=== PATIENT | male | born 1960 | race Caucasian/White ===

== ENCOUNTER 2018-01-08 10:34 | Outpatient (CLI) | payer BC | END 2018-01-08 10:35 | disposition home or self-care (01) | LOC: BICMRI 10:34 | PROVIDERS: ATTEND Neurological Surgery | DX: M54.12 Radiculopathy, cervical region (principal); M48.02 Spinal stenosis, cervical region; M48.03 Spinal stenosis, cervicothoracic region; M99.81 Other biomechanical lesions of cervical region; Z98.1 Arthrodesis status | CPT/HCPCS: 72141 ==

== ENCOUNTER 2018-02-16 05:42 | Day surgery (SDC) | payer BC ==
--- NOTE | 2018-02-16 00:07 | HP ---
HISTORY OF PRESENT ILLNESS: Mr. Sneed is a very pleasant 57-year-old man presenting for evaluation of a single episode roughly 3 weeks ago, but he describes complete right arm paralysis to return in t he next hour to normal state of function. He also describes to me what sounds like Nicolas's pheno cesar, where he gets difficult to describe sensation in the posterior neck that radiates anteriorly i nto the shoulder blades and chest and he has to support 5-10 minutes and then he feels again th ey have returned to normal. He also reports that he has been dropping items. He has a new MRI from [facility] that reveals severe central canal stenosis at C5 to C7 with the prior construct at C3-C4. He bolivar s not treated this in any significant way, though his MRI would preclude in my opinion any conservati ve management between now in surgery. On examination, he has a normal gait and has normal bilateral upper extremity range of motion and strength. His cervical range of motion is somewhat limited but i s nontender to the cervical spine. PAST MEDICAL HISTORY: Significant for arthritis, seasonal allergies, depression. PAST SURGICAL HISTORY: Cervical spinal fusion C3-C4. CURRENT MEDICATIONS: Meloxicam. ALLERGIES: No known drug allergies. PHYSICAL EXAMINATION: As previously stated. ASSESSMENT: Cervical myelopathy. PLAN: Dr. Grider met with the patient, reviewed imaging ultimately advocated for C5 through C7 ACDF. He explained to the patient the risks, benefits, and alternatives of the procedure. The patient exp ressed understanding and would like to move forward with surgery as discussed. I do believe the kayli ent is mentally competent and capable of making medical decisions for himself. We will move forward with surgery as planned. Humble uDran PA-C dictating for Dr. Grider.
[2018-02-16] MEDS ORDERED: CEFAZOLIN/Water 2 GM/20 ML SYRINGE ONE ×2 (06:20→11:18)
[2018-02-16] MEDS ORDERED: Thrombin 5000 UNITS/5 ML VIAL ONE (06:25)
[2018-02-16] MEDS ORDERED: Fentanyl 100 MCG/2 ML VIAL ONE ×3 (07:04→09:03)
[2018-02-16] MEDS ORDERED: Midazolam HCl 2 mg/2 ml Vial ONE (07:04)
[2018-02-16] MEDS ORDERED: Tamsulosin HCl 0.4 MG CAP ONE (09:04)
[2018-02-16] MEDS ORDERED: Ketorolac Tromethamine 30 MG/ML VIAL ONE (09:06)
--- NOTE | 2018-02-16 09:22 | OP ---
DATE OF PROCEDURE: 02/16/2018 SURGEON: Dimitris Grider M.D. HAND POTTER: Humble Duran PA-C. INDICATION: Pain. 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 ANESTHESIA: General. PROCEDURE: Anterior cervical discectomy and fusion C5-C7. TECHNIQUE: The patient was brought to the operating room and placed under general anesthesia. He wa s placed on the table in supine position. A transverse incision was planned over the lateral aspect of the neck on the right. After prepping and draping and after an appropriate operative pause, the i ncision was created. Soft tissues were swept away from midline. A self-retaining retractor was plac ed in the wound for optimal exposure. After confirming the appropriate level with C-arm fluoroscopy, an annulotomy was performed in the C6-7 disk space. All disk material as well as anterior and poste rior osteophytes were removed. After complete decompression, a 7 mm lordotic PEEK cage packed with a llograft and autograft material was placed within the interbody space. We redirected our attention t o the level above at C5-6 where again an annulotomy was performed. All disk material as well as ante rior and posterior osteophytes were removed. After complete decompression, a 6 mm lordotic PEEK cage packed with allograft and autograft material was placed within the interbody space. An anterior cer vical plate was then fashioned to the front of the spine and secured with a total of 6 screws. Midli ne and lateral structures were inspected and found to be free from significant trauma. The wound was irrigated. Hemostasis was maintained throughout. The wound was then closed in anatomic layers and a pressure dressing was applied. There were no known procedural complications.
[2018-02-16] MEDS ORDERED: HYDROcodone/Acetaminophen 5/325 mg Tablet ONE (11:18)
[2018-02-16] MEDS ORDERED: Dexamethasone 20 MG/5 ML VIAL ONE (16:24)
[2018-02-16] MEDS ORDERED: PROPOFOL 200 MG/20 ML VIAL ONE (16:24)
[2018-02-16] MEDS ORDERED: Ondansetron HCl/PF 4 MG/2 ML Vial ONE (16:24)
[2018-02-16] MEDS ORDERED: Glycopyrrolate 0.2 MG/ML 5 ML SYRINGE ONE (16:24)
[2018-02-16] MEDS ORDERED: PHENYLEPHRINE-NS 100 MCG/ML 10 ML SYRINGE ONE (16:24)
== END 2018-02-16 12:18 | disposition home or self-care (01) ==
LOC: SDC 05:42
PROVIDERS: ATTEND Neurological Surgery
PROC: 0RG10A0 Fusion of Cervical Vertebral Joint with Interbody Fusion Device, Anterior Approach, Anterior Column, Open Approach (ICD-10-PCS; principal; 2018-02-16)
PROC: 0RT30ZZ Resection of Cervical Vertebral Disc, Open Approach (ICD-10-PCS; principal; 2018-02-16)
DX: M47.22 Other spondylosis with radiculopathy, cervical region (principal); M47.12 Other spondylosis with myelopathy, cervical region; M48.02 Spinal stenosis, cervical region; M19.90 Unspecified osteoarthritis, unspecified site; F32.9 Major depressive disorder, single episode, unspecified; J30.89 Other allergic rhinitis; Z98.1 Arthrodesis status
CPT/HCPCS: 76001; 96374; 96375; 96376; C1713; C1776; J1100; J1885; J2250; J2405; J2704; J3010

== ENCOUNTER 2018-04-07 09:05 | Outpatient (CLI) | payer BC ==
--- NOTE | 2018-04-07 11:02 | RAD ---
FOUR VIEWS CERVICAL SPINE: HISTORY: Cervical radiculopathy. COMPARISON: None. FINDINGS: In the AP projection, there is a posterior element wire projecting over the C3 and C4 levels. There is an anterior fusion plate with transvertebral body screw at C5, C6, and C7. There is no perihardwa re lucency. There is fusion of the C3-C4 disk space. There is moderate degenerative change at C4-C5, C5-C6. Dis k prosthesis at C5-C6 and C6-C7. No prevertebral soft tissue swelling. Predental space is normal. Lateral masses of C1 and C2 articulate appropriately. Limited evaluation of the odontoid process. IMPRESSION: Cervical fusion changes as above. POS: [facility]
== END 2018-04-07 09:06 | disposition home or self-care (01) ==
LOC: TBSIIMAG 09:05
PROVIDERS: ATTEND Neurological Surgery
DX: M54.12 Radiculopathy, cervical region (principal); Z98.1 Arthrodesis status
CPT/HCPCS: 72040

== ENCOUNTER 2018-04-17 10:03 | Outpatient (CLI) | payer BC ==
--- NOTE | 2018-04-17 13:59 | MRI ---
MRI LUMBAR SPINE WITHOUT CONTRAST: Date: 04/17/18 HISTORY: Lumbar radiculopathy. Chronic low back pain, worsening on right side. COMPARISON: None. TECHNIQUE: MRI lumbar spine is performed without intravenous Gadolinium administration. Multisequential, multipl ankur imaging is performed. FINDINGS: Appropriate T1 marrow signal intensity of the lumbar vertebra. Lumbar spine vertebral body height is maintained. There is no fracture. No significant STIR hyperintensity to suggest vertebral body edema or ligamentous injury. Symmetric signal intensity of the psoas muscles. Appropriate signal intensity of the visualized solid organs. Conus medullaris terminates at the upper aspect of L1. T12-L1: Adequate disc hydration. No significant central canal stenosis. Foramina are patent. L1-L2: Adequate disc hydration. No significant central canal stenosis. Neural foramina are patent. L2-L3: Desiccation with mild loss of disc space height. Generalized disc bulge, ligamentum flavum th ickening, and facet hypertrophy result in mild central canal stenosis. Mild right foraminal narrowing . Left neural foramen is patent. L3-L4: Moderate loss of disc space height. There is a broad based disc bulge, ligamentum flavum thic kening, and facet hypertrophy with severe central canal stenosis. Moderate right and mild left neural foraminal narrowing. L4-L5: Desiccation with mild loss of disc space height. Broad based disc bulge, ligamentum flavum th ickening, and facet hypertrophy with moderate to severe central canal stenosis. Questionable small an nular fissure involving the posterior midline margin of the disc. Moderate to severe right and left n eural foraminal narrowing. L5-S1: Desiccation with mild loss of disc space height. There is a broad based disc bulge with a sma ll left subarticular extrusion. There is no significant stenosis of the thecal sac. Disc material abu ts and partially obscures the traversing left S1 nerve root. There is moderate bilateral neural ismael inal narrowing. IMPRESSION: 1. Degenerative changes of the lumbar spine as above. There is moderate to severe central canal sten osis at L4-L5. Severe central canal stenosis at L3-L4. 2. Mass effect with partial obscuration of traversing left S1 nerve root due to disc material in the left subarticular zone. POS: [facility]
== END 2018-04-17 10:04 | disposition home or self-care (01) ==
LOC: BICMRI 10:03
PROVIDERS: ATTEND Neurological Surgery
DX: M47.26 Other spondylosis with radiculopathy, lumbar region (principal); M48.061 Spinal stenosis, lumbar region without neurogenic claudication
CPT/HCPCS: 72148

== ENCOUNTER 2018-05-20 08:36 | Day surgery (SDC) | payer BC ==
[2018-05-13 09:35] VITALS: BMI 34.3
--- NOTE | 2018-05-19 13:21 | HP ---
HISTORY OF PRESENT ILLNESS: Mr. Laurent is a 57-year-old man, who is known to us for recent ACDF that is recovered sufficiently well enough to pursue treatment of his lower back, which is specific for history of severe lower back pain with neurogenic claudication. He also had some minor L4 radicular pains that alternates between the left and right lower extremity. His new MRI from [place] that reveals critical stenosis at L3-4 via disk herniation centrally. He hopes to move forward with surgery to treat this. PAST MEDICAL HISTORY: Arthritis, seasonal allergies, depression. PAST SURGICAL HISTORY: Cervical ACDF C3-4 and C5-C7. CURRENT MEDICATIONS: Meloxicam. ALLERGIES: NO KNOWN DRUG ALLERGIES. PHYSICAL EXAMINATION: GENERAL: The patient is alert and oriented x3. MUSCULOSKELETAL: Gait is mildly antalgic. Lower extremity motor exam is normal. ASSESSMENT: Lumbar stenosis with claudication. PLAN: Dr. Grider met with the patient, reviewed imaging, and advocated for an L3-4 decompression with possible diskectomy. He explained to the patient about the risks, benefits, and alternatives of the procedure. The patient expressed understanding and elected to move forward with surgery as discussed. I do believe the patient is mentally competent and capable of making medical decisions for himself. We will move forward with surgery as planned. Job ID: [id number]
[2018-05-20] MEDS ORDERED: CEFAZOLIN 2 GM/50 ML BAG ONE ×2 (10:06→15:27)
[2018-05-20] MEDS ORDERED: Bupivacaine HCl 0.5%/Epinephrine 1:200,000/PF 30 ml Vial ONE (10:42)
[2018-05-20] MEDS ORDERED: Fentanyl 100 MCG/2 ML VIAL ONE (11:03)
[2018-05-20] MEDS ORDERED: Tamsulosin HCl 0.4 MG CAP ONE (12:43)
[2018-05-20] MEDS ORDERED: Rocuronium Bromide 10 MG/ML (10ML VIAL) ONE (15:13)
[2018-05-20] MEDS ORDERED: Glycopyrrolate 0.2 MG/ML 5 ML SYRINGE ONE (15:13)
[2018-05-20] MEDS ORDERED: Dexamethasone 20 MG/5 ML VIAL ONE (15:13)
[2018-05-20] MEDS ORDERED: PROPOFOL 200 MG/20 ML VIAL ONE (15:13)
[2018-05-20] MEDS ORDERED: Lidocaine 1% PF 5 ML VIAL ONE (15:13)
[2018-05-20] MEDS ORDERED: PHENYLEPHRINE-NS 100 MCG/ML 10 ML SYRINGE ONE (15:13)
[2018-05-20] MEDS ORDERED: Ketorolac Tromethamine 30 MG/ML VIAL ONE (15:13)
[2018-05-20] MEDS ORDERED: Ondansetron PF 4 MG/2 ML Vial ONE (15:13)
--- NOTE | 2018-05-20 18:13 | OP ---
DATE OF PROCEDURE: 05/20/2018 MED CARE MANAGER: Humble Duran PA-C INDICATION: Pain. DIAGNOSES: Lumbar stenosis and neurogenic claudication. PROCEDURE PERFORMED: L3-L4 lumbar decompression. ANESTHESIA: General. DESCRIPTION OF PROCEDURE: The patient was brought into the operating room and placed under general anesthesia. He was flipped from the supine to prone position on the operating room table. A linear incision was planned over the L3-L4 segment. After prepping and draping and after a preoperative pause, the incision was created. The soft tissues were swept away from midline. A self-retaining retractor was placed in the wound for optimal exposure. After confirming the appropriate level with C-arm fluoroscopy, an Adson rongeur as well as a high-speed cutting drill bit as well as 2, 3, and 4 mm Kerrison's were used to perform a laminectomy at the L3-L4 interspace. After decompressing the central canal and lateral recesses, the wound was irrigated. Hemostasis was maintained throughout. The wound was then closed in anatomic layers and a pressure dressing was applied. There were no known procedural complications. Job ID: [id number]
== END 2018-05-20 17:00 | disposition home or self-care (01) ==
LOC: SDC 08:36
PROVIDERS: ATTEND Neurological Surgery
PROC: 01NB0ZZ Release Lumbar Nerve, Open Approach (ICD-10-PCS; principal; 2018-05-20)
DX: M48.062 Spinal stenosis, lumbar region with neurogenic claudication (principal); M51.16 Intervertebral disc disorders with radiculopathy, lumbar region; M19.90 Unspecified osteoarthritis, unspecified site; F32.9 Major depressive disorder, single episode, unspecified; J30.2 Other seasonal allergic rhinitis; Z79.1 Long term (current) use of non-steroidal anti-inflammatories (NSAID); Z98.1 Arthrodesis status
CPT/HCPCS: 76000; J0670; J1100; J1885; J2001; J2405; J2704; J3010

== ENCOUNTER 2020-04-09 19:07 | Inpatient (IN) | payer BC ==
[2020-04-09 19:36] LABS: Actual Bicarbonate (HCO3a) 21.1 mEq/L (22-28); Analyzer IN Cardio ER; Base Excess (BEa) -2.1 mEq/L (-2.0 to +3.0); Calcium, Ionized (arterial) 1.14 mmol/L (1.12-1.30); Carboxyhemoglobin (COHb) 0.7 gm% (0.0-3.0); Hemoglobin (Hb) 15.5 g/dL (14.0-18.0); pH, Arterial 7.44 (7.35-7.45)
[2020-04-09 19:52] LABS: #Lymphocytes 0.5 thou/uL (1.20-3.40); #Monocytes 0.2 thou/uL (0.11-0.59); #Neutrophils 4.3 thou/uL (1.40-6.50); %Eosinophils 0.1 % (0.0-10.0); %Lymphocytes 10.2 % (21.0-51.0); %Monocytes 3.1 % (0.0-10.0); %Neutrophils 86.6 % (42.0-75.0); Hemoglobin 14.9 g/dL (14.0-18.0); Mean Corpuscular HGB CONC 34.8 g/dL (32.0-36.0); Mean Corpuscular Hemoglobin 31.9 pg (27.0-31.0); Mean Corpuscular Volume 91.7 fL (78.0-98.0); Mean Platelet Volume 6.6 fL (7.4-10.4); Platelet Count 161 thou/uL (130-400); RBC Distribution Width 11.9 % (11.5-14.5); Red Blood Cell (RBC) Count 4.65 mill/uL (4.70-6.10)
--- NOTE | 2020-04-09 20:02 | RAD ---
Exam: Chest one view HISTORY:Dyspnea. History 70 saturation. Comparison: 06/06/2006 FINDINGS: Cardiac silhouette: Normal Aorta: Unremarkable Pulmonary vessels: Normal Costophrenic angles: Clear LUNGS: Multi lobar alveolar opacification with air bronchograms. Pneumothorax: None Osseous abnormalities: Interval evaluated cervical fusion hardware. IMPRESSION: Multi lobar alveolar opacification with air bronchograms. Correlate for multi lobar pneum onia versus pulmonary edema
[2020-04-09 20:14] LABS: O2 Tension (PaO2), arterial 47.9 mmHg (80.0-100.0)
[2020-04-09 20:15] LABS: Puncture Site RRA
[2020-04-09 20:16] LABS: ALT (SGPT) 27 U/L (8-55); AST (SGOT) 33 U/L (5-34); Albumin 3.7 g/dL (3.5-5.0); Alkaline Phosphatase 59 U/L (40-110); Anion Gap 17 mmol/L (10-20); BUN (Urea Nitrogen) 13 mg/dL (8.4-25.7); Bilirubin, Total 0.8 mg/dL (0.2-1.2); CK (CPK) 712 U/L (30-200); Calc. Creatinine Clearance 0 mL/min (70-130); Calcium 8.2 mg/dL (7.8-10.44); Carbon Dioxide 24 mmol/L (22-29); Chloride 96 mmol/L (98-107); Globulin 2.7 g/dL (2.4-3.5); Glucose 187 mg/dL (70-105); Potassium 3.6 mmol/L (3.5-5.1); Protein, Total 6.4 g/dL (6.0-8.3); Sodium 133 mmol/L (136-145)
[2020-04-09] MEDS ORDERED: cefTRIAXone\\ROCEPHIN 2 GM VIAL ONE (20:53)
[2020-04-09] MEDS ORDERED: Acetaminophen 500 MG TAB ONE (20:53)
[2020-04-09 21:34] LABS: Lactic Acid 2.4 mmol/L (0.5-2.2)
[2020-04-09] MEDS ORDERED: Electrolyte Replacement Protocol 1 EACH FS PRN (23:45)
[2020-04-09] MEDS ORDERED: Ondansetron PF 4 MG/2 ML Vial IVP PRN (23:48)
[2020-04-09] MEDS ORDERED: cloNIDine 0.1 MG TAB PO PRN (23:48)
[2020-04-09] MEDS ORDERED: hydrALAZINE 20 MG/ML VIAL SLOW IVP PRN (23:48)
[2020-04-09] MEDS ORDERED: Labetalol HCl 100 MG/20 ML VIAL SLOW IVP PRN (23:48)
[2020-04-09] MEDS ORDERED: Promethazine HCl 12.5 MG in Sodium Chloride 0.9% 50 ML IVPB PRN (23:48)
[2020-04-09] MEDS ORDERED: HYDROcodone/Acetaminophen 5/325 mg Tablet PO PRN (23:48)
[2020-04-09] MEDS ORDERED: Morphine 2 MG/ML VIAL SLOW IVP PRN (23:48)
--- NOTE | 2020-04-09 23:50 | PDOC.HHP ---
Hospitalist HPI - History of Present Illness Shortness of breath History of Present Illness: Patient is a 59 year old male with no significant PMH who presents as transfer from [facility] for shortness of breath and hypoxia. Patient was diagnosed with COVID 19 on 04/05/2020, he has completed a course of azithromycin/Z-pack and prednisone as outpatient, however he persisted short of breath at home, checked pulse oximeter and was satting in 60s, went to [facility] and they reported similar saturation, he improved to high 80s on NRB and was eventually placed on HFNC and is sating in mid 90s now. He was given IV decadron there and transferred. Ferritin 612, CK 712, glucose 187, abg w/ ph 7.44, pco2 32, po2 47. CXR report shows multilobar pneumonia w/ air bronchograms. Hospitalist ROS - Review of Systems Constitutional: reports: weakness, malaise. denies: fever, chills, sweats, other Eyes: denies: pain, vision change, conjunctivae inflammation, eyelid inflammation, redness, other ENT: denies: ear pain, ear discharge, nose pain, nose discharge, nose congestion, mouth pain, mouth swelling, throat pain, throat swelling, other Respiratory: reports: cough, shortness of breath, pleuritic pain. denies: dry, hemoptysis, SOB with excertion, sputum, wheezing, other Cardiovascular: denies: chest pain, palpitations, orthopnea, paroxysmal noc. dyspnea, edema, light headedness, other Gastrointestinal: denies: nausea, vomiting, abdominal pain, diarrhea, constipation, melena, hematochezia, other Genitourinary: denies: dysuria, frequency, incontinence, hematuria, retention, other Musculoskeletal: denies: neck pain, shoulder pain, arm pain, back pain, hand pain, leg pain, foot pain, other Skin: denies: rash, lesions, arabella, bruising, other Neurological: denies: weakness, numbness, incoordination, change in speech, confusion, seizures, other All other systems reviewed; all pertinent +/- noted in HPI/Subj - Medication Medications: none - Exam General Appearance: NAD, awake alert Eye: PERRL, anicteric sclera ENT: normocephalic atraumatic, no oropharyngeal lesions, moist mucosa Neck: supple, symmetric, no JVD, no thyromegaly, no lymphadenopathy, no carotid bruit Heart: RRR, no murmur, no gallops, no rubs, normal peripheral pulses Respiratory - other findings: coarse, decreased breath sounds Gastrointestinal: soft, non-tender, non-distended, normal bowel sounds, no palpable masses, no hepatomegaly, no splenomegaly, no bruit Extremities: no cyanosis, no clubbing, no edema Skin: normal turgor, no lesions, no rashes Neurological: cranial nerve grossly intact, normal sensation to touch, no weakness, no focal deficits, no new deficit Musculoskeletal: normal tone, normal strength, no muscle wasting Psychiatric: normal affect, normal behavior, A&O x 3 Hospitalist Results - Labs Result Diagrams: 04/09/20 19:35 04/09/20 19:35 Lab results: WBC 5.0 thou/uL (4.8-10.8) 04/09/20 19:35 Hgb 14.9 g/dL (14.0-18.0) 04/09/20 19:35 Hct 42.7 % (42.0-52.0) 04/09/20 19:35 MCV 91.7 fL (78.0-98.0) 04/09/20 19:35 Plt Count 161 thou/uL (130-400) 04/09/20 19:35 Neutrophils % 86.6 % (42.0-75.0) H 04/09/20 19:35 ABG pH 7.44 (7.35-7.45) 04/09/20 19:32 ABG pCO2 32.0 mmHg (35.0-45.0) L 04/09/20 19:32 ABG pO2 47.9 mmHg (80.0-100.0) L* 04/09/20 19:32 Sodium 133 mmol/L (136-145) L 04/09/20 19:35 Potassium 3.6 mmol/L (3.5-5.1) 04/09/20 19:35 Chloride 96 mmol/L (98-107) L 04/09/20 19:35 Carbon Dioxide 24 mmol/L (22-29) 04/09/20 19:35 BUN 13 mg/dL (8.4-25.7) 04/09/20 19:35 Creatinine 0.86 mg/dL (0.7-1.3) 04/09/20 19:35 Glucose 187 mg/dL (70-105) H 04/09/20 19:35 Lactic Acid 2.4 mmol/L (0.5-2.2) H 04/09/20 21:09 Calcium 8.2 mg/dL (7.8-10.44) 04/09/20 19:35 Total Bilirubin 0.8 mg/dL (0.2-1.2) 04/09/20 19:35 AST 33 U/L (5-34) 04/09/20 19:35 ALT 27 U/L (8-55) 04/09/20 19:35 Alkaline Phosphatase 59 U/L (40-110) 04/09/20 19:35 Creatine Kinase 712 U/L (30-200) H 04/09/20 19:35 Troponin I 0.012 ng/mL (< 0.028) 04/09/20 19:35 B-Natriuretic Peptide Less than 10.0 pg/mL (0-100) 04/09/20 19:35 Serum Total Protein 6.4 g/dL (6.0-8.3) 04/09/20 19:35 Albumin 3.7 g/dL (3.5-5.0) 04/09/20 19:35 Additional comment: VITAL SIGNS Sun Apr 09, 2020 21:58 STEPHANY Díaz, Wendi BP: 119/71 Pulse: 82 Resp: 24 Temp: 98.2 (Axillary) O2 sat: 92 on (High Flow O2) Time: 04/09/2020 21:58. records reviewed, imaging reports reviewed, labs reviewed Hospitalist H&P A/P - Plan Plan: Patient is a 59 year old male with no significant PMH who presents as transfer from [facility] for shortness of breath and hypoxia. # COVID 19 infection # hypoxemia # multifocal pneumonia Patient was diagnosed with COVID 19 on 04/05/2020, completed outpatient course of azithromycin and prednisone, pulse oximeter at home showed saturation in 60s, now improved on HFNC and is sating in mid 90s now. CXR report shows multilobar pneumonia w/ air bronchograms. - admit to med/surg flood - continue HFNC - IV decadron and levaquin ordered - ID consult to have patient considered advanced therapies # hyperglycemia - will order a1c and SSI to rule out DM, he did get steroids recently so this may be temporary side effect and not true DM DVT/GI ppx full code
[2020-04-10] MEDS: Guaifenesin DM 100-10/5 ML UDCUP PO PRN (01:23)
[2020-04-10] MEDS ORDERED: Dextrose 50% Abboject 50 ML SYRINGE SLOW IVP PRN (01:51)
[2020-04-10] MEDS ORDERED: Dextrose 5% in Water 1,000 ML IV PRN (01:51)
[2020-04-10 06:11] LABS: #Lymphocytes 0.5 thou/uL (1.20-3.40); #Monocytes 0.2 thou/uL (0.11-0.59); #Neutrophils 3.2 thou/uL (1.40-6.50); %Eosinophils 0.3 % (0.0-10.0); %Lymphocytes 11.8 % (21.0-51.0); %Monocytes 6.2 % (0.0-10.0); %Neutrophils 81.7 % (42.0-75.0); Hemoglobin 14.3 g/dL (14.0-18.0); Mean Corpuscular HGB CONC 34.9 g/dL (32.0-36.0); Mean Corpuscular Hemoglobin 32.2 pg (27.0-31.0); Mean Corpuscular Volume 92.2 fL (78.0-98.0); Mean Platelet Volume 6.6 fL (7.4-10.4); Platelet Count 166 thou/uL (130-400); RBC Distribution Width 11.8 % (11.5-14.5); Red Blood Cell (RBC) Count 4.45 mill/uL (4.70-6.10); White Blood Cell (WBC) Count 3.9 thou/uL (4.8-10.8)
[2020-04-10 06:15] LABS: Hemoglobin A1c 5.3 % (4.0-6.0)
[2020-04-10 06:31] LABS: Anion Gap 14 mmol/L (10-20); BUN (Urea Nitrogen) 12 mg/dL (8.4-25.7); Calc. Creatinine Clearance 177 mL/min (70-130); Calcium 8.4 mg/dL (7.8-10.44); Carbon Dioxide 26 mmol/L (22-29); Chloride 100 mmol/L (98-107); Glucose 147 mg/dL (70-105); Magnesium 2.4 mg/dL (1.6-2.6); Potassium 3.8 mmol/L (3.5-5.1); Sodium 136 mmol/L (136-145)
[2020-04-10] MEDS: Famotidine 20 MG TAB PO SCH ×2 (08:45→19:37)
[2020-04-10] MEDS ORDERED: Albuterol 200 PUFF (6.7GM INHALER) INH PRN (08:56)
[2020-04-10] MEDS: Zinc Sulfate 220 MG CAP PO SCH (08:59)
[2020-04-10] MEDS: guaiFENesin ER 600 MG TAB PO SCH ×2 (08:59→19:38)
[2020-04-10] MEDS: Ascorbic Acid 500 mg Chewable Tablet PO SCH (08:59)
[2020-04-10] MEDS: Enoxaparin Sodium 40 MG/0.4 ML SYRINGE SC SCH ×2 (08:59→19:37)
[2020-04-10] MEDS ORDERED: Heparin 5,000 UNITS/ML VIAL SC SCH (09:00)
[2020-04-10] MEDS ORDERED: FLU VACC QS2020-21(6MOS UP)/PF 60 MCG/0.5 ML SYRINGE IM ONE (09:00)
--- NOTE | 2020-04-10 11:27 | PDOC.HOSPP ---
- Subjective Encounter Date: 04/10/20 Encounter Time: 10:00 Subjective: Patient seen and examined bedside today, patient is on high flow oxygen, patient does not have any fever, he feels shortness of breath with exertion, denies any wheezing, he does not have any significant cough, - Objective Vital Signs & Weight: Vital Signs (12 hours) Temp Pulse Resp BP Pulse Ox 04/10/20 09:06 98.6 F 81 20 105/66 89 L 04/10/20 08:59 90 L 04/10/20 04:30 98.3 F 83 20 104/64 93 L 04/10/20 02:15 90 L 04/10/20 00:49 91 L 04/10/20 00:05 98.9 F 84 22 H 115/66 91 L Weight Weight 247 lb Result Diagrams: 04/10/20 05:31 04/10/20 05:31 Additional Labs: Accuchecks 04/10/20 04:02 POC Glucose 163 H Radiology Reviewed by me: Yes EKG Reviewed by me: Yes Hospitalist ROS - Review of Systems Constitutional: reports: weakness. denies: fever, chills, sweats, malaise, other ENT: denies: ear pain, ear discharge, nose pain, nose discharge, nose trinidad estion, mouth pain, mouth swelling, throat pain, throat swelling, other Respiratory: reports: cough, shortness of breath, SOB with excertion. denies: dry, hemoptysis, pleuritic pain, sputum, wheezing, other Cardiovascular: denies: chest pain, palpitations, orthopnea, paroxysmal noc. dyspnea, edema, light headedness, other Gastrointestinal: denies: nausea, vomiting, abdominal pain, diarrhea, constipation, melena, hematochezia, other Genitourinary: denies: dysuria, frequency, incontinence, hematuria, retention, other Musculoskeletal: denies: neck pain, shoulder pain, arm pain, back pain, hand pain, leg pain, foot pain, other Skin: denies: rash, lesions, arabella, bruising, other - Medication Medications: Active Medications Generic Name Dose Route Start Last Admin Trade Name Freq PRN Reason Stop Dose Admin Ascorbic Acid 1,000 mg 04/10/20 09:00 04/10/20 08:59 Ascorbic Acid 500 Mg Chewable Tablet PO 1,000 mg DAILY JASON Administration Enoxaparin Sodium 40 mg 04/10/20 09:00 04/10/20 08:59 Enoxaparin Sodium 40 Mg/0.4 Ml Syringe SC 40 mg 09,2100 JASON Administration Famotidine 20 mg 04/10/20 09:00 04/10/20 08:45 Famotidine 20 Mg Tab PO 20 mg BID JASON Administration Guaifenesin 600 mg 04/10/20 09:00 04/10/20 08:59 Guaifenesin Er 600 Mg Tab PO 600 mg Q12HR JASON Administration Guaifenesin/Dextromethorphan 15 ml 04/09/20 23:48 04/10/20 01:23 Guaifenesin Dm 100-10/5 Ml Udcup PO 15 ml Q4H PRN Administration Cough Levofloxacin 750 mg/ Device 150 mls @ 100 mls/hr 04/10/20 02:00 04/10/20 02:17 IVPB 04/14/20 03:29 150 mls Q24HR JASON Administration Zinc Sulfate 220 mg 04/10/20 09:00 04/10/20 08:59 Zinc Sulfate 220 Mg Cap PO 220 mg DAILY JASON Administration - Exam General Appearance: NAD, awake alert Eye: PERRL, anicteric sclera ENT: normocephalic atraumatic, no oropharyngeal lesions Neck: supple, symmetric, no JVD, no thyromegaly Heart: RRR, no murmur, no gallops, no rubs Respiratory: no wheezes, no ronchi Respiratory - other findings: Air entry reduced at base, Gastrointestinal: soft, non-tender, non-distended, normal bowel sounds Gastrointestinal - other findings: Obesity noted Extremities: no clubbing, no edema Skin: normal turgor, no lesions Neurological: no focal deficits Musculoskeletal: normal tone, normal strength Psychiatric: normal affect, normal behavior, A&O x 3 Hosp A/P (1) Acute and chronic respiratory failure with hypoxia Code(s): J96.21 - ACUTE AND CHRONIC RESPIRATORY FAILURE WITH HYPOXIA Status: Acute (2) Pneumonia due to COVID-19 virus Code(s): U07.1 - COVID-19; J12.89 - OTHER VIRAL PNEUMONIA Status: Acute (3) Hyperglycemia Code(s): R73.9 - HYPERGLYCEMIA, UNSPECIFIED Status: Acute Plan: Due to steroid, hemoglobin A1c within normal limit, (4) Lactic acidosis Code(s): E87.2 - ACIDOSIS Status: Acute Plan: Resolved (5) Obesity (BMI 30.0-34.9) Code(s): E66.9 - OBESITY, UNSPECIFIED Status: Chronic - Plan old records reviewed/req, respiratory therapy, DVT proph w/lovenox Infectious disease consulted, Continue Proventil HFA, Mucinex, vitamin C, zinc sulfate, Continue dexamethasone Continue Lovenox for DVT prophylaxis Remdesivir evaluation Medication reviewed and continue provide symptomatic and supportive care We will monitor labs Continue high flow oxygen and wean off as tolerated
[2020-04-10] MEDS: Albuterol 200 PUFF (6.7GM INHALER) INH SCH ×4 (12:12→22:08)
[2020-04-10] MEDS ORDERED: REMDESIVIR (EUA) 200 MG in Sodium Chloride 0.9% 250 ML 210 ML IV SCH (15:00)
[2020-04-10] MEDS ORDERED: Dexamethasone 4 mg/ml Vial SLOW IVP SCH (17:00)
[2020-04-10] MEDS: Mometasone 200 MCG/Formoterol 5 MCG 120 PUFF INHALER INH SCH (17:57)
[2020-04-10] MEDS: Dexamethasone 4 mg/ml Vial SLOW IVP SCH (19:37)
[2020-04-10 20:37] LABS: Actual Bicarbonate (HCO3a) 24.6 mEq/L (22-28); Base Excess (BEa) 0.7 mEq/L (-2.0 to +3.0); CO2 Tension 37.4 mmHg (35.0-45.0); Calcium, Ionized (arterial) 1.14 mmol/L (1.12-1.30); Carboxyhemoglobin (COHb) 1.2 gm% (0.0-3.0); Hemoglobin (Hb) 15.6 g/dL (14.0-18.0); Potassium - ABG Lab 3.52 mmol/L (3.70-5.30); pH, Arterial 7.44 (7.35-7.45)
--- NOTE | 2020-04-10 20:38 | CON ---
DATE OF CONSULTATION: 04/10/2020 REASON FOR CONSULTATION: COVID pneumonia. HISTORY OF PRESENT ILLNESS: A 59-year-old patient who has a history of C-spine issues with prior fusion and a right hip replacement who developed symptoms about 7 days before admission, was then seen at [facility] and given azithromycin and prednisone. His oximetry deteriorated and it measured at 60% on room air, 90% on non-rebreathing in emergency room after arriving again for re-evaluation. He was transferred to [place] and admitted in the 4th floor, sitting in bed. O2 saturations are at 89%-90% with a high-flow nasal cannula at 50 L. He from time to time will cough, he is coughing intensely as matter of fact. When doing coughing spells, his O2 sats dropped and then when he stops coughing, they go up to 91 and he starts hyperventilating, then it goes up to 94%-95%, but then when he goes back to normal ventilation, the O2 saturations return to 91 or 89. Denies any headaches. No nausea or vomiting. No bleeding. No chest pain, abdominal pain, or diarrhea. No genitourinary symptoms. No joint symptoms. No neurological symptoms. MEDICAL HISTORY: C-spine issues and right hip replacement. No other medical problems reported. SOCIAL HISTORY: He is employed, , drinks weekly, never smoker. ALLERGIES: NONE. CURRENT MEDS: 1. Vitamin C. 2. Decadron. 3. Glucagon. 4. Remdesivir. FAMILY HISTORY: Noncontributory. PHYSICAL EXAMINATION: VITAL SIGNS: Afebrile. T-max 98.6. On high-flow nasal cannula at 40 L 94%. When I saw him, he was 50 L saturating in the 89-90. He was able to bring the O2 sats higher only if he is hyperventilated. BP 105/66. GENERAL: He did not appear in particular distress except when he coughed. I tried to make him lay down to see if he could tolerate prone position, but he could not. His O2 sats dropped even further into the low 80s when he did that. HEENT: His ocular movements are conjugate. Oral cavity normal. NECK: Supple. LUNGS: Symmetric air entry with scattered inspiratory crackles. No wheezing. CARDIOVASCULAR: S1, S2. Regular rate. No S3, S4. ABDOMEN: Soft, not distended or tender. No bladder distention or joint inflammatory activity. NEURO EXAMINATION: Nonfocal. No edema. LABORATORY DATA: White cell count 3.9, hemoglobin 14, platelets 166, 81% neutrophils, and creatinine 0.73. Liver profile normal. CK 712. Albumin 3.7. Troponin 0.012. BNP less than 10. Blood gas yesterday with PO2 47, pCO2 32. Chest x-ray, diffuse bilateral infiltrates. ASSESSMENT: No major medical problems in the past, now with severe coronavirus disease 2019 pneumonia. The patient may have deteriorated due to the early introduction of corticosteroids in his regimen within the first week, which will suppress an interferon response and innate immune response, presumably may lead to higher levels of viral replication. This is verified in the results of the [place] trial with Decadron that showed that early-stage patients do not benefit from introduction of corticosteroids. Nonetheless, we will start him on Remdesivir and continue Decadron. I believe Pulmonary Medicine should be consulted because he is right at the margin where he might require a higher level of intervention such as BiPAP or even intubation with mechanical ventilation. May consider also transfer to [facility], monitor markers, and daily labs including BMP and liver function. Job ID: [id number] [facility] CENTERKeena
[2020-04-10 20:39] LABS: O2 Tension (PaO2), arterial 32.5 mmHg (80.0-100.0); Puncture Site RRA
--- NOTE | 2020-04-10 20:57 | PDOC.EVN ---
Event Note - Event Note Event Note: Nursing called, patient tachypneic and tachycardic and hypoxic after ambulation. Reported sp02 drops 70s with any movement. HR regular in low 110s. RR 25-30. Will get stat ABG and stat EKG, likely transfer to [facility].
--- NOTE | 2020-04-10 21:39 | CON ---
DATE OF CONSULTATION: HISTORY OF PRESENT ILLNESS: This is a 59-year-old obese a gentleman, 112 kg, who came to the hospital on 04/09/2020 after having progressive respiratory failure, shortness of breath secondary to ortega positive pneumonia. He took a course of Zithromax and prednisone. Sats were in the 60s on room air. He is now on a high-flow. He is started on remdesivir. He has been started on convalescent plasma, high-dose steroids. There are cough and shortness of breath. No fever. No chills. PAST MEDICAL HISTORY: Arthritis. HOME MEDICINES: Apparently none. He was in the hospital about a year ago with arthritis, cervical disk disease. He underwent surgical intervention. L3-L4 lumbar decompression surgery. PHYSICAL EXAMINATION: VITAL SIGNS: His sats on 40%, rate of 40, 94; respiratory rate 18; temperature 98; blood pressure 119/77. CHEST: No wheezing. No crackles. CARDIAC: Normal S1, S2. No gallops. ABDOMEN: No masses. LABORATORY DATA: Platelet count is normal. White count is 3000. Lytes are normal. X-ray shows bilateral infiltrates. ASSESSMENT: Ortega positive pneumonia, respiratory failure. PLAN: Agree with remdesivir, plasma, high-dose steroids. Supportive care. We will follow. Consultation note, 70 minutes, 50% direct patient care. Job ID: [id number]
[2020-04-11] MEDS: Albuterol 200 PUFF (6.7GM INHALER) INH SCH ×6 (02:30→23:10)
[2020-04-11 04:20] LABS: #Lymphocytes 0.5 thou/uL (1.20-3.40); #Monocytes 0.3 thou/uL (0.11-0.59); #Neutrophils 6.1 thou/uL (1.40-6.50); %Basophils 0.1 % (0.0-1.0); %Eosinophils 0.2 % (0.0-10.0); %Lymphocytes 7.9 % (21.0-51.0); %Monocytes 3.8 % (0.0-10.0); %Neutrophils 88.1 % (42.0-75.0); Hemoglobin 14.6 g/dL (14.0-18.0); Mean Corpuscular HGB CONC 34.9 g/dL (32.0-36.0); Mean Corpuscular Hemoglobin 31.6 pg (27.0-31.0); Mean Corpuscular Volume 90.5 fL (78.0-98.0); Mean Platelet Volume 6.6 fL (7.4-10.4); Platelet Count 213 thou/uL (130-400); RBC Distribution Width 11.9 % (11.5-14.5); Red Blood Cell (RBC) Count 4.63 mill/uL (4.70-6.10); White Blood Cell (WBC) Count 6.9 thou/uL (4.8-10.8)
[2020-04-11 04:38] LABS: Lactic Acid 2.4 mmol/L (0.5-2.2)
[2020-04-11 04:45] LABS: ALT (SGPT) 37 U/L (8-55); AST (SGOT) 48 U/L (5-34); Albumin 3.6 g/dL (3.5-5.0); Alkaline Phosphatase 67 U/L (40-110); Anion Gap 15 mmol/L (10-20); BUN (Urea Nitrogen) 14 mg/dL (8.4-25.7); Bilirubin, Total 0.7 mg/dL (0.2-1.2); CK (CPK) 857 U/L (30-200); CRP (Inflammatory) 1.76 mg/dL (= or < 0.5); Calc. Creatinine Clearance 163 mL/min (70-130); Calcium 8.5 mg/dL (7.8-10.44); Carbon Dioxide 26 mmol/L (22-29); Chloride 100 mmol/L (98-107); Globulin 2.7 g/dL (2.4-3.5); Glucose 135 mg/dL (70-105); Magnesium 2.4 mg/dL (1.6-2.6); Potassium 4.1 mmol/L (3.5-5.1); Protein, Total 6.3 g/dL (6.0-8.3); Sodium 137 mmol/L (136-145)
[2020-04-11] MEDS: Mometasone 200 MCG/Formoterol 5 MCG 120 PUFF INHALER INH SCH ×2 (07:00→18:57)
[2020-04-11 07:04] LABS: Actual Bicarbonate (HCO3a) 25.2 mEq/L (22-28); Base Excess (BEa) 1.6 mEq/L (-2.0 to +3.0); CO2 Tension 36.6 mmHg (35.0-45.0); Calcium, Ionized (arterial) 1.14 mmol/L (1.12-1.30); Carboxyhemoglobin (COHb) 0.9 gm% (0.0-3.0); Hemoglobin (Hb) 14.8 g/dL (14.0-18.0); Potassium - ABG Lab 4.03 mmol/L (3.70-5.30); pH, Arterial 7.46 (7.35-7.45)
--- NOTE | 2020-04-11 07:50 | RAD ---
Portable frontal chest radiograph: 04/10/2020 COMPARISON: 04/09/2020 HISTORY: Respiratory distress, Covid pneumonia FINDINGS: There is diffuse perihilar and bibasilar airspace disease/groundglass opacity, most promine nt in the lung bases, left greater than right, slightly worsened when compared to the 04/09/2020 exam. No pneumothorax or large volume pleural effusion. IMPRESSION: Worsening pulmonary parenchymal opacities consistent with the provided history of Covid p neumonia.
[2020-04-11 08:39] LABS: O2 Tension (PaO2), arterial 51.6 mmHg (80.0-100.0); Puncture Site LRA
--- NOTE | 2020-04-11 09:17 | PRG ---
DATE OF SERVICE: 04/11/2020 SUBJECTIVE: Esteban Laurent was transferred last night to the ICU because of respiratory distress. I was told his saturations were low. His blood gas shows severe hypoxemia. He is placed on BiPAP. Apparently, he was awake, alert, responsive. OBJECTIVE: VITAL SIGNS: Temperature is 98, blood pressure 114/69, sats are 92% to 94% on BiPAP, respiratory rate 18. CHEST: No wheezing. No crackles. CARDIAC: Normal S1, S2. ABDOMEN: No masses. LABORATORY DATA: White count 6.5, H and H 14 and 41, platelet count 213. PO2 was 51, pCO2 was this morning on BiPAP 100% at 14/7. Lytes are normal. His AST is 48. His CK is 857. C-reactive protein 1.76. Chest x-ray shows bilateral pulmonary infiltrates. IMPRESSION: Coronavirus positive pneumonia, respiratory failure, morbid obesity. PLAN: At this stage, high-flow. Continue nocturnal BiPAP as tolerated. Avoid intubation. Continue high-dose steroids, remdesivir, convalescent plasma, empiric antibiotics. One-half hour of critical care time. Job ID: [id number]
[2020-04-11] MEDS: guaiFENesin ER 600 MG TAB PO SCH ×2 (09:38→20:24)
[2020-04-11] MEDS: Enoxaparin Sodium 40 MG/0.4 ML SYRINGE SC SCH ×2 (09:38→20:24)
[2020-04-11] MEDS: Famotidine 20 MG TAB PO SCH ×2 (09:38→20:25)
[2020-04-11] MEDS: Ascorbic Acid 500 mg Chewable Tablet PO SCH (09:38)
[2020-04-11] MEDS: Zinc Sulfate 220 MG CAP PO SCH (09:38)
[2020-04-11] MEDS: Dexamethasone 4 mg/ml Vial SLOW IVP SCH ×2 (09:39→20:24)
--- NOTE | 2020-04-11 10:21 | PDOC.HOSPP ---
- Subjective Encounter Date: 04/11/20 Encounter Time: 08:15 Subjective: Last night patient was tachypneic and his oxygen saturation significantly dropped so he required ICU transfer, patient was kept on BiPAP overnight, this morning patient is doing much better, - Objective Vital Signs & Weight: Vital Signs (12 hours) Temp Pulse Resp Pulse Ox 04/11/20 08:00 91 L 04/11/20 07:00 98.1 F 90 37 H 90 L 04/11/20 03:00 99.1 F 04/11/20 02:28 32 H 04/11/20 00:37 90 L 04/11/20 00:18 30 H 04/10/20 23:00 99.3 F Weight Weight 247 lb Most Recent Monitor Data Heart Rate from ECG 81 NIBP 111/78 NIBP BP-Mean 89 Respiration from ECG 21 SpO2 92 I&O: 04/10/20 04/11/20 04/12/20 06:59 06:59 06:59 Intake Total 1800 631.5 Output Total 2000 600 Balance -200 31.5 Result Diagrams: 04/11/20 03:40 04/11/20 03:40 Additional Labs: Accuchecks 04/10/20 04/10/20 04/10/20 19:45 16:53 11:43 POC Glucose 144 H 138 H 146 H Radiology Reviewed by me: Yes (Chest x-ray showing worsening of opacity) EKG Reviewed by me: Yes (Normal sinus rhythm) Hospitalist ROS - Review of Systems Constitutional: reports: weakness. denies: fever, chills, sweats, malaise, other Respiratory: reports: cough, shortness of breath, SOB with excertion. denies: dry, hemoptysis, pleuritic pain, sputum, wheezing, other Cardiovascular: denies: chest pain, palpitations, orthopnea, paroxysmal noc. dyspnea, edema, light headedness, other Gastrointestinal: denies: nausea, vomiting, abdominal pain, diarrhea, constipation, melena, hematochezia, other Genitourinary: denies: dysuria, frequency, incontinence, hematuria, retention, other Musculoskeletal: denies: neck pain, shoulder pain, arm pain, back pain, hand pain, leg pain, foot pain, other Skin: denies: rash, lesions, arabella, bruising, other - Medication Medications: Active Medications Generic Name Dose Route Start Last Admin Trade Name Freq PRN Reason Stop Dose Admin Albuterol Sulfate 2 puff 04/10/20 10:30 04/11/20 07:00 Albuterol 200 Puff (6.7gm Inhaler) INH 2 puff [id number] JASON Administration Ascorbic Acid 1,000 mg 04/10/20 09:00 04/11/20 09:38 Ascorbic Acid 500 Mg Chewable Tablet PO 1,000 mg DAILY JASON Administration Dexamethasone 6 mg 04/10/20 21:00 04/11/20 09:39 Dexamethasone 4 Mg/Ml Vial SLOW IVP 6 mg BID JASON Administration Enoxaparin Sodium 40 mg 04/10/20 09:00 04/11/20 09:38 Enoxaparin Sodium 40 Mg/0.4 Ml Syringe SC 40 mg 09,2099 JASON Administration Famotidine 20 mg 04/10/20 09:00 04/11/20 09:38 Famotidine 20 Mg Tab PO 20 mg BID JASON Administration Guaifenesin 600 mg 04/10/20 09:00 04/11/20 09:38 Guaifenesin Er 600 Mg Tab PO 600 mg Q12HR JASON Administration Guaifenesin/Dextromethorphan 15 ml 04/09/20 23:48 04/10/20 01:23 Guaifenesin Dm 100-10/5 Ml Udcup PO 15 ml Q4H PRN Administration Cough Mometasone Furoate/Formoterol Fumar 2 puff 04/10/20 18:30 04/11/20 07:00 Mometasone 200 Mcg/Formoterol 5 Mcg 120 Puff Inhaler INH 2 puff BID-RT JASON Administration Zinc Sulfate 220 mg 04/10/20 09:00 04/11/20 09:38 Zinc Sulfate 220 Mg Cap PO 220 mg DAILY JASON Administration - Exam General Appearance: NAD, awake alert Eye: PERRL, anicteric sclera ENT: normocephalic atraumatic, no oropharyngeal lesions Neck: supple, symmetric, no JVD, no thyromegaly Heart: RRR, no murmur, no gallops, no rubs Respiratory: no wheezes, no tachypnea, wheezes Respiratory - other findings: Bilateral lower lobe rales noted, coarse breath sound Gastrointestinal: soft, non-tender, non-distended, normal bowel sounds, no palpable masses Gastrointestinal - other findings: Obesity noted Extremities: no clubbing, no edema Skin: normal turgor, no lesions Neurological: no focal deficits Musculoskeletal: normal tone, normal strength Psychiatric: normal affect, normal behavior Hosp A/P (1) Acute and chronic respiratory failure with hypoxia Code(s): J96.21 - ACUTE AND CHRONIC RESPIRATORY FAILURE WITH HYPOXIA Status: Acute (2) Pneumonia due to COVID-19 virus Code(s): U07.1 - COVID-19; J12.89 - OTHER VIRAL PNEUMONIA Status: Acute (3) Hyperglycemia Code(s): R73.9 - HYPERGLYCEMIA, UNSPECIFIED Status: Acute (4) Lactic acidosis Code(s): E87.2 - ACIDOSIS Status: Acute (5) Obesity (BMI 30.0-34.9) Code(s): E66.9 - OBESITY, UNSPECIFIED Status: Chronic - Plan old records reviewed/req, respiratory therapy, DVT proph w/lovenox Will closely monitor in ICU, Continue BiPAP as needed, We will try to change to high flow oxygen if possible, Infectious disease and pulmonary recommendation appreciated Continue remdesivir Continue dexamethasone Medication reviewed and continue for symptomatic and supportive care
[2020-04-11] MEDS: REMDESIVIR (EUA) 100 MG in Sodium Chloride 0.9% 250 ML 230 ML IV SCH (15:28)
[2020-04-11] MEDS: HumaLOG 300 UNITS/3 ML VIAL SC PRN (17:00)
[2020-04-12] MEDS: Albuterol 200 PUFF (6.7GM INHALER) INH SCH ×6 (02:28→22:23)
[2020-04-12 04:09] LABS: #Lymphocytes 0.6 thou/uL (1.20-3.40); #Monocytes 0.3 thou/uL (0.11-0.59); #Neutrophils 4.6 thou/uL (1.40-6.50); %Basophils 0.3 % (0.0-1.0); %Eosinophils 0.1 % (0.0-10.0); %Lymphocytes 11.2 % (21.0-51.0); %Monocytes 5.4 % (0.0-10.0); Hemoglobin 13.8 g/dL (14.0-18.0); Mean Corpuscular Hemoglobin 31.1 pg (27.0-31.0); Mean Corpuscular Volume 91.4 fL (78.0-98.0); Mean Platelet Volume 6.6 fL (7.4-10.4); Platelet Count 213 thou/uL (130-400); RBC Distribution Width 11.9 % (11.5-14.5); Red Blood Cell (RBC) Count 4.44 mill/uL (4.70-6.10); White Blood Cell (WBC) Count 5.6 thou/uL (4.8-10.8)
[2020-04-12 04:29] LABS: ALT (SGPT) 36 U/L (8-55); AST (SGOT) 30 U/L (5-34); Albumin 3.4 g/dL (3.5-5.0); Alkaline Phosphatase 72 U/L (40-110); Anion Gap 16 mmol/L (10-20); BUN (Urea Nitrogen) 17 mg/dL (8.4-25.7); Bilirubin, Total 0.8 mg/dL (0.2-1.2); Calc. Creatinine Clearance 179 mL/min (70-130); Calcium 8.3 mg/dL (7.8-10.44); Carbon Dioxide 25 mmol/L (22-29); Chloride 100 mmol/L (98-107); Globulin 2.6 g/dL (2.4-3.5); Glucose 148 mg/dL (70-105); Potassium 3.8 mmol/L (3.5-5.1); Sodium 137 mmol/L (136-145)
[2020-04-12] MEDS: Mometasone 200 MCG/Formoterol 5 MCG 120 PUFF INHALER INH SCH ×2 (08:07→18:49)
--- NOTE | 2020-04-12 08:59 | PRG ---
DATE OF SERVICE: 04/12/2020 SUBJECTIVE: Mehran remains in the ICU on high-flow. Labs unremarkable. OBJECTIVE: VITAL SIGNS: Stable with a temperature 98, saturation 96%, FiO2 95%, 60 flow rate, pulse 81, blood pressure 130/72. CHEST: No wheezing. No crackles. CARDIAC: Normal S1, S2. No gallops. LABORATORY DATA: Unremarkable. White count is 5000. ASSESSMENT: Respiratory failure, ortega positive pneumonia, still requiring high FiO2. PLAN: Empiric antibiotics initiated. He has had plasma. He is on remdesivir. High-dose steroids. Continue observation in the ICU for another 24 hours. Follow up chest x-ray in the morning. Job ID: [id number]
[2020-04-12] MEDS: Ascorbic Acid 500 mg Chewable Tablet PO SCH (09:31)
[2020-04-12] MEDS: Enoxaparin Sodium 40 MG/0.4 ML SYRINGE SC SCH ×2 (09:31→20:17)
[2020-04-12] MEDS: Famotidine 20 MG TAB PO SCH ×2 (09:31→20:17)
[2020-04-12] MEDS: Dexamethasone 4 mg/ml Vial SLOW IVP SCH (09:31)
[2020-04-12] MEDS: Zinc Sulfate 220 MG CAP PO SCH (09:32)
[2020-04-12] MEDS: guaiFENesin ER 600 MG TAB PO SCH ×2 (09:32→20:17)
[2020-04-12] MEDS: Cefepime 1 GM in Sodium Chloride 0.9% 100 ML IVPB SCH ×2 (09:40→20:17)
[2020-04-12] MEDS: methylPREDNISolone Sod Succ 40 MG VIAL IVP SCH ×3 (12:48→23:21)
[2020-04-12] MEDS: REMDESIVIR (EUA) 100 MG in Sodium Chloride 0.9% 250 ML 230 ML IV SCH (15:59)
[2020-04-13] MEDS: Albuterol 200 PUFF (6.7GM INHALER) INH SCH ×5 (02:30→23:30)
[2020-04-13 04:09] LABS: #Lymphocytes 0.5 thou/uL (1.20-3.40); #Monocytes 0.3 thou/uL (0.11-0.59); %Basophils 0.1 % (0.0-1.0); %Eosinophils 0.2 % (0.0-10.0); %Monocytes 2.6 % (0.0-10.0); %Neutrophils 93.2 % (42.0-75.0); Hemoglobin 14.6 g/dL (14.0-18.0); Mean Corpuscular HGB CONC 35.6 g/dL (32.0-36.0); Mean Corpuscular Hemoglobin 32.5 pg (27.0-31.0); Mean Corpuscular Volume 91.3 fL (78.0-98.0); Mean Platelet Volume 6.3 fL (7.4-10.4); Platelet Count 196 thou/uL (130-400); RBC Distribution Width 11.8 % (11.5-14.5); White Blood Cell (WBC) Count 11.8 thou/uL (4.8-10.8)
[2020-04-13 04:43] LABS: ALT (SGPT) 43 U/L (8-55); AST (SGOT) 31 U/L (5-34); Albumin 3.5 g/dL (3.5-5.0); Alkaline Phosphatase 101 U/L (40-110); Anion Gap 15 mmol/L (10-20); BUN (Urea Nitrogen) 19 mg/dL (8.4-25.7); CRP (Inflammatory) 0.66 mg/dL (= or < 0.5); Calc. Creatinine Clearance 187 mL/min (70-130); Calcium 8.4 mg/dL (7.8-10.44); Carbon Dioxide 26 mmol/L (22-29); Chloride 101 mmol/L (98-107); Globulin 2.6 g/dL (2.4-3.5); Glucose 129 mg/dL (70-105); Potassium 4.4 mmol/L (3.5-5.1); Protein, Total 6.1 g/dL (6.0-8.3); Sodium 138 mmol/L (136-145)
[2020-04-13] MEDS: Mometasone 200 MCG/Formoterol 5 MCG 120 PUFF INHALER INH SCH ×2 (06:22→17:28)
[2020-04-13] MEDS: methylPREDNISolone Sod Succ 40 MG VIAL IVP SCH ×4 (06:22→23:30)
--- NOTE | 2020-04-13 07:50 | RAD ---
Chest AP view INDICATION: Intubation COMPARISON: Prior exam dated April 10, 2020 FINDINGS: Lungs: Bilateral airspace disease persists Cardiac silhouette: Mild cardiomegaly is stable Pulmonary vasculature: Mild pulmonary vascular congestion persists Pleural spaces: Tiny bilateral pleural effusions persist Upper abdomen: No abnormality seen. Osseous structures: No acute osseous abnormality. Additional findings: ACDF plate is unchanged. Elevation right hemidiaphragm is stable. IMPRESSION: Stable examination of the chest
--- NOTE | 2020-04-13 09:05 | PRG ---
DATE OF SERVICE: 04/13/2020 SUBJECTIVE: This is a 59-year-old gentleman, remains on BiPAP and high-flow. OBJECTIVE: VITAL SIGNS: This morning, O2 sats 100%, blood pressure 131/66, . GENERAL: He is awake, responsive. CHEST: No wheezing. No crackles. CARDIAC: Normal S1 and S2. No gallops. ABDOMEN: No masses. LABORATORY DATA: White count 11,000, Hemoglobin and hematocrit 14 and 41, and platelet count is normal. Lytes are normal. His C-reactive protein 0.6. X-ray still shows bilateral infiltrates. ASSESSMENT: 1. Respiratory failure. 2. Brown positive pneumonia. PLAN: Continue high-dose steroids and remdesivir and add plasma. Please note, I spoke to his at length this morning at [phone]. She was updated regarding his overall care, stating that he still remains to be in the ICU and he is going to be here for several more days until he is off his BiPAP and high-flow. TIME SPENT: One-half hour of critical time. Job ID: [id number]
--- NOTE | 2020-04-13 09:13 | PDOC.HOSPP ---
- Subjective Encounter Date: 04/12/20 Encounter Time: 11:15 Subjective: Patient currently on BiPAP. - Objective Vital Signs & Weight: Vital Signs (12 hours) Temp 04/13/20 04:00 97.2 F L 04/13/20 00:00 97.0 F L Weight Weight 247 lb Most Recent Monitor Data Heart Rate from ECG 69 NIBP 131/66 NIBP BP-Mean 87 Respiration from ECG 30 SpO2 98 I&O: 04/12/20 04/13/20 04/14/20 06:59 06:59 06:59 Intake Total 1771.5 1780 Output Total 2400 2720 Balance -628.5 -940 Result Diagrams: 04/13/20 03:47 04/13/20 03:47 Additional Labs: Accuchecks 04/12/20 04/12/20 04/12/20 20:52 16:46 10:59 POC Glucose 137 H 150 H 130 H 04/11/20 16:52 POC Glucose 173 H Hospitalist ROS - Review of Systems Respiratory: reports: shortness of breath Cardiovascular: denies: chest pain, palpitations, orthopnea, paroxysmal noc. dyspnea, edema, light headedness, other Gastrointestinal: denies: nausea, vomiting, abdominal pain, diarrhea, constipation, melena, hematochezia, other - Medication Medications: Active Medications Generic Name Dose Route Start Last Admin Trade Name Freq PRN Reason Stop Dose Admin Albuterol Sulfate 2 puff 04/10/20 10:30 04/13/20 06:22 Albuterol 200 Puff (6.7gm Inhaler) INH 2 puff [id number] JASON Administration Ascorbic Acid 1,000 mg 04/10/20 09:00 04/12/20 09:31 Ascorbic Acid 500 Mg Chewable Tablet PO 1,000 mg DAILY JASON Administration Enoxaparin Sodium 40 mg 04/10/20 09:00 04/12/20 20:17 Enoxaparin Sodium 40 Mg/0.4 Ml Syringe SC 40 mg 09,2100 JASON Administration Famotidine 20 mg 04/10/20 09:00 04/12/20 20:17 Famotidine 20 Mg Tab PO 20 mg BID JASON Administration Guaifenesin 600 mg 04/10/20 09:00 04/12/20 20:17 Guaifenesin Er 600 Mg Tab PO 600 mg Q12HR JASON Administration Guaifenesin/Dextromethorphan 15 ml 04/09/20 23:48 04/10/20 01:23 Guaifenesin Dm 100-10/5 Ml Udcup PO 15 ml Q4H PRN Administration Cough Remdesivir 100 mg/ Sodium 250 mls @ 250 mls/hr 04/11/20 15:00 04/12/20 15:59 Chloride IV 04/14/20 15:59 250 mls Q24H JASON Administration Cefepime HCl 1 gm/ Sodium 100 mls @ 200 mls/hr 04/12/20 09:00 04/12/20 20:17 Chloride IVPB 100 mls Q12HR JASON Administration Insulin Human Lispro 0 units 04/10/20 01:51 04/11/20 17:00 Humalog 300 Units/3 Ml Vial SC 2 unit .MILD SLIDING SCALE PRN Administration Mild Correctional Scale Methylprednisolone Sodium Succinate 40 mg 04/12/20 12:00 04/13/20 06:22 Methylprednisolone Sod Succ 40 Mg Vial IVP 40 mg Q6HR JASON Administration Mometasone Furoate/Formoterol Fumar 2 puff 04/10/20 18:30 04/13/20 06:22 Mometasone 200 Mcg/Formoterol 5 Mcg 120 Puff Inhaler INH 2 puff BID-RT JASON Administration Zinc Sulfate 220 mg 04/10/20 09:00 04/12/20 09:32 Zinc Sulfate 220 Mg Cap PO 220 mg DAILY JASON Administration - Exam Neck: negative: supple, symmetric, no JVD, no thyromegaly, no lymphadenopathy, no carotid bruit, JVD Heart: negative: RRR, no murmur, no gallops, no rubs, normal peripheral pulses, irregular, diminshed peripheral pulses, murmur present, II/IV, III/IV Respiratory: rales Gastrointestinal: negative: soft, non-tender, non-distended, normal bowel sounds, no palpable masses, no hepatomegaly, no splenomegaly, no bruit, no guarding, no rigidity, tender to palpation, distended, diminished bowl sounds, voluntary guarding Hosp A/P (1) COVID-19 Code(s): U07.1 - COVID-19 Status: Acute (2) Acute and chronic respiratory failure with hypoxia Code(s): J96.21 - ACUTE AND CHRONIC RESPIRATORY FAILURE WITH HYPOXIA Status: Acute (3) Hyperglycemia Code(s): R73.9 - HYPERGLYCEMIA, UNSPECIFIED Status: Acute (4) Obesity (BMI 30.0-34.9) Code(s): E66.9 - OBESITY, UNSPECIFIED Status: Chronic - Plan Per nursing staff patient was on high flow after eating breakfast got really short of breath this was put on BiPAP. We will continue to monitor we will continue to trend inflammatory markers. Patient will be done with his remdes priyanka on 04/14.
[2020-04-13] MEDS: Cefepime 1 GM in Sodium Chloride 0.9% 100 ML IVPB SCH ×2 (09:55→20:58)
[2020-04-13] MEDS: Enoxaparin Sodium 40 MG/0.4 ML SYRINGE SC SCH ×2 (09:56→20:59)
[2020-04-13] MEDS: Ascorbic Acid 500 mg Chewable Tablet PO SCH (09:56)
[2020-04-13] MEDS: Famotidine 20 MG TAB PO SCH ×2 (09:56→20:59)
[2020-04-13] MEDS: guaiFENesin ER 600 MG TAB PO SCH ×2 (09:56→20:59)
[2020-04-13] MEDS: Zinc Sulfate 220 MG CAP PO SCH (09:56)
[2020-04-13] MEDS ORDERED: Cholecalciferol 1,000 UNITS (25 MCG) TAB PO SCH (13:30)
[2020-04-13] MEDS: REMDESIVIR (EUA) 100 MG in Sodium Chloride 0.9% 250 ML 230 ML IV SCH (15:41)
--- NOTE | 2020-04-13 19:23 | PDOC.HOSPP ---
- Subjective Encounter Date: 04/13/20 Encounter Time: 13:30 Subjective: Patient seen for follow-up regarding acute hypoxic respiratory failure. He is currently on BiPAP. - Objective Vital Signs & Weight: Vital Signs (12 hours) Pulse Resp Pulse Ox 04/13/20 18:34 71 38 H 91 L 04/13/20 15:51 77 36 H 92 L 04/13/20 09:45 88 L Weight Weight 247 lb Most Recent Monitor Data Heart Rate from ECG 75 NIBP 136/79 NIBP BP-Mean 98 Respiration from ECG 38 SpO2 90 I&O: 04/12/20 04/13/20 04/14/20 06:59 06:59 06:59 Intake Total 1771.5 1780 Output Total 2400 2720 Balance -628.5 -940 Result Diagrams: 04/13/20 03:47 04/13/20 03:47 Additional Labs: Accuchecks 04/13/20 04/13/20 04/12/20 15:57 11:47 20:52 POC Glucose 141 H 180 H 137 H I reviewed patient's labs and MAR EKG Reviewed by me: Yes (Normal sinus rhythm on telemetry) Hospitalist ROS - Review of Systems Respiratory: reports: cough, dry, SOB with excertion. denies: shortness of breath, hemoptysis, pleuritic pain, sputum, wheezing Cardiovascular: denies: chest pain, palpitations, orthopnea, paroxysmal noc. dyspnea, edema, light headedness - Medication Medications: Active Medications Generic Name Dose Route Start Last Admin Trade Name Freq PRN Reason Stop Dose Admin Albuterol Sulfate 2 puff 04/10/20 10:30 04/13/20 17:28 Albuterol 200 Puff (6.7gm Inhaler) INH 2 puff [id number] JASON Administration Ascorbic Acid 1,000 mg 04/10/20 09:00 04/13/20 09:56 Ascorbic Acid 500 Mg Chewable Tablet PO 1,000 mg DAILY JASON Administration Enoxaparin Sodium 40 mg 04/10/20 09:00 04/13/20 09:56 Enoxaparin Sodium 40 Mg/0.4 Ml Syringe SC 40 mg 0900,2100 JASON Administration Famotidine 20 mg 04/10/20 09:00 04/13/20 09:56 Famotidine 20 Mg Tab PO 20 mg BID JASON Administration Guaifenesin 600 mg 04/10/20 09:00 04/13/20 09:56 Guaifenesin Er 600 Mg Tab PO 600 mg Q12HR JASON Administration Guaifenesin/Dextromethorphan 15 ml 04/09/20 23:48 04/10/20 01:23 Guaifenesin Dm 100-10/5 Ml Udcup PO 15 ml Q4H PRN Administration Cough Remdesivir 100 mg/ Sodium 250 mls @ 250 mls/hr 04/11/20 15:00 04/13/20 15:41 Chloride IV 04/14/20 15:59 250 mls Q24H JASON Administration Cefepime HCl 1 gm/ Sodium 100 mls @ 200 mls/hr 04/12/20 09:00 04/13/20 09:55 Chloride IVPB 100 mls Q12HR JASON Administration Insulin Human Lispro 0 units 04/10/20 01:51 04/11/20 17:00 Humalog 300 Units/3 Ml Vial SC 2 unit .MILD SLIDING SCALE PRN Administration Mild Correctional Scale Methylprednisolone Sodium Succinate 40 mg 04/12/20 12:00 04/13/20 17:58 Methylprednisolone Sod Succ 40 Mg Vial IVP 40 mg Q6HR JASON Administration Mometasone Furoate/Formoterol Fumar 2 puff 04/10/20 18:30 04/13/20 17:28 Mometasone 200 Mcg/Formoterol 5 Mcg 120 Puff Inhaler INH 2 puff BID-RT JASON Administration Zinc Sulfate 220 mg 04/10/20 09:00 04/13/20 09:56 Zinc Sulfate 220 Mg Cap PO 220 mg DAILY JASON Administration - Exam General Appearance: awake alert Eye: anicteric sclera ENT: moist mucosa Neck: supple Heart: RRR Respiratory: rales, rhonchi Gastrointestinal: soft, non-tender Skin: no rashes Psychiatric: normal affect, normal behavior Hosp A/P - Plan - Assessment (1) Acute respiratory failure with hypoxia Status: Acute (2) COVID-19 pneumonia Status: Acute (3) Hyperglycemia Code(s): R73.9 - HYPERGLYCEMIA, UNSPECIFIED Status: Acute (4) Obesity (BMI 30.0-34.9) Code(s): E66.9 - OBESITY, UNSPECIFIED Status: Chronic - Plan Continue Solu-Medrol. Patient to receive convalescent plasma. Continue remdesivir. Continue Accu-Cheks and insulin sliding scale. Patient's daughter updated over the telephone.
[2020-04-14] MEDS: Albuterol 200 PUFF (6.7GM INHALER) INH SCH ×6 (02:51→23:17)
[2020-04-14 04:32] LABS: ALT (SGPT) 43 U/L (8-55); AST (SGOT) 27 U/L (5-34); Albumin 3.4 g/dL (3.5-5.0); Alkaline Phosphatase 111 U/L (40-110); Anion Gap 16 mmol/L (10-20); BUN (Urea Nitrogen) 21 mg/dL (8.4-25.7); Calc. Creatinine Clearance 175 mL/min (70-130); Calcium 8.2 mg/dL (7.8-10.44); Carbon Dioxide 24 mmol/L (22-29); Chloride 102 mmol/L (98-107); Globulin 2.5 g/dL (2.4-3.5); Glucose 157 mg/dL (70-105); Potassium 4.9 mmol/L (3.5-5.1); Protein, Total 5.9 g/dL (6.0-8.3); Sodium 137 mmol/L (136-145)
[2020-04-14 04:58] LABS: Hemoglobin 14.7 g/dL (14.0-18.0); Lymphocytes 8 % (21-51); MDiff Complete? YES; Mean Corpuscular HGB CONC 34.6 g/dL (32.0-36.0); Mean Corpuscular Hemoglobin 31.9 pg (27.0-31.0); Mean Corpuscular Volume 92.3 fL (78.0-98.0); Mean Platelet Volume 6.7 fL (7.4-10.4); Monocytes 1 % (0-10); Neutrophil 91 % (42-75); Platelet Count 176 thou/uL (130-400); Platelet Morphology Comment Appears Adequate; RBC Distribution Width 11.9 % (11.5-14.5); Red Blood Cell (RBC) Count 4.62 mill/uL (4.70-6.10); White Blood Cell (WBC) Count 13.6 thou/uL (4.8-10.8)
[2020-04-14] MEDS: methylPREDNISolone Sod Succ 40 MG VIAL IVP SCH ×4 (05:23→23:18)
[2020-04-14] MEDS: Mometasone 200 MCG/Formoterol 5 MCG 120 PUFF INHALER INH SCH ×2 (05:23→18:53)
[2020-04-14] MEDS: HumaLOG 300 UNITS/3 ML VIAL SC PRN (06:11)
--- NOTE | 2020-04-14 08:27 | RAD ---
CHEST 1 VIEW PORTABLE: Date: 04/14/2020 HISTORY: Respiratory insufficiency. COMPARISON: 04/13/2020. FINDINGS/IMPRESSION: Poor inspiration with bilateral interstitial, alveolar, and ground-glass opacity changes, evidence fo r bilateral COVID pneumonia, with little change from prior exam. Continue short-term follow-up. POS: RRE
--- NOTE | 2020-04-14 09:21 | PRG ---
DATE OF SERVICE: 04/14/2020 SUBJECTIVE: Esteban Laurent remained in the ICU on BiPAP. OBJECTIVE: VITAL SIGNS: His sat is on 100%, FiO2 88 to 89, blood pressure 126/74, 18, temperature is 98.6. CHEST: No wheezing. No crackles. CARDIAC: Normal S1, S2. No gallops. ABDOMEN: No masses. LABORATORY DATA: White count 3000. X-ray still shows bilateral infiltrates. ASSESSMENT: Respiratory failure secondary to coronavirus positive pneumonia. PLAN: He is on remdesivir. He apparently had convalescent plasma already. He is on high dose steroids, empiric antibiotics. Discussed with his yesterday. maximum supportive care. Obviously, if his condition gets worse, he may require intubation. Job ID: [id number]
[2020-04-14] MEDS: Enoxaparin Sodium 40 MG/0.4 ML SYRINGE SC SCH ×2 (09:51→20:56)
[2020-04-14] MEDS: Cefepime 1 GM in Sodium Chloride 0.9% 100 ML IVPB SCH ×2 (09:52→20:56)
[2020-04-14] MEDS: Zinc Sulfate 220 MG CAP PO SCH (09:52)
[2020-04-14] MEDS: guaiFENesin ER 600 MG TAB PO SCH ×2 (09:52→20:56)
[2020-04-14] MEDS: Famotidine 20 MG TAB PO SCH ×2 (09:52→20:56)
[2020-04-14] MEDS: Ascorbic Acid 500 mg Chewable Tablet PO SCH (09:56)
[2020-04-14] MEDS: Cholecalciferol 1,000 UNITS (25 MCG) TAB PO SCH (09:57)
[2020-04-14] MEDS: REMDESIVIR (EUA) 100 MG in Sodium Chloride 0.9% 250 ML 230 ML IV SCH (14:58)
--- NOTE | 2020-04-14 15:57 | PRG ---
DATE OF SERVICE: 04/14/2020 SUBJECTIVE: The patient is still struggling on BiPAP. He has declined intubation, but is really very tachypneic at 40 respirations per minute, and is getting tired. No chest pain or abdominal pain. OBJECTIVE: VITAL SIGNS: His temperature is normal, and FiO2 of 100 with BiPAP and O2 saturations were borderline at 88 to 91. LUNGS: Diffuse bilateral inspiratory crackles. HEART: S1 and S2. Regular rate. ABDOMEN: Soft, not distended. EXTREMITIES: Moves all extremities equally. LABORATORY DATA: White cell count 13.6, hemoglobin 14, and platelets 176 with 91% neutrophils. Creatinine 0.74. Liver profile normal; alkaline phosphatase 111, albumin 3.4. Chest x-ray with diffuse bilateral infiltrates. ASSESSMENT: Severe COVID pneumonia with requirement for noninvasive ventilation, but obviously the patient needs to be intubated and mechanically ventilated, tracheostomy and gastrostomy tube placed. We will see if we can add baricitinib to his regimen. He seems to be a prime candidate for it. Job ID: [id number]
--- NOTE | 2020-04-14 18:01 | PDOC.HOSPP ---
- Subjective Encounter Date: 04/14/20 Encounter Time: 13:00 Subjective: Seen for follow-up for COVID-19 pneumonia. Currently on BiPAP. - Objective Vital Signs & Weight: Vital Signs (12 hours) Temp Pulse Resp Pulse Ox 04/14/20 14:16 77 36 H 91 L 04/14/20 12:00 97.3 F L 04/14/20 07:39 72 36 H 88 L 04/14/20 07:00 96.8 F L Weight Weight 247 lb Most Recent Monitor Data Heart Rate from ECG 74 NIBP 153/82 NIBP BP-Mean 105 Respiration from ECG 33 SpO2 88 I&O: 04/13/20 04/14/20 04/15/20 06:59 06:59 06:59 Intake Total 1780 3005 720 Output Total 2720 2475 500 Balance -940 530 220 Result Diagrams: 04/14/20 03:52 04/14/20 03:52 Additional Labs: Accuchecks 04/14/20 04/14/20 04/13/20 15:42 11:08 19:36 POC Glucose 129 H 140 H 151 H Labs and MAR reviewed by me EKG Reviewed by me: Yes (Telemetry shows normal sinus rhythm) Hospitalist ROS - Review of Systems Respiratory: reports: cough, SOB with excertion Cardiovascular: denies: chest pain, palpitations, orthopnea, paroxysmal noc. dyspnea, edema, light headedness - Medication Medications: Active Medications Generic Name Dose Route Start Last Admin Trade Name Freq PRN Reason Stop Dose Admin Albuterol Sulfate 2 puff 04/10/20 10:30 04/14/20 15:55 Albuterol 200 Puff (6.7gm Inhaler) INH Not Given [id number] JASON Ascorbic Acid 1,000 mg 04/10/20 09:00 04/14/20 09:56 Ascorbic Acid 500 Mg Chewable Tablet PO 1,000 mg DAILY JASON Administration Cholecalciferol 1,000 units 04/14/20 09:00 04/14/20 09:57 Cholecalciferol 1,000 Units (25 Mcg) Tab PO 1,000 units DAILY JASON Administration Enoxaparin Sodium 40 mg 04/10/20 09:00 04/14/20 09:51 Enoxaparin Sodium 40 Mg/0.4 Ml Syringe SC 40 mg 09,2099 JASON Administration Famotidine 20 mg 04/10/20 09:00 04/14/20 09:52 Famotidine 20 Mg Tab PO 20 mg BID JASON Administration Guaifenesin 600 mg 04/10/20 09:00 04/14/20 09:52 Guaifenesin Er 600 Mg Tab PO 600 mg Q12HR JASON Administration Guaifenesin/Dextromethorphan 15 ml 04/09/20 23:48 04/10/20 01:23 Guaifenesin Dm 100-10/5 Ml Udcup PO 15 ml Q4H PRN Administration Cough Cefepime HCl 1 gm/ Sodium 100 mls @ 200 mls/hr 04/12/20 09:00 04/14/20 09:52 Chloride IVPB 100 mls Q12HR JASON Administration Insulin Human Lispro 0 units 04/10/20 01:51 04/14/20 06:11 Humalog 300 Units/3 Ml Vial SC 2 unit .MILD SLIDING SCALE PRN Administration Mild Correctional Scale Methylprednisolone Sodium Succinate 40 mg 04/12/20 12:00 04/14/20 17:33 Methylprednisolone Sod Succ 40 Mg Vial IVP 40 mg Q6HR JASON Administration Mometasone Furoate/Formoterol Fumar 2 puff 04/10/20 18:30 04/14/20 05:23 Mometasone 200 Mcg/Formoterol 5 Mcg 120 Puff Inhaler INH 2 puff BID-RT JASON Administration Zinc Sulfate 220 mg 04/10/20 09:00 04/14/20 09:52 Zinc Sulfate 220 Mg Cap PO 220 mg DAILY JASON Administration - Exam General Appearance: awake alert ENT: moist mucosa Heart: RRR Respiratory: rhonchi Gastrointestinal: soft Skin: no lesions, no rashes Psychiatric: normal affect Hosp A/P - Plan - Assessment (1) Acute respiratory failure with hypoxia Status: Acute (2) COVID-19 pneumonia Status: Acute (3) Hyperglycemia Code(s): R73.9 - HYPERGLYCEMIA, UNSPECIFIED Status: Acute (4) Obesity (BMI 30.0-34.9) Code(s): E66.9 - OBESITY, UNSPECIFIED Status: Chronic - Plan Continue Solu-Medrol. Patient completed course of remdesivir. Plan to start baricitinib. Continue Accu-Cheks and insulin sliding scale. Reasonable control of blood sugars.
[2020-04-15] MEDS: Albuterol 200 PUFF (6.7GM INHALER) INH SCH ×6 (02:40→22:00)
[2020-04-15] MEDS: methylPREDNISolone Sod Succ 40 MG VIAL IVP SCH ×3 (05:25→17:33)
[2020-04-15] MEDS: Mometasone 200 MCG/Formoterol 5 MCG 120 PUFF INHALER INH SCH ×2 (05:26→19:39)
[2020-04-15] MEDS: HumaLOG 300 UNITS/3 ML VIAL SC PRN ×2 (05:47→17:58)
[2020-04-15 06:49] LABS: #Lymphocytes 0.5 thou/uL (1.20-3.40); #Monocytes 0.4 thou/uL (0.11-0.59); #Neutrophils 15.5 thou/uL (1.40-6.50); %Eosinophils 0.1 % (0.0-10.0); %Lymphocytes 2.8 % (21.0-51.0); %Monocytes 2.5 % (0.0-10.0); %Neutrophils 94.7 % (42.0-75.0); Hemoglobin 15.3 g/dL (14.0-18.0); Mean Corpuscular HGB CONC 34.3 g/dL (32.0-36.0); Mean Corpuscular Hemoglobin 31.2 pg (27.0-31.0); Mean Corpuscular Volume 90.8 fL (78.0-98.0); Mean Platelet Volume 6.6 fL (7.4-10.4); Platelet Count 153 thou/uL (130-400); RBC Distribution Width 11.8 % (11.5-14.5); Red Blood Cell (RBC) Count 4.92 mill/uL (4.70-6.10); White Blood Cell (WBC) Count 16.3 thou/uL (4.8-10.8)
[2020-04-15 07:14] LABS: ALT (SGPT) 43 U/L (8-55); AST (SGOT) 29 U/L (5-34); Albumin 3.6 g/dL (3.5-5.0); Alkaline Phosphatase 122 U/L (40-110); Anion Gap 15 mmol/L (10-20); BUN (Urea Nitrogen) 21 mg/dL (8.4-25.7); Bilirubin, Total 1.3 mg/dL (0.2-1.2); CRP (Inflammatory) 1.23 mg/dL (= or < 0.5); Calc. Creatinine Clearance 177 mL/min (70-130); Calcium 8.3 mg/dL (7.8-10.44); Carbon Dioxide 25 mmol/L (22-29); Chloride 101 mmol/L (98-107); Globulin 2.7 g/dL (2.4-3.5); Glucose 179 mg/dL (70-105); Potassium 4.7 mmol/L (3.5-5.1); Protein, Total 6.3 g/dL (6.0-8.3); Sodium 136 mmol/L (136-145)
[2020-04-15] MEDS: Cholecalciferol 1,000 UNITS (25 MCG) TAB PO SCH (08:31)
[2020-04-15] MEDS: Cefepime 1 GM in Sodium Chloride 0.9% 100 ML IVPB SCH ×2 (08:32→21:09)
[2020-04-15] MEDS: guaiFENesin ER 600 MG TAB PO SCH ×2 (08:32→21:10)
[2020-04-15] MEDS: Enoxaparin Sodium 40 MG/0.4 ML SYRINGE SC SCH ×2 (08:32→21:09)
[2020-04-15] MEDS: Zinc Sulfate 220 MG CAP PO SCH (08:32)
[2020-04-15] MEDS: Famotidine 20 MG TAB PO SCH ×2 (08:32→21:10)
[2020-04-15] MEDS: Ascorbic Acid 500 mg Chewable Tablet PO SCH (08:32)
--- NOTE | 2020-04-15 08:46 | RAD ---
PORTABLE CHEST 1 VIEW: Date: 04/15/2020 Time: 0529 hours HISTORY: Respiratory distress. COVID pneumonia. COMPARISON: Previous day. FINDINGS/IMPRESSION: The heart size is normal. Patchy opacities in the lung street bilaterally are again seen, consistent with COVID-19 pneumonia. No pneumothoraces or large effusions are identified. POS: OFF
--- NOTE | 2020-04-15 11:52 | PRG ---
DATE OF SERVICE: 04/15/2020 SUBJECTIVE: Mr. Laurent continues on BiPAP with FiO2 of 100%. He is briefly able to come off BiPAP for pills and small amounts of nutrition, at which point he has desaturations despite high-flow cannula. He continues to decline intubation unless absolutely critical. PHYSICAL EXAMINATION: VITAL SIGNS: Blood pressure 135/84, heart rate is 85, respiratory rate is 42, saturation 95. LUNGS: Coarse rhonchi without wheezes. He has moderate increased work of breathing. HEART: Regular rate and rhythm. ABDOMEN: Soft. EXTREMITIES: He has 1+ edema. NEUROLOGIC: He is awake and answers questions appropriately. LABORATORY DATA: Today includes white count 16,300, hemoglobin 15.3 with platelet count of 153,000. Chemistries include sodium 136, potassium 4.7, chloride 101, CO2 is 25, BUN 21, creatinine 0.7. CRP is only 1.2. Chest x-ray today, which is interpreted by me, did show predominance of bibasilar consolidative findings. There is no effusion or pneumothorax. IMPRESSION: COVID pneumonia with borderline hypoxic respiratory failure. At this time, the patient is on BiPAP or high-flow nasal cannula on a continuous basis and is declining intubation unless absolutely necessary. We will continue current therapies. PLAN: We will continue BiPAP and high-flow nasal cannula as tolerated with expectation to proceed with intubation and ventilatory support only in the event of absolute respiratory failure. Prognosis remains guarded and condition is tenuous. Job ID: [id number]
--- NOTE | 2020-04-15 18:35 | PDOC.HOSPP ---
- Subjective Encounter Date: 04/15/20 Encounter Time: 14:00 Subjective: Patient seen for follow-up for respiratory failure. Continues to be on BiPAP. - Objective Vital Signs & Weight: Vital Signs (12 hours) Temp Pulse Resp Pulse Ox 04/15/20 16:00 97.6 F 04/15/20 15:38 80 36 H 90 L 04/15/20 12:00 97.4 F L 04/15/20 10:23 79 42 H 99 04/15/20 08:10 79 31 H 95 04/15/20 08:00 97.3 F L 95 Weight Weight 247 lb Most Recent Monitor Data Heart Rate from ECG 77 NIBP 132/86 NIBP BP-Mean 101 Respiration from ECG 37 SpO2 93 I&O: 04/14/20 04/15/20 04/16/20 06:59 06:59 06:59 Intake Total 3005 2340 1253 Output Total 2475 2000 700 Balance 530 340 553 Result Diagrams: 04/15/20 06:34 04/15/20 06:34 Additional Labs: Accuchecks 04/15/20 04/15/20 04/15/20 17:46 12:47 05:31 POC Glucose 152 H 134 H 163 H 04/14/20 21:08 POC Glucose 153 H I reviewed patient's labs and MAR EKG Reviewed by me: Yes (Normal sinus rhythm on telemetry) Hospitalist ROS - Review of Systems Constitutional: reports: weakness Respiratory: reports: cough, dry, SOB with excertion Gastrointestinal: denies: nausea, vomiting, abdominal pain, diarrhea, constipation, melena, hematochezia - Medication Medications: Active Medications Generic Name Dose Route Start Last Admin Trade Name Freq PRN Reason Stop Dose Admin Albuterol Sulfate 2 puff 04/10/20 10:30 04/15/20 14:30 Albuterol 200 Puff (6.7gm Inhaler) INH 2 puff [id number] JASON Administration Ascorbic Acid 1,000 mg 04/10/20 09:00 04/15/20 08:32 Ascorbic Acid 500 Mg Chewable Tablet PO 1,000 mg DAILY JASON Administration Cholecalciferol 1,000 units 04/14/20 09:00 04/15/20 08:31 Cholecalciferol 1,000 Units (25 Mcg) Tab PO 1,000 units DAILY JASON Administration Enoxaparin Sodium 40 mg 04/10/20 09:00 04/15/20 08:32 Enoxaparin Sodium 40 Mg/0.4 Ml Syringe SC 40 mg 09,2100 JASON Administration Famotidine 20 mg 04/10/20 09:00 04/15/20 08:32 Famotidine 20 Mg Tab PO 20 mg BID JASON Administration Guaifenesin 600 mg 04/10/20 09:00 04/15/20 08:32 Guaifenesin Er 600 Mg Tab PO 600 mg Q12HR JASON Administration Guaifenesin/Dextromethorphan 15 ml 04/09/20 23:48 04/10/20 01:23 Guaifenesin Dm 100-10/5 Ml Udcup PO 15 ml Q4H PRN Administration Cough Cefepime HCl 1 gm/ Sodium 100 mls @ 200 mls/hr 04/12/20 09:00 04/15/20 08:32 Chloride IVPB 100 mls Q12HR JASON Administration Insulin Human Lispro 0 units 04/10/20 01:51 04/15/20 17:58 Humalog 300 Units/3 Ml Vial SC 2 unit .MILD SLIDING SCALE PRN Administration Mild Correctional Scale Methylprednisolone Sodium Succinate 40 mg 04/12/20 12:00 04/15/20 17:33 Methylprednisolone Sod Succ 40 Mg Vial IVP 40 mg Q6HR JASON Administration Mometasone Furoate/Formoterol Fumar 2 puff 04/10/20 18:30 04/15/20 05:26 Mometasone 200 Mcg/Formoterol 5 Mcg 120 Puff Inhaler INH 2 puff BID-RT JASON Administration Zinc Sulfate 220 mg 04/10/20 09:00 04/15/20 08:32 Zinc Sulfate 220 Mg Cap PO 220 mg DAILY JASON Administration - Exam General - other findings: Obese ENT: normocephalic atraumatic Neck: no thyromegaly Heart: RRR Respiratory: rhonchi Gastrointestinal: soft, non-tender Skin: no rashes Psychiatric: normal affect Hosp A/P - Plan - Assessment (1) Acute respiratory failure with hypoxia Status: Acute (2) COVID-19 pneumonia Status: Acute (3) Hyperglycemia Code(s): R73.9 - HYPERGLYCEMIA, UNSPECIFIED Status: Acute (4) Obesity (BMI 30.0-34.9) Code(s): E66.9 - OBESITY, UNSPECIFIED Status: Chronic - Plan Continue BiPAP therapy. Patient is on Solu-Medrol. Patient completed course of remdesivir. ID and pulmonary service is following. Continue Accu-Cheks and insulin sliding scale. Reasonable control of blood sugars.
[2020-04-16] MEDS: methylPREDNISolone Sod Succ 40 MG VIAL IVP SCH ×5 (00:09→23:17)
[2020-04-16] MEDS: Albuterol 200 PUFF (6.7GM INHALER) INH SCH ×6 (02:13→22:42)
[2020-04-16] MEDS: Enoxaparin Sodium 40 MG/0.4 ML SYRINGE SC SCH ×2 (08:13→20:50)
[2020-04-16] MEDS: Cefepime 1 GM in Sodium Chloride 0.9% 100 ML IVPB SCH ×2 (08:13→20:49)
[2020-04-16] MEDS: Ascorbic Acid 500 mg Chewable Tablet PO SCH (08:14)
[2020-04-16] MEDS: Zinc Sulfate 220 MG CAP PO SCH (08:14)
[2020-04-16] MEDS: guaiFENesin ER 600 MG TAB PO SCH ×2 (08:14→20:50)
[2020-04-16] MEDS: Famotidine 20 MG TAB PO SCH ×2 (08:14→20:50)
[2020-04-16] MEDS: Cholecalciferol 1,000 UNITS (25 MCG) TAB PO SCH (08:15)
--- NOTE | 2020-04-16 12:09 | PRG ---
DATE OF SERVICE: 04/16/2020 SUBJECTIVE: He continues to be on BiPAP the majority of the time with pressures of 14/9 and FiO2 of 100%. OBJECTIVE: VITAL SIGNS: Blood pressure 132/86, heart rate is 81, respiratory rate 32, saturation 92% on FiO2 100%. Efforts are slightly shallow, but unlabored. LUNGS: Show coarse rhonchi without wheezing. HEART: Regular rate and rhythm. ABDOMEN: Obese. There is no organomegaly. EXTREMITIES: He has trace to 1+ edema. There is no cords or tenderness. LABORATORY DATA: White count 08249, hemoglobin is 15.3 with hematocrit of 44.7, and platelet count of 153,000. There is no x-ray or blood gas today. IMPRESSION: COVID pneumonia with hypoxia and borderline need for intubation. He remains on BiPAP 100% alternating at times with high-flow nasal cannula. The patient declines intubation unless absolutely critical. PLAN: We will continue BiPAP and supportive therapies. We have no room to maneuver should there be any clinical deterioration. Job ID: [id number]
[2020-04-16] MEDS: Mometasone 200 MCG/Formoterol 5 MCG 120 PUFF INHALER INH SCH ×2 (14:37→18:44)
--- NOTE | 2020-04-16 18:21 | PDOC.HOSPP ---
- Subjective Encounter Date: 04/16/20 Encounter Time: 12:30 Subjective: Patient seen for follow-up for hypoxic respiratory failure, secondary to COVID- 19 infection. Denies any new complaints. - Objective Vital Signs & Weight: Vital Signs (12 hours) Temp Pulse Resp Pulse Ox 04/16/20 16:00 98.4 F 04/16/20 15:31 78 34 H 93 L 04/16/20 12:00 98.5 F 04/16/20 11:51 79 39 H 89 L 04/16/20 08:38 81 41 H 90 L 04/16/20 08:00 98.7 F 92 L Weight Weight 247 lb Most Recent Monitor Data Heart Rate from ECG 80 NIBP 136/89 NIBP BP-Mean 104 Respiration from ECG 35 SpO2 93 I&O: 04/15/20 04/16/20 04/17/20 06:59 06:59 06:59 Intake Total 2340 2313 580 Output Total 1999 1325 560 Balance 340 988 20 Result Diagrams: 04/15/20 06:34 04/15/20 06:34 Additional Labs: Accuchecks 04/16/20 04/15/20 05:54 21:17 POC Glucose 135 H 130 H Labs and MAR reviewed by me EKG Reviewed by me: Yes (Telemetry shows normal sinus rhythm) Hospitalist ROS - Review of Systems Respiratory: reports: cough, dry. denies: shortness of breath, hemoptysis, SOB with excertion, pleuritic pain, sputum, wheezing Cardiovascular: denies: chest pain, palpitations, orthopnea, paroxysmal noc. dyspnea, edema, light headedness Skin: denies: rash, lesions, arabella, bruising - Medication Medications: Active Medications Generic Name Dose Route Start Last Admin Trade Name Freq PRN Reason Stop Dose Admin Albuterol Sulfate 2 puff 04/10/20 10:30 04/16/20 15:50 Albuterol 200 Puff (6.7gm Inhaler) INH 2 puff [id number] JASON Administration Ascorbic Acid 1,000 mg 04/10/20 09:00 04/16/20 08:14 Ascorbic Acid 500 Mg Chewable Tablet PO 1,000 mg DAILY JASON Administration Cholecalciferol 1,000 units 04/14/20 09:00 04/16/20 08:15 Cholecalciferol 1,000 Units (25 Mcg) Tab PO 1,000 units DAILY JASON Administration Enoxaparin Sodium 40 mg 04/10/20 09:00 04/16/20 08:13 Enoxaparin Sodium 40 Mg/0.4 Ml Syringe SC 40 mg 0900,2100 JASON Administration Famotidine 20 mg 04/10/20 09:00 04/16/20 08:14 Famotidine 20 Mg Tab PO 20 mg BID JASON Administration Guaifenesin 600 mg 04/10/20 09:00 04/16/20 08:14 Guaifenesin Er 600 Mg Tab PO 600 mg Q12HR JASON Administration Guaifenesin/Dextromethorphan 15 ml 04/09/20 23:48 04/10/20 01:23 Guaifenesin Dm 100-10/5 Ml Udcup PO 15 ml Q4H PRN Administration Cough Cefepime HCl 1 gm/ Sodium 100 mls @ 200 mls/hr 04/12/20 09:00 04/16/20 08:13 Chloride IVPB 100 mls Q12HR JASON Administration Insulin Human Lispro 0 units 04/10/20 01:51 04/15/20 17:58 Humalog 300 Units/3 Ml Vial SC 2 unit .MILD SLIDING SCALE PRN Administration Mild Correctional Scale Methylprednisolone Sodium Succinate 40 mg 04/12/20 12:00 04/16/20 17:46 Methylprednisolone Sod Succ 40 Mg Vial IVP 40 mg Q6HR JASON Administration Mometasone Furoate/Formoterol Fumar 2 puff 04/10/20 18:30 04/16/20 14:37 Mometasone 200 Mcg/Formoterol 5 Mcg 120 Puff Inhaler INH Not Given BID-RT JASON Zinc Sulfate 220 mg 04/10/20 09:00 04/16/20 08:14 Zinc Sulfate 220 Mg Cap PO 220 mg DAILY JASON Administration - Exam General - other findings: Obesity Neck: supple, no thyromegaly Heart: RRR Respiratory: rhonchi Gastrointestinal: soft, non-tender Psychiatric: normal affect, normal behavior Hosp A/P - Plan - Assessment (1) Acute respiratory failure with hypoxia Status: Acute (2) COVID-19 pneumonia Status: Acute (3) Hyperglycemia Code(s): R73.9 - HYPERGLYCEMIA, UNSPECIFIED Status: Acute (4) Obesity (BMI 30.0-34.9) Code(s): E66.9 - OBESITY, UNSPECIFIED Status: Chronic - Plan Patient continues to need BiPAP therapy. Continue Solu-Medrol. Patient completed course of remdesivir. ID and pulmonary service is following. Reasonable control of blood sugars.
[2020-04-17] MEDS: Albuterol 200 PUFF (6.7GM INHALER) INH SCH ×6 (02:28→22:08)
[2020-04-17 03:47] LABS: #Lymphocytes 0.3 thou/uL (1.20-3.40); #Monocytes 0.3 thou/uL (0.11-0.59); #Neutrophils 15.3 thou/uL (1.40-6.50); %Basophils 0.1 % (0.0-1.0); %Eosinophils 0.1 % (0.0-10.0); %Lymphocytes 1.7 % (21.0-51.0); %Monocytes 2.1 % (0.0-10.0); %Neutrophils 95.9 % (42.0-75.0); Hemoglobin 14.5 g/dL (14.0-18.0); Mean Corpuscular HGB CONC 34.8 g/dL (32.0-36.0); Mean Corpuscular Hemoglobin 31.7 pg (27.0-31.0); Mean Corpuscular Volume 91.1 fL (78.0-98.0); Platelet Count 133 thou/uL (130-400); RBC Distribution Width 11.9 % (11.5-14.5); Red Blood Cell (RBC) Count 4.57 mill/uL (4.70-6.10); White Blood Cell (WBC) Count 15.9 thou/uL (4.8-10.8)
[2020-04-17 04:09] LABS: Anion Gap 14 mmol/L (10-20); BUN (Urea Nitrogen) 22 mg/dL (8.4-25.7); CRP (Inflammatory) 2.02 mg/dL (= or < 0.5); Calc. Creatinine Clearance 208 mL/min (70-130); Carbon Dioxide 24 mmol/L (22-29); Chloride 101 mmol/L (98-107); Glucose 147 mg/dL (70-105); Potassium 4.9 mmol/L (3.5-5.1); Sodium 134 mmol/L (136-145)
[2020-04-17] MEDS: methylPREDNISolone Sod Succ 40 MG VIAL IVP SCH ×3 (05:06→18:32)
[2020-04-17] MEDS: Famotidine 20 MG TAB PO SCH ×2 (08:42→20:03)
[2020-04-17] MEDS: Enoxaparin Sodium 40 MG/0.4 ML SYRINGE SC SCH (08:42)
[2020-04-17] MEDS: Ascorbic Acid 500 mg Chewable Tablet PO SCH (08:43)
[2020-04-17] MEDS: Cholecalciferol 1,000 UNITS (25 MCG) TAB PO SCH (08:43)
[2020-04-17] MEDS: guaiFENesin ER 600 MG TAB PO SCH ×2 (08:43→20:03)
[2020-04-17] MEDS: Zinc Sulfate 220 MG CAP PO SCH (08:43)
[2020-04-17] MEDS: Cefepime 1 GM in Sodium Chloride 0.9% 100 ML IVPB SCH ×2 (08:44→20:03)
[2020-04-17] MEDS: Mometasone 200 MCG/Formoterol 5 MCG 120 PUFF INHALER INH SCH ×2 (08:57→18:40)
--- NOTE | 2020-04-17 09:59 | PRG ---
DATE OF SERVICE: 04/17/2020 SUBJECTIVE: This morning, he remains in the ICU on BiPAP. OBJECTIVE: VITAL SIGNS: Temperature is 98, pulse 88, respiratory rate 33, sats are 94% on 100% FiO2, and blood pressure 137/81. CHEST: Rhonchi and crackles. CARDIAC: Normal S1 and S2. ABDOMEN: No masses. LABORATORY DATA: His C-reactive protein is down to 2. White count 15,000. [employer]: 1. Unfortunately still requiring a large amount of FiO2. 2. Respiratory failure. 3. Brown positive pneumonia. PLAN: X-ray is being ordered. Continue high-dose steroids, supportive care. We will try high-flow. Continue observation in the ICU. TIME SPENT: One-half hour of critical time. Job ID: [id number]
--- NOTE | 2020-04-17 16:46 | PRG ---
DATE OF SERVICE: 04/17/2020 SUBJECTIVE: Still on BiPAP, but less intensity and is not struggling as much to keep his O2 saturations at a higher level. He sometimes goes up to 97 on the same of flow. He is now at FiO2 of 95%. OBJECTIVE: GENERAL: He is oriented, alert, follows commands. CHEST: With a few crackles scattered, but S1 and S2 regular rate. ABDOMEN: Soft. Not distended. EXTREMITIES: Moves all extremities. LABORATORY DATA: White cell count is at 15.9, hemoglobin of 14.5, platelets 133. He has not had a blood gas today. Creatinine 0.62. Ferritin 779, which is a little bit higher than recently. CRP is also little bit higher at 2.02. He is on methylprednisolone 40 q.6 and cefepime. His last chest x-ray is from April 15 and patchy opacities bilaterally, mostly in lower lung street. ASSESSMENT AND DISCUSSION: Severe COVID pneumonia with persistent requirement for BiPAP. The patient has refused intubation, but it looks like he is having the strength to pull through this thus for. Still it is going to be an uphill [place]worth to avoid intubation, but thus far things are working out for him. Job ID: [id number]
--- NOTE | 2020-04-17 19:18 | PDOC.HOSPP ---
- Subjective Encounter Date: 04/17/20 Encounter Time: 12:30 Subjective: Patient seen for follow-up regarding hypoxic respiratory failure. He denies any new complaints today. - Objective Vital Signs & Weight: Vital Signs (12 hours) Temp Pulse Resp Pulse Ox 04/17/20 18:39 73 32 H 95 04/17/20 16:00 98.8 F 04/17/20 14:37 83 32 H 93 L 04/17/20 12:00 98.6 F 04/17/20 11:31 93 32 H 93 L 04/17/20 08:58 88 33 H 89 L 04/17/20 08:00 98.7 F 04/17/20 07:38 92 L Weight Weight 247 lb Most Recent Monitor Data Heart Rate from ECG 70 NIBP 126/86 NIBP BP-Mean 99 Respiration from ECG 27 SpO2 93 I&O: 04/16/20 04/17/20 04/18/20 06:59 06:59 06:59 Intake Total 2313 820 820 Output Total 1325 1480 1050 Balance 988 -660 -230 Result Diagrams: 04/17/20 03:17 04/17/20 03:17 Additional Labs: Accuchecks 04/17/20 04/17/20 04/16/20 17:20 09:04 21:10 POC Glucose 121 H 130 H 153 H I reviewed patient's labs and MAR EKG Reviewed by me: Yes (Normal sinus rhythm on telemetry) Hospitalist ROS - Review of Systems Constitutional: denies: fever, chills, sweats, weakness, malaise Respiratory: reports: SOB with excertion. denies: cough, dry, shortness of breath, hemoptysis, pleuritic pain, sputum, wheezing Skin: denies: rash, lesions, arabella, bruising - Medication Medications: Active Medications Generic Name Dose Route Start Last Admin Trade Name Freq PRN Reason Stop Dose Admin Albuterol Sulfate 2 puff 04/10/20 10:30 04/17/20 18:40 Albuterol 200 Puff (6.7gm Inhaler) INH 2 puff [id number] JASON Administration Ascorbic Acid 1,000 mg 04/10/20 09:00 04/17/20 08:43 Ascorbic Acid 500 Mg Chewable Tablet PO 1,000 mg DAILY JASON Administration Cholecalciferol 1,000 units 04/14/20 09:00 04/17/20 08:43 Cholecalciferol 1,000 Units (25 Mcg) Tab PO 1,000 units DAILY JASON Administration Famotidine 20 mg 04/10/20 09:00 04/17/20 08:42 Famotidine 20 Mg Tab PO 20 mg BID JASON Administration Guaifenesin 600 mg 04/10/20 09:00 04/17/20 08:43 Guaifenesin Er 600 Mg Tab PO 600 mg Q12HR JASON Administration Guaifenesin/Dextromethorphan 15 ml 04/09/20 23:48 04/10/20 01:23 Guaifenesin Dm 100-10/5 Ml Udcup PO 15 ml Q4H PRN Administration Cough Cefepime HCl 1 gm/ Sodium 100 mls @ 200 mls/hr 04/12/20 09:00 04/17/20 08:44 Chloride IVPB 100 mls Q12HR JASON Administration Insulin Human Lispro 0 units 04/10/20 01:51 04/15/20 17:58 Humalog 300 Units/3 Ml Vial SC 2 unit .MILD SLIDING SCALE PRN Administration Mild Correctional Scale Methylprednisolone Sodium Succinate 40 mg 04/12/20 12:00 04/17/20 18:32 Methylprednisolone Sod Succ 40 Mg Vial IVP 40 mg Q6HR JASON Administration Mometasone Furoate/Formoterol Fumar 2 puff 04/10/20 18:30 04/17/20 18:40 Mometasone 200 Mcg/Formoterol 5 Mcg 120 Puff Inhaler INH 2 puff BID-RT JASON Administration Zinc Sulfate 220 mg 04/10/20 09:00 04/17/20 08:43 Zinc Sulfate 220 Mg Cap PO 220 mg DAILY JASON Administration - Exam General - other findings: Obese Neck: supple, no lymphadenopathy Heart: RRR Respiratory: normal chest expansion, rales, rhonchi Gastrointestinal: soft, non-tender Skin: no rashes Psychiatric: normal affect Hosp A/P - Plan - Assessment (1) Acute respiratory failure with hypoxia Status: Acute (2) COVID-19 pneumonia Status: Acute (3) Hyperglycemia Code(s): R73.9 - HYPERGLYCEMIA, UNSPECIFIED Status: Acute (4) Obesity (BMI 30.0-34.9) Code(s): E66.9 - OBESITY, UNSPECIFIED Status: Chronic - Plan Patient continues to be on BiPAP therapy. Does not wish intubation at this time. Patient is on Solu-Medrol. Patient completed course of remdesivir. Reasonable control of blood sugars. Continue insulin sliding scale.
[2020-04-17] MEDS: Enoxaparin Sodium 60 MG/0.6 ML SYRINGE SC SCH (20:04)
[2020-04-18] MEDS: methylPREDNISolone Sod Succ 40 MG VIAL IVP SCH ×4 (00:02→17:36)
[2020-04-18] MEDS: Albuterol 200 PUFF (6.7GM INHALER) INH SCH ×6 (02:39→23:07)
[2020-04-18] MEDS: Mometasone 200 MCG/Formoterol 5 MCG 120 PUFF INHALER INH SCH ×2 (06:45→18:38)
[2020-04-18 07:10] LABS: #Lymphocytes 0.2 thou/uL (1.20-3.40); #Monocytes 0.3 thou/uL (0.11-0.59); #Neutrophils 11.8 thou/uL (1.40-6.50); %Eosinophils 0.2 % (0.0-10.0); %Lymphocytes 1.7 % (21.0-51.0); %Neutrophils 96.1 % (42.0-75.0); Hemoglobin 14.8 g/dL (14.0-18.0); Mean Corpuscular Hemoglobin 32.6 pg (27.0-31.0); Platelet Count 137 thou/uL (130-400); RBC Distribution Width 11.9 % (11.5-14.5); Red Blood Cell (RBC) Count 4.55 mill/uL (4.70-6.10); White Blood Cell (WBC) Count 12.3 thou/uL (4.8-10.8)
[2020-04-18 07:26] LABS: Anion Gap 16 mmol/L (10-20); BUN (Urea Nitrogen) 24 mg/dL (8.4-25.7); Calc. Creatinine Clearance 202 mL/min (70-130); Calcium 8.1 mg/dL (7.8-10.44); Carbon Dioxide 23 mmol/L (22-29); Chloride 102 mmol/L (98-107); Glucose 128 mg/dL (70-105); Potassium 4.8 mmol/L (3.5-5.1); Sodium 136 mmol/L (136-145)
[2020-04-18] MEDS: Enoxaparin Sodium 60 MG/0.6 ML SYRINGE SC SCH ×2 (08:14→21:42)
[2020-04-18] MEDS: Cefepime 1 GM in Sodium Chloride 0.9% 100 ML IVPB SCH ×2 (08:14→21:43)
[2020-04-18] MEDS: Ascorbic Acid 500 mg Chewable Tablet PO SCH (08:14)
[2020-04-18] MEDS: Famotidine 20 MG TAB PO SCH (08:14)
[2020-04-18] MEDS: guaiFENesin ER 600 MG TAB PO SCH ×2 (08:14→21:42)
[2020-04-18] MEDS: Cholecalciferol 1,000 UNITS (25 MCG) TAB PO SCH (08:15)
[2020-04-18] MEDS: Zinc Sulfate 220 MG CAP PO SCH (08:15)
--- NOTE | 2020-04-18 08:41 | RAD ---
PORTABLE CHEST: Date: 04/18/2020 HISTORY: CCU and ventilator follow-up. COMPARISON: 04/15/2020. FINDINGS/IMPRESSION: Hazy infiltrates throughout both lung street again noted without significant change from 04/15/2020. POS: AGW
--- NOTE | 2020-04-18 09:26 | PRG ---
DATE OF SERVICE: 04/18/2020 SUBJECTIVE: Esteban Laurent remains in the ICU, on BiPAP, still requiring large amount of FiO2. OBJECTIVE: VITAL SIGNS: Temperature 97, blood pressure 122/70. CHEST: Rhonchi and crackles. CARDIAC: Normal S1 and S2. No gallops. ABDOMEN: No masses. LABORATORY DATA: Unremarkable. ASSESSMENT AND PLAN: Brown positive pneumonia, respiratory failure, x-ray looks somewhat better, but still requiring a lot of support. I increased his Lovenox to 60 twice a day yesterday. Continue steroids. Continue antibiotics, supportive care. Prognosis guarded. Job ID: [id number]
--- NOTE | 2020-04-18 19:51 | PDOC.HOSPP ---
- Subjective Encounter Date: 04/18/20 Encounter Time: 19:30 Subjective: Patient seen for follow-up regarding respiratory failure from COVID-19 infection. He reports feeling better. - Objective Vital Signs & Weight: Vital Signs (12 hours) Temp Pulse Resp Pulse Ox 04/18/20 18:39 79 37 H 98 04/18/20 16:00 97.5 F L 04/18/20 14:30 73 32 H 98 04/18/20 12:00 98 F 04/18/20 10:44 74 33 H 93 L 04/18/20 08:00 94 L Weight Weight 247 lb Most Recent Monitor Data Heart Rate from ECG 87 NIBP 139/72 NIBP BP-Mean 94 Respiration from ECG 30 SpO2 93 I&O: 04/17/20 04/18/20 04/19/20 06:59 06:59 06:59 Intake Total 820 1520 1470 Output Total 1480 1600 400 Balance -660 -80 1070 Result Diagrams: 04/18/20 06:58 04/18/20 06:58 Additional Labs: Accuchecks 04/18/20 04/17/20 12:20 23:54 POC Glucose 125 H 139 H Labs and MAR reviewed by me EKG Reviewed by me: Yes (Telemetry shows normal sinus rhythm) Hospitalist ROS - Review of Systems Cardiovascular: denies: chest pain, palpitations, orthopnea, paroxysmal noc. dyspnea, edema, light headedness Gastrointestinal: denies: nausea, vomiting, abdominal pain, diarrhea, constipation, melena, hematochezia - Medication Medications: Active Medications Generic Name Dose Route Start Last Admin Trade Name Freq PRN Reason Stop Dose Admin Albuterol Sulfate 2 puff 04/10/20 10:30 04/18/20 18:38 Albuterol 200 Puff (6.7gm Inhaler) INH 2 puff [id number] JASON Administration Ascorbic Acid 1,000 mg 04/10/20 09:00 04/18/20 08:14 Ascorbic Acid 500 Mg Chewable Tablet PO 1,000 mg DAILY JASON Administration Cholecalciferol 1,000 units 04/14/20 09:00 04/18/20 08:15 Cholecalciferol 1,000 Units (25 Mcg) Tab PO 1,000 units DAILY JASON Administration Enoxaparin Sodium 60 mg 04/17/20 21:00 04/18/20 08:14 Enoxaparin Sodium 60 Mg/0.6 Ml Syringe SC 60 mg 0900,2100 JASON Administration Famotidine 20 mg 04/10/20 09:00 04/18/20 08:14 Famotidine 20 Mg Tab PO 20 mg BID JASON Administration Guaifenesin 600 mg 04/10/20 09:00 04/18/20 08:14 Guaifenesin Er 600 Mg Tab PO 600 mg Q12HR JASON Administration Guaifenesin/Dextromethorphan 15 ml 04/09/20 23:48 04/10/20 01:23 Guaifenesin Dm 100-10/5 Ml Udcup PO 15 ml Q4H PRN Administration Cough Cefepime HCl 1 gm/ Sodium 100 mls @ 200 mls/hr 04/12/20 09:00 04/18/20 08:14 Chloride IVPB 100 mls Q12HR JASON Administration Insulin Human Lispro 0 units 04/10/20 01:51 04/15/20 17:58 Humalog 300 Units/3 Ml Vial SC 2 unit .MILD SLIDING SCALE PRN Administration Mild Correctional Scale Methylprednisolone Sodium Succinate 40 mg 04/12/20 12:00 04/18/20 17:36 Methylprednisolone Sod Succ 40 Mg Vial IVP 40 mg Q6HR JASON Administration Mometasone Furoate/Formoterol Fumar 2 puff 04/10/20 18:30 04/18/20 18:38 Mometasone 200 Mcg/Formoterol 5 Mcg 120 Puff Inhaler INH 2 puff BID-RT JASON Administration Sodium Chloride 10 ml 04/18/20 09:00 04/18/20 08:15 Flush - Normal Saline 10 Ml Syringe IVF 10 ml Q12HR JASON Administration Zinc Sulfate 220 mg 04/10/20 09:00 04/18/20 08:15 Zinc Sulfate 220 Mg Cap PO 220 mg DAILY JASON Administration - Exam General - other findings: Obese ENT: moist mucosa Neck: supple Heart: RRR Respiratory: rhonchi Gastrointestinal: soft, non-tender Skin: no rashes Psychiatric: normal affect, normal behavior Hosp A/P - Plan - Assessment (1) Acute respiratory failure with hypoxia Status: Acute (2) COVID-19 pneumonia Status: Acute (3) Hyperglycemia Code(s): R73.9 - HYPERGLYCEMIA, UNSPECIFIED Status: Acute (4) Obesity (BMI 30.0-34.9) Code(s): E66.9 - OBESITY, UNSPECIFIED Status: Chronic - Plan Continue BiPAP. Continue Solu-Medrol. Patient completed course of remdesivir. Continue Accu-Cheks and insulin sliding scale.
[2020-04-19] MEDS: methylPREDNISolone Sod Succ 40 MG VIAL IVP SCH ×4 (00:06→17:27)
[2020-04-19] MEDS: Albuterol 200 PUFF (6.7GM INHALER) INH SCH ×6 (01:38→23:13)
[2020-04-19 03:57] LABS: #Lymphocytes 0.2 thou/uL (1.20-3.40); #Monocytes 0.2 thou/uL (0.11-0.59); #Neutrophils 10.4 thou/uL (1.40-6.50); %Eosinophils 0.2 % (0.0-10.0); %Monocytes 2.2 % (0.0-10.0); %Neutrophils 95.6 % (42.0-75.0); Hemoglobin 14.8 g/dL (14.0-18.0); Mean Corpuscular HGB CONC 34.6 g/dL (32.0-36.0); Mean Corpuscular Hemoglobin 31.8 pg (27.0-31.0); Mean Corpuscular Volume 91.9 fL (78.0-98.0); Mean Platelet Volume 7.2 fL (7.4-10.4); Platelet Count 144 thou/uL (130-400); RBC Distribution Width 11.9 % (11.5-14.5); Red Blood Cell (RBC) Count 4.65 mill/uL (4.70-6.10); White Blood Cell (WBC) Count 10.9 thou/uL (4.8-10.8)
[2020-04-19 04:21] LABS: Anion Gap 14 mmol/L (10-20); BUN (Urea Nitrogen) 24 mg/dL (8.4-25.7); Calc. Creatinine Clearance 196 mL/min (70-130); Carbon Dioxide 25 mmol/L (22-29); Chloride 101 mmol/L (98-107); Glucose 184 mg/dL (70-105); Potassium 4.6 mmol/L (3.5-5.1); Sodium 135 mmol/L (136-145)
[2020-04-19] MEDS: Mometasone 200 MCG/Formoterol 5 MCG 120 PUFF INHALER INH SCH ×2 (08:28→18:56)
[2020-04-19] MEDS: Cholecalciferol 1,000 UNITS (25 MCG) TAB PO SCH (08:29)
[2020-04-19] MEDS: Zinc Sulfate 220 MG CAP PO SCH (08:29)
[2020-04-19] MEDS: Famotidine 20 MG TAB PO SCH ×3 (08:29→21:30)
[2020-04-19] MEDS: Enoxaparin Sodium 60 MG/0.6 ML SYRINGE SC SCH ×2 (08:29→22:23)
[2020-04-19] MEDS: Ascorbic Acid 500 mg Chewable Tablet PO SCH (08:30)
[2020-04-19] MEDS: guaiFENesin ER 600 MG TAB PO SCH ×2 (08:30→22:23)
[2020-04-19] MEDS: Cefepime 1 GM in Sodium Chloride 0.9% 100 ML IVPB SCH ×2 (08:43→22:57)
--- NOTE | 2020-04-19 08:59 | RAD ---
PORTABLE CHEST: HISTORY: Pneumonia. CCU followup. COMPARISON: 04/18/2020. FINDINGS: Hazy infiltrates in both mid and lower lungs again noted. Elevated right hemidiaphragm is stable. P robable small effusions. IMPRESSION: No acute interval change. POS: AGW
[2020-04-19] MEDS: ALPRAZolam 0.25 MG TAB PO PRN ×2 (09:12→16:13)
--- NOTE | 2020-04-19 10:04 | PRG ---
DATE OF SERVICE: 04/19/2020 SUBJECTIVE: Esteban Laurent, day #10 in the hospital. Brown positive pneumonia. He has received all of his medications, remains in the ICU between high-flow and BiPAP. FiO2 is still very high at 90% sats are 98% while he is eating. OBJECTIVE: VITAL SIGNS: Pulse rate 90, blood pressure 120/80. CHEST: No wheezing. No crackles. CARDIAC: Normal S1 and S2. ABDOMEN: No masses. LABORATORY DATA: White count 10,000, H and H are normal. Lytes are normal. X-ray, diffuse infiltrates. ASSESSMENT AND PLAN: Brown positive pneumonia, respiratory failure, ARDS. Continue high-dose steroids. I have started doxycycline, supportive care, PT. He still needs to remain in the ICU. One-half hour of critical time. Job ID: [id number]
[2020-04-19] MEDS: Doxycycline 100 MG CAP PO SCH ×2 (10:18→22:57)
--- NOTE | 2020-04-19 19:30 | PDOC.HOSPP ---
- Subjective Encounter Date: 04/19/20 Encounter Time: 12:00 Subjective: Patient seen for follow-up for respiratory failure from COVID-19. He reports feeling better today. - Objective Vital Signs & Weight: Vital Signs (12 hours) Temp Pulse Resp Pulse Ox 04/19/20 18:56 80 L 04/19/20 16:00 96.9 F L 04/19/20 14:04 60 27 H 96 04/19/20 12:00 97.1 F L 04/19/20 10:52 83 35 H 99 04/19/20 08:47 85 L 04/19/20 08:00 90 L Weight Weight 247 lb Most Recent Monitor Data Heart Rate from ECG 108 NIBP 126/76 NIBP BP-Mean 92 Respiration from ECG 29 SpO2 85 I&O: 04/18/20 04/19/20 04/20/20 06:59 06:59 06:59 Intake Total 1520 2350 965 Output Total 1600 1700 850 Balance -80 650 115 Result Diagrams: 04/19/20 03:07 04/19/20 03:07 Additional Labs: Accuchecks 04/19/20 16:18 POC Glucose 119 H I reviewed patient's labs and MAR EKG Reviewed by me: Yes (Normal sinus rhythm on telemetry) Hospitalist ROS - Review of Systems Constitutional: denies: fever, chills, sweats, weakness, malaise Respiratory: reports: cough, dry, SOB with excertion Skin: denies: rash, lesions, arabella, bruising - Medication Medications: Active Medications Generic Name Dose Route Start Last Admin Trade Name Freq PRN Reason Stop Dose Admin Albuterol Sulfate 2 puff 04/10/20 10:30 04/19/20 18:57 Albuterol 200 Puff (6.7gm Inhaler) INH 2 puff [id number] JASON Administration Alprazolam 0.25 mg 04/19/20 08:53 04/19/20 16:13 Alprazolam 0.25 Mg Tab PO 0.25 mg QIDPRN PRN Administration Agitation Ascorbic Acid 1,000 mg 04/10/20 09:00 04/19/20 08:30 Ascorbic Acid 500 Mg Chewable Tablet PO 1,000 mg DAILY JASON Administration Cholecalciferol 1,000 units 04/14/20 09:00 04/19/20 08:29 Cholecalciferol 1,000 Units (25 Mcg) Tab PO 1,000 units DAILY JASON Administration Doxycycline Hyclate 100 mg 04/19/20 09:00 04/19/20 10:18 Doxycycline 100 Mg Cap PO 100 mg BID JASON Administration Enoxaparin Sodium 60 mg 04/17/20 21:00 04/19/20 08:29 Enoxaparin Sodium 60 Mg/0.6 Ml Syringe SC 60 mg 0900,2100 JASON Administration Famotidine 20 mg 04/10/20 09:00 04/19/20 08:30 Famotidine 20 Mg Tab PO Not Given BID JASON Guaifenesin 600 mg 04/10/20 09:00 04/19/20 08:30 Guaifenesin Er 600 Mg Tab PO 600 mg Q12HR JASON Administration Guaifenesin/Dextromethorphan 15 ml 04/09/20 23:48 04/10/20 01:23 Guaifenesin Dm 100-10/5 Ml Udcup PO 15 ml Q4H PRN Administration Cough Cefepime HCl 1 gm/ Sodium 100 mls @ 200 mls/hr 04/12/20 09:00 04/19/20 08:43 Chloride IVPB 100 mls Q12HR JASON Administration Insulin Human Lispro 0 units 04/10/20 01:51 04/15/20 17:58 Humalog 300 Units/3 Ml Vial SC 2 unit .MILD SLIDING SCALE PRN Administration Mild Correctional Scale Methylprednisolone Sodium Succinate 40 mg 04/12/20 12:00 04/19/20 17:27 Methylprednisolone Sod Succ 40 Mg Vial IVP 40 mg Q6HR JASON Administration Mometasone Furoate/Formoterol Fumar 2 puff 04/10/20 18:30 04/19/20 18:56 Mometasone 200 Mcg/Formoterol 5 Mcg 120 Puff Inhaler INH 2 puff BID-RT JASON Administration Sodium Chloride 10 ml 04/18/20 09:00 04/19/20 08:30 Flush - Normal Saline 10 Ml Syringe IVF 10 ml Q12HR JASON Administration Zinc Sulfate 220 mg 04/10/20 09:00 04/19/20 08:29 Zinc Sulfate 220 Mg Cap PO 220 mg DAILY JASON Administration - Exam General - other findings: Obese ENT: moist mucosa Neck: supple, no thyromegaly Heart: RRR Respiratory: normal chest expansion, rhonchi Gastrointestinal: soft, non-tender Skin: no rashes Psychiatric: normal affect, normal behavior Hosp A/P - Plan - Assessment (1) Acute respiratory failure with hypoxia Status: Acute (2) COVID-19 pneumonia Status: Acute (3) Hyperglycemia Code(s): R73.9 - HYPERGLYCEMIA, UNSPECIFIED Status: Acute (4) Obesity (BMI 30.0-34.9) Code(s): E66.9 - OBESITY, UNSPECIFIED Status: Chronic - Plan Patient continues to be on BiPAP therapy, oxygen requirement has improved today. Patient is on Solu-Medrol. Patient completed course of remdesivir. Continue Accu-Cheks and insulin sliding scale.
[2020-04-20] MEDS: methylPREDNISolone Sod Succ 40 MG VIAL IVP SCH ×4 (00:34→17:14)
[2020-04-20] MEDS: Albuterol 200 PUFF (6.7GM INHALER) INH SCH ×6 (04:07→22:44)
[2020-04-20 04:30] LABS: #Lymphocytes 0.6 thou/uL (1.20-3.40); #Monocytes 0.6 thou/uL (0.11-0.59); #Neutrophils 15.6 thou/uL (1.40-6.50); %Eosinophils 0.2 % (0.0-10.0); %Lymphocytes 3.3 % (21.0-51.0); %Monocytes 3.4 % (0.0-10.0); Hemoglobin 14.9 g/dL (14.0-18.0); Mean Corpuscular HGB CONC 34.5 g/dL (32.0-36.0); Mean Corpuscular Hemoglobin 31.5 pg (27.0-31.0); Mean Corpuscular Volume 91.4 fL (78.0-98.0); Mean Platelet Volume 7.3 fL (7.4-10.4); Platelet Count 171 thou/uL (130-400); RBC Distribution Width 11.9 % (11.5-14.5); Red Blood Cell (RBC) Count 4.72 mill/uL (4.70-6.10); White Blood Cell (WBC) Count 16.8 thou/uL (4.8-10.8)
[2020-04-20 04:52] LABS: Anion Gap 12 mmol/L (10-20); BUN (Urea Nitrogen) 19 mg/dL (8.4-25.7); Calc. Creatinine Clearance 227 mL/min (70-130); Calcium 8.1 mg/dL (7.8-10.44); Carbon Dioxide 28 mmol/L (22-29); Chloride 100 mmol/L (98-107); Glucose 97 mg/dL (70-105); Potassium 4.3 mmol/L (3.5-5.1); Sodium 136 mmol/L (136-145)
[2020-04-20] MEDS: Mometasone 200 MCG/Formoterol 5 MCG 120 PUFF INHALER INH SCH ×2 (07:40→19:40)
[2020-04-20] MEDS: Ascorbic Acid 500 mg Chewable Tablet PO SCH (08:15)
[2020-04-20] MEDS: Cholecalciferol 1,000 UNITS (25 MCG) TAB PO SCH (08:16)
[2020-04-20] MEDS: Doxycycline 100 MG CAP PO SCH ×2 (08:16→20:40)
[2020-04-20] MEDS: Famotidine 20 MG TAB PO SCH ×2 (08:16→20:40)
[2020-04-20] MEDS: Enoxaparin Sodium 60 MG/0.6 ML SYRINGE SC SCH ×2 (08:17→20:38)
[2020-04-20] MEDS: guaiFENesin ER 600 MG TAB PO SCH ×2 (08:17→20:38)
[2020-04-20] MEDS: Zinc Sulfate 220 MG CAP PO SCH (08:17)
[2020-04-20] MEDS: Cefepime 1 GM in Sodium Chloride 0.9% 100 ML IVPB SCH ×2 (08:17→20:39)
--- NOTE | 2020-04-20 08:35 | RAD ---
AP CHEST: HISTORY: CCU followup. COMPARISON: 04/19/2020. FINDINGS: Hazy infiltrates seen in both mid and lower lungs. IMPRESSION: No significant interval change. POS: AGW
--- NOTE | 2020-04-20 09:04 | PRG ---
DATE OF SERVICE: 04/20/2020 SUBJECTIVE: Esteban Laurent remains in the ICU, between high-flow and BiPAP, eating breakfast this morning. OBJECTIVE: VITAL SIGNS: On high-flow, his O2 sats are 80s, temperature 97, blood pressure . GENERAL: Awake, responsive. I's and O's have been good. CHEST: Bilateral crackles. CARDIAC: Normal S1, S2. No gallops. LABORATORY DATA: Unremarkable. White count 16,000. Chest x-ray still shows bilateral infiltrates. ASSESSMENT AND PLAN: Brown positive pneumonia, respiratory failure, slowly improving. Continue high-dose steroids, empiric antibiotics. He has finished a course of remdesivir. If remains stable, we may consider transferring him out of the ICU to MICU in the next 24 to 48 hours. One-half hour of critical time. Job ID: [id number]
--- NOTE | 2020-04-20 18:39 | PDOC.HOSPP ---
- Subjective Encounter Date: 04/20/20 Encounter Time: 09:00 Subjective: Patient seen for follow-up for acute respiratory failure with hypoxia. Reports feeling better today. Denies chest pain. Reports shortness of breath with exertion. - Objective Vital Signs & Weight: Vital Signs (12 hours) Temp Pulse Resp Pulse Ox 04/20/20 15:00 97.8 F 04/20/20 14:51 100 20 93 L 04/20/20 12:00 97.9 F 04/20/20 11:28 71 35 H 98 04/20/20 07:22 89 L 04/20/20 07:00 97.1 F L Weight Admit Weight 247 lb Weight 247 lb Most Recent Monitor Data Heart Rate from ECG 91 NIBP 138/79 NIBP BP-Mean 98 Respiration from ECG 18 SpO2 88 I&O: 04/19/20 04/20/20 04/21/20 06:59 06:59 06:59 Intake Total 2350 1935 780 Output Total 1700 2150 1200 Balance 413 -053 -700 Result Diagrams: 04/20/20 03:24 04/20/20 03:24 Additional Labs: Labs and MAR reviewed by me EKG Reviewed by me: Yes (I reviewed patient's labs and MAR) Hospitalist ROS - Review of Systems Constitutional: denies: fever, chills, sweats, weakness, malaise Respiratory: reports: cough, dry, SOB with excertion Cardiovascular: denies: chest pain, palpitations, orthopnea, paroxysmal noc. dyspnea, edema, light headedness - Medication Medications: Active Medications Generic Name Dose Route Start Last Admin Trade Name Freq PRN Reason Stop Dose Admin Albuterol Sulfate 2 puff 04/10/20 10:30 04/20/20 14:50 Albuterol 200 Puff (6.7gm Inhaler) INH 2 puff [id number] JASON Administration Alprazolam 0.25 mg 04/19/20 08:53 04/19/20 16:13 Alprazolam 0.25 Mg Tab PO 0.25 mg QIDPRN PRN Administration Agitation Ascorbic Acid 1,000 mg 04/10/20 09:00 04/20/20 08:15 Ascorbic Acid 500 Mg Chewable Tablet PO 1,000 mg DAILY JASON Administration Cholecalciferol 1,000 units 04/14/20 09:00 04/20/20 08:16 Cholecalciferol 1,000 Units (25 Mcg) Tab PO 1,000 units DAILY JASON Administration Doxycycline Hyclate 100 mg 04/19/20 09:00 04/20/20 08:16 Doxycycline 100 Mg Cap PO 100 mg BID JASON Administration Enoxaparin Sodium 60 mg 04/17/20 21:00 04/20/20 08:17 Enoxaparin Sodium 60 Mg/0.6 Ml Syringe SC 60 mg 0900,2100 JASON Administration Famotidine 20 mg 04/10/20 09:00 04/20/20 08:16 Famotidine 20 Mg Tab PO 20 mg BID JASON Administration Guaifenesin 600 mg 04/10/20 09:00 04/20/20 08:17 Guaifenesin Er 600 Mg Tab PO 600 mg Q12HR JASON Administration Guaifenesin/Dextromethorphan 15 ml 04/09/20 23:48 04/10/20 01:23 Guaifenesin Dm 100-10/5 Ml Udcup PO 15 ml Q4H PRN Administration Cough Cefepime HCl 1 gm/ Sodium 100 mls @ 200 mls/hr 04/12/20 09:00 04/20/20 08:17 Chloride IVPB 04/21/20 21:29 100 mls Q12HR JASON Administration Insulin Human Lispro 0 units 04/10/20 01:51 04/15/20 17:58 Humalog 300 Units/3 Ml Vial SC 2 unit .MILD SLIDING SCALE PRN Administration Mild Correctional Scale Methylprednisolone Sodium Succinate 40 mg 04/12/20 12:00 04/20/20 17:14 Methylprednisolone Sod Succ 40 Mg Vial IVP 40 mg Q6HR JASON Administration Mometasone Furoate/Formoterol Fumar 2 puff 04/10/20 18:30 04/20/20 07:40 Mometasone 200 Mcg/Formoterol 5 Mcg 120 Puff Inhaler INH 2 puff BID-RT JASON Administration Sodium Chloride 10 ml 04/18/20 09:00 04/20/20 08:18 Flush - Normal Saline 10 Ml Syringe IVF 10 ml Q12HR JASON Administration Zinc Sulfate 220 mg 04/10/20 09:00 04/20/20 08:17 Zinc Sulfate 220 Mg Cap PO 220 mg DAILY JASON Administration - Exam General Appearance: awake alert Eye: PERRL Neck: no thyromegaly, no lymphadenopathy Heart: RRR Respiratory: rales, rhonchi Gastrointestinal: soft, non-tender Skin: no rashes Psychiatric: normal affect, normal behavior Hosp A/P - Plan - Assessment (1) Acute respiratory failure with hypoxia Status: Acute (2) COVID-19 pneumonia Status: Acute (3) Hyperglycemia Code(s): R73.9 - HYPERGLYCEMIA, UNSPECIFIED Status: Acute (4) Obesity (BMI 30.0-34.9) Code(s): E66.9 - OBESITY, UNSPECIFIED Status: Chronic - Plan Today patient is on BiPAP therapy to be switched from high flow oxygen. Continue Solu-Medrol. Patient completed course of remdesivir. Continue Accu-Cheks and insulin sliding scale. Gradually improving.
[2020-04-20] MEDS: ALPRAZolam 0.25 MG TAB PO PRN (20:40)
[2020-04-21] MEDS: methylPREDNISolone Sod Succ 40 MG VIAL IVP SCH ×4 (00:14→20:32)
[2020-04-21] MEDS: Albuterol 200 PUFF (6.7GM INHALER) INH SCH ×5 (02:23→18:38)
[2020-04-21 04:09] LABS: #Lymphocytes 0.3 thou/uL (1.20-3.40); #Monocytes 0.4 thou/uL (0.11-0.59); #Neutrophils 12.2 thou/uL (1.40-6.50); %Basophils 0.1 % (0.0-1.0); %Eosinophils 0.2 % (0.0-10.0); %Lymphocytes 2.4 % (21.0-51.0); %Monocytes 2.9 % (0.0-10.0); %Neutrophils 94.5 % (42.0-75.0); Hemoglobin 14.2 g/dL (14.0-18.0); Mean Corpuscular Hemoglobin 31.9 pg (27.0-31.0); Mean Corpuscular Volume 91.2 fL (78.0-98.0); Mean Platelet Volume 7.6 fL (7.4-10.4); Platelet Count 131 thou/uL (130-400); RBC Distribution Width 11.7 % (11.5-14.5); Red Blood Cell (RBC) Count 4.45 mill/uL (4.70-6.10); White Blood Cell (WBC) Count 12.9 thou/uL (4.8-10.8)
[2020-04-21 04:19] LABS: Anion Gap 13 mmol/L (10-20); BUN (Urea Nitrogen) 20 mg/dL (8.4-25.7); Calc. Creatinine Clearance 223 mL/min (70-130); Calcium 7.8 mg/dL (7.8-10.44); Carbon Dioxide 29 mmol/L (22-29); Chloride 99 mmol/L (98-107); Glucose 104 mg/dL (70-105); Potassium 4.5 mmol/L (3.5-5.1); Sodium 136 mmol/L (136-145)
[2020-04-21] MEDS: Mometasone 200 MCG/Formoterol 5 MCG 120 PUFF INHALER INH SCH ×2 (07:50→18:38)
[2020-04-21] MEDS: Enoxaparin Sodium 60 MG/0.6 ML SYRINGE SC SCH ×2 (09:03→20:32)
[2020-04-21] MEDS: Zinc Sulfate 220 MG CAP PO SCH (09:04)
[2020-04-21] MEDS: guaiFENesin ER 600 MG TAB PO SCH ×2 (09:04→20:32)
[2020-04-21] MEDS: Cholecalciferol 1,000 UNITS (25 MCG) TAB PO SCH (09:04)
[2020-04-21] MEDS: Doxycycline 100 MG CAP PO SCH ×2 (09:04→20:34)
[2020-04-21] MEDS: Famotidine 20 MG TAB PO SCH ×2 (09:04→20:32)
[2020-04-21] MEDS: Ascorbic Acid 500 mg Chewable Tablet PO SCH (09:04)
[2020-04-21] MEDS: Cefepime 1 GM in Sodium Chloride 0.9% 100 ML IVPB SCH ×2 (09:05→20:31)
--- NOTE | 2020-04-21 09:05 | PRG ---
DATE OF SERVICE: 04/21/2020 SUBJECTIVE: Esteban Laurent is a 59-year-old gentleman with ortega positive pneumonia, respiratory failure. He is slowly improving. OBJECTIVE: VITAL SIGNS: His temperature is 97. Sats are 92% on high-flow. Pulse 67. Blood pressure 130/80. CHEST: No crackles. CARDIAC: Normal S1, S2. No gallops. LABORATORY DATA: Unremarkable. X-ray still shows bilateral infiltrates. ASSESSMENT: Ortega positive pneumonia, status post convalescent plasma, remdesivir treatment. High-dose steroids, empiric antibiotics. PLAN: He is on doxy, Solu-Medrol, supportive care. Once we are able to get him down to high-flow without BiPAP, he can be transferred out of the ICU to a monitored bed. One-half hour of critical time. Job ID: [id number]
[2020-04-21] MEDS: Benzonatate 100 MG CAP PO PRN (16:10)
--- NOTE | 2020-04-21 18:10 | PDOC.HOSPP ---
- Subjective Encounter Date: 04/21/20 Encounter Time: 08:30 Subjective: Patient seen for follow-up regarding respiratory failure. Reports feeling better. - Objective Vital Signs & Weight: Vital Signs (12 hours) Pulse Resp Pulse Ox 04/21/20 11:16 92 34 H 04/21/20 07:50 92 L Weight Admit Weight 247 lb Weight 247 lb Most Recent Monitor Data Heart Rate from ECG 86 NIBP 129/76 NIBP BP-Mean 93 Respiration from ECG 16 SpO2 97 I&O: 04/20/20 04/21/20 04/22/20 06:59 06:59 06:59 Intake Total 1935 1360 Output Total 2150 2711 500 Balance -773 -370 -500 Result Diagrams: 04/21/20 03:19 04/21/20 03:19 Additional Labs: I reviewed patient's labs and MAR EKG Reviewed by me: Yes (Normal sinus rhythm on telemetry) Hospitalist ROS - Review of Systems Respiratory: denies: cough, dry, shortness of breath, hemoptysis, SOB with excertion, pleuritic pain, sputum, wheezing Gastrointestinal: denies: nausea, vomiting, diarrhea, constipation, melena, hematochezia - Medication Medications: Active Medications Generic Name Dose Route Start Last Admin Trade Name Freq PRN Reason Stop Dose Admin Albuterol Sulfate 2 puff 04/10/20 10:30 04/21/20 15:30 Albuterol 200 Puff (6.7gm Inhaler) INH 2 puff [id number] JASON Administration Alprazolam 0.25 mg 04/19/20 08:53 04/20/20 20:40 Alprazolam 0.25 Mg Tab PO 0.25 mg QIDPRN PRN Administration Agitation Ascorbic Acid 1,000 mg 04/10/20 09:00 04/21/20 09:04 Ascorbic Acid 500 Mg Chewable Tablet PO 1,000 mg DAILY JASON Administration Benzonatate 100 mg 04/21/20 08:39 04/21/20 16:10 Benzonatate 100 Mg Cap PO 100 mg Q4H PRN Administration Cough Cholecalciferol 1,000 units 04/14/20 09:00 04/21/20 09:04 Cholecalciferol 1,000 Units (25 Mcg) Tab PO 1,000 units DAILY JASON Administration Doxycycline Hyclate 100 mg 04/19/20 09:00 04/21/20 09:04 Doxycycline 100 Mg Cap PO 100 mg BID JASON Administration Enoxaparin Sodium 60 mg 04/17/20 21:00 04/21/20 09:03 Enoxaparin Sodium 60 Mg/0.6 Ml Syringe SC 60 mg 0900,2100 JASON Administration Famotidine 20 mg 04/10/20 09:00 04/21/20 09:04 Famotidine 20 Mg Tab PO 20 mg BID JASON Administration Guaifenesin 600 mg 04/10/20 09:00 04/21/20 09:04 Guaifenesin Er 600 Mg Tab PO 600 mg Q12HR JASON Administration Guaifenesin/Dextromethorphan 15 ml 04/09/20 23:48 04/10/20 01:23 Guaifenesin Dm 100-10/5 Ml Udcup PO 15 ml Q4H PRN Administration Cough Cefepime HCl 1 gm/ Sodium 100 mls @ 200 mls/hr 04/12/20 09:00 04/21/20 09:05 Chloride IVPB 04/21/20 21:29 100 mls Q12HR JASON Administration Insulin Human Lispro 0 units 04/10/20 01:51 04/15/20 17:58 Humalog 300 Units/3 Ml Vial SC 2 unit .MILD SLIDING SCALE PRN Administration Mild Correctional Scale Methylprednisolone Sodium Succinate 40 mg 04/21/20 09:00 04/21/20 09:18 Methylprednisolone Sod Succ 40 Mg Vial IVP 40 mg BID JASON Administration Mometasone Furoate/Formoterol Fumar 2 puff 04/10/20 18:30 04/21/20 07:50 Mometasone 200 Mcg/Formoterol 5 Mcg 120 Puff Inhaler INH 2 puff BID-RT JASON Administration Sodium Chloride 10 ml 04/18/20 09:00 04/21/20 09:05 Flush - Normal Saline 10 Ml Syringe IVF 10 ml Q12HR JASON Administration Zinc Sulfate 220 mg 04/10/20 09:00 04/21/20 09:04 Zinc Sulfate 220 Mg Cap PO 220 mg DAILY JASON Administration - Exam General Appearance: awake alert Eye: anicteric sclera Neck: supple Heart: RRR Respiratory: rhonchi Gastrointestinal: normal bowel sounds Psychiatric: normal affect, normal behavior Hosp A/P - Plan - Assessment (1) Acute respiratory failure with hypoxia Status: Acute (2) COVID-19 pneumonia Status: Acute (3) Hyperglycemia Code(s): R73.9 - HYPERGLYCEMIA, UNSPECIFIED Status: Acute (4) Obesity (BMI 30.0-34.9) Code(s): E66.9 - OBESITY, UNSPECIFIED Status: Chronic - Plan Continue BiPAP therapy. Continue Solu-Medrol. Patient completed course of remdesivir. Continue Accu-Cheks and insulin sliding scale. Blood sugars controlled. Gradually improving.
[2020-04-21] MEDS: ALPRAZolam 0.25 MG TAB PO PRN (20:32)
[2020-04-22] MEDS: Albuterol 200 PUFF (6.7GM INHALER) INH SCH ×7 (00:04→23:25)
[2020-04-22] MEDS: Mometasone 200 MCG/Formoterol 5 MCG 120 PUFF INHALER INH SCH ×2 (08:01→18:25)
--- NOTE | 2020-04-22 08:10 | RAD ---
XR Chest 1 View Portable History: Ventilated patient Comparison: Radiograph April 20, 2020 Findings: Worsening lower lobe airspace opacities. Lungs are hypoinflated. No pneumothorax. Cardiac s ilhouette is similar. No acute osseous abnormality. Impression: Worsening lung aeration.
--- NOTE | 2020-04-22 08:54 | PRG ---
DATE OF SERVICE: 04/22/2020 SUBJECTIVE: This patient remains stable on BiPAP. He did gentle high-flow this morning and ate breakfast without much difficulty. OBJECTIVE: VITAL SIGNS: Temperature 97.6, pulse 90, O2 saturation generally in the upper 80s to low 90s, blood pressure 130/81. HEENT: Unremarkable except for a small ulcer over the bridge of his nose from the BiPAP mask. NECK: No adenopathy or JVD. LUNGS: Crackles anteriorly bilaterally. CARDIAC: S1, S2 regular. ABDOMEN: Soft. EXTREMITIES: No edema. IMAGING DATA: His chest x-ray shows bilateral infiltrates, unchanged. I do not see any lab results for this gentleman today. ASSESSMENT: 1. Coronavirus disease-2019 pneumonia. 2. Acute hypoxic respiratory failure. PLAN: The patient is continuing antibiotics, anticoagulation, steroids, vitamin C, and vitamin D. He will remain in the ICU until his oxygen requirements decrease. Job ID: [id number]
[2020-04-22] MEDS: Enoxaparin Sodium 60 MG/0.6 ML SYRINGE SC SCH ×2 (09:50→19:35)
[2020-04-22] MEDS: Cholecalciferol 1,000 UNITS (25 MCG) TAB PO SCH (09:51)
[2020-04-22] MEDS: Famotidine 20 MG TAB PO SCH ×2 (09:51→19:35)
[2020-04-22] MEDS: methylPREDNISolone Sod Succ 40 MG VIAL IVP SCH ×2 (09:51→19:36)
[2020-04-22] MEDS: guaiFENesin ER 600 MG TAB PO SCH ×2 (09:51→19:35)
[2020-04-22] MEDS: Zinc Sulfate 220 MG CAP PO SCH (09:51)
[2020-04-22] MEDS: Doxycycline 100 MG CAP PO SCH ×2 (09:51→19:35)
[2020-04-22] MEDS: Ascorbic Acid 500 mg Chewable Tablet PO SCH (09:51)
[2020-04-22] MEDS: Benzonatate 100 MG CAP PO PRN (15:30)
--- NOTE | 2020-04-22 16:04 | EKG ---
Test Reason : Blood Pressure : / mmHG Vent. Rate : 084 BPM Atrial Rate : 084 BPM P-R Int : 154 ms QRS Dur : 086 ms QT Int : 340 ms P-R-T Axes : 034 035 012 degrees QTc Int : 401 ms Normal sinus rhythm Normal ECG Confirmed by KATY VANEGAS DO ([id number]), tape editor EKATERINA DE LA GARZA ([id number]) on 04/22/2020 4:03:37 PM Referred By: Confirmed By:KATY VANEGAS DO
--- NOTE | 2020-04-22 16:28 | PDOC.HOSPP ---
- Subjective Encounter Date: 04/22/20 Encounter Time: 16:27 Subjective: This patient was seen and evaluated. Mr. Laurent is a 59-year-old who was diagnosed with Covid pneumonia earlier this month. He is seen and evaluated while in the ICU today. He is on high flow nasal cannula and seems to be doing relatively okay. I will continue this and wean as tolerated. He has completed remdesivir and convalescent plasma. - Objective Vital Signs & Weight: Vital Signs (12 hours) Temp Pulse Ox 04/22/20 12:00 97.4 F L 04/22/20 08:00 98 04/22/20 07:00 96.9 F L Weight Admit Weight 247 lb Weight 247 lb Most Recent Monitor Data Heart Rate from ECG 67 NIBP 108/72 NIBP BP-Mean 84 Respiration from ECG 27 SpO2 88 I&O: 04/21/20 04/22/20 04/23/20 06:59 06:59 06:59 Intake Total 1360 1267 300 Output Total 2100 2900 220 Balance -740 -1633 80 Result Diagrams: 04/21/20 03:19 04/21/20 03:19 Radiology Reviewed by me: Yes EKG Reviewed by me: Yes Hospitalist ROS - Review of Systems Constitutional: reports: weakness, malaise Respiratory: reports: shortness of breath, SOB with excertion Cardiovascular: reports: palpitations Neurological: reports: weakness - Medication Medications: Active Medications Generic Name Dose Route Start Last Admin Trade Name Freq PRN Reason Stop Dose Admin Albuterol Sulfate 2 puff 04/10/20 10:30 04/22/20 15:13 Albuterol 200 Puff (6.7gm Inhaler) INH 2 puff [id number] JASON Administration Alprazolam 0.25 mg 04/19/20 08:53 04/21/20 20:32 Alprazolam 0.25 Mg Tab PO 0.25 mg QIDPRN PRN Administration Agitation Ascorbic Acid 1,000 mg 04/10/20 09:00 04/22/20 09:51 Ascorbic Acid 500 Mg Chewable Tablet PO 1,000 mg DAILY JASON Administration Benzonatate 100 mg 04/21/20 08:39 04/21/20 16:10 Benzonatate 100 Mg Cap PO 100 mg Q4H PRN Administration Cough Cholecalciferol 1,000 units 04/14/20 09:00 04/22/20 09:51 Cholecalciferol 1,000 Units (25 Mcg) Tab PO 1,000 units DAILY JASON Administration Doxycycline Hyclate 100 mg 04/19/20 09:00 04/22/20 09:51 Doxycycline 100 Mg Cap PO 100 mg BID JASON Administration Enoxaparin Sodium 60 mg 04/17/20 21:00 04/22/20 09:50 Enoxaparin Sodium 60 Mg/0.6 Ml Syringe SC 60 mg 09,2099 JASON Administration Famotidine 20 mg 04/10/20 09:00 04/22/20 09:51 Famotidine 20 Mg Tab PO 20 mg BID JASON Administration Guaifenesin 600 mg 04/10/20 09:00 04/22/20 09:51 Guaifenesin Er 600 Mg Tab PO 600 mg Q12HR JASON Administration Guaifenesin/Dextromethorphan 15 ml 04/09/20 23:48 04/10/20 01:23 Guaifenesin Dm 100-10/5 Ml Udcup PO 15 ml Q4H PRN Administration Cough Insulin Human Lispro 0 units 04/10/20 01:51 04/15/20 17:58 Humalog 300 Units/3 Ml Vial SC 2 unit .MILD SLIDING SCALE PRN Administration Mild Correctional Scale Methylprednisolone Sodium Succinate 40 mg 04/21/20 09:00 04/22/20 09:51 Methylprednisolone Sod Succ 40 Mg Vial IVP 40 mg BID JASON Administration Mometasone Furoate/Formoterol Fumar 2 puff 04/10/20 18:30 04/22/20 08:01 Mometasone 200 Mcg/Formoterol 5 Mcg 120 Puff Inhaler INH 2 puff BID-RT JASON Administration Sodium Chloride 10 ml 04/18/20 09:00 04/22/20 09:51 Flush - Normal Saline 10 Ml Syringe IVF 10 ml Q12HR JASON Administration Zinc Sulfate 220 mg 04/10/20 09:00 04/22/20 09:51 Zinc Sulfate 220 Mg Cap PO 220 mg DAILY JASON Administration - Exam General Appearance: awake alert, ill appearing Eye: PERRL, anicteric sclera ENT: normocephalic atraumatic, no oropharyngeal lesions, moist mucosa Neck: supple, symmetric, no JVD, no thyromegaly, no lymphadenopathy Heart: RRR, no murmur, no gallops, no rubs, normal peripheral pulses Respiratory: tachypneic, wheezes Neurological: cranial nerve grossly intact, normal sensation to touch Musculoskeletal: normal tone, normal strength, no muscle wasting Psychiatric: normal affect, normal behavior, A&O x 3 Hosp A/P (1) Acute and chronic respiratory failure with hypoxia Code(s): J96.21 - ACUTE AND CHRONIC RESPIRATORY FAILURE WITH HYPOXIA Status: Acute Plan: Continue high flow nasal cannula and wean off as tolerated. (2) Pneumonia due to COVID-19 virus Code(s): U07.1 - COVID-19; J12.89 - OTHER VIRAL PNEUMONIA Status: Acute Plan: He has completed remdesivir and convalescent plasma. - Plan continue antibiotics, PT/OT, speech therapy, respiratory therapy
[2020-04-23] MEDS: Albuterol 200 PUFF (6.7GM INHALER) INH SCH ×5 (03:39→18:30)
[2020-04-23 04:15] LABS: #Lymphocytes 0.6 thou/uL (1.20-3.40); #Monocytes 0.2 thou/uL (0.11-0.59); #Neutrophils 12.1 thou/uL (1.40-6.50); %Basophils 0.1 % (0.0-1.0); %Eosinophils 0.4 % (0.0-10.0); %Lymphocytes 4.5 % (21.0-51.0); %Monocytes 1.5 % (0.0-10.0); %Neutrophils 93.6 % (42.0-75.0); Hemoglobin 14.1 g/dL (14.0-18.0); Mean Corpuscular HGB CONC 34.8 g/dL (32.0-36.0); Mean Corpuscular Hemoglobin 32.2 pg (27.0-31.0); Mean Corpuscular Volume 92.4 fL (78.0-98.0); Mean Platelet Volume 7.4 fL (7.4-10.4); Platelet Count 150 thou/uL (130-400); RBC Distribution Width 12.1 % (11.5-14.5); Red Blood Cell (RBC) Count 4.39 mill/uL (4.70-6.10)
[2020-04-23 04:38] LABS: Anion Gap 11 mmol/L (10-20); BUN (Urea Nitrogen) 17 mg/dL (8.4-25.7); CRP (Inflammatory) 0.84 mg/dL (= or < 0.5); Calc. Creatinine Clearance 202 mL/min (70-130); Carbon Dioxide 30 mmol/L (22-29); Chloride 100 mmol/L (98-107); Glucose 125 mg/dL (70-105); Potassium 4.4 mmol/L (3.5-5.1); Sodium 137 mmol/L (136-145)
[2020-04-23] MEDS: Mometasone 200 MCG/Formoterol 5 MCG 120 PUFF INHALER INH SCH ×2 (08:12→18:30)
--- NOTE | 2020-04-23 08:20 | RAD ---
CHEST 1 VIEW: HISTORY: Respiratory distress. COVID pneumonia COMPARISON: The prior day's exam. FINDINGS: Heart size is within normal limits. Bilateral lung infiltrates are stable. No new process. IMPRESSION: Stable exam. POS: SEAN
[2020-04-23] MEDS: Famotidine 20 MG TAB PO SCH ×2 (08:28→20:21)
[2020-04-23] MEDS: Ascorbic Acid 500 mg Chewable Tablet PO SCH (08:28)
[2020-04-23] MEDS: Enoxaparin Sodium 60 MG/0.6 ML SYRINGE SC SCH ×2 (08:28→20:21)
[2020-04-23] MEDS: guaiFENesin ER 600 MG TAB PO SCH ×2 (08:28→20:21)
[2020-04-23] MEDS: methylPREDNISolone Sod Succ 40 MG VIAL IVP SCH ×2 (08:28→20:22)
[2020-04-23] MEDS: Zinc Sulfate 220 MG CAP PO SCH (08:28)
[2020-04-23] MEDS: Doxycycline 100 MG CAP PO SCH ×2 (08:30→20:22)
[2020-04-23] MEDS: Cholecalciferol 1,000 UNITS (25 MCG) TAB PO SCH (08:31)
--- NOTE | 2020-04-23 10:07 | PRG ---
DATE OF SERVICE: 04/23/2020 SUBJECTIVE: The patient is doing relatively well. He is using BiPAP 90% of the time high-flow when he is eating. OBJECTIVE: VITAL SIGNS: Temperature 97.4, pulse 78, blood pressure 117/70, O2 saturation in the mid to high 90s on 70% FiO2. HEENT: Unremarkable. NECK: No JVD. LUNGS: Inspiratory crackles. CARDIAC: S1, S2. Regular. ABDOMEN: Soft. EXTREMITIES: No edema. LABORATORY DATA: Sodium 137, potassium 4.4, chloride 100, CO2 of 30, BUN 17, creatinine 0.6, glucose 125. White blood cell count 13, hematocrit 40, platelet count 150. His x-ray continues to show bilateral infiltrates. ASSESSMENT: 1. COVID-19 pneumonia. 2. Acute hypoxic respiratory failure requiring mechanical ventilation. PLAN: Continue antibiotics, anticoagulation, steroids, vitamin C and vitamin D. We will alternate BiPAP with high-flow oxygen. He will need to remain in the ICU. Job ID: [id number]
--- NOTE | 2020-04-23 14:25 | PDOC.HOSPP ---
- Subjective Encounter Date: 04/23/20 Encounter Time: 14:50 Subjective: I saw and evaluated Mr. Laurent earlier today. He is alternating between high flow nasal cannula and BiPAP. He is on doxycycline and steroids. We will continue BiPAP alternating with high flow. - Objective Vital Signs & Weight: Vital Signs (12 hours) Temp Pulse Resp Pulse Ox 04/23/20 12:00 96.5 F L 04/23/20 08:13 58 L 23 H 97 04/23/20 08:00 96.9 F L 93 L 04/23/20 04:00 97.4 F L Weight Admit Weight 247 lb Weight 247 lb Most Recent Monitor Data Heart Rate from ECG 69 NIBP 118/73 NIBP BP-Mean 88 Respiration from ECG 28 SpO2 97 I&O: 04/22/20 04/23/20 04/24/20 06:59 06:59 06:59 Intake Total 1267 1210 552 Output Total 2900 2445 420 Balance -1633 -1235 132 Result Diagrams: 04/23/20 04:04 04/23/20 04:04 Radiology Reviewed by me: Yes EKG Reviewed by me: Yes Hospitalist ROS - Review of Systems Constitutional: reports: weakness, malaise Respiratory: reports: shortness of breath, SOB with excertion Neurological: reports: weakness - Medication Medications: Active Medications Generic Name Dose Route Start Last Admin Trade Name Freq PRN Reason Stop Dose Admin Albuterol Sulfate 2 puff 04/10/20 10:30 04/23/20 11:05 Albuterol 200 Puff (6.7gm Inhaler) INH 2 puff [id number] JASON Administration Alprazolam 0.25 mg 04/19/20 08:53 04/21/20 20:32 Alprazolam 0.25 Mg Tab PO 0.25 mg QIDPRN PRN Administration Agitation Ascorbic Acid 1,000 mg 04/10/20 09:00 04/23/20 08:28 Ascorbic Acid 500 Mg Chewable Tablet PO 1,000 mg DAILY JASON Administration Benzonatate 100 mg 04/21/20 08:39 04/22/20 15:30 Benzonatate 100 Mg Cap PO 100 mg Q4H PRN Administration Cough Cholecalciferol 1,000 units 04/14/20 09:00 04/23/20 08:31 Cholecalciferol 1,000 Units (25 Mcg) Tab PO 1,000 units DAILY JASON Administration Doxycycline Hyclate 100 mg 04/19/20 09:00 04/23/20 08:30 Doxycycline 100 Mg Cap PO 100 mg BID JASON Administration Enoxaparin Sodium 60 mg 04/17/20 21:00 04/23/20 08:28 Enoxaparin Sodium 60 Mg/0.6 Ml Syringe SC 60 mg 0900,2100 JASON Administration Famotidine 20 mg 04/10/20 09:00 04/23/20 08:28 Famotidine 20 Mg Tab PO 20 mg BID JASON Administration Guaifenesin 600 mg 04/10/20 09:00 04/23/20 08:28 Guaifenesin Er 600 Mg Tab PO 600 mg Q12HR JASON Administration Guaifenesin/Dextromethorphan 15 ml 04/09/20 23:48 04/10/20 01:23 Guaifenesin Dm 100-10/5 Ml Udcup PO 15 ml Q4H PRN Administration Cough Insulin Human Lispro 0 units 04/10/20 01:51 04/15/20 17:58 Humalog 300 Units/3 Ml Vial SC 2 unit .MILD SLIDING SCALE PRN Administration Mild Correctional Scale Methylprednisolone Sodium Succinate 40 mg 04/21/20 09:00 04/23/20 08:28 Methylprednisolone Sod Succ 40 Mg Vial IVP 40 mg BID JASON Administration Mometasone Furoate/Formoterol Fumar 2 puff 04/10/20 18:30 04/23/20 08:12 Mometasone 200 Mcg/Formoterol 5 Mcg 120 Puff Inhaler INH 2 puff BID-RT JASON Administration Sodium Chloride 10 ml 04/18/20 09:00 04/23/20 08:29 Flush - Normal Saline 10 Ml Syringe IVF 10 ml Q12HR JASON Administration Zinc Sulfate 220 mg 04/10/20 09:00 04/23/20 08:28 Zinc Sulfate 220 Mg Cap PO 220 mg DAILY JASON Administration - Exam General Appearance: awake alert, ill appearing Eye: PERRL, anicteric sclera ENT: normocephalic atraumatic, no oropharyngeal lesions, moist mucosa Neck: supple, symmetric, no JVD, no thyromegaly Heart: RRR, no murmur, no gallops, no rubs, normal peripheral pulses Respiratory: CTAB, no wheezes Gastrointestinal: soft, non-tender Neurological: cranial nerve grossly intact Musculoskeletal: normal tone, normal strength Psychiatric: normal affect, normal behavior, A&O x 3 Hosp A/P (1) Acute and chronic respiratory failure with hypoxia Code(s): J96.21 - ACUTE AND CHRONIC RESPIRATORY FAILURE WITH HYPOXIA Status: Acute Plan: He remains on high flow nasal cannula alternating with BiPAP. This will be continued. (2) Pneumonia due to COVID-19 virus Code(s): U07.1 - COVID-19; J12.89 - OTHER VIRAL PNEUMONIA Status: Acute Plan: Continue doxycycline, steroids. - Plan continue antibiotics, PT/OT, respiratory therapy, incentive spirometry, DVT proph w/lovenox
[2020-04-23] MEDS: HYDROcodone/Chlorphen Polis 5 ML UDCUP PO PRN (15:30)
[2020-04-23] MEDS: ALPRAZolam 0.25 MG TAB PO PRN (22:37)
[2020-04-24] MEDS: HYDROcodone/Chlorphen Polis 5 ML UDCUP PO PRN ×2 (03:56→15:19)
[2020-04-24 04:01] LABS: #Basophils 0.1 thou/uL (0.0-0.2); #Eosinphils 0.1 thou/uL (0.0-0.7); #Lymphocytes 0.5 thou/uL (1.20-3.40); #Monocytes 0.3 thou/uL (0.11-0.59); %Basophils 0.5 % (0.0-1.0); %Eosinophils 0.3 % (0.0-10.0); %Lymphocytes 3.1 % (21.0-51.0); %Monocytes 1.7 % (0.0-10.0); %Neutrophils 94.4 % (42.0-75.0); Hemoglobin 14.2 g/dL (14.0-18.0); Mean Corpuscular HGB CONC 33.3 g/dL (32.0-36.0); Mean Corpuscular Hemoglobin 30.9 pg (27.0-31.0); Mean Corpuscular Volume 92.8 fL (78.0-98.0); Mean Platelet Volume 7.2 fL (7.4-10.4); Platelet Count 167 thou/uL (130-400); RBC Distribution Width 12.5 % (11.5-14.5); Red Blood Cell (RBC) Count 4.59 mill/uL (4.70-6.10); White Blood Cell (WBC) Count 14.9 thou/uL (4.8-10.8)
[2020-04-24 04:18] LABS: Anion Gap 14 mmol/L (10-20); BUN (Urea Nitrogen) 16 mg/dL (8.4-25.7); Calc. Creatinine Clearance 170 mL/min (70-130); Calcium 8.2 mg/dL (7.8-10.44); Carbon Dioxide 31 mmol/L (22-29); Chloride 98 mmol/L (98-107); Glucose 125 mg/dL (70-105); Potassium 4.6 mmol/L (3.5-5.1); Sodium 138 mmol/L (136-145)
--- NOTE | 2020-04-24 08:19 | RAD ---
XR Chest 1 View Portable History: Ventilated patient Comparison: Radiograph prior day Findings: Severe worsening of airspace aeration. Possible although not confirmed right basilar pneumo thorax. No subcutaneous emphysema. No acute osseous abnormality. Impression: 1. Marked worsening of pulmonary airspace disease. 2. Possible right basilar pneumothorax although not confirmed. Repeat views with upright positioning recommended.
[2020-04-24] MEDS: Albuterol 200 PUFF (6.7GM INHALER) INH SCH ×7 (09:21→22:15)
[2020-04-24] MEDS: Mometasone 200 MCG/Formoterol 5 MCG 120 PUFF INHALER INH SCH ×2 (09:22→18:35)
[2020-04-24] MEDS: Enoxaparin Sodium 60 MG/0.6 ML SYRINGE SC SCH ×2 (09:52→20:55)
[2020-04-24] MEDS: Famotidine 20 MG TAB PO SCH ×2 (09:52→20:55)
[2020-04-24] MEDS: Zinc Sulfate 220 MG CAP PO SCH (09:53)
[2020-04-24] MEDS: guaiFENesin ER 600 MG TAB PO SCH ×2 (09:53→20:55)
[2020-04-24] MEDS: Ascorbic Acid 500 mg Chewable Tablet PO SCH (09:53)
[2020-04-24] MEDS: Cholecalciferol 1,000 UNITS (25 MCG) TAB PO SCH (09:53)
[2020-04-24] MEDS: Doxycycline 100 MG CAP PO SCH ×2 (09:53→20:55)
[2020-04-24] MEDS: methylPREDNISolone Sod Succ 40 MG VIAL IVP SCH ×2 (10:01→20:56)
--- NOTE | 2020-04-24 12:14 | RAD ---
EXAM: CHEST ONE VIEW HISTORY: Follow-up chest x-ray. Airspace opacities. COMPARISON: 04/24/2020 FINDINGS: Cardiac silhouette is within normal limits. Again noted are increased interstitial and alveolar airsp tyson opacities. However, this exam is obtained in a better depth inspiration, there does appear to be mild improvement in aeration within the lungs bilaterally compared to the prior exam. Persistent e levation right hemidiaphragm is present. Postoperative changes cervical spine are again seen. No other interval change IMPRESSION: Mild improvement in airspace opacities bilaterally which are likely attributable to Covid pneumonia. This exam is obtained in a better depth inspiration.
--- NOTE | 2020-04-24 12:53 | PRG ---
DATE OF SERVICE: 04/24/2020 OBJECTIVE: Esteban Laurent continues on and off BiPAP. OBJECTIVE: VITAL SIGNS: His FiO2 is 70%, respiratory rates in the high 20s, blood pressure 120/66, and heart rate is in the 80s. LUNGS: Remarkable for coarse equal breath sounds. HEART: Regular rhythm. ABDOMEN: Soft. LABORATORY DATA: Chest radiograph this morning was suggestive of either subpleural or subdiaphragmatic air. Repeat chest x-ray shows no progression. White count 14.9, hemoglobin 14.2, and platelets 167. Electrolytes are unremarkable. IMPRESSION AND PLAN: COVID pneumonia, making slow progress as expected. Continue supportive care. Job ID: [id number]
--- NOTE | 2020-04-24 15:46 | PDOC.HOSPP ---
- Subjective Encounter Date: 04/24/20 Encounter Time: 15:40 Subjective: This patient was seen and evaluated today. 59-year-old admitted with COVID-19 virus pneumonia complicated by respiratory failure. He remains on BiPAP alternating with high flow nasal cannula. He has no complaint right now. - Objective Vital Signs & Weight: Vital Signs (12 hours) Temp Pulse Resp Pulse Ox 04/24/20 14:40 66 28 H 97 04/24/20 12:00 96.7 F L 04/24/20 10:54 63 30 H 96 04/24/20 09:43 78 31 H 92 L 04/24/20 09:22 91 L 04/24/20 08:00 96.7 F L Weight Admit Weight 247 lb Weight 247 lb Most Recent Monitor Data Heart Rate from ECG 83 NIBP 154/85 NIBP BP-Mean 108 Respiration from ECG 33 SpO2 91 I&O: 04/23/20 04/24/20 04/25/20 06:59 06:59 06:59 Intake Total 1210 1192 312 Output Total 2445 1470 220 Balance -1235 -278 92 Result Diagrams: 04/24/20 03:45 04/24/20 03:45 Radiology Reviewed by me: Yes EKG Reviewed by me: Yes Hospitalist ROS - Review of Systems Constitutional: reports: weakness Respiratory: reports: shortness of breath, SOB with excertion Neurological: reports: weakness - Medication Medications: Active Medications Generic Name Dose Route Start Last Admin Trade Name Freq PRN Reason Stop Dose Admin Albuterol Sulfate 2 puff 04/10/20 10:30 04/24/20 14:39 Albuterol 200 Puff (6.7gm Inhaler) INH 2 puff [id number] JASON Administration Alprazolam 0.25 mg 04/19/20 08:53 04/23/20 22:37 Alprazolam 0.25 Mg Tab PO 0.25 mg QIDPRN PRN Administration Agitation Ascorbic Acid 1,000 mg 04/10/20 09:00 04/24/20 09:53 Ascorbic Acid 500 Mg Chewable Tablet PO 1,000 mg DAILY JASON Administration Benzonatate 100 mg 04/21/20 08:39 04/22/20 15:30 Benzonatate 100 Mg Cap PO 100 mg Q4H PRN Administration Cough Chlorphenir/Hydrocodone Polistirex 5 ml 04/23/20 09:50 04/24/20 15:19 Hydrocodone/Chlorphen Polis 5 Ml Udcup PO 5 ml Q12H PRN Administration Cough Cholecalciferol 1,000 units 04/14/20 09:00 04/24/20 09:53 Cholecalciferol 1,000 Units (25 Mcg) Tab PO 1,000 units DAILY JASON Administration Doxycycline Hyclate 100 mg 04/19/20 09:00 04/24/20 09:53 Doxycycline 100 Mg Cap PO 100 mg BID JASON Administration Enoxaparin Sodium 60 mg 04/17/20 21:00 04/24/20 09:52 Enoxaparin Sodium 60 Mg/0.6 Ml Syringe SC 60 mg 899,2099 JASON Administration Famotidine 20 mg 04/10/20 09:00 04/24/20 09:52 Famotidine 20 Mg Tab PO 20 mg BID JASON Administration Guaifenesin 600 mg 04/10/20 09:00 04/24/20 09:53 Guaifenesin Er 600 Mg Tab PO 600 mg Q12HR JASON Administration Guaifenesin/Dextromethorphan 15 ml 04/09/20 23:48 04/10/20 01:23 Guaifenesin Dm 100-10/5 Ml Udcup PO 15 ml Q4H PRN Administration Cough Insulin Human Lispro 0 units 04/10/20 01:51 04/15/20 17:58 Humalog 300 Units/3 Ml Vial SC 2 unit .MILD SLIDING SCALE PRN Administration Mild Correctional Scale Methylprednisolone Sodium Succinate 40 mg 04/21/20 09:00 04/24/20 10:01 Methylprednisolone Sod Succ 40 Mg Vial IVP 40 mg BID JASON Administration Mometasone Furoate/Formoterol Fumar 2 puff 04/10/20 18:30 04/24/20 09:22 Mometasone 200 Mcg/Formoterol 5 Mcg 120 Puff Inhaler INH 2 puff BID-RT JASON Administration Sodium Chloride 10 ml 04/18/20 09:00 04/24/20 09:54 Flush - Normal Saline 10 Ml Syringe IVF 10 ml Q12HR JASON Administration Zinc Sulfate 220 mg 04/10/20 09:00 04/24/20 09:53 Zinc Sulfate 220 Mg Cap PO 220 mg DAILY JASON Administration - Exam ENT: normocephalic atraumatic, no oropharyngeal lesions Neck: supple, symmetric Heart: RRR Respiratory: CTAB, no wheezes, normal chest expansion Gastrointestinal: soft, non-tender, non-distended Neurological: cranial nerve grossly intact, normal sensation to touch Psychiatric: normal affect, normal behavior, A&O x 3 Hosp A/P (1) Acute and chronic respiratory failure with hypoxia Code(s): J96.21 - ACUTE AND CHRONIC RESPIRATORY FAILURE WITH HYPOXIA Status: Acute Plan: He remains on high flow nasal cannula today. 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
[2020-04-25] MEDS: HYDROcodone/Chlorphen Polis 5 ML UDCUP PO PRN ×2 (02:43→15:10)
[2020-04-25] MEDS: Albuterol 200 PUFF (6.7GM INHALER) INH SCH ×6 (02:46→22:24)
[2020-04-25 04:07] LABS: #Eosinphils 0.1 thou/uL (0.0-0.7); #Lymphocytes 0.5 thou/uL (1.20-3.40); #Monocytes 0.2 thou/uL (0.11-0.59); #Neutrophils 13.7 thou/uL (1.40-6.50); %Eosinophils 0.4 % (0.0-10.0); %Lymphocytes 3.3 % (21.0-51.0); %Neutrophils 95.3 % (42.0-75.0); Hemoglobin 14.3 g/dL (14.0-18.0); Mean Corpuscular HGB CONC 33.3 g/dL (32.0-36.0); Mean Corpuscular Hemoglobin 30.7 pg (27.0-31.0); Mean Corpuscular Volume 92.1 fL (78.0-98.0); Mean Platelet Volume 7.4 fL (7.4-10.4); Platelet Count 173 thou/uL (130-400); RBC Distribution Width 12.6 % (11.5-14.5); Red Blood Cell (RBC) Count 4.66 mill/uL (4.70-6.10); White Blood Cell (WBC) Count 14.4 thou/uL (4.8-10.8)
[2020-04-25 04:27] LABS: Anion Gap 13 mmol/L (10-20); BUN (Urea Nitrogen) 14 mg/dL (8.4-25.7); Calc. Creatinine Clearance 199 mL/min (70-130); Calcium 8.4 mg/dL (7.8-10.44); Carbon Dioxide 31 mmol/L (22-29); Chloride 97 mmol/L (98-107); Glucose 134 mg/dL (70-105); Potassium 4.6 mmol/L (3.5-5.1); Sodium 136 mmol/L (136-145)
[2020-04-25] MEDS: Mometasone 200 MCG/Formoterol 5 MCG 120 PUFF INHALER INH SCH ×2 (07:58→18:37)
[2020-04-25] MEDS: Zinc Sulfate 220 MG CAP PO SCH ×2 (09:00→11:30)
[2020-04-25] MEDS: Famotidine 20 MG TAB PO SCH ×2 (10:05→21:43)
[2020-04-25] MEDS: Ascorbic Acid 500 mg Chewable Tablet PO SCH (10:06)
[2020-04-25] MEDS: Cholecalciferol 1,000 UNITS (25 MCG) TAB PO SCH (10:06)
[2020-04-25] MEDS: guaiFENesin ER 600 MG TAB PO SCH ×2 (10:06→21:43)
[2020-04-25] MEDS: methylPREDNISolone Sod Succ 40 MG VIAL IVP SCH ×2 (10:06→21:45)
[2020-04-25] MEDS: Enoxaparin Sodium 60 MG/0.6 ML SYRINGE SC SCH ×2 (10:06→21:43)
[2020-04-25] MEDS: Doxycycline 100 MG CAP PO SCH ×2 (10:06→21:43)
[2020-04-25] MEDS: Guaifenesin DM 100-10/5 ML UDCUP PO PRN (11:31)
--- NOTE | 2020-04-25 15:16 | PRG ---
DATE OF SERVICE: 04/25/2020 SUBJECTIVE: Esteban Laurent for the first time says his chest feels less congested. OBJECTIVE: VITAL SIGNS: Heart rate is in 80s, respiratory rate is in the 20s, O2 saturations in the low 90s, FiO2 is down to 65, blood pressure 139/73. LUNGS: Remarkable for coarse equal breath sounds. HEART: Regular rhythm. ABDOMEN: Soft. EXTREMITIES: Without asymmetry. LABORATORY DATA: CBCs are unchanged. Electrolytes remarkable for creatinine 0.6. IMPRESSION: COVID pneumonia, slowly improving. PLAN: Continue current supportive care measures. Job ID: [id number]
[2020-04-25] MEDS: Acetaminophen 325 MG TAB PO PRN (16:57)
[2020-04-25] MEDS: ALPRAZolam 0.25 MG TAB PO PRN (17:00)
--- NOTE | 2020-04-25 17:28 | PDOC.HOSPP ---
- Subjective Encounter Date: 04/25/20 Encounter Time: 17:27 Subjective: He looks pretty comfortable today. He remains on a high flow but alternating with BiPAP. No fever was reported. We will continue current management plan. - Objective Vital Signs & Weight: Vital Signs (12 hours) Temp Pulse Resp Pulse Ox 04/25/20 14:45 82 26 H 90 L 04/25/20 12:00 97.7 F 04/25/20 10:44 72 27 H 93 L 04/25/20 08:00 96.8 F L 90 L 04/25/20 07:59 88 L 04/25/20 07:58 84 23 H 88 L Weight Admit Weight 247 lb Weight 247 lb Most Recent Monitor Data Heart Rate from ECG 94 NIBP 121/80 NIBP BP-Mean 93 Respiration from ECG 29 SpO2 95 I&O: 04/24/20 04/25/20 04/26/20 06:59 06:59 06:59 Intake Total 1192 1477 540 Output Total 1470 1529 775 Balance -278 -43 -235 Result Diagrams: 04/25/20 03:28 04/25/20 03:28 Radiology Reviewed by me: Yes EKG Reviewed by me: Yes Hospitalist ROS - Review of Systems Constitutional: reports: fever, weakness Respiratory: reports: cough, shortness of breath, sputum Cardiovascular: reports: chest pain Gastrointestinal: reports: nausea Neurological: reports: weakness - Medication Medications: Active Medications Generic Name Dose Route Start Last Admin Trade Name Freq PRN Reason Stop Dose Admin Acetaminophen 650 mg 04/09/20 23:48 04/25/20 16:57 Acetaminophen 325 Mg Tab PO 650 mg Q4H PRN Administration Headache/Fever/Mild Pain (1-3) Albuterol Sulfate 2 puff 04/10/20 10:30 04/25/20 14:48 Albuterol 200 Puff (6.7gm Inhaler) INH 2 puff [id number] JASON Administration Alprazolam 0.25 mg 04/19/20 08:53 04/25/20 17:00 Alprazolam 0.25 Mg Tab PO 0.25 mg QIDPRN PRN Administration Agitation Ascorbic Acid 1,000 mg 04/10/20 09:00 04/25/20 10:06 Ascorbic Acid 500 Mg Chewable Tablet PO 1,000 mg DAILY JASON Administration Benzonatate 100 mg 04/21/20 08:39 04/22/20 15:30 Benzonatate 100 Mg Cap PO 100 mg Q4H PRN Administration Cough Chlorphenir/Hydrocodone Polistirex 5 ml 04/23/20 09:50 04/25/20 15:10 Hydrocodone/Chlorphen Polis 5 Ml Udcup PO 5 ml Q12H PRN Administration Cough Cholecalciferol 1,000 units 04/14/20 09:00 04/25/20 10:06 Cholecalciferol 1,000 Units (25 Mcg) Tab PO 1,000 units DAILY JASON Administration Doxycycline Hyclate 100 mg 04/19/20 09:00 04/25/20 10:06 Doxycycline 100 Mg Cap PO 100 mg BID JASON Administration Enoxaparin Sodium 60 mg 04/17/20 21:00 04/25/20 10:06 Enoxaparin Sodium 60 Mg/0.6 Ml Syringe SC 60 mg 0900,2100 JASON Administration Famotidine 20 mg 04/10/20 09:00 04/25/20 10:05 Famotidine 20 Mg Tab PO 20 mg BID JASON Administration Guaifenesin 600 mg 04/10/20 09:00 04/25/20 10:06 Guaifenesin Er 600 Mg Tab PO 600 mg Q12HR JASON Administration Guaifenesin/Dextromethorphan 15 ml 04/09/20 23:48 04/25/20 11:31 Guaifenesin Dm 100-10/5 Ml Udcup PO 15 ml Q4H PRN Administration Cough Insulin Human Lispro 0 units 04/10/20 01:51 04/15/20 17:58 Humalog 300 Units/3 Ml Vial SC 2 unit .MILD SLIDING SCALE PRN Administration Mild Correctional Scale Methylprednisolone Sodium Succinate 40 mg 04/21/20 09:00 04/25/20 10:06 Methylprednisolone Sod Succ 40 Mg Vial IVP 40 mg BID JASON Administration Mometasone Furoate/Formoterol Fumar 2 puff 04/10/20 18:30 04/25/20 07:58 Mometasone 200 Mcg/Formoterol 5 Mcg 120 Puff Inhaler INH 2 puff BID-RT JASON Administration Sodium Chloride 10 ml 04/18/20 09:00 04/25/20 10:06 Flush - Normal Saline 10 Ml Syringe IVF 10 ml Q12HR JASON Administration Zinc Sulfate 220 mg 04/10/20 09:00 04/25/20 11:30 Zinc Sulfate 220 Mg Cap PO 220 mg DAILY JASON Administration - Exam General Appearance: awake alert, ill appearing Eye: PERRL, anicteric sclera ENT: normocephalic atraumatic, no oropharyngeal lesions Neck: supple, symmetric, no JVD, no thyromegaly Heart: RRR, no murmur, no gallops, no rubs Respiratory: normal chest expansion, rales, rhonchi, wheezes Gastrointestinal: soft, non-tender, non-distended, normal bowel sounds Skin: normal turgor Neurological: cranial nerve grossly intact, normal sensation to touch Musculoskeletal: normal tone, normal strength, no muscle wasting Psychiatric: normal affect, normal behavior, A&O x 3 Hosp A/P (1) Acute and chronic respiratory failure with hypoxia Code(s): J96.21 - ACUTE AND CHRONIC RESPIRATORY FAILURE WITH HYPOXIA Status: Acute (2) Pneumonia due to COVID-19 virus Code(s): U07.1 - COVID-19; J12.89 - OTHER VIRAL PNEUMONIA Status: Acute - Plan old records reviewed/req, continue antibiotics, PT/OT, respiratory therapy, incentive spirometry, DVT proph w/lovenox 1. Acute COVID 19 pneumonia. Continue supportive cares. 2)Acute hypoxic respiratory failure. He remains on HFNC.
[2020-04-25] MEDS: HYDROcodone/Acetaminophen 5/325 mg Tablet PO PRN (20:02)
[2020-04-26] MEDS: HYDROcodone/Acetaminophen 5/325 mg Tablet PO PRN ×2 (02:10→19:46)
[2020-04-26] MEDS: Albuterol 200 PUFF (6.7GM INHALER) INH SCH ×6 (02:20→23:53)
[2020-04-26 04:05] LABS: #Lymphocytes 0.4 thou/uL (1.20-3.40); #Monocytes 0.4 thou/uL (0.11-0.59); #Neutrophils 17.8 thou/uL (1.40-6.50); %Eosinophils 0.2 % (0.0-10.0); %Lymphocytes 2.2 % (21.0-51.0); %Monocytes 2.3 % (0.0-10.0); %Neutrophils 95.3 % (42.0-75.0); Hemoglobin 14.8 g/dL (14.0-18.0); Mean Corpuscular HGB CONC 34.6 g/dL (32.0-36.0); Mean Corpuscular Hemoglobin 32.1 pg (27.0-31.0); Mean Corpuscular Volume 92.7 fL (78.0-98.0); Mean Platelet Volume 7.2 fL (7.4-10.4); Platelet Count 163 thou/uL (130-400); RBC Distribution Width 12.8 % (11.5-14.5); White Blood Cell (WBC) Count 18.7 thou/uL (4.8-10.8)
[2020-04-26] MEDS: HYDROcodone/Chlorphen Polis 5 ML UDCUP PO PRN ×2 (04:23→20:12)
[2020-04-26 04:27] LABS: Anion Gap 13 mmol/L (10-20); BUN (Urea Nitrogen) 14 mg/dL (8.4-25.7); Calc. Creatinine Clearance 212 mL/min (70-130); Calcium 8.5 mg/dL (7.8-10.44); Carbon Dioxide 31 mmol/L (22-29); Chloride 97 mmol/L (98-107); Glucose 137 mg/dL (70-105); Potassium 4.6 mmol/L (3.5-5.1); Sodium 136 mmol/L (136-145)
[2020-04-26] MEDS: Mometasone 200 MCG/Formoterol 5 MCG 120 PUFF INHALER INH SCH ×2 (07:50→19:25)
[2020-04-26] MEDS: Enoxaparin Sodium 60 MG/0.6 ML SYRINGE SC SCH ×2 (08:20→19:48)
[2020-04-26] MEDS: Famotidine 20 MG TAB PO SCH ×2 (08:20→19:47)
[2020-04-26] MEDS: Doxycycline 100 MG CAP PO SCH ×2 (08:21→20:12)
[2020-04-26] MEDS: methylPREDNISolone Sod Succ 40 MG VIAL IVP SCH ×2 (08:21→19:50)
[2020-04-26] MEDS: Cholecalciferol 1,000 UNITS (25 MCG) TAB PO SCH (08:21)
[2020-04-26] MEDS: Ascorbic Acid 500 mg Chewable Tablet PO SCH (08:21)
[2020-04-26] MEDS: guaiFENesin ER 600 MG TAB PO SCH ×2 (08:21→19:47)
[2020-04-26] MEDS: Zinc Sulfate 220 MG CAP PO SCH (08:21)
--- NOTE | 2020-04-26 14:48 | PRG ---
DATE OF SERVICE: 04/26/2020 SUBJECTIVE: The isolation precautions have been discontinued appropriately and still on high-flow nasal cannula about 60 L/minute. Borderline O2 sats, but he feels comfortable at rest. Overnight, he had a lot of coughing spells, not so much at this time. No chest pain. No abdominal pain. No diarrhea. No headaches. No neurological symptoms. OBJECTIVE: VITAL SIGNS: He is saturating at 89% to 90% right now with 60 L on high-flow nasal cannula, respiratory rate 18 to 22. GENERAL: He does not appear in distress. Facial skin is a bit flushed. LUNGS: With scattered inspiratory crackles, somewhat coarse breath sounds. HEART: S1 and S2. Regular rate without murmurs. ABDOMEN: Soft, not distended or tender. EXTREMITIES: He moves all extremities equally. LABORATORY DATA: Sodium is 136, creatinine 0.61. CRP was less than 0.5 on the and 0.84 on the . BNP less than 10. White cell count is up to 18.7 on the , hemoglobin 14, platelets 163, 95% neutrophils. D-dimer is 12.92 when last checked. He is currently on methylprednisolone 40 b.i.d., enoxaparin 60 b.i.d., guaifenesin, Bailey, zinc, and promethazine. Chest x-ray from the , a little bit less dense infiltrates than before. ASSESSMENT AND DISCUSSION: Severe COVID pneumonia with somewhat remarkable course in the hospital since he avoided intubation thus far. This is day of illness. Going forward, we will monitor for the potential for secondary infections in view of the immunosuppression associated with high dose steroids. Job ID: [id number]
--- NOTE | 2020-04-26 14:58 | PRG ---
DATE OF SERVICE: 04/26/2020 SUBJECTIVE: He says he is feeling better. He is trying to spend more time on high-flow. We will continue to try to minimize his FiO2. OBJECTIVE: VITAL SIGNS: His heart rate is in the 90s, blood pressure 159/81, respiratory rates in the teens. GENERAL: He is not talking. He appears comfortable. LUNGS: Remarkable for coarse equal breath sounds. HEART: Regular rhythm. ABDOMEN: Soft. LABORATORY DATA: White count 18.7, hemoglobin 14.8, platelets 163. Sodium 136, potassium 4.6, chloride 97, bicarb 31, BUN 14, and creatinine 0.6. IMPRESSION: Pneumonia, requiring intermittent BiPAP secondary to COVID. PLAN: We will continue with supportive care. Job ID: [id number]
--- NOTE | 2020-04-26 16:58 | PDOC.HOSPP ---
- Subjective Encounter Date: 04/26/20 Encounter Time: 16:33 Subjective: Mr. Laurent was seen at the bedside today. He was awake and alert and is on a high flow nasal cannula. He denied any chest pain. He seems comfortable. - Objective Vital Signs & Weight: Vital Signs (12 hours) Temp Pulse Ox 04/26/20 12:00 98.5 F 04/26/20 08:43 84 L 04/26/20 08:00 98.4 F 88 L Weight Admit Weight 247 lb Weight 247 lb Most Recent Monitor Data Heart Rate from ECG 93 NIBP 159/81 NIBP BP-Mean 107 Respiration from ECG 18 SpO2 91 I&O: 04/25/20 04/26/20 04/27/20 06:59 06:59 06:59 Intake Total 1477 1440 600 Output Total 1520 1900 690 Balance -43 -460 -90 Result Diagrams: 04/26/20 03:41 04/26/20 03:41 Radiology Reviewed by me: Yes EKG Reviewed by me: Yes Hospitalist ROS - Review of Systems Constitutional: reports: sweats, weakness Respiratory: reports: shortness of breath Gastrointestinal: reports: nausea Neurological: reports: weakness - Medication Medications: Active Medications Generic Name Dose Route Start Last Admin Trade Name Freq PRN Reason Stop Dose Admin Acetaminophen 650 mg 04/09/20 23:48 04/25/20 16:57 Acetaminophen 325 Mg Tab PO 650 mg Q4H PRN Administration Headache/Fever/Mild Pain (1-3) Hydrocodone Bitart/Acetaminophen 1 tab 04/25/20 19:55 04/26/20 02:10 Hydrocodone/Acetaminophen 5/325 Mg Tablet PO 1 tab Q6H PRN Administration Moderate Pain (4-6) Albuterol Sulfate 2 puff 04/10/20 10:30 04/26/20 14:45 Albuterol 200 Puff (6.7gm Inhaler) INH 2 puff [id number] JASON Administration Alprazolam 0.25 mg 04/19/20 08:53 04/25/20 17:00 Alprazolam 0.25 Mg Tab PO 0.25 mg QIDPRN PRN Administration Agitation Ascorbic Acid 1,000 mg 04/10/20 09:00 04/26/20 08:21 Ascorbic Acid 500 Mg Chewable Tablet PO 1,000 mg DAILY JASON Administration Benzonatate 100 mg 04/21/20 08:39 04/22/20 15:30 Benzonatate 100 Mg Cap PO 100 mg Q4H PRN Administration Cough Chlorphenir/Hydrocodone Polistirex 5 ml 04/23/20 09:50 04/26/20 04:23 Hydrocodone/Chlorphen Polis 5 Ml Udcup PO 5 ml Q12H PRN Administration Cough Cholecalciferol 1,000 units 04/14/20 09:00 04/26/20 08:21 Cholecalciferol 1,000 Units (25 Mcg) Tab PO 1,000 units DAILY JASON Administration Doxycycline Hyclate 100 mg 04/19/20 09:00 04/26/20 08:21 Doxycycline 100 Mg Cap PO 100 mg BID JASON Administration Enoxaparin Sodium 60 mg 04/17/20 21:00 04/26/20 08:20 Enoxaparin Sodium 60 Mg/0.6 Ml Syringe SC 60 mg 0900,2100 JASON Administration Famotidine 20 mg 04/10/20 09:00 04/26/20 08:20 Famotidine 20 Mg Tab PO 20 mg BID JASON Administration Guaifenesin 600 mg 04/10/20 09:00 04/26/20 08:21 Guaifenesin Er 600 Mg Tab PO 600 mg Q12HR JASON Administration Guaifenesin/Dextromethorphan 15 ml 04/09/20 23:48 04/25/20 11:31 Guaifenesin Dm 100-10/5 Ml Udcup PO 15 ml Q4H PRN Administration Cough Insulin Human Lispro 0 units 04/10/20 01:51 04/15/20 17:58 Humalog 300 Units/3 Ml Vial SC 2 unit .MILD SLIDING SCALE PRN Administration Mild Correctional Scale Methylprednisolone Sodium Succinate 40 mg 04/21/20 09:00 04/26/20 08:21 Methylprednisolone Sod Succ 40 Mg Vial IVP 40 mg BID JASON Administration Mometasone Furoate/Formoterol Fumar 2 puff 04/10/20 18:30 04/26/20 07:50 Mometasone 200 Mcg/Formoterol 5 Mcg 120 Puff Inhaler INH 2 puff BID-RT JASON Administration Sodium Chloride 10 ml 04/18/20 09:00 04/26/20 08:22 Flush - Normal Saline 10 Ml Syringe IVF 10 ml Q12HR JASON Administration Zinc Sulfate 220 mg 04/10/20 09:00 04/26/20 08:21 Zinc Sulfate 220 Mg Cap PO 220 mg DAILY JASON Administration - Exam General Appearance: awake alert, ill appearing Eye: PERRL ENT: normocephalic atraumatic, no oropharyngeal lesions Neck: supple Heart: RRR, no murmur Respiratory: no wheezes, normal chest expansion, rales, rhonchi Gastrointestinal: soft, non-tender, non-distended Neurological: cranial nerve grossly intact Musculoskeletal: normal tone, normal strength Psychiatric: normal affect, normal behavior, A&O x 3 Hosp A/P (1) Acute and chronic respiratory failure with hypoxia Code(s): J96.21 - ACUTE AND CHRONIC RESPIRATORY FAILURE WITH HYPOXIA Status: Acute Plan: He will remain on the high flow nasal cannula. (2) Pneumonia due to COVID-19 virus Code(s): U07.1 - COVID-19; J12.89 - OTHER VIRAL PNEUMONIA Status: Acute Plan: Continue supportive care as we are doing. (3) HTN (hypertension) Code(s): I10 - ESSENTIAL (PRIMARY) HYPERTENSION Status: Acute Qualifiers: Hypertension type: essential hypertension Qualified Code(s): I10 - Essential (primary) hypertension - Plan continue antibiotics, PT/OT, social worker school, respiratory therapy, incentive spirometry, DVT proph w/lovenox 1. Acute COVID 19 pneumonia. Continue supportive cares. 2)Acute hypoxic respiratory failure. He remains on HFNC.
[2020-04-26] MEDS: Benzonatate 100 MG CAP PO PRN (19:47)
[2020-04-27] MEDS: HYDROcodone/Acetaminophen 5/325 mg Tablet PO PRN ×2 (01:37→19:52)
[2020-04-27] MEDS: Guaifenesin DM 100-10/5 ML UDCUP PO PRN (01:38)
[2020-04-27 03:50] LABS: #Lymphocytes 0.4 thou/uL (1.20-3.40); #Monocytes 0.3 thou/uL (0.11-0.59); #Neutrophils 13.4 thou/uL (1.40-6.50); %Basophils 0.1 % (0.0-1.0); %Eosinophils 0.2 % (0.0-10.0); %Lymphocytes 2.7 % (21.0-51.0); %Monocytes 1.7 % (0.0-10.0); %Neutrophils 95.2 % (42.0-75.0); Hemoglobin 14.3 g/dL (14.0-18.0); Mean Corpuscular HGB CONC 34.6 g/dL (32.0-36.0); Mean Corpuscular Volume 92.5 fL (78.0-98.0); Mean Platelet Volume 7.4 fL (7.4-10.4); Platelet Count 144 thou/uL (130-400); RBC Distribution Width 12.9 % (11.5-14.5); Red Blood Cell (RBC) Count 4.47 mill/uL (4.70-6.10); White Blood Cell (WBC) Count 14.1 thou/uL (4.8-10.8)
[2020-04-27] MEDS: Albuterol 200 PUFF (6.7GM INHALER) INH SCH ×6 (03:56→23:20)
[2020-04-27] MEDS: HYDROcodone/Chlorphen Polis 5 ML UDCUP PO PRN ×2 (05:55→20:19)
[2020-04-27] MEDS: Mometasone 200 MCG/Formoterol 5 MCG 120 PUFF INHALER INH SCH ×2 (09:08→18:52)
--- NOTE | 2020-04-27 09:21 | PRG ---
DATE OF SERVICE: 04/27/2020 SUBJECTIVE: The patient is awake, alert, doing well on BiPAP with FiO2 of 60%. PHYSICAL EXAMINATION: VITAL SIGNS: Temperature 98.9, pulse 75, blood pressure 147/81, O2 saturation in the low 90s. HEENT: Unremarkable. NECK: No adenopathy or JVD. LUNGS: Coarse breath sounds anteriorly. CARDIAC: S1 and S2. Regular. ABDOMEN: Soft. EXTREMITIES: No edema. LABORATORY DATA: White blood cell count 14.1, hematocrit 41, and platelet count 144. Sodium 136, potassium 4.6, BUN 14, creatinine 0.6, glucose 137. ASSESSMENT: 1. COVID-19 pneumonia. 2. Acute hypoxic respiratory failure. PLAN: Basically continue supportive care. He has had 7 days of doxycycline, so I think we should go ahead and stop that. He continues on anticoagulation and corticosteroids. Job ID: [id number]
[2020-04-27] MEDS: guaiFENesin ER 600 MG TAB PO SCH ×2 (10:03→19:52)
[2020-04-27] MEDS: Famotidine 20 MG TAB PO SCH ×2 (10:03→19:51)
[2020-04-27] MEDS: Cholecalciferol 1,000 UNITS (25 MCG) TAB PO SCH (10:04)
[2020-04-27] MEDS: Zinc Sulfate 220 MG CAP PO SCH (10:04)
[2020-04-27] MEDS: Ascorbic Acid 500 mg Chewable Tablet PO SCH (10:04)
[2020-04-27] MEDS: Enoxaparin Sodium 60 MG/0.6 ML SYRINGE SC SCH ×2 (10:05→19:54)
[2020-04-27] MEDS: methylPREDNISolone Sod Succ 40 MG VIAL IVP SCH ×2 (10:05→19:53)
[2020-04-27 10:50] LABS: Chloride 94 mmol/L (98-107); Potassium 6.1 mmol/L (3.5-5.1); Sodium 132 mmol/L (136-145)
[2020-04-27 10:51] LABS: Calcium 8.4 mg/dL (7.8-10.44); Glucose 113 mg/dL (70-105)
[2020-04-27 10:53] LABS: Anion Gap 16 mmol/L (10-20); Carbon Dioxide 28 mmol/L (22-29)
[2020-04-27 10:54] LABS: Calc. Creatinine Clearance 190 mL/min (70-130)
[2020-04-27 10:55] LABS: BUN (Urea Nitrogen) 15 mg/dL (8.4-25.7)
[2020-04-27] MEDS: Doxycycline 100 MG CAP PO SCH (11:34)
--- NOTE | 2020-04-27 17:11 | PDOC.HOSPP ---
- Subjective Encounter Date: 04/27/20 Encounter Time: 17:09 Subjective: I saw and evaluated Mr. Laurent at the bedside. He is awake and alert and on high flow nasal cannula. Patient with conversations. He otherwise has no other complaint. - Objective Vital Signs & Weight: Vital Signs (12 hours) Temp Pulse Ox 04/27/20 12:00 97.6 F 04/27/20 09:09 91 L 04/27/20 08:00 97.6 F 97 Weight Admit Weight 247 lb Weight 247 lb Most Recent Monitor Data Heart Rate from ECG 88 NIBP 125/76 NIBP BP-Mean 92 Respiration from ECG 25 SpO2 92 I&O: 04/26/20 04/27/20 04/28/20 06:59 06:59 06:59 Intake Total 1440 2390 620 Output Total 1900 2550 275 Balance -460 -160 345 Result Diagrams: 04/27/20 03:15 04/27/20 06:35 Radiology Reviewed by me: Yes EKG Reviewed by me: Yes Hospitalist ROS - Review of Systems Constitutional: reports: weakness Respiratory: reports: cough, shortness of breath, SOB with excertion Gastrointestinal: reports: nausea - Medication Medications: Active Medications Generic Name Dose Route Start Last Admin Trade Name Freq PRN Reason Stop Dose Admin Acetaminophen 650 mg 04/09/20 23:48 04/25/20 16:57 Acetaminophen 325 Mg Tab PO 650 mg Q4H PRN Administration Headache/Fever/Mild Pain (1-3) Hydrocodone Bitart/Acetaminophen 1 tab 04/25/20 19:55 04/27/20 01:37 Hydrocodone/Acetaminophen 5/325 Mg Tablet PO 1 tab Q6H PRN Administration Moderate Pain (4-6) Albuterol Sulfate 2 puff 04/10/20 10:30 04/27/20 14:26 Albuterol 200 Puff (6.7gm Inhaler) INH 2 puff [id number] JASON Administration Alprazolam 0.25 mg 04/19/20 08:53 04/25/20 17:00 Alprazolam 0.25 Mg Tab PO 0.25 mg QIDPRN PRN Administration Agitation Ascorbic Acid 1,000 mg 04/10/20 09:00 04/27/20 10:04 Ascorbic Acid 500 Mg Chewable Tablet PO 1,000 mg DAILY JASON Administration Benzonatate 100 mg 04/21/20 08:39 04/26/20 19:47 Benzonatate 100 Mg Cap PO 100 mg Q4H PRN Administration Cough Chlorphenir/Hydrocodone Polistirex 5 ml 04/23/20 09:50 04/27/20 05:55 Hydrocodone/Chlorphen Polis 5 Ml Udcup PO 5 ml Q12H PRN Administration Cough Cholecalciferol 1,000 units 04/14/20 09:00 04/27/20 10:04 Cholecalciferol 1,000 Units (25 Mcg) Tab PO 1,000 units DAILY JASON Administration Enoxaparin Sodium 60 mg 04/17/20 21:00 04/27/20 10:05 Enoxaparin Sodium 60 Mg/0.6 Ml Syringe SC 60 mg [id number] JASON Administration Famotidine 20 mg 04/10/20 09:00 04/27/20 10:03 Famotidine 20 Mg Tab PO 20 mg BID JASON Administration Guaifenesin 600 mg 04/10/20 09:00 04/27/20 10:03 Guaifenesin Er 600 Mg Tab PO 600 mg Q12HR JASON Administration Guaifenesin/Dextromethorphan 15 ml 04/09/20 23:48 04/27/20 01:38 Guaifenesin Dm 100-10/5 Ml Udcup PO 15 ml Q4H PRN Administration Cough Insulin Human Lispro 0 units 04/10/20 01:51 04/15/20 17:58 Humalog 300 Units/3 Ml Vial SC 2 unit .MILD SLIDING SCALE PRN Administration Mild Correctional Scale Methylprednisolone Sodium Succinate 40 mg 04/21/20 09:00 04/27/20 10:05 Methylprednisolone Sod Succ 40 Mg Vial IVP 40 mg BID JASON Administration Mometasone Furoate/Formoterol Fumar 2 puff 04/10/20 18:30 04/27/20 09:08 Mometasone 200 Mcg/Formoterol 5 Mcg 120 Puff Inhaler INH 2 puff BID-RT JASON Administration Sodium Chloride 10 ml 04/18/20 09:00 04/27/20 10:06 Flush - Normal Saline 10 Ml Syringe IVF 10 ml Q12HR JASON Administration Zinc Sulfate 220 mg 04/10/20 09:00 04/27/20 10:04 Zinc Sulfate 220 Mg Cap PO 220 mg DAILY JASON Administration - Exam General Appearance: awake alert, ill appearing ENT: normocephalic atraumatic, no oropharyngeal lesions Neck: supple, symmetric Heart: RRR, no murmur, no gallops Respiratory: no wheezes, no rales, normal chest expansion, rhonchi, tachypneic Gastrointestinal: soft, non-tender, non-distended, normal bowel sounds Extremities: no cyanosis, no clubbing Neurological: cranial nerve grossly intact, normal sensation to touch Psychiatric: normal affect, normal behavior, A&O x 3 Hosp A/P (1) Acute and chronic respiratory failure with hypoxia Code(s): J96.21 - ACUTE AND CHRONIC RESPIRATORY FAILURE WITH HYPOXIA Status: Acute (2) Pneumonia due to COVID-19 virus Code(s): U07.1 - COVID-19; J12.89 - OTHER VIRAL PNEUMONIA Status: Acute (3) HTN (hypertension) Code(s): I10 - ESSENTIAL (PRIMARY) HYPERTENSION Status: Acute Qualifiers: Hypertension type: essential hypertension Qualified Code(s): I10 - Essential (primary) hypertension - Plan plan discussed w/ family, PT/OT, respiratory therapy, incentive spirometry, out of bed/ambulate Consults: Palliative Care 1. Acute COVID 19 pneumonia. Continue supportive cares. 2)Acute hypoxic respiratory failure. He remains on HFNC. 04/27/2020. No significant changes on the high flow. He will continue on this for now.
[2020-04-28] MEDS: Albuterol 200 PUFF (6.7GM INHALER) INH SCH ×6 (02:20→22:39)
[2020-04-28] MEDS: Benzonatate 100 MG CAP PO PRN ×3 (03:22→19:56)
[2020-04-28 03:59] LABS: #Basophils 0.1 thou/uL (0.0-0.2); #Lymphocytes 0.6 thou/uL (1.20-3.40); #Monocytes 0.3 thou/uL (0.11-0.59); #Neutrophils 17.7 thou/uL (1.40-6.50); %Basophils 0.6 % (0.0-1.0); %Eosinophils 0.2 % (0.0-10.0); %Monocytes 1.5 % (0.0-10.0); %Neutrophils 94.7 % (42.0-75.0); Hemoglobin 15.3 g/dL (14.0-18.0); Mean Corpuscular Hemoglobin 31.7 pg (27.0-31.0); Mean Corpuscular Volume 93.3 fL (78.0-98.0); Mean Platelet Volume 7.7 fL (7.4-10.4); Platelet Count 177 thou/uL (130-400); Red Blood Cell (RBC) Count 4.83 mill/uL (4.70-6.10); White Blood Cell (WBC) Count 18.7 thou/uL (4.8-10.8)
[2020-04-28 04:23] LABS: Anion Gap 15 mmol/L (10-20); BUN (Urea Nitrogen) 14 mg/dL (8.4-25.7); Calc. Creatinine Clearance 202 mL/min (70-130); Calcium 8.6 mg/dL (7.8-10.44); Carbon Dioxide 30 mmol/L (22-29); Chloride 96 mmol/L (98-107); Glucose 115 mg/dL (70-105); Potassium 5.3 mmol/L (3.5-5.1); Sodium 136 mmol/L (136-145)
[2020-04-28] MEDS: Mometasone 200 MCG/Formoterol 5 MCG 120 PUFF INHALER INH SCH ×2 (07:11→18:36)
[2020-04-28] MEDS: Famotidine 20 MG TAB PO SCH ×2 (08:11→20:03)
[2020-04-28] MEDS: Zinc Sulfate 220 MG CAP PO SCH (08:12)
[2020-04-28] MEDS: guaiFENesin ER 600 MG TAB PO SCH ×2 (08:12→20:04)
[2020-04-28] MEDS: Ascorbic Acid 500 mg Chewable Tablet PO SCH (08:12)
[2020-04-28] MEDS: methylPREDNISolone Sod Succ 40 MG VIAL IVP SCH (08:12)
[2020-04-28] MEDS: Cholecalciferol 1,000 UNITS (25 MCG) TAB PO SCH (08:17)
[2020-04-28] MEDS: Enoxaparin Sodium 60 MG/0.6 ML SYRINGE SC SCH ×2 (08:18→20:00)
[2020-04-28] MEDS: HYDROcodone/Chlorphen Polis 5 ML UDCUP PO PRN ×2 (10:50→22:35)
--- NOTE | 2020-04-28 12:58 | PDOC.HOSPP ---
- Subjective Encounter Date: 04/28/20 Subjective: Mr. Laurent was seen and evaluated today. This 59-year-old was admitted with COVID-19 pneumonia. He is since being off of isolation. He continues to alternate between BiPAP and high flow nasal cannula. He has completed remdesivir and convalescent plasma. He also required empiric antibiotic earlier on admission. I believe his Covid diagnosis was on April 052019. His prognosis remains guarded at this time. - Objective Vital Signs & Weight: Vital Signs (12 hours) Temp Pulse Resp Pulse Ox 04/28/20 11:52 97.4 F L 04/28/20 11:38 123 H 32 H 87 L 04/28/20 08:00 97.1 F L 04/28/20 07:12 83 28 H 87 L 04/28/20 07:11 92 28 H 92 L 04/28/20 03:00 97.5 F L Weight Admit Weight 247 lb Weight 247 lb Most Recent Monitor Data Heart Rate from ECG 90 NIBP 144/88 NIBP BP-Mean 106 Respiration from ECG 25 SpO2 89 I&O: 04/27/20 04/28/20 04/29/20 06:59 06:59 06:59 Intake Total 2390 1035 480 Output Total 2550 2600 650 Balance -160 -1275 -170 Result Diagrams: 04/28/20 03:10 04/28/20 03:10 Radiology Reviewed by me: Yes EKG Reviewed by me: Yes Hospitalist ROS - Review of Systems Constitutional: reports: weakness, malaise Respiratory: reports: cough, shortness of breath, SOB with excertion - Medication Medications: Active Medications Generic Name Dose Route Start Last Admin Trade Name Freq PRN Reason Stop Dose Admin Acetaminophen 650 mg 04/09/20 23:48 04/25/20 16:57 Acetaminophen 325 Mg Tab PO 650 mg Q4H PRN Administration Headache/Fever/Mild Pain (1-3) Hydrocodone Bitart/Acetaminophen 1 tab 04/25/20 19:55 04/27/20 19:52 Hydrocodone/Acetaminophen 5/325 Mg Tablet PO 1 tab Q6H PRN Administration Moderate Pain (4-6) Albuterol Sulfate 2 puff 04/10/20 10:30 04/28/20 11:36 Albuterol 200 Puff (6.7gm Inhaler) INH 2 puff [id number] JASON Administration Alprazolam 0.25 mg 04/19/20 08:53 04/25/20 17:00 Alprazolam 0.25 Mg Tab PO 0.25 mg QIDPRN PRN Administration Agitation Ascorbic Acid 1,000 mg 04/10/20 09:00 04/28/20 08:12 Ascorbic Acid 500 Mg Chewable Tablet PO 1,000 mg DAILY JASON Administration Benzonatate 100 mg 04/21/20 08:39 04/28/20 10:28 Benzonatate 100 Mg Cap PO 100 mg Q4H PRN Administration Cough Chlorphenir/Hydrocodone Polistirex 5 ml 04/23/20 09:50 04/28/20 10:50 Hydrocodone/Chlorphen Polis 5 Ml Udcup PO 5 ml Q12H PRN Administration Cough Cholecalciferol 1,000 units 04/14/20 09:00 04/28/20 08:17 Cholecalciferol 1,000 Units (25 Mcg) Tab PO 1,000 units DAILY JASON Administration Enoxaparin Sodium 60 mg 04/17/20 21:00 04/28/20 08:18 Enoxaparin Sodium 60 Mg/0.6 Ml Syringe SC 60 mg 0900,2100 JASON Administration Famotidine 20 mg 04/10/20 09:00 04/28/20 08:11 Famotidine 20 Mg Tab PO 20 mg BID JASON Administration Guaifenesin 600 mg 04/10/20 09:00 04/28/20 08:12 Guaifenesin Er 600 Mg Tab PO 600 mg Q12HR JASON Administration Guaifenesin/Dextromethorphan 15 ml 04/09/20 23:48 04/27/20 01:38 Guaifenesin Dm 100-10/5 Ml Udcup PO 15 ml Q4H PRN Administration Cough Insulin Human Lispro 0 units 04/10/20 01:51 04/15/20 17:58 Humalog 300 Units/3 Ml Vial SC 2 unit .MILD SLIDING SCALE PRN Administration Mild Correctional Scale Methylprednisolone Sodium Succinate 40 mg 04/21/20 09:00 04/28/20 08:12 Methylprednisolone Sod Succ 40 Mg Vial IVP 40 mg BID JASON Administration Mometasone Furoate/Formoterol Fumar 2 puff 04/10/20 18:30 04/28/20 07:11 Mometasone 200 Mcg/Formoterol 5 Mcg 120 Puff Inhaler INH 2 puff BID-RT JASON Administration Sodium Chloride 10 ml 04/18/20 09:00 04/28/20 08:12 Flush - Normal Saline 10 Ml Syringe IVF 10 ml Q12HR JASON Administration Zinc Sulfate 220 mg 04/10/20 09:00 04/28/20 08:12 Zinc Sulfate 220 Mg Cap PO 220 mg DAILY JASON Administration - Exam General Appearance: awake alert, ill appearing Eye: PERRL, anicteric sclera ENT: normocephalic atraumatic, no oropharyngeal lesions Neck: supple, symmetric, no JVD, no thyromegaly Heart: RRR, no murmur, no gallops, no rubs Respiratory: rales, rhonchi, tachypneic, wheezes Gastrointestinal: soft, non-tender, non-distended, normal bowel sounds Skin: normal turgor Neurological: cranial nerve grossly intact, normal sensation to touch Musculoskeletal: normal tone, normal strength, no muscle wasting Psychiatric: normal affect, normal behavior, A&O x 3 Hosp A/P (1) Acute and chronic respiratory failure with hypoxia Code(s): J96.21 - ACUTE AND CHRONIC RESPIRATORY FAILURE WITH HYPOXIA Status: Acute (2) Pneumonia due to COVID-19 virus Code(s): U07.1 - COVID-19; J12.89 - OTHER VIRAL PNEUMONIA Status: Acute (3) HTN (hypertension) Code(s): I10 - ESSENTIAL (PRIMARY) HYPERTENSION Status: Acute Qualifiers: Hypertension type: essential hypertension Qualified Code(s): I10 - Essentia l (primary) hypertension - Plan old records reviewed/req, respiratory therapy, incentive spirometry 1. Acute COVID 19 pneumonia. Continue supportive cares. 2)Acute hypoxic respiratory failure. He remains on HFNC. 04/27/2020. No significant changes on the high flow. He will continue on this for now. 3. Hyperglycemia. Likely effect of steroids.
--- NOTE | 2020-04-28 16:19 | PRG ---
DATE OF SERVICE: 04/28/2020 SUBJECTIVE: Esteban Laurent remains stable. He says he is feeling better. He is examined and sitting in the chair at the bedside. He had BiPAP on. He wore high-flow oxygen most of morning. OBJECTIVE: LUNGS: Clear. HEART: Regular rate and rhythm. ABDOMEN: Soft. EXTREMITIES: Without asymmetry. LABORATORY DATA: White count 18.7, hemoglobin 15.3, platelets 177, sodium 132, potassium 6.1, chloride 94, bicarb 28, BUN 15, creatinine 0.6. It was yesterday. Lab today shows sodium 136, potassium 5.3. IMPRESSION: Coronavirus disease pneumonia, making slow progress. PLAN: Continue supportive care. I will keep FiO2 down. Job ID: [id number]
[2020-04-28] MEDS: HYDROcodone/Acetaminophen 5/325 mg Tablet PO PRN (22:35)
[2020-04-29] MEDS: Albuterol 200 PUFF (6.7GM INHALER) INH SCH ×6 (02:35→22:20)
[2020-04-29 03:38] LABS: #Eosinphils 0.1 thou/uL (0.0-0.7); #Lymphocytes 1.1 thou/uL (1.20-3.40); #Monocytes 0.4 thou/uL (0.11-0.59); #Neutrophils 10.2 thou/uL (1.40-6.50); %Basophils 0.2 % (0.0-1.0); %Monocytes 3.2 % (0.0-10.0); %Neutrophils 86.7 % (42.0-75.0); Hemoglobin 14.3 g/dL (14.0-18.0); Mean Corpuscular HGB CONC 34.3 g/dL (32.0-36.0); Mean Corpuscular Hemoglobin 32.1 pg (27.0-31.0); Mean Corpuscular Volume 93.8 fL (78.0-98.0); Mean Platelet Volume 7.2 fL (7.4-10.4); Platelet Count 131 thou/uL (130-400); RBC Distribution Width 13.1 % (11.5-14.5); Red Blood Cell (RBC) Count 4.44 mill/uL (4.70-6.10); White Blood Cell (WBC) Count 11.7 thou/uL (4.8-10.8)
[2020-04-29 03:59] LABS: Anion Gap 12 mmol/L (10-20); BUN (Urea Nitrogen) 18 mg/dL (8.4-25.7); Calc. Creatinine Clearance 212 mL/min (70-130); Calcium 8.5 mg/dL (7.8-10.44); Carbon Dioxide 34 mmol/L (22-29); Chloride 97 mmol/L (98-107); Glucose 85 mg/dL (70-105); Potassium 3.8 mmol/L (3.5-5.1); Sodium 139 mmol/L (136-145)
[2020-04-29] MEDS: Mometasone 200 MCG/Formoterol 5 MCG 120 PUFF INHALER INH SCH ×2 (05:27→18:34)
[2020-04-29] MEDS: Ascorbic Acid 500 mg Chewable Tablet PO SCH (09:15)
[2020-04-29] MEDS: guaiFENesin ER 600 MG TAB PO SCH ×2 (09:15→21:58)
[2020-04-29] MEDS: Cholecalciferol 1,000 UNITS (25 MCG) TAB PO SCH (09:15)
[2020-04-29] MEDS: Famotidine 20 MG TAB PO SCH ×2 (09:15→20:11)
[2020-04-29] MEDS: methylPREDNISolone Sod Succ 40 MG VIAL IVP SCH (09:16)
[2020-04-29] MEDS: Enoxaparin Sodium 60 MG/0.6 ML SYRINGE SC SCH ×2 (09:16→20:11)
[2020-04-29] MEDS: Zinc Sulfate 220 MG CAP PO SCH (09:16)
[2020-04-29] MEDS: Morphine 2 MG/ML VIAL SLOW IVP PRN ×6 (12:07→23:44)
--- NOTE | 2020-04-29 13:52 | PRG ---
DATE OF SERVICE: 04/29/2020 SUBJECTIVE: Mr. Laurent says he feels about 2% better. OBJECTIVE: VITAL SIGNS: Blood pressure is 117/72, heart rate fluctuates from 100 to 120. He is afebrile. LUNGS: Unchanged. ABDOMEN: Unchanged. LABORATORY DATA: White count 11.7. Platelets 131, hemoglobin 14.3. Sodium 139, potassium 3.8, chloride 97, bicarb 34, BUN 18, creatinine 0.6. IMPRESSION: COVID pneumonia, making slow progress. He is on high-flow when I saw him with a FiO2 of 70. We are going to try a low dose of morphine today, see if this helps with his anxiety. He has no signs of muscle fatigue at this point in time. Job ID: [id number]
--- NOTE | 2020-04-29 20:02 | PDOC.HOSPP ---
- Subjective Encounter Date: 04/29/20 Encounter Time: 20:00 Subjective: f/u for COVID PNA receiving high-flow O2 @ 60L/min alternating with BiPAP. Rx with Solumedrol/Lovenox/Vit C/Zinc. - Objective Vital Signs & Weight: Vital Signs (12 hours) Temp Pulse Resp Pulse Ox 04/29/20 18:34 60 25 H 86 L 04/29/20 16:50 97.8 F 04/29/20 12:00 97.8 F 04/29/20 09:00 98.2 F Weight Admit Weight 247 lb Weight 247 lb Most Recent Monitor Data Heart Rate from ECG 86 NIBP 132/69 NIBP BP-Mean 90 Respiration from ECG 22 SpO2 90 I&O: 04/28/20 04/29/20 04/30/20 06:59 06:59 06:59 Intake Total 1035 1260 480 Output Total 2600 1400 750 Balance -1565 -140 -270 Result Diagrams: 04/29/20 03:15 04/29/20 03:15 Additional Labs: Laboratory Tests 04/27/20 04/28/20 06:35 03:10 Potassium 6.1 H 5.3 H Radiology Reviewed by me: Yes (PCXR - 04/24 - bilat infiltrates consistent with COVID) EKG Reviewed by me: Yes (Tele - SR) Hospitalist ROS - Medication Medications: Active Medications Generic Name Dose Route Start Last Admin Trade Name Freq PRN Reason Stop Dose Admin Acetaminophen 650 mg 04/09/20 23:48 04/25/20 16:57 Acetaminophen 325 Mg Tab PO 650 mg Q4H PRN Administration Headache/Fever/Mild Pain (1-3) Hydrocodone Bitart/Acetaminophen 1 tab 04/25/20 19:55 04/28/20 22:35 Hydrocodone/Acetaminophen 5/325 Mg Tablet PO 1 tab Q6H PRN Administration Moderate Pain (4-6) Albuterol Sulfate 2 puff 04/10/20 10:30 04/29/20 18:34 Albuterol 200 Puff (6.7gm Inhaler) INH 2 puff [id number] JASON Administration Ascorbic Acid 1,000 mg 04/10/20 09:00 04/29/20 09:15 Ascorbic Acid 500 Mg Chewable Tablet PO 1,000 mg DAILY JASON Administration Benzonatate 100 mg 04/21/20 08:39 04/28/20 19:56 Benzonatate 100 Mg Cap PO 100 mg Q4H PRN Administration Cough Chlorphenir/Hydrocodone Polistirex 5 ml 04/23/20 09:50 04/28/20 22:35 Hydrocodone/Chlorphen Polis 5 Ml Udcup PO 5 ml Q12H PRN Administration Cough Cholecalciferol 1,000 units 04/14/20 09:00 04/29/20 09:15 Cholecalciferol 1,000 Units (25 Mcg) Tab PO 1,000 units DAILY JASON Administration Enoxaparin Sodium 60 mg 04/17/20 21:00 04/29/20 09:16 Enoxaparin Sodium 60 Mg/0.6 Ml Syringe SC 60 mg 899,2099 JASON Administration Famotidine 20 mg 04/10/20 09:00 04/29/20 09:15 Famotidine 20 Mg Tab PO 20 mg BID JASON Administration Guaifenesin 600 mg 04/10/20 09:00 04/29/20 09:15 Guaifenesin Er 600 Mg Tab PO 600 mg Q12HR JASON Administration Guaifenesin/Dextromethorphan 15 ml 04/09/20 23:48 04/27/20 01:38 Guaifenesin Dm 100-10/5 Ml Udcup PO 15 ml Q4H PRN Administration Cough Insulin Human Lispro 0 units 04/10/20 01:51 04/15/20 17:58 Humalog 300 Units/3 Ml Vial SC 2 unit .MILD SLIDING SCALE PRN Administration Mild Correctional Scale Methylprednisolone Sodium Succinate 40 mg 04/29/20 09:00 04/29/20 09:16 Methylprednisolone Sod Succ 40 Mg Vial IVP 40 mg DAILY JASON Administration Mometasone Furoate/Formoterol Fumar 2 puff 04/10/20 18:30 04/29/20 18:34 Mometasone 200 Mcg/Formoterol 5 Mcg 120 Puff Inhaler INH 2 puff BID-RT JASON Administration Morphine Sulfate 2 mg 04/29/20 11:50 04/29/20 18:03 Morphine 2 Mg/Ml Vial SLOW IVP 2 mg Q2H PRN Administration Anxiety Sodium Chloride 10 ml 04/18/20 09:00 04/29/20 09:16 Flush - Normal Saline 10 Ml Syringe IVF 10 ml Q12HR JASON Administration Zinc Sulfate 220 mg 04/10/20 09:00 04/29/20 09:16 Zinc Sulfate 220 Mg Cap PO 220 mg DAILY JASON Administration - Exam General Appearance: awake alert General - other findings: tachypneic Eye: PERRL, anicteric sclera ENT: normocephalic atraumatic, no oropharyngeal lesions Neck: supple, symmetric, no JVD, no thyromegaly Heart: RRR, no murmur, no gallops, no rubs, normal peripheral pulses Respiratory: tachypneic Respiratory - other findings: diminished in bases, occ rhonchi Gastrointestinal: soft, non-tender, non-distended, normal bowel sounds, no palpable masses, no hepatomegaly Extremities: no cyanosis, no clubbing, no edema Skin: normal turgor, no lesions Neurological: cranial nerve grossly intact, no new deficit Musculoskeletal: normal tone, normal strength, no muscle wasting Psychiatric: normal affect, A&O x 3 Hosp A/P (1) Pneumonia due to COVID-19 virus Code(s): U07.1 - COVID-19; J12.89 - OTHER VIRAL PNEUMONIA Status: Acute Plan: Persistent, continue supportive mgmt, Solumedrol/Lovenox/Albuterol/O2/Vit C/Zinc (2) Acute and chronic respiratory failure with hypoxia Code(s): J96.21 - ACUTE AND CHRONIC RESPIRATORY FAILURE WITH HYPOXIA Status: Acute Plan: Continue O2 support with high-flow/BiPAP (3) Anxiety Code(s): F41.9 - ANXIETY DISORDER, UNSPECIFIED Status: Acute Plan: Secondary to hypoxia, continue Xanax/Morphine/Family support (4) Hyperkalemia Code(s): E87.5 - HYPERKALEMIA Status: Acute Plan: Resolving - Plan respiratory therapy, DVT proph w/SCDs Continue supportive mgmt High-flow O2/BiPAP NIMV Continue Solumedrol Continue Lovenox AM lab: BMP, CBC
[2020-04-30] MEDS: Albuterol 200 PUFF (6.7GM INHALER) INH SCH ×6 (02:31→22:12)
[2020-04-30 04:04] LABS: #Eosinphils 0.1 thou/uL (0.0-0.7); #Lymphocytes 0.8 thou/uL (1.20-3.40); #Monocytes 0.3 thou/uL (0.11-0.59); #Neutrophils 13.3 thou/uL (1.40-6.50); %Basophils 0.2 % (0.0-1.0); %Eosinophils 0.8 % (0.0-10.0); %Lymphocytes 5.3 % (21.0-51.0); %Monocytes 2.2 % (0.0-10.0); %Neutrophils 91.5 % (42.0-75.0); Hemoglobin 13.8 g/dL (14.0-18.0); Mean Corpuscular Hemoglobin 31.2 pg (27.0-31.0); Mean Corpuscular Volume 94.5 fL (78.0-98.0); Mean Platelet Volume 6.9 fL (7.4-10.4); Platelet Count 118 thou/uL (130-400); RBC Distribution Width 13.3 % (11.5-14.5); Red Blood Cell (RBC) Count 4.43 mill/uL (4.70-6.10); White Blood Cell (WBC) Count 14.5 thou/uL (4.8-10.8)
[2020-04-30 04:18] LABS: Anion Gap 13 mmol/L (10-20); BUN (Urea Nitrogen) 12 mg/dL (8.4-25.7); Calc. Creatinine Clearance 219 mL/min (70-130); Calcium 8.2 mg/dL (7.8-10.44); Carbon Dioxide 32 mmol/L (22-29); Chloride 96 mmol/L (98-107); Glucose 92 mg/dL (70-105); Potassium 3.8 mmol/L (3.5-5.1); Sodium 137 mmol/L (136-145)
[2020-04-30] MEDS: Morphine 2 MG/ML VIAL SLOW IVP PRN ×6 (04:34→21:23)
[2020-04-30] MEDS: Mometasone 200 MCG/Formoterol 5 MCG 120 PUFF INHALER INH SCH ×2 (05:31→18:59)
[2020-04-30] MEDS: Famotidine 20 MG TAB PO SCH ×2 (08:47→20:25)
[2020-04-30] MEDS: Cholecalciferol 1,000 UNITS (25 MCG) TAB PO SCH (08:47)
[2020-04-30] MEDS: Zinc Sulfate 220 MG CAP PO SCH (08:47)
[2020-04-30] MEDS: Ascorbic Acid 500 mg Chewable Tablet PO SCH (08:47)
[2020-04-30] MEDS: guaiFENesin ER 600 MG TAB PO SCH ×2 (08:48→20:25)
[2020-04-30] MEDS: methylPREDNISolone Sod Succ 40 MG VIAL IVP SCH (08:49)
[2020-04-30] MEDS: Enoxaparin Sodium 60 MG/0.6 ML SYRINGE SC SCH (08:49)
--- NOTE | 2020-04-30 17:08 | PRG ---
DATE OF SERVICE: 04/30/2020 SUBJECTIVE: Esteban Laurent is saying he feels better. We asked him to sit up in the chair today. He has been sitting up in the chair every other day, but I have explained to him he has to start working on strength every day. He is taking Ensure to get some protein as he has been eating very little. OBJECTIVE: VITAL SIGNS: Blood pressure is 124/64, heart rate is 100, respiratory rates in the 30s. The morphine has helped tremendously with his anxiety. LUNGS: Clear. HEART: Regular rhythm. ABDOMEN: Soft. LABORATORY DATA: White count is 14.5, hemoglobin 13.8, platelets 118. Electrolytes are unchanged. Creatinine is 0.5. IMPRESSION: COVID pneumonia, making slow progress, on and off noninvasive ventilation. Continue supportive care. Try to minimize FiO2. I have reviewed medications. At this point, nebulizer treatments might be better than metered-dose inhaler treatments. He is out of isolation now for quite some time. I will discontinue his Lovenox and switch him to Eliquis. Job ID: [id number]
--- NOTE | 2020-04-30 17:29 | PDOC.HOSPP ---
- Subjective Encounter Date: 04/30/20 Encounter Time: 17:30 Subjective: f/u for COVID PNA with prolonged hospital course on intermittent NIMV with BiPAP/high-flow modalities. Currently receiving high-flow O2 @ 60L/min. Hospital Day #21. - Objective Vital Signs & Weight: Vital Signs (12 hours) Temp 04/30/20 15:00 97.9 F 04/30/20 11:00 97.8 F 04/30/20 07:00 97.9 F Weight Admit Weight 247 lb Weight 247 lb Most Recent Monitor Data Heart Rate from ECG 100 NIBP 119/68 NIBP BP-Mean 85 Respiration from ECG 29 SpO2 94 I&O: 04/29/20 04/30/20 05/01/20 06:59 06:59 06:59 Intake Total 1260 840 665 Output Total 1400 1350 600 Balance -140 -510 65 Result Diagrams: 04/30/20 03:49 04/30/20 03:49 Additional Labs: Laboratory Tests 04/27/20 04/28/20 06:35 03:10 Potassium 6.1 H 5.3 H EKG Reviewed by me: Yes (Tele - SR in low-100's) Hospitalist ROS - Medication Medications: Active Medications Generic Name Dose Route Start Last Admin Trade Name Freq PRN Reason Stop Dose Admin Acetaminophen 650 mg 04/09/20 23:48 04/25/20 16:57 Acetaminophen 325 Mg Tab PO 650 mg Q4H PRN Administration Headache/Fever/Mild Pain (1-3) Hydrocodone Bitart/Acetaminophen 1 tab 04/25/20 19:55 04/28/20 22:35 Hydrocodone/Acetaminophen 5/325 Mg Tablet PO 1 tab Q6H PRN Administration Moderate Pain (4-6) Ascorbic Acid 1,000 mg 04/10/20 09:00 04/30/20 08:47 Ascorbic Acid 500 Mg Chewable Tablet PO 1,000 mg DAILY JASON Administration Benzonatate 100 mg 04/21/20 08:39 04/28/20 19:56 Benzonatate 100 Mg Cap PO 100 mg Q4H PRN Administration Cough Chlorphenir/Hydrocodone Polistirex 5 ml 04/23/20 09:50 04/28/20 22:35 Hydrocodone/Chlorphen Polis 5 Ml Udcup PO 5 ml Q12H PRN Administration Cough Cholecalciferol 1,000 units 04/14/20 09:00 04/30/20 08:47 Cholecalciferol 1,000 Units (25 Mcg) Tab PO 1,000 units DAILY JASON Administration Famotidine 20 mg 04/10/20 09:00 04/30/20 08:47 Famotidine 20 Mg Tab PO 20 mg BID JASON Administration Guaifenesin 600 mg 04/10/20 09:00 04/30/20 08:48 Guaifenesin Er 600 Mg Tab PO 600 mg Q12HR JASON Administration Guaifenesin/Dextromethorphan 15 ml 04/09/20 23:48 04/27/20 01:38 Guaifenesin Dm 100-10/5 Ml Udcup PO 15 ml Q4H PRN Administration Cough Insulin Human Lispro 0 units 04/10/20 01:51 04/15/20 17:58 Humalog 300 Units/3 Ml Vial SC 2 unit .MILD SLIDING SCALE PRN Administration Mild Correctional Scale Methylprednisolone Sodium Succinate 40 mg 04/29/20 09:00 04/30/20 08:49 Methylprednisolone Sod Succ 40 Mg Vial IVP 40 mg DAILY JASON Administration Mometasone Furoate/Formoterol Fumar 2 puff 04/10/20 18:30 04/30/20 05:31 Mometasone 200 Mcg/Formoterol 5 Mcg 120 Puff Inhaler INH 2 puff BID-RT JASON Administration Morphine Sulfate 2 mg 04/29/20 11:50 04/30/20 16:52 Morphine 2 Mg/Ml Vial SLOW IVP 2 mg Q2H PRN Administration Anxiety Sodium Chloride 10 ml 04/18/20 09:00 04/30/20 08:58 Flush - Normal Saline 10 Ml Syringe IVF 10 ml Q12HR JASON Administration Zinc Sulfate 220 mg 04/10/20 09:00 04/30/20 08:47 Zinc Sulfate 220 Mg Cap PO 220 mg DAILY JASON Administration - Exam General Appearance: awake alert General - other findings: tachypneic, responsive Eye: PERRL, anicteric sclera ENT: normocephalic atraumatic, no oropharyngeal lesions Neck: supple, symmetric, no JVD, no thyromegaly, no lymphadenopathy Heart: RRR, no murmur, no gallops, no rubs, normal peripheral pulses Heart - other findings: S1, S2 Respiratory: tachypneic Respiratory - other findings: diminished bilat, scattered coarse sounds Gastrointestinal: soft, non-tender, non-distended, normal bowel sounds, no palpable masses Extremities: no cyanosis, no clubbing, no edema Skin: normal turgor, no lesions Neurological: cranial nerve grossly intact, no new deficit Musculoskeletal: normal tone, normal strength, no muscle wasting Psychiatric: normal affect, A&O x 3 Hosp A/P (1) Pneumonia due to COVID-19 virus Code(s): U07.1 - COVID-19; J12.89 - OTHER VIRAL PNEUMONIA Status: Acute Plan: Slow improvement with persistent NIMV requirement, continue supportive mgmt, Solumedrol/Eliquis/Albuterol/Vit C/Zinc (2) Acute and chronic respiratory failure with hypoxia Code(s): J96.21 - ACUTE AND CHRONIC RESPIRATORY FAILURE WITH HYPOXIA Status: Acute Plan: Continue NIMV with BiPAP/High-flow O2 (3) Anxiety Code(s): F41.9 - ANXIETY DISORDER, UNSPECIFIED Status: Acute (4) Hyperkalemia Code(s): E87.5 - HYPERKALEMIA Status: Acute - Plan social services manager, respiratory therapy, DVT proph w/SCDs Continue supportive mgmt High-flow O2/BiPAP NIMV Continue Solumedrol Eliquis 5mg BID AM lab: BMP, CBC
[2020-04-30] MEDS: Apixaban 5 MG TAB PO SCH (20:25)
[2020-04-30] MEDS: HYDROcodone/Chlorphen Polis 5 ML UDCUP PO PRN (22:43)
[2020-05-01] MEDS: Morphine 2 MG/ML VIAL SLOW IVP PRN ×6 (01:11→23:21)
[2020-05-01] MEDS: Albuterol 200 PUFF (6.7GM INHALER) INH SCH ×6 (03:18→22:03)
[2020-05-01 04:03] LABS: #Eosinphils 0.1 thou/uL (0.0-0.7); #Lymphocytes 0.8 thou/uL (1.20-3.40); #Monocytes 0.4 thou/uL (0.11-0.59); #Neutrophils 14.6 thou/uL (1.40-6.50); %Basophils 0.2 % (0.0-1.0); %Eosinophils 0.7 % (0.0-10.0); %Lymphocytes 5.1 % (21.0-51.0); %Monocytes 2.6 % (0.0-10.0); %Neutrophils 91.4 % (42.0-75.0); Hemoglobin 13.7 g/dL (14.0-18.0); Mean Corpuscular Volume 93.9 fL (78.0-98.0); Platelet Count 116 thou/uL (130-400); RBC Distribution Width 13.1 % (11.5-14.5); Red Blood Cell (RBC) Count 4.43 mill/uL (4.70-6.10)
[2020-05-01 04:19] LABS: Anion Gap 14 mmol/L (10-20); BUN (Urea Nitrogen) 12 mg/dL (8.4-25.7); Calc. Creatinine Clearance 231 mL/min (70-130); Calcium 8.6 mg/dL (7.8-10.44); Carbon Dioxide 30 mmol/L (22-29); Chloride 95 mmol/L (98-107); Glucose 97 mg/dL (70-105); Potassium 4.3 mmol/L (3.5-5.1); Sodium 135 mmol/L (136-145)
[2020-05-01] MEDS: Mometasone 200 MCG/Formoterol 5 MCG 120 PUFF INHALER INH SCH ×2 (08:17→18:35)
--- NOTE | 2020-05-01 08:50 | RAD ---
Chest one view HISTORY: Pneumonia. Follow-up. COMPARISON: 04/24/2020. FINDINGS: Cardiac silhouette is now predominantly obscured by worsening, dense widespread parenchymal infiltrate. Also accentuated by shallow inspiration. Underlying air bronchograms. Pulmonary vasculature engorged. Mediastinum is midline. No evidence of pneumothorax. Postoperative changes lower cervical spine. IMPRESSION : Significant interval worsening of dense bilateral infiltrates.
--- NOTE | 2020-05-01 08:53 | PRG ---
DATE OF SERVICE: 05/01/2020 SUBJECTIVE: Esteban Laurent is a 59-year-old gentleman, remains in the ICU, day 22 in the hospital. He is still on high-flow unfortunately at 60% and 85%. OBJECTIVE: VITAL SIGNS: Pulse 103, respiratory rate 28, sats are barely 85%, 128/74 blood pressure. CHEST: Rhonchi and crackles. CARDIAC: Normal S1 and S2. No gallops. ABDOMEN: No masses. LABORATORY DATA: His white count 16,000. ASSESSMENT AND PLAN: Respiratory failure, ortega positive pneumonia, prolonged hospitalization. P.o. prednisone. Supportive care. Baseline chest x-ray. We will continue to follow. This is an ongoing care in the ICU. Job ID: [id number]
[2020-05-01] MEDS: Ascorbic Acid 500 mg Chewable Tablet PO SCH (09:16)
[2020-05-01] MEDS: Cholecalciferol 1,000 UNITS (25 MCG) TAB PO SCH (09:16)
[2020-05-01] MEDS: Apixaban 5 MG TAB PO SCH ×2 (09:16→20:56)
[2020-05-01] MEDS: Famotidine 20 MG TAB PO SCH ×2 (09:16→20:56)
[2020-05-01] MEDS: Zinc Sulfate 220 MG CAP PO SCH (09:16)
[2020-05-01] MEDS: predniSONE 20 MG TAB PO SCH ×2 (09:16→20:56)
[2020-05-01] MEDS: guaiFENesin ER 600 MG TAB PO SCH ×2 (09:16→20:56)
[2020-05-01] MEDS: HYDROcodone/Chlorphen Polis 5 ML UDCUP PO PRN (10:39)
--- NOTE | 2020-05-01 12:00 | PRG ---
DATE OF SERVICE: 05/01/2020 SUBJECTIVE: Esteban Laurent says he feels about the same. OBJECTIVE: VITAL SIGNS: Blood pressure 129/68, heart rate is 100, respiratory rates in the 20s, and oximetry is in the high 80s. GENERAL: He is in bed with high-flow. He says he sat up 4 hours in chair yesterday. LUNGS: Clear. HEART: Regular rhythm. ABDOMEN: Soft. EXTREMITIES: Without asymmetry. LABORATORY DATA: His white count 16, hemoglobin 13.7, and platelets 116. Electrolytes are unchanged. IMPRESSION: COVID pneumonia, intermittently on noninvasive ventilation, making slow progress. PLAN: Encouraged him to continue to try to take in some protein every day. Job ID: [id number]
--- NOTE | 2020-05-01 18:25 | PDOC.HOSPP ---
- Subjective Encounter Date: 05/01/20 Encounter Time: 17:50 Subjective: f/u for COVID PNA on high-flow O2 @ 60L/min. Feels ok but SOB with minimal movement. - Objective Vital Signs & Weight: Vital Signs (12 hours) Temp Pulse Resp Pulse Ox 05/01/20 16:00 97.9 F 05/01/20 12:00 97.7 F 88 L 05/01/20 08:17 103 H 28 H 83 L 05/01/20 08:00 97.9 F 87 L Weight Admit Weight 247 lb Weight 247 lb Most Recent Monitor Data Heart Rate from ECG 94 NIBP 146/86 NIBP BP-Mean 106 Respiration from ECG 24 SpO2 93 I&O: 04/30/20 05/01/20 05/02/20 06:59 06:59 06:59 Intake Total 840 875 960 Output Total 1350 1400 700 Balance -510 -525 260 Result Diagrams: 05/01/20 03:46 05/01/20 03:46 Additional Labs: Laboratory Tests 04/27/20 04/28/20 06:35 03:10 Potassium 6.1 H 5.3 H Radiology Reviewed by me: Yes (PCXR - dense bilat infiltrates) EKG Reviewed by me: Yes (Tele - Sinus tachycardia) Hospitalist ROS - Medication Medications: Active Medications Generic Name Dose Route Start Last Admin Trade Name Freq PRN Reason Stop Dose Admin Acetaminophen 650 mg 04/09/20 23:48 04/25/20 16:57 Acetaminophen 325 Mg Tab PO 650 mg Q4H PRN Administration Headache/Fever/Mild Pain (1-3) Hydrocodone Bitart/Acetaminophen 1 tab 04/25/20 19:55 04/28/20 22:35 Hydrocodone/Acetaminophen 5/325 Mg Tablet PO 1 tab Q6H PRN Administration Moderate Pain (4-6) Albuterol Sulfate 2 puff 04/30/20 18:30 05/01/20 15:07 Albuterol 200 Puff (6.7gm Inhaler) INH 2 puff [id number] JASON Administration Apixaban 5 mg 04/30/20 21:00 05/01/20 09:16 Apixaban 5 Mg Tab PO 5 mg BID JASON Administration Ascorbic Acid 1,000 mg 04/10/20 09:00 05/01/20 09:16 Ascorbic Acid 500 Mg Chewable Tablet PO 1,000 mg DAILY JASON Administration Benzonatate 100 mg 04/21/20 08:39 04/28/20 19:56 Benzonatate 100 Mg Cap PO 100 mg Q4H PRN Administration Cough Chlorphenir/Hydrocodone Polistirex 5 ml 04/23/20 09:50 05/01/20 10:39 Hydrocodone/Chlorphen Polis 5 Ml Udcup PO 5 ml Q12H PRN Administration Cough Cholecalciferol 1,000 units 04/14/20 09:00 05/01/20 09:16 Cholecalciferol 1,000 Units (25 Mcg) Tab PO 1,000 units DAILY JASON Administration Famotidine 20 mg 04/10/20 09:00 05/01/20 09:16 Famotidine 20 Mg Tab PO 20 mg BID JASON Administration Guaifenesin 600 mg 04/10/20 09:00 05/01/20 09:16 Guaifenesin Er 600 Mg Tab PO 600 mg Q12HR JASON Administration Guaifenesin/Dextromethorphan 15 ml 04/09/20 23:48 04/27/20 01:38 Guaifenesin Dm 100-10/5 Ml Udcup PO 15 ml Q4H PRN Administration Cough Insulin Human Lispro 0 units 04/10/20 01:51 04/15/20 17:58 Humalog 300 Units/3 Ml Vial SC 2 unit .MILD SLIDING SCALE PRN Administration Mild Correctional Scale Mometasone Furoate/Formoterol Fumar 2 puff 04/10/20 18:30 05/01/20 08:17 Mometasone 200 Mcg/Formoterol 5 Mcg 120 Puff Inhaler INH 2 puff BID-RT JASON Administration Morphine Sulfate 2 mg 04/29/20 11:50 05/01/20 18:19 Morphine 2 Mg/Ml Vial SLOW IVP 2 mg Q2H PRN Administration Anxiety Prednisone 20 mg 05/01/20 09:00 05/01/20 09:16 Prednisone 20 Mg Tab PO 20 mg BID JASON Administration Sodium Chloride 10 ml 04/18/20 09:00 05/01/20 09:17 Flush - Normal Saline 10 Ml Syringe IVF 10 ml Q12HR JASON Administration Zinc Sulfate 220 mg 04/10/20 09:00 05/01/20 09:16 Zinc Sulfate 220 Mg Cap PO 220 mg DAILY JASON Administration - Exam General Appearance: NAD, awake alert Eye: PERRL, anicteric sclera ENT: normocephalic atraumatic, no oropharyngeal lesions Neck: supple, symmetric, no JVD, no thyromegaly, no lymphadenopathy Heart: no murmur, no gallops, no rubs, normal peripheral pulses Heart - other findings: S1, S2 tachycardic Respiratory: tachypneic Respiratory - other findings: diminshed sounds bilat, scattered rhonchi Gastrointestinal: soft, non-tender, non-distended, normal bowel sounds, no palpable masses Extremities: no cyanosis, no clubbing, no edema Skin: normal turgor, no lesions Neurological: cranial nerve grossly intact, no new deficit Musculoskeletal: normal tone, generalized weakness Psychiatric: normal affect, A&O x 3 Hosp A/P (1) Pneumonia due to COVID-19 virus Code(s): U07.1 - COVID-19; J12.89 - OTHER VIRAL PNEUMONIA Status: Acute Plan: Continue supportive mgmt, Albuterol/Dulera/Vit C/Zinc/Prednisone, CXR shows wo rsening infiltrates (2) Acute and chronic respiratory failure with hypoxia Code(s): J96.21 - ACUTE AND CHRONIC RESPIRATORY FAILURE WITH HYPOXIA Status: Acute Plan: Persistent resp failure requiring NIMV, continue supportive mgmt (3) Anxiety Code(s): F41.9 - ANXIETY DISORDER, UNSPECIFIED Status: Acute (4) Hyperkalemia Code(s): E87.5 - HYPERKALEMIA Status: Acute - Plan healthcare social worker, respiratory therapy, DVT proph w/SCDs Continue supportive mgmt High-flow O2/BiPAP NIMV Continue Prednisone Eliquis 5mg BID Continue Vit C/Zinc/Dulera AM lab: BMP, CBC
[2020-05-01] MEDS: Benzonatate 100 MG CAP PO PRN (18:36)
[2020-05-02] MEDS: Albuterol 200 PUFF (6.7GM INHALER) INH SCH ×6 (02:47→22:09)
[2020-05-02] MEDS: Morphine 2 MG/ML VIAL SLOW IVP PRN ×4 (03:37→22:24)
[2020-05-02 04:29] LABS: Anion Gap 12 mmol/L (10-20); BUN (Urea Nitrogen) 11 mg/dL (8.4-25.7); Calc. Creatinine Clearance 235 mL/min (70-130); Calcium 8.7 mg/dL (7.8-10.44); Carbon Dioxide 36 mmol/L (22-29); Chloride 90 mmol/L (98-107); Glucose 108 mg/dL (70-105); Potassium 4.4 mmol/L (3.5-5.1); Sodium 134 mmol/L (136-145)
[2020-05-02 04:50] LABS: Band 2 % (5-11); Hemoglobin 14.3 g/dL (14.0-18.0); Lymphocytes 3 % (21-51); MDiff Complete? YES; Mean Corpuscular HGB CONC 34.7 g/dL (32.0-36.0); Mean Corpuscular Hemoglobin 32.9 pg (27.0-31.0); Mean Corpuscular Volume 94.9 fL (78.0-98.0); Mean Platelet Volume 7.4 fL (7.4-10.4); Monocytes 4 % (0-10); Neutrophil 91 % (42-75); Platelet Count 104 thou/uL (130-400); Platelet Morphology Comment Appears Decreased; RBC Distribution Width 13.3 % (11.5-14.5); RBC Morphology Normal; Red Blood Cell (RBC) Count 4.35 mill/uL (4.70-6.10); White Blood Cell (WBC) Count 19.9 thou/uL (4.8-10.8)
[2020-05-02] MEDS: HYDROcodone/Acetaminophen 5/325 mg Tablet PO PRN (07:24)
[2020-05-02] MEDS: Acetaminophen 325 MG TAB PO PRN (07:25)
[2020-05-02] MEDS: Mometasone 200 MCG/Formoterol 5 MCG 120 PUFF INHALER INH SCH ×2 (07:53→19:11)
--- NOTE | 2020-05-02 09:21 | PRG ---
DATE OF SERVICE: 05/02/2020 SUBJECTIVE: in the ICU, he remains on a BiPAP and high-flow. OBJECTIVE: VITAL SIGNS: He is now on 70% FiO2, temperature 97, pulse 105, respirations 26, saturations 99%, and blood pressure 120/78. I's and o's are even. CHEST: Bilateral rhonchi and crackles. CARDIAC: Sinus tach. ABDOMEN: Soft. LABORATORY DATA: White count 19,000, he has slight left shift. X-ray yesterday shows a diffuse pulmonary infiltrates. ASSESSMENT: Respiratory failure, oretga positive pneumonia, . PLAN: Empiric antibiotics being started today. Continue to try and wean him off his BiPAP. PT and supportive care. Job ID: [id number]
[2020-05-02] MEDS: predniSONE 20 MG TAB PO SCH ×2 (09:42→21:04)
[2020-05-02] MEDS: Cholecalciferol 1,000 UNITS (25 MCG) TAB PO SCH (09:42)
[2020-05-02] MEDS: Zinc Sulfate 220 MG CAP PO SCH (09:42)
[2020-05-02] MEDS: Ascorbic Acid 500 mg Chewable Tablet PO SCH (09:42)
[2020-05-02] MEDS: Apixaban 5 MG TAB PO SCH ×2 (09:42→21:03)
[2020-05-02] MEDS: Famotidine 20 MG TAB PO SCH ×2 (09:42→21:05)
[2020-05-02] MEDS: guaiFENesin ER 600 MG TAB PO SCH ×2 (09:42→21:04)
[2020-05-02] MEDS: Cefdinir 300 MG CAP PO SCH ×2 (09:43→21:05)
--- NOTE | 2020-05-02 17:24 | PDOC.HOSPP ---
- Subjective Encounter Date: 05/02/20 Encounter Time: 17:10 Subjective: f/u for COVID PNA/hypoxic resp failure on current Omnicef/Prednisone/Eliquis/Albuterol/Vit C/Zinc/Dulera. Remains on BiPAP NIMV. - Objective Vital Signs & Weight: Vital Signs (12 hours) Temp Pulse Resp Pulse Ox 05/02/20 16:00 97.7 F 05/02/20 14:47 103 H 40 H 99 05/02/20 12:00 98.0 F 05/02/20 10:36 110 H 33 H 81 L 05/02/20 08:00 97.9 F 94 L 05/02/20 07:54 108 H 26 H 89 L 05/02/20 05:30 112 H 38 H 90 L Weight Admit Weight 247 lb Weight 247 lb Most Recent Monitor Data Heart Rate from ECG 86 NIBP 153/82 NIBP BP-Mean 105 Respiration from ECG 16 SpO2 98 I&O: 05/01/20 05/02/20 05/03/20 06:59 06:59 06:59 Intake Total 875 1450 600 Output Total 1400 1200 425 Balance -525 250 175 Result Diagrams: 05/02/20 03:09 05/02/20 03:09 Additional Labs: Laboratory Tests 04/27/20 04/28/20 06:35 03:10 Potassium 6.1 H 5.3 H EKG Reviewed by me: Yes (Tele - sinus tachycardia) Hospitalist ROS - Medication Medications: Active Medications Generic Name Dose Route Start Last Admin Trade Name Freq PRN Reason Stop Dose Admin Acetaminophen 650 mg 04/09/20 23:48 05/02/20 07:25 Acetaminophen 325 Mg Tab PO 650 mg Q4H PRN Administration Headache/Fever/Mild Pain (1-3) Hydrocodone Bitart/Acetaminophen 1 tab 04/25/20 19:55 05/02/20 07:24 Hydrocodone/Acetaminophen 5/325 Mg Tablet PO 1 tab Q6H PRN Administration Moderate Pain (4-6) Albuterol Sulfate 2 puff 04/30/20 18:30 05/02/20 14:46 Albuterol 200 Puff (6.7gm Inhaler) INH 2 puff [id number] JASON Administration Apixaban 5 mg 04/30/20 21:00 05/02/20 09:42 Apixaban 5 Mg Tab PO 5 mg BID JASON Administration Ascorbic Acid 1,000 mg 04/10/20 09:00 05/02/20 09:42 Ascorbic Acid 500 Mg Chewable Tablet PO 1,000 mg DAILY JASON Administration Benzonatate 100 mg 04/21/20 08:39 05/01/20 18:36 Benzonatate 100 Mg Cap PO 100 mg Q4H PRN Administration Cough Cefdinir 300 mg 05/02/20 09:00 05/02/20 09:43 Cefdinir 300 Mg Cap PO 05/09/20 09:01 300 mg BID JASON Administration Chlorphenir/Hydrocodone Polistirex 5 ml 04/23/20 09:50 05/01/20 10:39 Hydrocodone/Chlorphen Polis 5 Ml Udcup PO 5 ml Q12H PRN Administration Cough Cholecalciferol 1,000 units 04/14/20 09:00 05/02/20 09:42 Cholecalciferol 1,000 Units (25 Mcg) Tab PO 1,000 units DAILY JASON Administration Famotidine 20 mg 04/10/20 09:00 05/02/20 09:42 Famotidine 20 Mg Tab PO 20 mg BID JASON Administration Guaifenesin 600 mg 04/10/20 09:00 05/02/20 09:42 Guaifenesin Er 600 Mg Tab PO 600 mg Q12HR JASON Administration Guaifenesin/Dextromethorphan 15 ml 04/09/20 23:48 04/27/20 01:38 Guaifenesin Dm 100-10/5 Ml Udcup PO 15 ml Q4H PRN Administration Cough Insulin Human Lispro 0 units 04/10/20 01:51 04/15/20 17:58 Humalog 300 Units/3 Ml Vial SC 2 unit .MILD SLIDING SCALE PRN Administration Mild Correctional Scale Mometasone Furoate/Formoterol Fumar 2 puff 04/10/20 18:30 05/02/20 07:53 Mometasone 200 Mcg/Formoterol 5 Mcg 120 Puff Inhaler INH 2 puff BID-RT JASON Administration Morphine Sulfate 2 mg 04/29/20 11:50 05/02/20 15:30 Morphine 2 Mg/Ml Vial SLOW IVP 2 mg Q2H PRN Administration Anxiety Prednisone 20 mg 05/01/20 09:00 05/02/20 09:42 Prednisone 20 Mg Tab PO 20 mg BID JASON Administration Sodium Chloride 10 ml 04/18/20 09:00 05/02/20 09:44 Flush - Normal Saline 10 Ml Syringe IVF 10 ml Q12HR JASON Administration Zinc Sulfate 220 mg 04/10/20 09:00 05/02/20 09:42 Zinc Sulfate 220 Mg Cap PO 220 mg DAILY JASON Administration - Exam General Appearance: awake alert General - other findings: tachypneic Eye: PERRL, anicteric sclera ENT: normocephalic atraumatic, no oropharyngeal lesions Neck: supple, symmetric, no JVD, no thyromegaly, no lymphadenopathy Heart: no gallops, no rubs, normal peripheral pulses Heart - other findings: S1, S2 tachycardic Respiratory: tachypneic Respiratory - other findings: coarse sounds bilat, diminished in bases Gastrointestinal: soft, non-tender, non-distended, normal bowel sounds, no palpable masses Extremities: no cyanosis, no clubbing, no edema Skin: normal turgor, no lesions Neurological: cranial nerve grossly intact, no new deficit Musculoskeletal: normal tone, generalized weakness Psychiatric: normal affect, A&O x 3 Hosp A/P (1) Pneumonia due to COVID-19 virus Code(s): U07.1 - COVID-19; J12.89 - OTHER VIRAL PNEUMONIA Status: Acute Plan: Continue current mgmt, BiPAP NIMV, slow progress (2) Acute and chronic respiratory failure with hypoxia Code(s): J96.21 - ACUTE AND CHRONIC RESPIRATORY FAILURE WITH HYPOXIA Status: Acute Plan: Continue NIMV with BiPAP (3) Anxiety Code(s): F41.9 - ANXIETY DISORDER, UNSPECIFIED Status: Acute (4) Hyperkalemia Code(s): E87.5 - HYPERKALEMIA Status: Acute - Plan continue antibiotics, social service liaison, respiratory therapy, incentive spirometry, DVT proph w/SCDs Consults: Palliative Care Continue supportive mgmt High-flow O2/BiPAP NIMV Continue Prednisone Eliquis 5mg BID Continue Omnicef 300mg BID Continue Vit C/Zinc/Dulera AM lab: BMP, CBC
[2020-05-03] MEDS: Albuterol 200 PUFF (6.7GM INHALER) INH SCH ×4 (02:44→16:29)
[2020-05-03 06:40] LABS: #Lymphocytes 0.3 thou/uL (1.20-3.40); #Monocytes 0.5 thou/uL (0.11-0.59); #Neutrophils 17.1 thou/uL (1.40-6.50); %Basophils 0.2 % (0.0-1.0); %Eosinophils 0.1 % (0.0-10.0); %Lymphocytes 1.5 % (21.0-51.0); %Monocytes 2.8 % (0.0-10.0); %Neutrophils 95.4 % (42.0-75.0); Hemoglobin 13.4 g/dL (14.0-18.0); Mean Corpuscular HGB CONC 32.4 g/dL (32.0-36.0); Mean Corpuscular Hemoglobin 30.6 pg (27.0-31.0); Mean Corpuscular Volume 94.4 fL (78.0-98.0); Platelet Count 115 thou/uL (130-400); RBC Distribution Width 13.1 % (11.5-14.5); Red Blood Cell (RBC) Count 4.37 mill/uL (4.70-6.10); White Blood Cell (WBC) Count 17.9 thou/uL (4.8-10.8)
[2020-05-03 06:42] LABS: Anion Gap 11 mmol/L (10-20); BUN (Urea Nitrogen) 11 mg/dL (8.4-25.7); Calc. Creatinine Clearance 253 mL/min (70-130); Calcium 8.7 mg/dL (7.8-10.44); Carbon Dioxide 37 mmol/L (22-29); Chloride 87 mmol/L (98-107); Glucose 119 mg/dL (70-105); Potassium 4.2 mmol/L (3.5-5.1); Sodium 131 mmol/L (136-145)
[2020-05-03] MEDS: Mometasone 200 MCG/Formoterol 5 MCG 120 PUFF INHALER INH SCH ×2 (08:16→18:42)
--- NOTE | 2020-05-03 09:14 | PRG ---
DATE OF SERVICE: 05/03/2020 SUBJECTIVE: Esteban Laurent remains in the ICU, day #24 in the hospital, still requiring BiPAP with high FiO2 of 70% to 80%, unable to tolerate high-flow last night. OBJECTIVE: VITAL SIGNS: Temperature 97, pulse 99, , blood pressure 163/85. CHEST: Rhonchi, crackles. CARDIAC: Sinus tach. ABDOMEN: Soft. LABORATORY DATA: White count 17,000, hemoglobin and hematocrit 13 and 41, platelet count is low. His chemistry profile is unremarkable. ASSESSMENT AND PLAN: Acute on chronic respiratory failure, ortega positive pneumonia, ARDS. Added empiric antibiotics to his regime, still on high-dose steroids, still requiring maximum support. As hoping, his condition is slowly improved, unfortunately has not done so. We will continue aggressive care. One-half hour of critical time. Job ID: [id number]
[2020-05-03] MEDS: Ascorbic Acid 500 mg Chewable Tablet PO SCH (09:28)
[2020-05-03] MEDS: predniSONE 20 MG TAB PO SCH (09:28)
[2020-05-03] MEDS: guaiFENesin ER 600 MG TAB PO SCH ×2 (09:28→20:54)
[2020-05-03] MEDS: Zinc Sulfate 220 MG CAP PO SCH (09:28)
[2020-05-03] MEDS: Famotidine 20 MG TAB PO SCH ×2 (09:28→20:54)
[2020-05-03] MEDS: Cefdinir 300 MG CAP PO SCH (09:28)
[2020-05-03] MEDS: Apixaban 5 MG TAB PO SCH ×2 (09:29→20:54)
[2020-05-03] MEDS: Cholecalciferol 1,000 UNITS (25 MCG) TAB PO SCH (09:29)
[2020-05-03] MEDS ORDERED: Iopamidol-370 76% 500 ML 1 ML ONE (10:58)
--- NOTE | 2020-05-03 14:01 | PDOC.HOSPP ---
- Subjective Encounter Date: 05/03/20 Encounter Time: 13:50 Subjective: f/u for COVID PNA/hypoxic resp failure on prior high-flow O2 @ 60L/min/Omnicef/Prednisone/Vit C/Zinc/Vit D3/Eliquis requiring BiPAP currently due to increasing unresponsiveness per nursing. Planning for intubation currently. - Objective Vital Signs & Weight: Vital Signs (12 hours) Temp Pulse Resp Pulse Ox 05/03/20 12:00 97.8 F 05/03/20 08:17 99 44 H 93 L 05/03/20 08:00 97.9 F 87 L 05/03/20 02:44 93 37 H 92 L Weight Admit Weight 247 lb Weight 247 lb Most Recent Monitor Data Heart Rate from ECG 96 NIBP 162/87 NIBP BP-Mean 112 Respiration from ECG 15 SpO2 95 I&O: 05/02/20 05/03/20 05/04/20 06:59 06:59 06:59 Intake Total 1450 720 480 Output Total 1200 925 270 Balance 250 -205 210 Result Diagrams: 05/03/20 05:30 05/03/20 05:30 Additional Labs: Laboratory Tests 04/27/20 04/28/20 06:35 03:10 Potassium 6.1 H 5.3 H EKG Reviewed by me: Yes (Tele - sinus tachycardia) Hospitalist ROS - Medication Medications: Active Medications Generic Name Dose Route Start Last Admin Trade Name Freq PRN Reason Stop Dose Admin Acetaminophen 650 mg 04/09/20 23:48 05/02/20 07:25 Acetaminophen 325 Mg Tab PO 650 mg Q4H PRN Administration Headache/Fever/Mild Pain (1-3) Hydrocodone Bitart/Acetaminophen 1 tab 04/25/20 19:55 05/02/20 07:24 Hydrocodone/Acetaminophen 5/325 Mg Tablet PO 1 tab Q6H PRN Administration Moderate Pain (4-6) Albuterol Sulfate 2 puff 04/30/20 18:30 05/03/20 10:58 Albuterol 200 Puff (6.7gm Inhaler) INH 2 puff [id number] JASON Administration Apixaban 5 mg 04/30/20 21:00 05/03/20 09:29 Apixaban 5 Mg Tab PO 5 mg BID JASON Administration Ascorbic Acid 1,000 mg 04/10/20 09:00 05/03/20 09:28 Ascorbic Acid 500 Mg Chewable Tablet PO 1,000 mg DAILY JASON Administration Benzonatate 100 mg 04/21/20 08:39 05/01/20 18:36 Benzonatate 100 Mg Cap PO 100 mg Q4H PRN Administration Cough Cefdinir 300 mg 05/02/20 09:00 05/03/20 09:28 Cefdinir 300 Mg Cap PO 05/09/20 09:01 300 mg BID JASON Administration Chlorphenir/Hydrocodone Polistirex 5 ml 04/23/20 09:50 05/01/20 10:39 Hydrocodone/Chlorphen Polis 5 Ml Udcup PO 5 ml Q12H PRN Administration Cough Cholecalciferol 1,000 units 04/14/20 09:00 05/03/20 09:29 Cholecalciferol 1,000 Units (25 Mcg) Tab PO 1,000 units DAILY JASON Administration Famotidine 20 mg 04/10/20 09:00 05/03/20 09:28 Famotidine 20 Mg Tab PO 20 mg BID JASON Administration Guaifenesin 600 mg 04/10/20 09:00 05/03/20 09:28 Guaifenesin Er 600 Mg Tab PO 600 mg Q12HR JASON Administration Guaifenesin/Dextromethorphan 15 ml 04/09/20 23:48 04/27/20 01:38 Guaifenesin Dm 100-10/5 Ml Udcup PO 15 ml Q4H PRN Administration Cough Insulin Human Lispro 0 units 04/10/20 01:51 04/15/20 17:58 Humalog 300 Units/3 Ml Vial SC 2 unit .MILD SLIDING SCALE PRN Administration Mild Correctional Scale Mometasone Furoate/Formoterol Fumar 2 puff 04/10/20 18:30 05/03/20 08:16 Mometasone 200 Mcg/Formoterol 5 Mcg 120 Puff Inhaler INH 2 puff BID-RT JASON Administration Morphine Sulfate 2 mg 04/29/20 11:50 05/02/20 22:24 Morphine 2 Mg/Ml Vial SLOW IVP 2 mg Q2H PRN Administration Anxiety Prednisone 20 mg 05/01/20 09:00 05/03/20 09:28 Prednisone 20 Mg Tab PO 20 mg BID JASON Administration Sodium Chloride 10 ml 04/18/20 09:00 05/03/20 09:29 Flush - Normal Saline 10 Ml Syringe IVF 10 ml Q12HR JASON Administration Zinc Sulfate 220 mg 04/10/20 09:00 05/03/20 09:28 Zinc Sulfate 220 Mg Cap PO 220 mg DAILY JASON Administration - Exam General Appearance: ill appearing General - other findings: tachypneic, somnolent, unresponsive Eye: PERRL, anicteric sclera ENT: normocephalic atraumatic, no oropharyngeal lesions Neck: supple, symmetric, no JVD, no thyromegaly, no lymphadenopathy Heart: no murmur, no gallops, no rubs, normal peripheral pulses Heart - other findings: S1, S2 tachycardic Respiratory: tachypneic Respiratory - other findings: diminished breath sounds bilat, scattered rhonchi Gastrointestinal: soft, non-tender, non-distended, normal bowel sounds, no palpable masses Extremities: no cyanosis, no clubbing, no edema Skin: normal turgor, no lesions Musculoskeletal: generalized weakness Psychiatric: not oriented, somnolent, lethargic Hosp A/P (1) Pneumonia due to COVID-19 virus Code(s): U07.1 - COVID-19; J12.89 - OTHER VIRAL PNEUMONIA Status: Acute Plan: Progressive resp failure on NIMV, plan for intubation today (2) Acute and chronic respiratory failure with hypoxia Code(s): J96.21 - ACUTE AND CHRONIC RESPIRATORY FAILURE WITH HYPOXIA Status: Acute Plan: See above #1, mech ventilation, PCXR, check CT brain to r/o DIRECT SALES CONSULTANT etiology of worsening resp failure (3) Anxiety Code(s): F41.9 - ANXIETY DISORDER, UNSPECIFIED Status: Acute (4) Hyperkalemia Code(s): E87.5 - HYPERKALEMIA Status: Acute (5) Hyponatremia Code(s): E87.1 - HYPO-OSMOLALITY AND HYPONATREMIA Status: Acute (6) Acute metabolic encephalopathy Code(s): G93.41 - METABOLIC ENCEPHALOPATHY Status: Acute Plan: Secondary to hypercapnic/hypoxic state, supportive with mech ventilation, CT b rain pending - Plan plan discussed w/ family, continue antibiotics, social media marketing specialist, respiratory therapy, DVT proph w/SCDs Continue supportive mgmt Plan for intubation and mech ventilation today Eliquis 5mg BID Continue Omnicef 300mg BID Continue Vit C/Zinc/Dulera Updated pts family regarding clinical deterioration AM lab: BMP, CBC, ABG PCXR in am
[2020-05-03 14:19] LABS: Actual Bicarbonate (HCO3a) 47.8 mEq/L (22-28); Base Excess (BEa) 12.7 mEq/L (-2.0 to +3.0); Carboxyhemoglobin (COHb) 2.9 gm% (0.0-3.0); Hemoglobin (Hb) 14.6 g/dL (14.0-18.0); Potassium - ABG Lab 4.39 mmol/L (3.70-5.30)
[2020-05-03] MEDS ORDERED: Propofol 1,000 MG/100 ML VIAL IV ONE (14:28)
[2020-05-03] MEDS ORDERED: Lorazepam 2 MG/ML VIAL ONE (14:30)
[2020-05-03 14:38] LABS: pH, Arterial 7.16 (7.35-7.45)
[2020-05-03 14:39] LABS: Puncture Site LRA
[2020-05-03] MEDS ORDERED: Ventilator Sedation Protocol 1 EACH FS SCH (14:45)
[2020-05-03] MEDS ORDERED: DISCONTINUE PREVIOUS NARCOTIC PAIN MEDICATIONS AND BENZODIAZEPINES FS SCH (14:45)
[2020-05-03] MEDS ORDERED: Propofol BOLUS 1,000 MG/100 ML VIAL IV PRN (14:45)
[2020-05-03] MEDS ORDERED: Morphine 2 MG/ML VIAL SLOW IVP PRN (14:45)
[2020-05-03] MEDS ORDERED: Fentanyl BOLUS 250 ML IVPB PRN (14:45)
[2020-05-03 15:17] LABS: Magnesium 2.3 mg/dL (1.6-2.6); Phosphorus 4.1 mg/dL (2.3-4.7)
[2020-05-03 15:23] LABS: Calcium, Ionized (arterial) 1.19 mmol/L (1.12-1.30); Carboxyhemoglobin (COHb) 2.7 gm% (0.0-3.0); Hemoglobin (Hb) 13.8 g/dL (14.0-18.0)
[2020-05-03] MEDS: Rocuronium Bromide 10 MG/ML (10ML VIAL) IVP SCH ×3 (16:00→22:32)
--- NOTE | 2020-05-03 16:03 | CT ---
Head CT with and without contrast 05/03/2020: Comparison: None HISTORY: Encephalopathy, Covid positive patient TECHNIQUE: Axial CT imaging at 5 mm intervals from vertex through skull base with and without contras t FINDINGS: The noncontrast enhanced imaging demonstrates no intracranial hemorrhage, midline shift, or mass effect. Mild white matter hypodensity may signify a degree of small vessel disease. The imaged paranasal sinuses and mastoid air cells are well-aerated. There is no displaced calvarial fracture. Postcontrast imaging demonstrates no abnormal enhancement within the brain parenchyma. The postcontra st imaging is not tailored to evaluate the vascular structures. IMPRESSION: No acute findings.
--- NOTE | 2020-05-03 16:04 | CT ---
CT angiogram chest with IV contrast and 3-D imaging HISTORY: Dyspnea. Intubated. Chest pain. COVID pneumonia. FINDINGS: There is good contrast opacification pulmonary arteries and thoracic aorta with normal bran juanjose of the great vessels at the aortic arch. Endotracheal catheter and nasogastric tube in place. Extensive, widespread predominantly groundglass parenchymal infiltrate. Superimposed pulmonary vascul ar congestion and interstitial thickening. Dependent bibasilar atelectasis. Minimal left pleural fluid. No mediastinal adenopathy. IMPRESSION : No evidence of pulmonary embolus. Severe bilateral parenchymal lung disease. COVID/ARDS.
[2020-05-03 16:17] LABS: CO2 Tension 115.3 mmHg (35.0-45.0); Puncture Site LRA
[2020-05-03 16:19] LABS: ALV-art Gradient 465.875 mmHg (0-20)
[2020-05-03] MEDS: MEROPENEM 1 GM/50 ML 1 GM in Premix Bag 1 BAG IVPB SCH (18:05)
[2020-05-03] MEDS: Lorazepam 2 MG/ML VIAL SLOW IVP PRN (18:07)
[2020-05-03] MEDS ORDERED: Sterile Water 10 ML ONE ×2 (20:18→22:07)
[2020-05-03] MEDS: fentaNYL Citrate/PF 2,000 MCG in Sodium Chloride 0.9% 60 ML IV SCH (20:31)
[2020-05-03] MEDS: Vecuronium 10 MG VIAL IV SCH ×2 (20:31→22:13)
[2020-05-03] MEDS: methylPREDNISolone Sod Succ 40 MG VIAL IVP SCH (20:55)
[2020-05-03] MEDS: Propofol 1,000 MG/100 ML VIAL IV PRN (23:25)
[2020-05-04] MEDS: Sterile Water 10 ML VIAL FS PRN ×2 (00:12→03:55)
[2020-05-04] MEDS: Vecuronium 10 MG VIAL IV SCH ×13 (00:12→23:16)
[2020-05-04] MEDS: MEROPENEM 1 GM/50 ML 1 GM in Premix Bag 1 BAG IVPB SCH ×3 (01:36→16:08)
[2020-05-04 04:07] LABS: Band 3 % (5-11); Hemoglobin 13.7 g/dL (14.0-18.0); Hypochromia SLIGHT = 6-15 cells (100X) (0-5/hpf); Lymphocytes 4 % (21-51); MDiff Complete? YES; Mean Corpuscular HGB CONC 32.2 g/dL (32.0-36.0); Mean Corpuscular Hemoglobin 31.3 pg (27.0-31.0); Mean Corpuscular Volume 97.2 fL (78.0-98.0); Mean Platelet Volume 6.6 fL (7.4-10.4); Monocytes 6 % (0-10); Neutrophil 87 % (42-75); Platelet Count 162 thou/uL (130-400); Platelet Morphology Comment Appears Adequate; RBC Distribution Width 13.3 % (11.5-14.5); Red Blood Cell (RBC) Count 4.39 mill/uL (4.70-6.10); White Blood Cell (WBC) Count 20.3 thou/uL (4.8-10.8)
[2020-05-04 04:10] LABS: BUN (Urea Nitrogen) 15 mg/dL (8.4-25.7); Calc. Creatinine Clearance 160 mL/min (70-130); Calcium 9.1 mg/dL (7.8-10.44); Glucose 154 mg/dL (70-105)
[2020-05-04 04:20] LABS: Anion Gap 22 mmol/L (10-20); Carbon Dioxide 33 mmol/L (22-29); Chloride 84 mmol/L (98-107); Potassium 5.4 mmol/L (3.5-5.1); Sodium 134 mmol/L (136-145)
[2020-05-04] MEDS: Propofol 1,000 MG/100 ML VIAL IV PRN ×3 (05:15→14:58)
--- NOTE | 2020-05-04 05:35 | PRG ---
DATE OF SERVICE: 05/03/2020 I was called to see as the patient suddenly at about 2:30 became unresponsive. Even to painful and verbal stimuli, became unresponsive. We did a stat blood gas, it shows marked respiratory acidosis with a pCO2 of 138, pH 7.10. I spoke to his and the daughter, who is a nurse regarding the need to intubate and assess the situation thereafter, and get a CT of his head. He was then intubated with a 7.5 tube over the bronchoscope. The bronchoscope was removed. He was bagged. His sats are maintained adequately. Bronchoscope was re-passed again to lavage. [place] was sharp. Right lung upper, middle, and lower lobe, no endobronchial disease was seen. Secretions suctioned and lavaged with 20 mL of normal saline. Left lung, once again, pale secretions. Left upper and left lower lobe visualized, no endobronchial obstruction or pus was seen. Bronchoscope was removed. The patient is placed on a volume cycle respirator. He is going to have an emergency CT head and CT chest. Discussed with his . The patient did not want to be intubated in the past. We will make a daily assessment as to the patient's overall prognosis, which remains grave. He is already on anticoagulation. He is already on steroids. This is one-half hour critical time with exclusion of the intubation and exclusion of the bronchoscopy lavage. Job ID: [id number]
[2020-05-04] MEDS: Mometasone 200 MCG/Formoterol 5 MCG 120 PUFF INHALER INH SCH ×2 (08:10→20:16)
--- NOTE | 2020-05-04 08:36 | RAD ---
Portable frontal chest radiograph: 05/04/2020 COMPARISON: CT angiogram chest 05/03/2020 HISTORY: Pneumonia FINDINGS: There is an endotracheal tube in proper position. A nasogastric tube curls within the left upper quadrant. No pneumothorax is evident. There is extensive interstitial and alveolar/groundglass opacity bilaterally with a perihilar/bibasil ar predominance. The parenchymal opacities do not appear significantly changed when compared to a CT angiogram of the chest performed 05/03/2020. IMPRESSION: Lines and tubes as above. Extensive interstitial and alveolar opacity is unchanged.
[2020-05-04 08:37] LABS: Carboxyhemoglobin (COHb) 3.1 gm% (0.0-3.0); Hemoglobin (Hb) 14.5 g/dL (14.0-18.0); Potassium - ABG Lab 5.17 mmol/L (3.70-5.30)
[2020-05-04 08:54] LABS: pH, Arterial 7.16 (7.35-7.45)
[2020-05-04 08:55] LABS: CO2 Tension 124.6 mmHg (35.0-45.0); O2 Tension (PaO2), arterial 58.2 mmHg (80.0-100.0)
[2020-05-04] MEDS: methylPREDNISolone Sod Succ 40 MG VIAL IVP SCH ×2 (08:55→22:49)
[2020-05-04 08:56] LABS: Puncture Site LRA
[2020-05-04] MEDS: Apixaban 5 MG TAB PO SCH ×2 (08:57→22:56)
[2020-05-04] MEDS: guaiFENesin ER 600 MG TAB PO SCH ×2 (08:58→22:56)
[2020-05-04] MEDS: Cholecalciferol 1,000 UNITS (25 MCG) TAB PO SCH (08:58)
[2020-05-04] MEDS: Zinc Sulfate 220 MG CAP PO SCH (08:58)
[2020-05-04] MEDS: Famotidine 20 MG TAB PO SCH ×2 (08:58→22:56)
[2020-05-04] MEDS: Ascorbic Acid 500 mg Chewable Tablet PO SCH (08:58)
[2020-05-04 10:44] LABS: Actual Bicarbonate (HCO3a) 43.4 mEq/L (22-28); Base Excess (BEa) 11.2 mEq/L (-2.0 to +3.0); Calcium, Ionized (arterial) 1.18 mmol/L (1.12-1.30); Carboxyhemoglobin (COHb) 2.8 gm% (0.0-3.0); Hemoglobin (Hb) 14.5 g/dL (14.0-18.0); Potassium - ABG Lab 5.34 mmol/L (3.70-5.30)
[2020-05-04 11:20] VITALS: BMI 29.9
[2020-05-04] MEDS: Lorazepam 2 MG/ML VIAL SLOW IVP PRN ×2 (11:24→16:08)
[2020-05-04 11:26] LABS: CO2 Tension 104.4 mmHg (35.0-45.0); O2 Tension (PaO2), arterial 53.6 mmHg (80.0-100.0); Puncture Site LRA; pH, Arterial 7.24 (7.35-7.45)
--- NOTE | 2020-05-04 17:07 | PRG ---
DATE OF SERVICE: 05/04/2020 SUBJECTIVE: Esteban Laurent is intubated yesterday. OBJECTIVE: VITAL SIGNS: Heart rate is 120, blood pressure 110/70, respiratory rates in the 20s, oximetry is 91. LUNGS: Remarkable for coarse equal breath sounds. HEART: Regular rhythm. ABDOMEN: Soft. DIAGNOSTIC STUDIES: Bilateral infiltrates persist on chest x-ray, unchanged. White count 20, hemoglobin 13, platelets 162. Sodium 134, potassium 5.4, chloride 84, bicarb 33, BUN 15, creatinine 0.7. PH 7.24, CO2 of 104, PO2 of 53. IMPRESSION: COVID pneumonia, severe with extremely poor lung compliance and gas exchange. Early tracheostomy will be the next step if we can see some improvement in mechanical ventilation, where to a degree, it will be safe for trach. He is at this time being ventilated with permissive hypercapnia, so we would not recommend a trach at least based on today's evaluation. He will be reassessed throughout the weekend. Critical care time 35 min. Job ID: [id number] MTDD
--- NOTE | 2020-05-04 17:22 | PDOC.HOSPP ---
- Subjective Encounter Date: 05/04/20 Encounter Time: 17:20 Subjective: f/u for COVID PNA/resp failure requiring mech ventilation. - Objective Vital Signs & Weight: Vital Signs (12 hours) Temp Pulse Resp BP Pulse Ox 05/04/20 16:00 28 H 05/04/20 15:58 128 H 110/70 05/04/20 15:35 124 H 28 H 91 L 05/04/20 15:00 99.2 F 05/04/20 14:00 28 H 05/04/20 12:00 28 H 05/04/20 11:00 99.9 F H 05/04/20 10:34 126 H 101/69 05/04/20 10:30 124 H 28 H 94 L 05/04/20 10:00 28 H 05/04/20 08:10 125 H 107/71 05/04/20 08:09 126 H 24 H 93 L 05/04/20 08:00 24 H 05/04/20 07:43 94 L 05/04/20 07:00 98.3 F 05/04/20 06:00 24 H Weight Admit Weight 247 lb Weight 220 lb 10.923 oz Most Recent Monitor Data Heart Rate from ECG 124 NIBP 110/70 NIBP BP-Mean 83 Respiration from ECG 28 SpO2 91 I&O: 05/03/20 05/04/20 05/05/20 06:59 06:59 06:59 Intake Total 720 1185.0 524.9 Output Total 925 1560 205 Balance -205 -375.0 319.9 Result Diagrams: 05/04/20 03:36 05/04/20 03:36 Additional Labs: Microbiology 05/03/20 14:30 Post Bronchial washings Respiratory Culture - Preliminary Laboratory Tests 04/27/20 04/28/20 05/03/20 06:35 03:10 05:30 WBC Plt Count Potassium 6.1 H 5.3 H 4.2 Phosphorus Magnesium B-Natriuretic Peptide 05/03/20 05/03/20 05/04/20 05:30 14:51 03:36 WBC 17.9 H Plt Count 115 L Potassium Phosphorus 4.1 Magnesium 2.3 B-Natriuretic Peptide 93.3 Radiology Reviewed by me: Yes (CTA chest - no PE, extensive interstitial opacities; CT brain - neg) EKG Reviewed by me: Yes (Tele - Sinus tachycardia) Hospitalist ROS - Medication Medications: Active Medications Generic Name Dose Route Start Last Admin Trade Name Freq PRN Reason Stop Dose Admin Acetaminophen 650 mg 04/09/20 23:48 05/02/20 07:25 Acetaminophen 325 Mg Tab PO 650 mg Q4H PRN Administration Headache/Fever/Mild Pain (1-3) Albuterol/Ipratropium 3 ml 05/03/20 18:30 05/04/20 15:35 Ipratropium/Albuterol Sulfate 3 Ml Neb NEB 3 ml [id number] JASON Administration Apixaban 5 mg 04/30/20 21:00 05/04/20 08:57 Apixaban 5 Mg Tab PO 5 mg BID JASON Administration Ascorbic Acid 1,000 mg 04/10/20 09:00 05/04/20 08:58 Ascorbic Acid 500 Mg Chewable Tablet PO 1,000 mg DAILY JASON Administration Benzonatate 100 mg 04/21/20 08:39 05/01/20 18:36 Benzonatate 100 Mg Cap PO 100 mg Q4H PRN Administration Cough Cholecalciferol 1,000 units 04/14/20 09:00 05/04/20 08:58 Cholecalciferol 1,000 Units (25 Mcg) Tab PO 1,000 units DAILY JASON Administration Famotidine 20 mg 04/10/20 09:00 05/04/20 08:58 Famotidine 20 Mg Tab PO 20 mg BID JASON Administration Guaifenesin 600 mg 04/10/20 09:00 05/04/20 08:58 Guaifenesin Er 600 Mg Tab PO 600 mg Q12HR JASON Administration Guaifenesin/Dextromethorphan 15 ml 04/09/20 23:48 04/27/20 01:38 Guaifenesin Dm 100-10/5 Ml Udcup PO 15 ml Q4H PRN Administration Cough Fentanyl Citrate 2,000 mcg/ 100 mls @ 0 mls/hr 05/03/20 14:45 05/03/20 20:31 Sodium Chloride IV 06/02/20 14:45 100 mls INF JASON Administration Protocol Per Protocol Meropenem 1 gm/ Device 50 mls @ 100 mls/hr 05/03/20 17:00 05/04/20 16:08 IVPB 50 mls 0100,0900,1700 JASON Administration Insulin Human Lispro 0 units 04/10/20 01:51 04/15/20 17:58 Humalog 300 Units/3 Ml Vial SC 2 unit .MILD SLIDING SCALE PRN Administration Mild Correctional Scale Lorazepam 2 mg 05/03/20 14:45 05/04/20 16:08 Lorazepam 2 Mg/Ml Vial SLOW IVP 06/02/20 14:45 2 mg Q1H PRN Administration Breakthrough agitation Methylprednisolone Sodium Succinate 40 mg 05/03/20 21:00 05/04/20 08:55 Methylprednisolone Sod Succ 40 Mg Vial IVP 40 mg BID JASON Administration Mometasone Furoate/Formoterol Fumar 2 puff 04/10/20 18:30 05/04/20 08:10 Mometasone 200 Mcg/Formoterol 5 Mcg 120 Puff Inhaler INH 2 puff BID-RT JASON Administration Propofol 1,000 mg 05/03/20 14:45 05/04/20 14:58 Propofol 1,000 Mg/100 Ml Vial IV 06/02/20 14:45 1,000 mg INF PRN Administration TO ACHIEVE GOAL RASS Protocol Sodium Chloride 10 ml 04/18/20 09:00 05/04/20 08:59 Flush - Normal Saline 10 Ml Syringe IVF Not Given Q12HR JASON Sterile Water 10 ml 05/03/20 23:24 05/04/20 03:55 Sterile Water 10 Ml Vial FS 10 ml PRN PRN Administration VEC RECON Vecuronium [place] 10 mg 05/04/20 14:00 05/04/20 16:08 Vecuronium 10 Mg Vial IV 10 mg Q1HR JASON Administration Zinc Sulfate 220 mg 04/10/20 09:00 05/04/20 08:58 Zinc Sulfate 220 Mg Cap PO 220 mg DAILY JASON Administration - Exam General - other findings: sedate on mech vent, unresponsive Eye: anicteric sclera ENT: normocephalic atraumatic, no oropharyngeal lesions ENT - other findings: ETT in place Neck: supple, symmetric, no JVD, no thyromegaly, no lymphadenopathy Heart: no murmur, no gallops, no rubs, normal peripheral pulses Heart - other findings: S1, S2 tachycardic Respiratory - other findings: diminished breath sounds bilat, scattered coarse sounds Gastrointestinal: soft, non-tender, non-distended, normal bowel sounds, no palpable masses Extremities: no cyanosis, no clubbing, no edema Skin: normal turgor, no lesions Neurological - other findings: sedate on mech vent Psychiatric: somnolent, lethargic Hosp A/P (1) Pneumonia due to COVID-19 virus Code(s): U07.1 - COVID-19; J12.89 - OTHER VIRAL PNEUMONIA Status: Acute Plan: Continue Meropenem/Solumedrol/Albuterol/mech ventilation, progressive process (2) Acute and chronic respiratory failure with hypoxia Code(s): J96.21 - ACUTE AND CHRONIC RESPIRATORY FAILURE WITH HYPOXIA Status: Acute Plan: s/p intubation on current mech ventilation, see #1 above (3) Anxiety Code(s): F41.9 - ANXIETY DISORDER, UNSPECIFIED Status: Acute (4) Hyperkalemia Code(s): E87.5 - HYPERKALEMIA Status: Acute (5) Hyponatremia Code(s): E87.1 - HYPO-OSMOLALITY AND HYPONATREMIA Status: Acute (6) Acute metabolic encephalopathy Code(s): G93.41 - METABOLIC ENCEPHALOPATHY Status: Acute - Plan plan discussed w/ family, 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
[2020-05-04] MEDS: fentaNYL Citrate/PF 2,000 MCG in Sodium Chloride 0.9% 60 ML IV SCH (20:27)
[2020-05-05] MEDS: MEROPENEM 1 GM/50 ML 1 GM in Premix Bag 1 BAG IVPB SCH ×3 (00:13→16:38)
[2020-05-05 04:35] LABS: #Basophils 0.1 thou/uL (0.0-0.2); #Lymphocytes 0.3 thou/uL (1.20-3.40); #Monocytes 0.6 thou/uL (0.11-0.59); #Neutrophils 12.5 thou/uL (1.40-6.50); %Basophils 0.5 % (0.0-1.0); %Eosinophils 0.3 % (0.0-10.0); %Lymphocytes 2.1 % (21.0-51.0); %Monocytes 4.5 % (0.0-10.0); %Neutrophils 92.7 % (42.0-75.0); Mean Corpuscular HGB CONC 34.1 g/dL (32.0-36.0); Mean Corpuscular Hemoglobin 32.6 pg (27.0-31.0); Mean Corpuscular Volume 95.7 fL (78.0-98.0); Mean Platelet Volume 6.9 fL (7.4-10.4); Platelet Count 152 thou/uL (130-400); RBC Distribution Width 13.1 % (11.5-14.5); Red Blood Cell (RBC) Count 3.68 mill/uL (4.70-6.10); White Blood Cell (WBC) Count 13.5 thou/uL (4.8-10.8)
[2020-05-05 04:58] LABS: BUN (Urea Nitrogen) 54 mg/dL (8.4-25.7); Calc. Creatinine Clearance 60 mL/min (70-130); Calcium 8.6 mg/dL (7.8-10.44); Glucose 183 mg/dL (70-105)
[2020-05-05 05:02] LABS: Anion Gap 19 mmol/L (10-20); Carbon Dioxide 33 mmol/L (22-29); Chloride 86 mmol/L (98-107); Potassium 5.3 mmol/L (3.5-5.1); Sodium 133 mmol/L (136-145)
[2020-05-05] MEDS: Vecuronium 10 MG VIAL IV PRN ×2 (07:15→16:38)
[2020-05-05] MEDS: Lorazepam 2 MG/ML VIAL SLOW IVP PRN ×2 (07:16→15:50)
[2020-05-05] MEDS: Propofol 1,000 MG/100 ML VIAL IV PRN ×3 (07:45→19:35)
[2020-05-05] MEDS: Mometasone 200 MCG/Formoterol 5 MCG 120 PUFF INHALER INH SCH ×2 (08:13→19:07)
[2020-05-05 08:58] LABS: Actual Bicarbonate (HCO3a) 43.2 mEq/L (22-28); Analyzer IN Cardio ER; Base Excess (BEa) 9.8 mEq/L (-2.0 to +3.0); Calcium, Ionized (arterial) 1.18 mmol/L (1.12-1.30); Hemoglobin (Hb) 14.7 g/dL (14.0-18.0); O2 Tension (PaO2), arterial 62.9 mmHg (80.0-100.0); Potassium - ABG Lab 4.76 mmol/L (3.70-5.30)
[2020-05-05 09:09] LABS: pH, Arterial 7.19 (7.35-7.45)
[2020-05-05 09:10] LABS: CO2 Tension 115.6 mmHg (35.0-45.0); Puncture Site LRA
--- NOTE | 2020-05-05 09:42 | RAD ---
Chest one view HISTORY: Pneumonia. Follow-up. COMPARISON: 05/04/2020. FINDINGS: Cardiac silhouette is magnified by projection and partially obscured by diffuse reticulonod ular interstitial and alveolar opacities that are similar in appearance to the prior study. Mediastinum is midline. Lines and tubes unchanged in position. No lobar consolidation is apparent. No evidence of pneumothorax. IMPRESSION : Diffuse bilateral infiltrate and other findings are stable.
--- NOTE | 2020-05-05 09:52 | PRG ---
DATE OF SERVICE: 05/05/2020 SUBJECTIVE: He remains intubated in the vent, sedated. OBJECTIVE: VITAL SIGNS: Temperature is 99, pulse 120, blood pressure 99/60, respirations 18. I's and O's have been consistently even. CHEST: Crackles. No wheezing. CARDIAC: Sinus tach. ABDOMEN: Soft. LABORATORY DATA: White count 13,000 platelet count 152. PO2 is 62, pCO2 is pH 7.19, on a bilevel of 65, low PEEP of 12. BUN and creatinine are 54 and 1.19. X-ray shows bilateral infiltrates. ASSESSMENT AND PLAN: Respiratory failure, ortega positive pneumonia, prolonged hospitalization, marked respiratory acidosis secondary to extensive fibrotic lung change. I have started low-dose colchicine as an antifibrotic agent. He is still on steroids, empiric broad-spectrum antibiotics. Supportive care. Family wants trach and a PEG next week, we will consider. One-half hour critical care time. Job ID: [id number]
[2020-05-05] MEDS: Ascorbic Acid 500 mg Chewable Tablet PO SCH (09:56)
[2020-05-05] MEDS: Zinc Sulfate 220 MG CAP PO SCH (09:56)
[2020-05-05] MEDS: Famotidine 20 MG TAB PO SCH ×2 (09:56→20:18)
[2020-05-05] MEDS: methylPREDNISolone Sod Succ 40 MG VIAL IVP SCH ×2 (09:56→20:18)
[2020-05-05] MEDS: Apixaban 5 MG TAB PO SCH ×2 (09:57→20:18)
[2020-05-05] MEDS: guaiFENesin ER 600 MG TAB PO SCH ×2 (09:57→20:18)
[2020-05-05] MEDS: Cholecalciferol 1,000 UNITS (25 MCG) TAB PO SCH (09:57)
[2020-05-05] MEDS ORDERED: Colchicine 0.6 MG TAB PO SCH (10:45)
--- NOTE | 2020-05-05 11:41 | EKG ---
Test Reason : Blood Pressure : / mmHG Vent. Rate : 111 BPM Atrial Rate : 111 BPM P-R Int : 146 ms QRS Dur : 080 ms QT Int : 316 ms P-R-T Axes : 035 038 036 degrees QTc Int : 429 ms Sinus tachycardia Otherwise normal ECG When compared with ECG of 09-APR-2020 19:21, (Unconfirmed) No significant change was found Confirmed by DR. Catracho COREAS ([id number]) on 05/05/2020 11:41:21 AM Referred By: KI Confirmed By:DR. Catracho COREAS
[2020-05-05] MEDS ORDERED: Albumin 25% 25 GM/100 ML BOT IVPB SCH (14:45)
[2020-05-05] MEDS: Sodium Chloride 0.9% 1,000 ML IV SCH (14:57)
[2020-05-05] MEDS: fentaNYL Citrate/PF 2,000 MCG in Sodium Chloride 0.9% 60 ML IV SCH (15:49)
--- NOTE | 2020-05-05 17:42 | PDOC.HOSPP ---
- Subjective Encounter Date: 05/05/20 Encounter Time: 17:30 Subjective: f/u for COVID PNA/resp failure on mech ventilation. Receiving Meropenem/Solumedrol/Colchicine/Vit C/Zinc/Vit D3. - Objective Vital Signs & Weight: Vital Signs (12 hours) Temp Pulse Resp BP Pulse Ox 05/05/20 16:00 28 H 05/05/20 15:00 98.4 F 05/05/20 14:44 104 H 87/55 L 05/05/20 14:41 105 H 28 H 96 05/05/20 14:00 28 H 05/05/20 12:00 28 H 05/05/20 11:00 98.9 F 05/05/20 10:24 112 H 83/59 L 05/05/20 10:19 112 H 28 H 96 05/05/20 10:00 28 H 05/05/20 08:13 120 H 101/62 05/05/20 08:12 120 H 28 H 91 L 05/05/20 08:00 28 H 92 L 05/05/20 07:52 99.2 F 05/05/20 06:00 28 H Weight Admit Weight 247 lb Weight 220 lb 10.923 oz Most Recent Monitor Data Heart Rate from ECG 100 NIBP 98/56 NIBP BP-Mean 70 Respiration from ECG 28 SpO2 91 I&O: 05/04/20 05/05/20 05/06/20 06:59 06:59 06:59 Intake Total 1185.0 1654.7 500 Output Total 1560 435 300 Balance -375.0 1219.7 200 Result Diagrams: 05/05/20 04:20 05/05/20 04:20 Additional Labs: Microbiology 05/03/20 14:30 Post Bronchial washings Respiratory Culture - Preliminary Laboratory Tests 04/27/20 04/28/20 05/03/20 06:35 03:10 05:30 WBC Plt Count Potassium 6.1 H 5.3 H 4.2 Phosphorus Magnesium B-Natriuretic Peptide 05/03/20 05/03/20 05/04/20 05:30 14:51 03:36 WBC 17.9 H Plt Count 115 L Potassium Phosphorus 4.1 Magnesium 2.3 B-Natriuretic Peptide 93.3 Radiology Reviewed by me: Yes (PCXR - diffuse bilat infiltrates, lines/tubes in place) EKG Reviewed by me: Yes (Tele - sinus tachycardia) Hospitalist ROS - Medication Medications: Active Medications Generic Name Dose Route Start Last Admin Trade Name Freq PRN Reason Stop Dose Admin Acetaminophen 650 mg 04/09/20 23:48 05/02/20 07:25 Acetaminophen 325 Mg Tab PO 650 mg Q4H PRN Administration Headache/Fever/Mild Pain (1-3) Albuterol/Ipratropium 3 ml 05/03/20 18:30 05/05/20 14:41 Ipratropium/Albuterol Sulfate 3 Ml Neb NEB 3 ml [id number] JASON Administration Apixaban 5 mg 04/30/20 21:00 05/05/20 09:57 Apixaban 5 Mg Tab PO 5 mg BID JASON Administration Ascorbic Acid 1,000 mg 04/10/20 09:00 05/05/20 09:56 Ascorbic Acid 500 Mg Chewable Tablet PO 1,000 mg DAILY JASON Administration Benzonatate 100 mg 04/21/20 08:39 05/01/20 18:36 Benzonatate 100 Mg Cap PO 100 mg Q4H PRN Administration Cough Cholecalciferol 1,000 units 04/14/20 09:00 05/05/20 09:57 Cholecalciferol 1,000 Units (25 Mcg) Tab PO 1,000 units DAILY JASON Administration Famotidine 20 mg 04/10/20 09:00 05/05/20 09:56 Famotidine 20 Mg Tab PO 20 mg BID JASON Administration Guaifenesin 600 mg 04/10/20 09:00 05/05/20 09:57 Guaifenesin Er 600 Mg Tab PO 600 mg Q12HR JASON Administration Guaifenesin/Dextromethorphan 15 ml 04/09/20 23:48 04/27/20 01:38 Guaifenesin Dm 100-10/5 Ml Udcup PO 15 ml Q4H PRN Administration Cough Fentanyl Citrate 2,000 mcg/ 100 mls @ 0 mls/hr 05/03/20 14:45 05/05/20 15:49 Sodium Chloride IV 06/02/20 14:45 100 mls INF JASON Administration Protocol Per Protocol Meropenem 1 gm/ Device 50 mls @ 100 mls/hr 05/03/20 17:00 05/05/20 16:38 IVPB 50 mls 0100,0900,1700 JASON Administration Sodium Chloride 1,000 mls @ 50 mls/hr 05/05/20 14:45 05/05/20 14:57 Normal Saline 0.9% IV 1,000 mls .Q20H JASON Administration Insulin Human Lispro 0 units 04/10/20 01:51 04/15/20 17:58 Humalog 300 Units/3 Ml Vial SC 2 unit .MILD SLIDING SCALE PRN Administration Mild Correctional Scale Lorazepam 2 mg 05/03/20 14:45 05/05/20 15:50 Lorazepam 2 Mg/Ml Vial SLOW IVP 06/02/20 14:45 2 mg Q1H PRN Administration Breakthrough agitation Methylprednisolone Sodium Succinate 40 mg 05/03/20 21:00 05/05/20 09:56 Methylprednisolone Sod Succ 40 Mg Vial IVP 40 mg BID JASON Administration Mometasone Furoate/Formoterol Fumar 2 puff 04/10/20 18:30 05/05/20 08:13 Mometasone 200 Mcg/Formoterol 5 Mcg 120 Puff Inhaler INH 2 puff BID-RT JASON Administration Propofol 1,000 mg 05/03/20 14:45 05/05/20 13:21 Propofol 1,000 Mg/100 Ml Vial IV 06/02/20 14:45 1,000 mg INF PRN Administration TO ACHIEVE GOAL RASS Protocol Sodium Chloride 10 ml 04/18/20 09:00 05/05/20 09:57 Flush - Normal Saline 10 Ml Syringe IVF Not Given Q12HR JASON Sterile Water 10 ml 05/03/20 23:24 05/04/20 03:55 Sterile Water 10 Ml Vial FS 10 ml PRN PRN Administration VEC RECON Vecuronium [place] 10 mg 05/04/20 17:57 05/05/20 16:38 Vecuronium 10 Mg Vial IV 10 mg Q1H PRN Administration SEDATION/MOVEMENT Zinc Sulfate 220 mg 04/10/20 09:00 05/05/20 09:56 Zinc Sulfate 220 Mg Cap PO 220 mg DAILY JASON Administration - Exam General Appearance: ill appearing General - other findings: sedate on mech vent Eye: anicteric sclera ENT: normocephalic atraumatic, no oropharyngeal lesions ENT - other findings: ETT in place Neck: supple, symmetric, no JVD, no thyromegaly, no lymphadenopathy Heart: no gallops, no rubs, normal peripheral pulses Heart - other findings: S1, S2 tachycardic Respiratory: tachypneic Respiratory - other findings: bilat rhonchi, diminished in bases Gastrointestinal: soft, non-distended, normal bowel sounds, no palpable masses Extremities: no cyanosis, no clubbing, no edema Skin: normal turgor, no lesions Neurological - other findings: sedate on mech vent Psychiatric: somnolent, lethargic Hosp A/P (1) Pneumonia due to COVID-19 virus Code(s): U07.1 - COVID-19; J12.89 - OTHER VIRAL PNEUMONIA Status: Acute Plan: Continue Meropenem/Solumedrol/Vit C/Zinc/Eliquis/mech ventilation (2) Acute and chronic respiratory failure with hypoxia Code(s): J96.21 - ACUTE AND CHRONIC RESPIRATORY FAILURE WITH HYPOXIA Status: Acute Plan: Continue mech ventilation, family considering potential trach/PEG (3) Anxiety Code(s): F41.9 - ANXIETY DISORDER, UNSPECIFIED Status: Acute (4) Hyperkalemia Code(s): E87.5 - HYPERKALEMIA Status: Acute Plan: Monitor for progression given MARZENA (5) Hyponatremia Code(s): E87.1 - HYPO-OSMOLALITY AND HYPONATREMIA Status: Acute (6) Acute metabolic encephalopathy Code(s): G93.41 - METABOLIC ENCEPHALOPATHY Status: Acute - Plan 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
[2020-05-06] MEDS: MEROPENEM 1 GM/50 ML 1 GM in Premix Bag 1 BAG IVPB SCH ×3 (02:16→17:20)
[2020-05-06] MEDS: Propofol 1,000 MG/100 ML VIAL IV PRN ×4 (03:03→21:13)
[2020-05-06] MEDS: Lorazepam 2 MG/ML VIAL SLOW IVP PRN ×4 (03:04→14:32)
[2020-05-06 04:58] LABS: #Lymphocytes 0.4 thou/uL (1.20-3.40); #Monocytes 0.4 thou/uL (0.11-0.59); #Neutrophils 8.4 thou/uL (1.40-6.50); %Basophils 0.4 % (0.0-1.0); %Eosinophils 0.5 % (0.0-10.0); %Lymphocytes 4.4 % (21.0-51.0); %Monocytes 4.1 % (0.0-10.0); %Neutrophils 90.7 % (42.0-75.0); Hemoglobin 9.4 g/dL (14.0-18.0); Mean Corpuscular HGB CONC 33.2 g/dL (32.0-36.0); Mean Corpuscular Hemoglobin 31.1 pg (27.0-31.0); Mean Corpuscular Volume 93.6 fL (78.0-98.0); Mean Platelet Volume 6.8 fL (7.4-10.4); Platelet Count 151 thou/uL (130-400); RBC Distribution Width 12.9 % (11.5-14.5); Red Blood Cell (RBC) Count 3.02 mill/uL (4.70-6.10); White Blood Cell (WBC) Count 9.2 thou/uL (4.8-10.8)
[2020-05-06 05:12] LABS: Anion Gap 14 mmol/L (10-20); BUN (Urea Nitrogen) 87 mg/dL (8.4-25.7); Calc. Creatinine Clearance 56 mL/min (70-130); Calcium 8.4 mg/dL (7.8-10.44); Carbon Dioxide 37 mmol/L (22-29); Chloride 88 mmol/L (98-107); Glucose 143 mg/dL (70-105); Potassium 4.5 mmol/L (3.5-5.1); Sodium 134 mmol/L (136-145)
[2020-05-06] MEDS: Mometasone 200 MCG/Formoterol 5 MCG 120 PUFF INHALER INH SCH ×2 (08:03→18:32)
[2020-05-06 08:04] LABS: Actual Bicarbonate (HCO3a) 38.4 mEq/L (22-28); Base Excess (BEa) 12.8 mEq/L (-2.0 to +3.0); CO2 Tension 54.2 mmHg (35.0-45.0); Calcium, Ionized (arterial) 1.12 mmol/L (1.12-1.30); Carboxyhemoglobin (COHb) 0.8 gm% (0.0-3.0); Hemoglobin (Hb) 11.1 g/dL (14.0-18.0); O2 Tension (PaO2), arterial 67.8 mmHg (80.0-100.0); pH, Arterial 7.47 (7.35-7.45)
[2020-05-06 08:07] LABS: Puncture Site RRA
[2020-05-06] MEDS: methylPREDNISolone Sod Succ 40 MG VIAL IVP SCH ×2 (08:57→21:03)
[2020-05-06] MEDS: guaiFENesin ER 600 MG TAB PO SCH ×2 (08:58→21:05)
[2020-05-06] MEDS: Colchicine 0.6 MG TAB PO SCH (08:58)
[2020-05-06] MEDS: Famotidine 20 MG TAB PO SCH ×2 (08:58→21:03)
[2020-05-06] MEDS: Ascorbic Acid 500 mg Chewable Tablet PO SCH (08:58)
[2020-05-06] MEDS: Cholecalciferol 1,000 UNITS (25 MCG) TAB PO SCH (08:58)
[2020-05-06] MEDS: Apixaban 5 MG TAB PO SCH ×2 (08:58→21:03)
--- NOTE | 2020-05-06 09:42 | RAD ---
EXAM: Chest one view: HISTORY: Respiratory insufficiency COMPARISON: 05/05/2020 FINDINGS: Stable life-support tubes. Heart size: Within normal limits. Lungs: Overall stable extensive bilateral alveolar, interstitial, and groundglass opacity changes. No pneumothorax. IMPRESSION: Extensive bilateral Covid pneumonia, stable.
--- NOTE | 2020-05-06 10:05 | PRG ---
DATE OF SERVICE: 05/06/2020 SUBJECTIVE: This morning remains intubated in the vent, sedated. OBJECTIVE: VITAL SIGNS: Temperature 98, pulse 90, blood pressure 182/64, respiratory rate 18. I's and O's positive. CHEST: Rhonchi, crackles. CARDIAC: Sinus tach. ABDOMEN: Soft. LABORATORY DATA: White count 9000, H and H 9 and 28, platelet count 51. PO2 is 67, pCO2 of 54, pH 7.47 on a bilevel of 28, low PEEP of 11. His creatinine is 2 and BUN is 87. ASSESSMENT AND PLAN: Respiratory failure, renal failure, acute respiratory distress syndrome, ortega positive pneumonia. PLAN: 1. Continue present treatment and high-dose anticoagulation. 2. Empiric antibiotics. 3. Supportive care. 4. He is clearly not weanable. If he is still unstable, he will be transferred anywhere. Family is talking about ECMO, etc. Clearly, he is not a candidate for any of this therapy at this stage. 5. We will discuss with them in person when they arrive. One-half hour of critical care time. Job ID: [id number]
[2020-05-06] MEDS: Zinc Sulfate 220 MG CAP PO SCH (10:09)
[2020-05-06] MEDS: Sodium Chloride 0.9% 1,000 ML IV SCH (10:10)
[2020-05-06] MEDS: fentaNYL Citrate/PF 2,000 MCG in Sodium Chloride 0.9% 60 ML IV SCH ×2 (10:31→23:39)
--- NOTE | 2020-05-06 18:00 | PDOC.HOSPP ---
- Subjective Subjective: Patient was seen and examined. Patient remained intubated. I have discussed one of his daughters at bedside I also attempted to reach his other daughter, Elida on the phone, but went straight to her voicemails. - Objective Vital Signs & Weight: Vital Signs (12 hours) Temp Pulse Resp BP Pulse Ox 05/06/20 15:59 87 124/71 05/06/20 15:57 88 20 96 05/06/20 13:56 20 05/06/20 12:00 98.5 F 20 05/06/20 11:27 96 129/64 05/06/20 11:23 92 26 H 92 L 05/06/20 10:00 20 05/06/20 08:00 98.8 F 28 H 05/06/20 07:55 90 136/70 05/06/20 07:53 92 28 H 93 L 05/06/20 06:00 28 H Weight Admit Weight 247 lb Weight 220 lb 10.923 oz Most Recent Monitor Data Heart Rate from ECG 89 NIBP 124/71 NIBP BP-Mean 88 Respiration from ECG 20 SpO2 95 I&O: 05/05/20 05/06/20 05/07/20 06:59 06:59 06:59 Intake Total 1654.7 2227.5 380 Output Total 435 1205 575 Balance 1219.7 1022.5 -195 Result Diagrams: 05/06/20 03:40 05/06/20 03:40 Hospitalist ROS - Medication Medications: Active Medications Generic Name Dose Route Start Last Admin Trade Name Freq PRN Reason Stop Dose Admin Acetaminophen 650 mg 04/09/20 23:48 05/02/20 07:25 Acetaminophen 325 Mg Tab PO 650 mg Q4H PRN Administration Headache/Fever/Mild Pain (1-3) Albuterol/Ipratropium 3 ml 05/03/20 18:30 05/06/20 15:57 Ipratropium/Albuterol Sulfate 3 Ml Neb NEB 3 ml [id number] JASON Administration Apixaban 5 mg 04/30/20 21:00 05/06/20 08:58 Apixaban 5 Mg Tab PO 5 mg BID JASON Administration Ascorbic Acid 1,000 mg 04/10/20 09:00 05/06/20 08:58 Ascorbic Acid 500 Mg Chewable Tablet PO 1,000 mg DAILY JASON Administration Benzonatate 100 mg 04/21/20 08:39 05/01/20 18:36 Benzonatate 100 Mg Cap PO 100 mg Q4H PRN Administration Cough Cholecalciferol 1,000 units 04/14/20 09:00 05/06/20 08:58 Cholecalciferol 1,000 Units (25 Mcg) Tab PO 1,000 units DAILY JASON Administration Colchicine 0.6 mg 05/06/20 09:00 05/06/20 08:58 Colchicine 0.6 Mg Tab PO 0.6 mg DAILY JASON Administration Famotidine 20 mg 04/10/20 09:00 05/06/20 08:58 Famotidine 20 Mg Tab PO 20 mg BID JASON Administration Guaifenesin 600 mg 04/10/20 09:00 05/06/20 08:58 Guaifenesin Er 600 Mg Tab PO 600 mg Q12HR JASON Administration Guaifenesin/Dextromethorphan 15 ml 04/09/20 23:48 04/27/20 01:38 Guaifenesin Dm 100-10/5 Ml Udcup PO 15 ml Q4H PRN Administration Cough Fentanyl Citrate 2,000 mcg/ 100 mls @ 0 mls/hr 05/03/20 14:45 05/06/20 10:31 Sodium Chloride IV 06/02/20 14:45 100 mls INF JASON Administration Protocol Per Protocol Meropenem 1 gm/ Device 50 mls @ 100 mls/hr 05/03/20 17:00 05/06/20 08:59 IVPB 50 mls 0100,0900,1700 JASON Administration Sodium Chloride 1,000 mls @ 50 mls/hr 05/05/20 14:45 05/06/20 10:10 Normal Saline 0.9% IV 1,000 mls .Q20H JASON Administration Insulin Human Lispro 0 units 04/10/20 01:51 04/15/20 17:58 Humalog 300 Units/3 Ml Vial SC 2 unit .MILD SLIDING SCALE PRN Administration Mild Correctional Scale Lorazepam 2 mg 05/03/20 14:45 05/06/20 14:32 Lorazepam 2 Mg/Ml Vial SLOW IVP 06/02/20 14:45 2 mg Q1H PRN Administration Breakthrough agitation Methylprednisolone Sodium Succinate 40 mg 05/03/20 21:00 05/06/20 08:57 Methylprednisolone Sod Succ 40 Mg Vial IVP 40 mg BID JASON Administration Mometasone Furoate/Formoterol Fumar 2 puff 04/10/20 18:30 05/06/20 08:03 Mometasone 200 Mcg/Formoterol 5 Mcg 120 Puff Inhaler INH 2 puff BID-RT JASON Administration Propofol 1,000 mg 05/03/20 14:45 05/06/20 14:33 Propofol 1,000 Mg/100 Ml Vial IV 06/02/20 14:45 1,000 mg INF PRN Administration TO ACHIEVE GOAL RASS Protocol Sodium Chloride 10 ml 04/18/20 09:00 05/06/20 08:59 Flush - Normal Saline 10 Ml Syringe IVF 10 ml Q12HR JASON Administration Sterile Water 10 ml 05/03/20 23:24 05/04/20 03:55 Sterile Water 10 Ml Vial FS 10 ml PRN PRN Administration VEC RECON Vecuronium [place] 10 mg 05/04/20 17:57 05/05/20 16:38 Vecuronium 10 Mg Vial IV 10 mg Q1H PRN Administration SEDATION/MOVEMENT Zinc Sulfate 220 mg 04/10/20 09:00 05/06/20 10:09 Zinc Sulfate 220 Mg Cap PO 220 mg DAILY JASON Administration - Exam General - other findings: intubated ENT: normocephalic atraumatic Neck: supple Heart: RRR Respiratory: rhonchi Gastrointestinal: soft, non-tender Extremities: no cyanosis, no clubbing, no edema Skin: normal turgor Neurological: cranial nerve grossly intact Musculoskeletal: normal tone, normal strength Hosp A/P - Plan This is a pleasant 59 years old gentleman who has no significant past medical history, presented from outside facility ER with short of breath and hypoxia. He was admitted for COVID-19 pneumonia on 04/09/2020. He was on BiPAP initially, subsequently intubated on 05/03/20 Acute hypoxic respiratory failure due to COVID-19 pneumonia --s/p intubation on 05/03/20. Status post remdesivir, convalescent plasma. Continue Decadron, vitamin C/D/Zinc --Patient is on Eliquis for DVT prophylaxis --cont empiric IV abx. Further mgt as per drafter (cad) electronic. COVID-19 pneumonia --mgt as above
[2020-05-06] MEDS: Guaifenesin DM 100-10/5 ML UDCUP PO PRN (22:24)
[2020-05-07] MEDS: MEROPENEM 1 GM/50 ML 1 GM in Premix Bag 1 BAG IVPB SCH ×3 (00:20→17:46)
[2020-05-07] MEDS: Propofol 1,000 MG/100 ML VIAL IV PRN ×4 (02:27→20:20)
[2020-05-07 04:41] LABS: #Basophils 0.1 thou/uL (0.0-0.2); #Lymphocytes 0.4 thou/uL (1.20-3.40); #Monocytes 0.3 thou/uL (0.11-0.59); #Neutrophils 7.2 thou/uL (1.40-6.50); %Basophils 0.6 % (0.0-1.0); %Eosinophils 0.6 % (0.0-10.0); %Lymphocytes 4.9 % (21.0-51.0); %Monocytes 4.3 % (0.0-10.0); %Neutrophils 89.6 % (42.0-75.0); Hemoglobin 9.7 g/dL (14.0-18.0); Mean Corpuscular HGB CONC 32.9 g/dL (32.0-36.0); Mean Corpuscular Hemoglobin 31.2 pg (27.0-31.0); Mean Corpuscular Volume 94.7 fL (78.0-98.0); Mean Platelet Volume 6.6 fL (7.4-10.4); Platelet Count 156 thou/uL (130-400); RBC Distribution Width 12.8 % (11.5-14.5); Red Blood Cell (RBC) Count 3.11 mill/uL (4.70-6.10)
[2020-05-07 05:09] LABS: BUN (Urea Nitrogen) 79 mg/dL (8.4-25.7); Calc. Creatinine Clearance 77 mL/min (70-130); Calcium 8.6 mg/dL (7.8-10.44); Glucose 136 mg/dL (70-105)
[2020-05-07 05:18] LABS: Anion Gap 18 mmol/L (10-20); Carbon Dioxide 33 mmol/L (22-29); Chloride 92 mmol/L (98-107); Potassium 4.7 mmol/L (3.5-5.1); Sodium 138 mmol/L (136-145)
[2020-05-07] MEDS: Mometasone 200 MCG/Formoterol 5 MCG 120 PUFF INHALER INH SCH ×2 (08:11→18:53)
[2020-05-07] MEDS: Colchicine 0.6 MG TAB PO SCH (08:12)
[2020-05-07] MEDS: Zinc Sulfate 220 MG CAP PO SCH (08:13)
[2020-05-07] MEDS: Ascorbic Acid 500 mg Chewable Tablet PO SCH (08:13)
[2020-05-07] MEDS: Apixaban 5 MG TAB PO SCH ×2 (08:13→20:20)
[2020-05-07] MEDS: Famotidine 20 MG TAB PO SCH ×2 (08:13→20:20)
[2020-05-07] MEDS: Cholecalciferol 1,000 UNITS (25 MCG) TAB PO SCH (08:18)
[2020-05-07] MEDS: Sodium Chloride 0.9% 1,000 ML IV SCH (08:19)
[2020-05-07] MEDS: methylPREDNISolone Sod Succ 40 MG VIAL IVP SCH ×2 (08:32→20:20)
--- NOTE | 2020-05-07 08:38 | RAD ---
Chest one view HISTORY: Pneumonia. Follow-up. COMPARISON: 05/06/2020. FINDINGS: Cardiac silhouette is magnified by projection. Shallow inspiration accentuates pulmonary ma rkings. Mediastinum is midline. Lines and tubes unchanged in position. Ill-defined patchy areas of infiltrate involving the left lung in the right lower lobe similar in arturo earance to the prior exam. No evidence of pneumothorax. IMPRESSION : Bilateral infiltrates and other findings are stable.
[2020-05-07 09:04] LABS: Actual Bicarbonate (HCO3a) 36.7 mEq/L (22-28); Base Excess (BEa) 11.7 mEq/L (-2.0 to +3.0); CO2 Tension 52.2 mmHg (35.0-45.0); Calcium, Ionized (arterial) 1.12 mmol/L (1.12-1.30); Carboxyhemoglobin (COHb) 1.5 gm% (0.0-3.0); Hemoglobin (Hb) 7.4 g/dL (14.0-18.0); O2 Tension (PaO2), arterial 87.5 mmHg (80.0-100.0); Potassium - ABG Lab 4.43 mmol/L (3.70-5.30); pH, Arterial 7.47 (7.35-7.45)
[2020-05-07] MEDS: guaiFENesin ER 600 MG TAB PO SCH (09:10)
[2020-05-07 09:35] LABS: Puncture Site LRA
[2020-05-07] MEDS: Lorazepam 2 MG/ML VIAL SLOW IVP PRN ×2 (11:17→13:52)
--- NOTE | 2020-05-07 11:59 | PRG ---
DATE OF SERVICE: 05/07/2020 SUBJECTIVE: Remains intubated in the vent, sedated. OBJECTIVE: VITAL SIGNS: Temperature 97, pulse 82, blood pressure 160/82, sats are 97% on a bilevel. He is doing somewhat better. His I's and O's have been consistently positive. CHEST: No wheezing. No crackles. CARDIAC: Normal S1, S2. ABDOMEN: No masses. LABORATORY DATA: Creatinine 1.5, BUN is 79. Slowly getting better. CRP is 2.32. IMPRESSION: Respiratory failure, ortega positive pneumonia, ARDS, recent intubation, and prolonged hospitalization. PLAN: He is going to try and adjust the vent and continue appears may be slowly getting better. One-half hour of critical time. Job ID: [id number]
[2020-05-07] MEDS: fentaNYL Citrate/PF 2,000 MCG in Sodium Chloride 0.9% 60 ML IV SCH (12:34)
--- NOTE | 2020-05-07 17:29 | PDOC.HOSPP ---
- Subjective Subjective: pt remains intubated, updated daughter on the phone. - Objective Vital Signs & Weight: Vital Signs (12 hours) Temp Pulse Resp BP Pulse Ox 05/07/20 15:16 82 138/91 H 05/07/20 15:12 75 16 93 L 05/07/20 14:00 16 05/07/20 12:00 18 05/07/20 11:00 98.2 F 05/07/20 10:37 80 18 151/80 H 95 05/07/20 10:00 16 05/07/20 08:14 82 161/82 H 05/07/20 08:09 84 20 95 05/07/20 08:00 20 05/07/20 07:00 97.9 F 05/07/20 05:48 20 Weight Admit Weight 247 lb Weight 220 lb 10.923 oz Most Recent Monitor Data Heart Rate from ECG 84 NIBP 151/71 NIBP BP-Mean 97 Respiration from ECG 16 SpO2 96 I&O: 05/06/20 05/07/20 05/08/20 06:59 06:59 06:59 Intake Total 2227.5 2223 320 Output Total 1205 1830 850 Balance 1022.5 393 -530 Result Diagrams: 05/07/20 04:05 05/07/20 04:05 Radiology Reviewed by me: Yes EKG Reviewed by me: Yes Hospitalist ROS - Medication Medications: Active Medications Generic Name Dose Route Start Last Admin Trade Name Freq PRN Reason Stop Dose Admin Acetaminophen 650 mg 04/09/20 23:48 05/02/20 07:25 Acetaminophen 325 Mg Tab PO 650 mg Q4H PRN Administration Headache/Fever/Mild Pain (1-3) Albuterol/Ipratropium 3 ml 05/03/20 18:30 05/07/20 15:12 Ipratropium/Albuterol Sulfate 3 Ml Neb NEB 3 ml [id number] JASON Administration Apixaban 5 mg 04/30/20 21:00 05/07/20 08:13 Apixaban 5 Mg Tab PO 5 mg BID JASON Administration Ascorbic Acid 1,000 mg 04/10/20 09:00 05/07/20 08:13 Ascorbic Acid 500 Mg Chewable Tablet PO 1,000 mg DAILY JASON Administration Benzonatate 100 mg 04/21/20 08:39 05/01/20 18:36 Benzonatate 100 Mg Cap PO 100 mg Q4H PRN Administration Cough Cholecalciferol 1,000 units 04/14/20 09:00 05/07/20 08:18 Cholecalciferol 1,000 Units (25 Mcg) Tab PO 1,000 units DAILY JASON Administration Colchicine 0.6 mg 05/06/20 09:00 05/07/20 08:12 Colchicine 0.6 Mg Tab PO 0.6 mg DAILY JASON Administration Famotidine 20 mg 04/10/20 09:00 05/07/20 08:13 Famotidine 20 Mg Tab PO 20 mg BID JASON Administration Guaifenesin/Dextromethorphan 15 ml 04/09/20 23:48 05/06/20 22:24 Guaifenesin Dm 100-10/5 Ml Udcup PO 15 ml Q4H PRN Administration Cough Fentanyl Citrate 2,000 mcg/ 100 mls @ 0 mls/hr 05/03/20 14:45 05/07/20 12:34 Sodium Chloride IV 06/02/20 14:45 100 mls INF JASON Administration Protocol Per Protocol Meropenem 1 gm/ Device 50 mls @ 100 mls/hr 05/03/20 17:00 05/07/20 08:31 IVPB 50 mls 0100,0900,1700 JASON Administration Sodium Chloride 1,000 mls @ 50 mls/hr 05/05/20 14:45 05/07/20 08:19 Normal Saline 0.9% IV 1,000 mls .Q20H JASON Administration Insulin Human Lispro 0 units 04/10/20 01:51 04/15/20 17:58 Humalog 300 Units/3 Ml Vial SC 2 unit .MILD SLIDING SCALE PRN Administration Mild Correctional Scale Lorazepam 2 mg 05/03/20 14:45 05/07/20 13:52 Lorazepam 2 Mg/Ml Vial SLOW IVP 06/02/20 14:45 2 mg Q1H PRN Administration Breakthrough agitation Methylprednisolone Sodium Succinate 40 mg 05/03/20 21:00 05/07/20 08:32 Methylprednisolone Sod Succ 40 Mg Vial IVP 40 mg BID JASON Administration Mometasone Furoate/Formoterol Fumar 2 puff 04/10/20 18:30 05/07/20 08:11 Mometasone 200 Mcg/Formoterol 5 Mcg 120 Puff Inhaler INH 2 puff BID-RT JASON Administration Propofol 1,000 mg 05/03/20 14:45 05/07/20 13:52 Propofol 1,000 Mg/100 Ml Vial IV 06/02/20 14:45 1,000 mg INF PRN Administration TO ACHIEVE GOAL RASS Protocol Sodium Chloride 10 ml 04/18/20 09:00 05/07/20 08:32 Flush - Normal Saline 10 Ml Syringe IVF 10 ml Q12HR JASON Administration Sterile Water 10 ml 05/03/20 23:24 05/04/20 03:55 Sterile Water 10 Ml Vial FS 10 ml PRN PRN Administration VEC RECON Vecuronium [place] 10 mg 05/04/20 17:57 05/05/20 16:38 Vecuronium 10 Mg Vial IV 10 mg Q1H PRN Administration SEDATION/MOVEMENT Zinc Sulfate 220 mg 04/10/20 09:00 05/07/20 08:13 Zinc Sulfate 220 Mg Cap PO 220 mg DAILY JASON Administration - Exam General Appearance: NAD Eye: PERRL ENT: normocephalic atraumatic Neck: supple Heart: RRR Respiratory: rhonchi Gastrointestinal: soft, non-tender Extremities: no cyanosis, no clubbing, no edema Skin: normal turgor Neurological - other findings: remains intubated. Hosp A/P - Plan This is a pleasant 59 years old gentleman who has no significant past medical history, presented from outside facility ER with short of breath and hypoxia. He was admitted for COVID-19 pneumonia on 04/09/2020. He was on BiPAP initially, subsequently intubated on 05/03/20 Acute hypoxic respiratory failure due to COVID-19 pneumonia --s/p intubation on 05/03/20. Status post remdesivir, convalescent plasma. Continue Decadron, vitamin C/D/Zinc --Patient is on Eliquis for DVT prophylaxis --cont empiric IV abx. Further mgt as per director consumer affairs. COVID-19 pneumonia --mgt as above MARZENA --resolving Updated daughter, Elida, on the phone
[2020-05-08] MEDS: MEROPENEM 1 GM/50 ML 1 GM in Premix Bag 1 BAG IVPB SCH (00:16)
[2020-05-08] MEDS: Lorazepam 2 MG/ML VIAL SLOW IVP PRN ×2 (00:30→12:03)
[2020-05-08] MEDS: Propofol 1,000 MG/100 ML VIAL IV PRN ×5 (01:16→20:15)
[2020-05-08] MEDS: fentaNYL Citrate/PF 2,000 MCG in Sodium Chloride 0.9% 60 ML IV SCH ×2 (01:35→14:30)
[2020-05-08 04:21] LABS: #Lymphocytes 0.5 thou/uL (1.20-3.40); #Monocytes 0.4 thou/uL (0.11-0.59); %Basophils 0.2 % (0.0-1.0); %Eosinophils 0.5 % (0.0-10.0); %Monocytes 4.8 % (0.0-10.0); %Neutrophils 89.5 % (42.0-75.0); Mean Corpuscular HGB CONC 32.4 g/dL (32.0-36.0); Mean Corpuscular Volume 95.8 fL (78.0-98.0); Mean Platelet Volume 6.6 fL (7.4-10.4); Platelet Count 187 thou/uL (130-400); RBC Distribution Width 12.8 % (11.5-14.5); Red Blood Cell (RBC) Count 3.22 mill/uL (4.70-6.10); White Blood Cell (WBC) Count 8.9 thou/uL (4.8-10.8)
[2020-05-08 04:34] LABS: BUN (Urea Nitrogen) 60 mg/dL (8.4-25.7); Calc. Creatinine Clearance 99 mL/min (70-130); Calcium 8.4 mg/dL (7.8-10.44); Glucose 123 mg/dL (70-105)
[2020-05-08 04:42] LABS: Anion Gap 17 mmol/L (10-20); Carbon Dioxide 35 mmol/L (22-29); Chloride 94 mmol/L (98-107); Potassium 4.7 mmol/L (3.5-5.1); Sodium 141 mmol/L (136-145)
[2020-05-08] MEDS: Sodium Chloride 0.9% 1,000 ML IV SCH (05:22)
[2020-05-08] MEDS: Mometasone 200 MCG/Formoterol 5 MCG 120 PUFF INHALER INH SCH ×2 (08:00→19:07)
[2020-05-08 08:25] LABS: Actual Bicarbonate (HCO3a) 39.8 mEq/L (22-28); Base Excess (BEa) 11.3 mEq/L (-2.0 to +3.0); Calcium, Ionized (arterial) 1.23 mmol/L (1.12-1.30); Carboxyhemoglobin (COHb) 1.6 gm% (0.0-3.0); Hemoglobin (Hb) 12.6 g/dL (14.0-18.0); O2 Tension (PaO2), arterial 65.8 mmHg (80.0-100.0); Potassium - ABG Lab 4.27 mmol/L (3.70-5.30); pH, Arterial 7.35 (7.35-7.45)
[2020-05-08 09:21] LABS: CO2 Tension 73.8 mmHg (35.0-45.0); Puncture Site LRA
--- NOTE | 2020-05-08 09:24 | RAD ---
PORTABLE CHEST: HISTORY: COVID pneumonia. COMPARISON: 05/07/2020. FINDINGS: Bilateral lung infiltrates again noted. ET tube and NG Tube remain in place. No significant interva l change. IMPRESSION: Stable chest. POS: AGW
[2020-05-08] MEDS: Cholecalciferol 1,000 UNITS (25 MCG) TAB PO SCH (09:42)
[2020-05-08] MEDS: Ascorbic Acid 500 mg Chewable Tablet PO SCH (09:42)
[2020-05-08] MEDS: Apixaban 5 MG TAB PO SCH ×2 (09:42→20:16)
[2020-05-08] MEDS: Famotidine 20 MG TAB PO SCH ×2 (09:42→20:16)
[2020-05-08] MEDS: Colchicine 0.6 MG TAB PO SCH (09:42)
[2020-05-08] MEDS: Meropenem 1 GM in Sodium Chloride 0.9% 100 ML IVPB SCH ×2 (09:43→17:19)
[2020-05-08] MEDS: methylPREDNISolone Sod Succ 40 MG VIAL IVP SCH ×2 (09:52→20:16)
--- NOTE | 2020-05-08 10:13 | PRG ---
DATE OF SERVICE: 05/08/2020 SUBJECTIVE: Esteban Laurent, this morning, remains on the vent, is still heavily sedated. OBJECTIVE: VITAL SIGNS: His temperature is 97, pulse , blood pressure 142/75, sats respiratory rate 18. I's and O's have been better. CHEST: No wheezing. No crackles. CARDIAC: Normal S1, S2. No gallops. ABDOMEN: No masses. LABORATORY DATA: PO2 of 65, pCO2 of 73, pH 7.35. White count 8000. Bilevel 16/50. PEEP of 9. BUN and creatinine slightly better. X-ray looks improved. IMPRESSION: Bronw positive pneumonia, prolonged hospitalization, day #4 in the vent. PLAN: Vent is being adjusted. Continue steroids, broad-spectrum antibiotics. Antianxiety medicine down his tube to see we can slow down some of his IV sedation. One-half hour of critical care time. Job ID: [id number]
[2020-05-08] MEDS: Lorazepam 1 MG TAB PER TUBE SCH ×2 (10:30→17:19)
[2020-05-08] MEDS: Zinc Sulfate 220 MG CAP PO SCH (10:31)
--- NOTE | 2020-05-08 17:33 | PDOC.HOSPP ---
- Subjective Subjective: pt was seen and examined. d/w nursing staff. no fever, remains intubated. renal function normalized. - Objective Vital Signs & Weight: Vital Signs (12 hours) Temp Pulse Resp BP Pulse Ox 05/08/20 17:00 98.5 F 05/08/20 16:00 14 05/08/20 15:51 82 122/70 05/08/20 14:00 14 05/08/20 13:00 98.5 F 05/08/20 12:00 13 05/08/20 11:03 80 123/72 05/08/20 11:01 79 13 93 L 05/08/20 10:00 14 05/08/20 08:00 82 16 145/82 H 05/08/20 07:59 76 16 93 L 05/08/20 07:00 97.8 F 05/08/20 05:54 17 Weight Admit Weight 247 lb Weight 220 lb 10.923 oz Most Recent Monitor Data Heart Rate from ECG 77 NIBP 123/69 NIBP BP-Mean 87 Respiration from ECG 14 SpO2 94 I&O: 05/07/20 05/08/20 05/09/20 06:59 06:59 06:59 Intake Total 2223 1714 660 Output Total 1830 1670 755 Balance 393 44 -95 Result Diagrams: 05/08/20 03:30 05/08/20 03:30 Radiology Reviewed by me: Yes EKG Reviewed by me: Yes Hospitalist ROS - Medication Medications: Active Medications Generic Name Dose Route Start Last Admin Trade Name Freq PRN Reason Stop Dose Admin Acetaminophen 650 mg 04/09/20 23:48 05/02/20 07:25 Acetaminophen 325 Mg Tab PO 650 mg Q4H PRN Administration Headache/Fever/Mild Pain (1-3) Albuterol/Ipratropium 3 ml 05/03/20 18:30 05/08/20 15:51 Ipratropium/Albuterol Sulfate 3 Ml Neb NEB 3 ml [id number] JASON Administration Apixaban 5 mg 04/30/20 21:00 05/08/20 09:42 Apixaban 5 Mg Tab PO 5 mg BID JASON Administration Ascorbic Acid 1,000 mg 04/10/20 09:00 05/08/20 09:42 Ascorbic Acid 500 Mg Chewable Tablet PO 1,000 mg DAILY JASON Administration Benzonatate 100 mg 04/21/20 08:39 05/01/20 18:36 Benzonatate 100 Mg Cap PO 100 mg Q4H PRN Administration Cough Cholecalciferol 1,000 units 04/14/20 09:00 05/08/20 09:42 Cholecalciferol 1,000 Units (25 Mcg) Tab PO 1,000 units DAILY JASON Administration Colchicine 0.6 mg 05/06/20 09:00 05/08/20 09:42 Colchicine 0.6 Mg Tab PO 0.6 mg DAILY JASON Administration Famotidine 20 mg 04/10/20 09:00 05/08/20 09:42 Famotidine 20 Mg Tab PO 20 mg BID JASON Administration Guaifenesin/Dextromethorphan 15 ml 04/09/20 23:48 05/06/20 22:24 Guaifenesin Dm 100-10/5 Ml Udcup PO 15 ml Q4H PRN Administration Cough Fentanyl Citrate 2,000 mcg/ 100 mls @ 0 mls/hr 05/03/20 14:45 05/08/20 14:30 Sodium Chloride IV 06/02/20 14:45 100 mls INF JASON Administration Protocol Per Protocol Sodium Chloride 1,000 mls @ 50 mls/hr 05/05/20 14:45 05/08/20 05:22 Normal Saline 0.9% IV 1,000 mls .Q20H JASON Administration Meropenem 1 gm/ Sodium 100 mls @ 200 mls/hr 05/08/20 09:00 05/08/20 17:19 Chloride IVPB 100 mls 0100,0900,1700 JASON Administration Insulin Human Lispro 0 units 04/10/20 01:51 04/15/20 17:58 Humalog 300 Units/3 Ml Vial SC 2 unit .MILD SLIDING SCALE PRN Administration Mild Correctional Scale Lorazepam 2 mg 05/03/20 14:45 05/08/20 12:03 Lorazepam 2 Mg/Ml Vial SLOW IVP 06/02/20 14:45 2 mg Q1H PRN Administration Breakthrough agitation Lorazepam 1 mg 05/08/20 09:30 05/08/20 17:19 Lorazepam 1 Mg Tab PER TUBE 1 mg Q8H JASON Administration Methylprednisolone Sodium Succinate 40 mg 05/03/20 21:00 05/08/20 09:52 Methylprednisolone Sod Succ 40 Mg Vial IVP 40 mg BID JASON Administration Mometasone Furoate/Formoterol Fumar 2 puff 04/10/20 18:30 05/08/20 08:00 Mometasone 200 Mcg/Formoterol 5 Mcg 120 Puff Inhaler INH 2 puff BID-RT JASON Administration Morphine Sulfate 2 mg 05/03/20 14:45 05/08/20 00:54 Morphine 2 Mg/Ml Vial SLOW IVP 06/02/20 14:45 2 mg Q1H PRN Administration Breakthrough Pain/Agitation Propofol 1,000 mg 05/03/20 14:45 05/08/20 15:33 Propofol 1,000 Mg/100 Ml Vial IV 06/02/20 14:45 1,000 mg INF PRN Administration TO ACHIEVE GOAL RASS Protocol Sodium Chloride 10 ml 04/18/20 09:00 05/08/20 09:52 Flush - Normal Saline 10 Ml Syringe IVF 10 ml Q12HR JASON Administration Sterile Water 10 ml 05/03/20 23:24 05/04/20 03:55 Sterile Water 10 Ml Vial FS 10 ml PRN PRN Administration VEC RECON Vecuronium [place] 10 mg 05/04/20 17:57 05/05/20 16:38 Vecuronium 10 Mg Vial IV 10 mg Q1H PRN Administration SEDATION/MOVEMENT Zinc Sulfate 220 mg 04/10/20 09:00 05/08/20 10:31 Zinc Sulfate 220 Mg Cap PO Not Given DAILY JASON - Exam General - other findings: intubated Eye: PERRL ENT: normocephalic atraumatic Neck: supple Heart: RRR, no murmur Respiratory: CTAB, no wheezes Gastrointestinal: soft, non-tender Extremities: no cyanosis Skin: normal turgor Neurological: cranial nerve grossly intact Musculoskeletal: normal tone, normal strength Psychiatric: normal affect Hosp A/P - Plan This is a pleasant 59 years old gentleman who has no significant past medical history, presented from outside facility ER with short of breath and hypoxia. He was admitted for COVID-19 pneumonia on 04/09/2020. He was on BiPAP initially, subsequently intubated on 05/03/20 Acute hypoxic respiratory failure due to COVID-19 pneumonia --s/p intubation on 05/03/20. Status post remdesivir, convalescent plasma. Continue Decadron, vitamin C/D/Zinc --Patient is on Eliquis for DVT prophylaxis --cont empiric IV abx. Further mgt as per laboratory phlebotomist. --scheduled PO anxiolytic, and weaning down on sedations. COVID-19 pneumonia --mgt as above MARZENA --resolved Updated daughter, Elida, on the phone
[2020-05-09] MEDS: Propofol 1,000 MG/100 ML VIAL IV PRN ×6 (00:41→23:04)
[2020-05-09] MEDS: Lorazepam 1 MG TAB PER TUBE SCH ×3 (00:41→17:33)
[2020-05-09] MEDS ORDERED: MEROPENEM 1 GM/50 ML 1 GM in Premix Bag 1 BAG IVPB SCH (01:00)
[2020-05-09 03:35] LABS: Anion Gap 13 mmol/L (10-20); BUN (Urea Nitrogen) 56 mg/dL (8.4-25.7); Calc. Creatinine Clearance 119 mL/min (70-130); Calcium 8.4 mg/dL (7.8-10.44); Carbon Dioxide 35 mmol/L (22-29); Chloride 97 mmol/L (98-107); Glucose 128 mg/dL (70-105); Sodium 140 mmol/L (136-145)
[2020-05-09] MEDS: fentaNYL Citrate/PF 2,000 MCG in Sodium Chloride 0.9% 60 ML IV SCH ×2 (04:08→14:42)
[2020-05-09] MEDS: Sodium Chloride 0.9% 1,000 ML IV SCH ×2 (04:19→17:49)
[2020-05-09 04:33] LABS: Band 15 % (5-11); Hemoglobin 10.3 g/dL (14.0-18.0); Lymphocytes 2 % (21-51); MDiff Complete? YES; Mean Corpuscular HGB CONC 33.5 g/dL (32.0-36.0); Mean Corpuscular Hemoglobin 32.5 pg (27.0-31.0); Mean Corpuscular Volume 97.1 fL (78.0-98.0); Mean Platelet Volume 4.5 fL (7.4-10.4); Metamyelocyte 2 % (0-0); Monocytes 3 % (0-10); Myelocyte 3 % (0-0); Neutrophil 75 % (42-75); Nucleated RBC 2 % (0); Platelet Count 183 thou/uL (130-400); RBC Distribution Width 13.1 % (11.5-14.5); Red Blood Cell (RBC) Count 3.15 mill/uL (4.70-6.10); White Blood Cell (WBC) Count 10.4 thou/uL (4.8-10.8)
[2020-05-09] MEDS: Mometasone 200 MCG/Formoterol 5 MCG 120 PUFF INHALER INH SCH ×2 (08:01→18:50)
[2020-05-09 09:20] LABS: Base Excess (BEa) 10.2 mEq/L (-2.0 to +3.0); Calcium, Ionized (arterial) 1.19 mmol/L (1.12-1.30); Carboxyhemoglobin (COHb) 0.8 gm% (0.0-3.0); Hemoglobin (Hb) 11.2 g/dL (14.0-18.0); O2 Tension (PaO2), arterial 61.3 mmHg (80.0-100.0); Potassium - ABG Lab 4.42 mmol/L (3.70-5.30); pH, Arterial 7.35 (7.35-7.45)
--- NOTE | 2020-05-09 09:23 | PRG ---
DATE OF SERVICE: 05/09/2020 SUBJECTIVE: Remains intubated in the vent. OBJECTIVE: VITAL SIGNS: Temperature 98, pulse 65, respirations 16, saturations 94%, blood pressure 109/82. CHEST: Decreased breath sounds. No wheezing. CARDIAC: Normal S1, S2. No gallops. ABDOMEN: Soft. NEUROLOGIC: He is appropriate. LABORATORY DATA: White count 10,000, hemoglobin and hematocrit 10 and 30, platelet count 183. Chemistry profile shows improving renal function. Blood gas is pending. ASSESSMENT: Respiratory failure; acute respiratory distress syndrome; ortega positive pneumonia, recently intubated. PLAN: Continue antibiotics, adjust for renal failure. Continue steroids, supportive care. All cultures so far negative from the bronch. Still not weanable. One-half hour of critical care time. Job ID: [id number]
[2020-05-09 09:26] LABS: CO2 Tension 70.1 mmHg (35.0-45.0)
[2020-05-09 09:27] LABS: Puncture Site LRA
[2020-05-09] MEDS: Apixaban 5 MG TAB PO SCH ×2 (09:28→21:18)
[2020-05-09] MEDS: Ascorbic Acid 500 mg Chewable Tablet PO SCH (09:28)
[2020-05-09] MEDS: Famotidine 20 MG TAB PO SCH ×2 (09:28→21:18)
[2020-05-09] MEDS: Meropenem 1 GM in Sodium Chloride 0.9% 100 ML IVPB SCH ×2 (09:28→16:50)
[2020-05-09] MEDS: Colchicine 0.6 MG TAB PO SCH (09:28)
[2020-05-09 09:29] LABS: ALV-art Gradient 243.225 mmHg (0-20)
[2020-05-09] MEDS: methylPREDNISolone Sod Succ 40 MG VIAL IVP SCH ×2 (09:29→21:18)
[2020-05-09] MEDS: Cholecalciferol 1,000 UNITS (25 MCG) TAB PO SCH (09:36)
[2020-05-09] MEDS: Zinc Sulfate 220 MG CAP PO SCH (14:14)
[2020-05-09] MEDS ORDERED: Docusate 100 MG CAP PO PRN (15:04)
[2020-05-09] MEDS ORDERED: Bisacodyl 10 MG SUPP PR PRN (15:04)
--- NOTE | 2020-05-09 18:05 | PDOC.HOSPP ---
- Subjective Subjective: remains intubated. Updated daughter on the phone. culture no growth. no fever. Cr normalized - Objective Vital Signs & Weight: Vital Signs (12 hours) Temp Pulse Resp BP Pulse Ox 05/09/20 16:00 98.1 F 17 05/09/20 14:39 93 143/68 H 05/09/20 14:37 94 22 H 94 L 05/09/20 14:00 16 05/09/20 12:00 98.3 F 19 05/09/20 10:45 86 145/67 H 05/09/20 10:44 87 14 90 L 05/09/20 10:00 17 05/09/20 08:02 85 16 94 L 05/09/20 08:01 83 18 94 L 05/09/20 08:00 23 H 90 L 05/09/20 07:56 82 157/70 H 05/09/20 07:00 98.4 F Weight Admit Weight 247 lb Weight 220 lb 10.923 oz Most Recent Monitor Data Heart Rate from ECG 91 NIBP 124/64 NIBP BP-Mean 84 Respiration from ECG 16 SpO2 98 I&O: 05/08/20 05/09/20 05/10/20 06:59 06:59 06:59 Intake Total 1714 2987 220 Output Total 1670 1570 655 Balance 44 1417 -435 Result Diagrams: 05/09/20 02:52 05/09/20 02:52 Hospitalist ROS - Medication Medications: Active Medications Generic Name Dose Route Start Last Admin Trade Name Freq PRN Reason Stop Dose Admin Acetaminophen 650 mg 04/09/20 23:48 05/02/20 07:25 Acetaminophen 325 Mg Tab PO 650 mg Q4H PRN Administration Headache/Fever/Mild Pain (1-3) Albuterol/Ipratropium 3 ml 05/03/20 18:30 05/09/20 14:37 Ipratropium/Albuterol Sulfate 3 Ml Neb NEB 3 ml [id number] JASON Administration Apixaban 5 mg 04/30/20 21:00 05/09/20 09:28 Apixaban 5 Mg Tab PO 5 mg BID JASON Administration Ascorbic Acid 1,000 mg 04/10/20 09:00 05/09/20 09:28 Ascorbic Acid 500 Mg Chewable Tablet PO 1,000 mg DAILY JASON Administration Benzonatate 100 mg 04/21/20 08:39 05/01/20 18:36 Benzonatate 100 Mg Cap PO 100 mg Q4H PRN Administration Cough Bisacodyl 10 mg 05/09/20 15:04 05/09/20 17:33 Bisacodyl 10 Mg Supp [place] 10 mg Q8H PRN Administration Constipation Cholecalciferol 1,000 units 04/14/20 09:00 05/09/20 09:36 Cholecalciferol 1,000 Units (25 Mcg) Tab PO 1,000 units DAILY JASON Administration Colchicine 0.6 mg 05/06/20 09:00 05/09/20 09:28 Colchicine 0.6 Mg Tab PO 0.6 mg DAILY JASON Administration Docusate Sodium 100 mg 05/09/20 15:04 05/09/20 17:33 Docusate 100 Mg Cap PO 100 mg BIDPRN PRN Administration Constipation Famotidine 20 mg 04/10/20 09:00 05/09/20 09:28 Famotidine 20 Mg Tab PO 20 mg BID JASON Administration Guaifenesin/Dextromethorphan 15 ml 04/09/20 23:48 05/06/20 22:24 Guaifenesin Dm 100-10/5 Ml Udcup PO 15 ml Q4H PRN Administration Cough Fentanyl Citrate 2,000 mcg/ 100 mls @ 0 mls/hr 05/03/20 14:45 05/09/20 14:42 Sodium Chloride IV 06/02/20 14:45 100 mls INF JASON Administration Protocol Per Protocol Sodium Chloride 1,000 mls @ 50 mls/hr 05/05/20 14:45 05/09/20 17:49 Normal Saline 0.9% IV Not Given .Q20H JASON Meropenem 1 gm/ Sodium 100 mls @ 200 mls/hr 05/09/20 09:00 05/09/20 16:50 Chloride IVPB 100 mls 0100,0900,1700 JASON Administration Insulin Human Lispro 0 units 04/10/20 01:51 04/15/20 17:58 Humalog 300 Units/3 Ml Vial SC 2 unit .MILD SLIDING SCALE PRN Administration Mild Correctional Scale Lorazepam 2 mg 05/03/20 14:45 05/08/20 12:03 Lorazepam 2 Mg/Ml Vial SLOW IVP 06/02/20 14:45 2 mg Q1H PRN Administration Breakthrough agitation Lorazepam 1 mg 05/08/20 09:30 05/09/20 17:33 Lorazepam 1 Mg Tab PER TUBE 1 mg Q8H JASON Administration Methylprednisolone Sodium Succinate 40 mg 05/03/20 21:00 05/09/20 09:29 Methylprednisolone Sod Succ 40 Mg Vial IVP 40 mg BID JASON Administration Mometasone Furoate/Formoterol Fumar 2 puff 04/10/20 18:30 05/09/20 08:01 Mometasone 200 Mcg/Formoterol 5 Mcg 120 Puff Inhaler INH 2 puff BID-RT JASON Administration Morphine Sulfate 2 mg 05/03/20 14:45 05/08/20 00:54 Morphine 2 Mg/Ml Vial SLOW IVP 06/02/20 14:45 2 mg Q1H PRN Administration Breakthrough Pain/Agitation Propofol 1,000 mg 05/03/20 14:45 05/09/20 16:33 Propofol 1,000 Mg/100 Ml Vial IV 06/02/20 14:45 1,000 mg INF PRN Administration TO ACHIEVE GOAL RASS Protocol Sodium Chloride 10 ml 04/18/20 09:00 05/09/20 09:29 Flush - Normal Saline 10 Ml Syringe IVF 10 ml Q12HR JASON Administration Sterile Water 10 ml 05/03/20 23:24 05/04/20 03:55 Sterile Water 10 Ml Vial FS 10 ml PRN PRN Administration VEC RECON Vecuronium [place] 10 mg 05/04/20 17:57 05/05/20 16:38 Vecuronium 10 Mg Vial IV 10 mg Q1H PRN Administration SEDATION/MOVEMENT Zinc Sulfate 220 mg 04/10/20 09:00 05/09/20 14:14 Zinc Sulfate 220 Mg Cap PO Not Given DAILY JASON - Exam General - other findings: intubated and sedated Eye: PERRL ENT: normocephalic atraumatic Neck: supple Heart: RRR Respiratory: rhonchi Gastrointestinal: soft Extremities: no cyanosis Neurological - other findings: sedated Hosp A/P - Plan This is a pleasant 59 years old gentleman who has no significant past medical history, presented from outside facility ER with short of breath and hypoxia. He was admitted for COVID-19 pneumonia on 04/09/2020. He was on BiPAP initially, subsequently intubated on 05/03/20 Acute hypoxic respiratory failure due to COVID-19 pneumonia --s/p intubation on 05/03/20. Status post Remdesivir, convalescent plasma. Continue Decadron, vitamin C/D/Zinc --Patient is on Eliquis for DVT prophylaxis --cont empiric IV abx. Further mgt as per varnish inspector. --scheduled PO anxiolytic, and weaning down on sedations. --Sputum culture no growht. COVID-19 pneumonia --mgt as above MARZENA --resolved Updated daughter, Elida, on the phone
[2020-05-10] MEDS: fentaNYL Citrate/PF 2,000 MCG in Sodium Chloride 0.9% 60 ML IV SCH ×2 (00:44→12:45)
[2020-05-10] MEDS: Meropenem 1 GM in Sodium Chloride 0.9% 100 ML IVPB SCH ×3 (01:37→16:52)
[2020-05-10] MEDS: Propofol 1,000 MG/100 ML VIAL IV PRN ×7 (01:37→22:00)
[2020-05-10] MEDS: Lorazepam 1 MG TAB PER TUBE SCH ×3 (01:37→16:52)
[2020-05-10 04:33] LABS: Anion Gap 12 mmol/L (10-20); BUN (Urea Nitrogen) 47 mg/dL (8.4-25.7); Calc. Creatinine Clearance 137 mL/min (70-130); Calcium 8.4 mg/dL (7.8-10.44); Carbon Dioxide 37 mmol/L (22-29); Chloride 98 mmol/L (98-107); Glucose 127 mg/dL (70-105); Potassium 5.1 mmol/L (3.5-5.1); Sodium 142 mmol/L (136-145)
[2020-05-10 04:46] LABS: Band 16 % (5-11); Hemoglobin 10.5 g/dL (14.0-18.0); Lymphocytes 2 % (21-51); MDiff Complete? YES; Mean Corpuscular HGB CONC 32.5 g/dL (32.0-36.0); Mean Corpuscular Hemoglobin 31.5 pg (27.0-31.0); Mean Platelet Volume 6.8 fL (7.4-10.4); Monocytes 3 % (0-10); Myelocyte 2 % (0-0); Neutrophil 77 % (42-75); Platelet Count 201 thou/uL (130-400); RBC Distribution Width 13.1 % (11.5-14.5); Red Blood Cell (RBC) Count 3.32 mill/uL (4.70-6.10); White Blood Cell (WBC) Count 13.2 thou/uL (4.8-10.8)
[2020-05-10] MEDS: Sodium Chloride 0.9% 1,000 ML IV SCH (05:16)
[2020-05-10] MEDS: Mometasone 200 MCG/Formoterol 5 MCG 120 PUFF INHALER INH SCH ×2 (08:18→19:18)
[2020-05-10 08:43] LABS: Actual Bicarbonate (HCO3a) 37.9 mEq/L (22-28); Base Excess (BEa) 8.1 mEq/L (-2.0 to +3.0); Calcium, Ionized (arterial) 1.24 mmol/L (1.12-1.30); Carboxyhemoglobin (COHb) 1.3 gm% (0.0-3.0); Hemoglobin (Hb) 11.9 g/dL (14.0-18.0); O2 Tension (PaO2), arterial 61.7 mmHg (80.0-100.0); pH, Arterial 7.26 (7.35-7.45)
[2020-05-10] MEDS: Famotidine 20 MG TAB PO SCH ×2 (08:47→21:10)
[2020-05-10] MEDS: Zinc Sulfate 220 MG CAP PO SCH (08:48)
[2020-05-10] MEDS: Ascorbic Acid 500 mg Chewable Tablet PO SCH (08:48)
[2020-05-10] MEDS: Colchicine 0.6 MG TAB PO SCH (08:48)
[2020-05-10] MEDS: Apixaban 5 MG TAB PO SCH ×2 (08:48→21:10)
[2020-05-10] MEDS: Cholecalciferol 1,000 UNITS (25 MCG) TAB PO SCH (08:48)
[2020-05-10] MEDS: methylPREDNISolone Sod Succ 40 MG VIAL IVP SCH ×2 (08:48→21:13)
--- NOTE | 2020-05-10 09:18 | RAD ---
EXAM: Portable chest PROVIDED CLINICAL HISTORY: Respiratory insufficiency COMPARISON: 05/08/2020 FINDINGS: Significant interval change with respect to the prior examination is not apparent. IMPRESSION: As above.
[2020-05-10 09:40] LABS: CO2 Tension 86.2 mmHg (35.0-45.0); Puncture Site LRA
--- NOTE | 2020-05-10 10:33 | PRG ---
DATE OF SERVICE: 05/10/2020 SUBJECTIVE: Esteban Laurent is a 59-year-old gentleman, who is intubated in the vent, sedated. OBJECTIVE: VITAL SIGNS: Temperature 97, pulse 83, respirations 14, sats are 91 on 60%, PEEP of CHEST: No wheezing. No crackles. CARDIAC: Normal S1, S2. No gallops. ABDOMEN: Soft. LABORATORY DATA: White count 30,000, H and H of 10 and 32, platelet count is 201. Lytes are normal. IMPRESSION: Respiratory failure, ortega positive pneumonia, recent intubation, prolonged hospitalization. PLAN: Continue high-dose steroids, supportive care, empiric antibiotics. Still not weanable. One-half hour of critical care time. Job ID: [id number]
--- NOTE | 2020-05-10 17:27 | PDOC.HOSPP ---
- Subjective Subjective: I have discussed with his daughter, at bedside. She is quite frustrated that her dad is still not getting. I have answered all her questions as much as I know. I have explained the disease process, and may be vary from each individual. But we will continue to with aggressive cares. Pt remains intubated - Objective Vital Signs & Weight: Vital Signs (12 hours) Temp Pulse Resp BP Pulse Ox 05/10/20 16:00 98.8 F 16 05/10/20 14:58 80 140/63 05/10/20 14:57 90 21 H 93 L 05/10/20 14:00 19 05/10/20 12:00 98.3 F 20 05/10/20 11:24 91 17 92 L 05/10/20 11:22 90 159/66 H 05/10/20 10:40 174/79 H 05/10/20 10:00 28 H 05/10/20 08:18 83 14 87 L 05/10/20 08:16 87 14 82 L 05/10/20 08:07 100 156/73 H 05/10/20 08:00 98.4 F 14 97 05/10/20 06:00 14 Weight Admit Weight 247 lb Weight 220 lb 10.923 oz Most Recent Monitor Data Heart Rate from ECG 84 NIBP 151/68 NIBP BP-Mean 95 Respiration from ECG 17 SpO2 98 I&O: 05/09/20 05/10/20 05/11/20 06:59 06:59 06:59 Intake Total 2987 2383 350 Output Total 1570 1505 612 Balance 1417 878 -262 Result Diagrams: 05/10/20 03:41 05/10/20 03:41 Radiology Reviewed by me: Yes EKG Reviewed by me: Yes Hospitalist ROS - Medication Medications: Active Medications Generic Name Dose Route Start Last Admin Trade Name Freq PRN Reason Stop Dose Admin Acetaminophen 650 mg 04/09/20 23:48 05/02/20 07:25 Acetaminophen 325 Mg Tab PO 650 mg Q4H PRN Administration Headache/Fever/Mild Pain (1-3) Albuterol/Ipratropium 3 ml 05/03/20 18:30 05/10/20 14:57 Ipratropium/Albuterol Sulfate 3 Ml Neb NEB 3 ml [id number] JASON Administration Apixaban 5 mg 04/30/20 21:00 05/10/20 08:48 Apixaban 5 Mg Tab PO 5 mg BID JASON Administration Ascorbic Acid 1,000 mg 04/10/20 09:00 05/10/20 08:48 Ascorbic Acid 500 Mg Chewable Tablet PO 1,000 mg DAILY JASON Administration Benzonatate 100 mg 04/21/20 08:39 05/01/20 18:36 Benzonatate 100 Mg Cap PO 100 mg Q4H PRN Administration Cough Bisacodyl 10 mg 05/09/20 15:04 05/09/20 17:33 Bisacodyl 10 Mg Supp [place] 10 mg Q8H PRN Administration Constipation Cholecalciferol 1,000 units 04/14/20 09:00 05/10/20 08:48 Cholecalciferol 1,000 Units (25 Mcg) Tab PO 1,000 units DAILY JASON Administration Clonidine 0.1 mg 04/09/20 23:48 05/10/20 10:40 Clonidine 0.1 Mg Tab PO 0.1 mg BIDPRN PRN Administration SBP > 160, use second Colchicine 0.6 mg 05/06/20 09:00 05/10/20 08:48 Colchicine 0.6 Mg Tab PO 0.6 mg DAILY JASON Administration Docusate Sodium 100 mg 05/09/20 15:04 05/09/20 17:33 Docusate 100 Mg Cap PO 100 mg BIDPRN PRN Administration Constipation Famotidine 20 mg 04/10/20 09:00 05/10/20 08:47 Famotidine 20 Mg Tab PO 20 mg BID JASON Administration Guaifenesin/Dextromethorphan 15 ml 04/09/20 23:48 05/06/20 22:24 Guaifenesin Dm 100-10/5 Ml Udcup PO 15 ml Q4H PRN Administration Cough Fentanyl Citrate 2,000 mcg/ 100 mls @ 0 mls/hr 05/03/20 14:45 05/10/20 12:45 Sodium Chloride IV 06/02/20 14:45 100 mls INF JASON Administration Protocol Per Protocol Sodium Chloride 1,000 mls @ 50 mls/hr 05/05/20 14:45 05/10/20 05:16 Normal Saline 0.9% IV 1,000 mls .Q20H JASON Administration Meropenem 1 gm/ Sodium 100 mls @ 200 mls/hr 05/09/20 09:00 05/10/20 16:52 Chloride IVPB 100 mls 0100,0900,1700 JASON Administration Insulin Human Lispro 0 units 04/10/20 01:51 04/15/20 17:58 Humalog 300 Units/3 Ml Vial SC 2 unit .MILD SLIDING SCALE PRN Administration Mild Correctional Scale Lorazepam 2 mg 05/03/20 14:45 05/08/20 12:03 Lorazepam 2 Mg/Ml Vial SLOW IVP 06/02/20 14:45 2 mg Q1H PRN Administration Breakthrough agitation Lorazepam 1 mg 05/08/20 09:30 05/10/20 16:52 Lorazepam 1 Mg Tab PER TUBE 1 mg Q8H JASON Administration Methylprednisolone Sodium Succinate 40 mg 05/03/20 21:00 05/10/20 08:48 Methylprednisolone Sod Succ 40 Mg Vial IVP 40 mg BID JASON Administration Mometasone Furoate/Formoterol Fumar 2 puff 04/10/20 18:30 05/10/20 08:18 Mometasone 200 Mcg/Formoterol 5 Mcg 120 Puff Inhaler INH 2 puff BID-RT JASON Administration Morphine Sulfate 2 mg 05/03/20 14:45 05/08/20 00:54 Morphine 2 Mg/Ml Vial SLOW IVP 06/02/20 14:45 2 mg Q1H PRN Administration Breakthrough Pain/Agitation Propofol 1,000 mg 05/03/20 14:45 05/10/20 15:03 Propofol 1,000 Mg/100 Ml Vial IV 06/02/20 14:45 1,000 mg INF PRN Administration TO ACHIEVE GOAL RASS Protocol Sodium Chloride 10 ml 04/18/20 09:00 05/10/20 08:49 Flush - Normal Saline 10 Ml Syringe IVF 10 ml Q12HR JASON Administration Sterile Water 10 ml 05/03/20 23:24 05/04/20 03:55 Sterile Water 10 Ml Vial FS 10 ml PRN PRN Administration VEC RECON Vecuronium [place] 10 mg 05/04/20 17:57 05/05/20 16:38 Vecuronium 10 Mg Vial IV 10 mg Q1H PRN Administration SEDATION/MOVEMENT Zinc Sulfate 220 mg 04/10/20 09:00 05/10/20 08:48 Zinc Sulfate 220 Mg Cap PO 220 mg DAILY JASON Administration - Exam General - other findings: still remains intubated Eye: PERRL ENT: normocephalic atraumatic Neck: supple Heart: RRR, no murmur Respiratory: CTAB Gastrointestinal: soft, non-tender Extremities: no cyanosis, no clubbing Skin: normal turgor Neurological - other findings: intubated Hosp A/P - Plan This is a pleasant 59 years old gentleman who has no significant past medical history, presented from outside facility ER with short of breath and hypoxia. He was admitted for COVID-19 pneumonia on 04/09/2020. He was on BiPAP initially, subsequently intubated on 05/03/20 Acute hypoxic respiratory failure due to COVID-19 pneumonia --s/p intubation on 05/03/20. Status post Remdesivir, convalescent plasma. Continue Decadron, vitamin C/D/Zinc --Patient is on Eliquis for DVT prophylaxis --cont empiric IV abx. Further mgt as per wildland fire fighter specialist. --scheduled PO anxiolytic, and weaning down on sedations if abbey. --Sputum culture no growth. Further mgt as per wildland fire fighter specialist COVID-19 pneumonia --mgt as above MARZENA --resolved Updated daughter, Elida, at bedside
[2020-05-11] MEDS: fentaNYL Citrate/PF 2,000 MCG in Sodium Chloride 0.9% 60 ML IV SCH ×3 (01:10→22:11)
[2020-05-11] MEDS: Propofol 1,000 MG/100 ML VIAL IV PRN ×6 (01:19→22:10)
[2020-05-11] MEDS: Meropenem 1 GM in Sodium Chloride 0.9% 100 ML IVPB SCH ×3 (01:19→18:08)
[2020-05-11] MEDS: Lorazepam 1 MG TAB PER TUBE SCH ×4 (01:19→20:30)
[2020-05-11] MEDS: Lorazepam 2 MG/ML VIAL SLOW IVP PRN ×2 (01:56→15:12)
[2020-05-11 04:09] LABS: Anion Gap 15 mmol/L (10-20); BUN (Urea Nitrogen) 41 mg/dL (8.4-25.7); Calc. Creatinine Clearance 137 mL/min (70-130); Calcium 8.6 mg/dL (7.8-10.44); Carbon Dioxide 36 mmol/L (22-29); Chloride 97 mmol/L (98-107); Glucose 119 mg/dL (70-105); Potassium 5.1 mmol/L (3.5-5.1); Sodium 143 mmol/L (136-145)
[2020-05-11 04:26] LABS: Band 19 % (5-11); Hemoglobin 10.6 g/dL (14.0-18.0); Lymphocytes 2 % (21-51); MDiff Complete? YES; Mean Corpuscular HGB CONC 32.5 g/dL (32.0-36.0); Mean Corpuscular Hemoglobin 31.4 pg (27.0-31.0); Mean Corpuscular Volume 96.7 fL (78.0-98.0); Mean Platelet Volume 6.6 fL (7.4-10.4); Monocytes 3 % (0-10); Myelocyte 3 % (0-0); Neutrophil 73 % (42-75); Platelet Count 216 thou/uL (130-400); RBC Distribution Width 13.2 % (11.5-14.5); Red Blood Cell (RBC) Count 3.36 mill/uL (4.70-6.10); White Blood Cell (WBC) Count 17.5 thou/uL (4.8-10.8)
[2020-05-11] MEDS: Sodium Chloride 0.9% 1,000 ML IV SCH (04:45)
[2020-05-11 07:00] LABS: Actual Bicarbonate (HCO3a) 36.8 mEq/L (22-28); Calcium, Ionized (arterial) 1.22 mmol/L (1.12-1.30); Carboxyhemoglobin (COHb) 1.7 gm% (0.0-3.0); Hemoglobin (Hb) 13.5 g/dL (14.0-18.0); O2 Tension (PaO2), arterial 62.8 mmHg (80.0-100.0); Potassium - ABG Lab 4.34 mmol/L (3.70-5.30); pH, Arterial 7.37 (7.35-7.45)
[2020-05-11 07:18] LABS: CO2 Tension 65.5 mmHg (35.0-45.0); Puncture Site RRA
[2020-05-11 07:19] LABS: ALV-art Gradient 283.125 mmHg (0-20)
[2020-05-11] MEDS: Mometasone 200 MCG/Formoterol 5 MCG 120 PUFF INHALER INH SCH ×2 (07:26→19:25)
[2020-05-11] MEDS: Colchicine 0.6 MG TAB PO SCH (08:13)
[2020-05-11] MEDS: Famotidine 20 MG TAB PO SCH ×2 (08:13→20:30)
[2020-05-11] MEDS: Zinc Sulfate 220 MG CAP PO SCH (08:13)
[2020-05-11] MEDS: Apixaban 5 MG TAB PO SCH ×2 (08:13→20:41)
[2020-05-11] MEDS: methylPREDNISolone Sod Succ 40 MG VIAL IVP SCH ×2 (08:14→20:31)
[2020-05-11] MEDS: Ascorbic Acid 500 mg Chewable Tablet PO SCH (08:17)
[2020-05-11] MEDS: Cholecalciferol 1,000 UNITS (25 MCG) TAB PO SCH (08:17)
--- NOTE | 2020-05-11 09:08 | PRG ---
DATE OF SERVICE: 05/11/2020 SUBJECTIVE: This morning, patient was intubated, in the vent, sedated. X-ray shows slight improvement in his right lung infiltrate. OBJECTIVE: VITAL SIGNS: Pulse 84, respiratory rate 16, saturations are 90% PEEP bilevel. CHEST: No wheezing, no crackles. CARDIAC: Normal S1, S2. ABDOMEN: No mass. LABORATORY DATA: PO2 of 62, pCO2 of 65, pH 7.37. Lytes are normal. Renal function is improved. ASSESSMENT: 1. Respiratory failure. 2. Azotemia, improving. 3. Acute respiratory distress syndrome. 4. Anxiety. 5. Overall prognosis is guarded. We are going to continue vent support, supportive care, PT, Nutrition. One-half hour of critical care time. Job ID: [id number]
--- NOTE | 2020-05-11 09:57 | RAD ---
PORTABLE SEMIUPRIGHT FRONTAL CHEST RADIOGRAPH: Date: 05/11/2020 COMPARISON: 05/10/2020. HISTORY: Ventilated patient. FINDINGS: Stable endotracheal tube and nasogastric tube. Stable diffuse increased linear interstitial density w ith superimposed hazy ground-glass opacity throughout the left lung with a basilar predominance and w ithin the right lung, primarily within the right lung base. Heart and mediastinal contours are stable . IMPRESSION: No significant interval change. POS: [facility]
--- NOTE | 2020-05-11 17:12 | PDOC.HOSPP ---
- Subjective Subjective: chest xray somewhat improved. Blood gas better. Vent adjusted by pul. no fever. difficult to wean on sedation - Objective Vital Signs & Weight: Vital Signs (12 hours) Temp Pulse Resp BP Pulse Ox 05/11/20 16:00 98.4 F 24 H 05/11/20 14:42 107 H 32 H 92 L 05/11/20 14:40 105 H 154/83 H 05/11/20 14:00 33 H 05/11/20 12:00 98.7 F 25 H 05/11/20 11:07 101 H 24 H 92 L 05/11/20 11:04 103 H 161/96 H 05/11/20 10:00 31 H 05/11/20 08:00 98.8 F 19 90 L 05/11/20 07:26 84 16 96 05/11/20 07:24 84 115/71 05/11/20 07:23 84 16 96 05/11/20 06:00 24 H Weight Admit Weight 247 lb Weight 220 lb 10.923 oz Most Recent Monitor Data Heart Rate from ECG 98 NIBP 119/65 NIBP BP-Mean 83 Respiration from ECG 24 SpO2 100 I&O: 05/10/20 05/11/20 05/12/20 06:59 06:59 06:59 Intake Total 2383 3194 120 Output Total 1505 1492 415 Balance 878 1702 -295 Result Diagrams: 05/11/20 02:59 05/11/20 02:59 Radiology Reviewed by me: Yes EKG Reviewed by me: Yes Hospitalist ROS - Medication Medications: Active Medications Generic Name Dose Route Start Last Admin Trade Name Freq PRN Reason Stop Dose Admin Acetaminophen 650 mg 04/09/20 23:48 05/02/20 07:25 Acetaminophen 325 Mg Tab PO 650 mg Q4H PRN Administration Headache/Fever/Mild Pain (1-3) Albuterol/Ipratropium 3 ml 05/03/20 18:30 05/11/20 14:42 Ipratropium/Albuterol Sulfate 3 Ml Neb NEB 3 ml [id number] JASON Administration Apixaban 5 mg 04/30/20 21:00 05/11/20 08:13 Apixaban 5 Mg Tab PO 5 mg BID JASON Administration Ascorbic Acid 1,000 mg 04/10/20 09:00 05/11/20 08:17 Ascorbic Acid 500 Mg Chewable Tablet PO 1,000 mg DAILY JASON Administration Benzonatate 100 mg 04/21/20 08:39 05/01/20 18:36 Benzonatate 100 Mg Cap PO 100 mg Q4H PRN Administration Cough Bisacodyl 10 mg 05/09/20 15:04 05/09/20 17:33 Bisacodyl 10 Mg Supp MD 10 mg Q8H PRN Administration Constipation Cholecalciferol 1,000 units 04/14/20 09:00 05/11/20 08:17 Cholecalciferol 1,000 Units (25 Mcg) Tab PO 1,000 units DAILY JASON Administration Clonidine 0.1 mg 04/09/20 23:48 05/10/20 10:40 Clonidine 0.1 Mg Tab PO 0.1 mg BIDPRN PRN Administration SBP > 160, use second Colchicine 0.6 mg 05/06/20 09:00 05/11/20 08:13 Colchicine 0.6 Mg Tab PO 0.6 mg DAILY JASON Administration Docusate Sodium 100 mg 05/09/20 15:04 05/09/20 17:33 Docusate 100 Mg Cap PO 100 mg BIDPRN PRN Administration Constipation Famotidine 20 mg 04/10/20 09:00 05/11/20 08:13 Famotidine 20 Mg Tab PO 20 mg BID JASON Administration Guaifenesin/Dextromethorphan 15 ml 04/09/20 23:48 05/06/20 22:24 Guaifenesin Dm 100-10/5 Ml Udcup PO 15 ml Q4H PRN Administration Cough Hydralazine HCl 10 mg 04/09/20 23:48 05/11/20 01:21 Hydralazine 20 Mg/Ml Vial SLOW IVP 10 mg Q6H PRN Administration SBP GREATER THAN 160 Fentanyl Citrate 2,000 mcg/ 100 mls @ 0 mls/hr 05/03/20 14:45 05/11/20 11:48 Sodium Chloride IV 06/02/20 14:45 100 mls INF JASON Administration Protocol Per Protocol Sodium Chloride 1,000 mls @ 50 mls/hr 05/05/20 14:45 05/11/20 04:45 Normal Saline 0.9% IV 1,000 mls .Q20H JASON Administration Meropenem 1 gm/ Sodium 100 mls @ 200 mls/hr 05/09/20 09:00 05/11/20 10:24 Chloride IVPB 100 mls 0100,0900,1700 JASON Administration Insulin Human Lispro 0 units 04/10/20 01:51 04/15/20 17:58 Humalog 300 Units/3 Ml Vial SC 2 unit .MILD SLIDING SCALE PRN Administration Mild Correctional Scale Lorazepam 2 mg 05/03/20 14:45 05/11/20 15:12 Lorazepam 2 Mg/Ml Vial SLOW IVP 06/02/20 14:45 2 mg Q1H PRN Administration Breakthrough agitation Lorazepam 1 mg 05/11/20 09:00 05/11/20 10:28 Lorazepam 1 Mg Tab PER TUBE Not Given BID JASON Methylprednisolone Sodium Succinate 40 mg 05/03/20 21:00 05/11/20 08:14 Methylprednisolone Sod Succ 40 Mg Vial IVP 40 mg BID JASON Administration Mometasone Furoate/Formoterol Fumar 2 puff 04/10/20 18:30 05/11/20 07:26 Mometasone 200 Mcg/Formoterol 5 Mcg 120 Puff Inhaler INH 2 puff BID-RT JASON Administration Morphine Sulfate 2 mg 05/03/20 14:45 05/08/20 00:54 Morphine 2 Mg/Ml Vial SLOW IVP 06/02/20 14:45 2 mg Q1H PRN Administration Breakthrough Pain/Agitation Propofol 1,000 mg 05/03/20 14:45 05/11/20 15:05 Propofol 1,000 Mg/100 Ml Vial IV 06/02/20 14:45 1,000 mg INF PRN Administration TO ACHIEVE GOAL RASS Protocol Sodium Chloride 10 ml 04/18/20 09:00 05/11/20 08:13 Flush - Normal Saline 10 Ml Syringe IVF 10 ml Q12HR JASON Administration Sterile Water 10 ml 05/03/20 23:24 05/04/20 03:55 Sterile Water 10 Ml Vial FS 10 ml PRN PRN Administration VEC RECON Vecuronium [place] 10 mg 05/04/20 17:57 05/05/20 16:38 Vecuronium 10 Mg Vial IV 10 mg Q1H PRN Administration SEDATION/MOVEMENT Zinc Sulfate 220 mg 04/10/20 09:00 05/11/20 08:13 Zinc Sulfate 220 Mg Cap PO 220 mg DAILY JASON Administration - Exam General - other findings: sedated and intubated Eye: PERRL ENT: normocephalic atraumatic Neck: supple Heart: RRR, no murmur Respiratory: CTAB Gastrointestinal: soft, non-tender Extremities: no cyanosis Skin: normal turgor Neurological - other findings: sedated Musculoskeletal: normal tone Hosp A/P - Plan This is a pleasant 59 years old gentleman who has no significant past medical history, presented from outside facility ER with short of breath and hypoxia. He was admitted for COVID-19 pneumonia on 04/09/2020. He was on BiPAP initially, subsequently intubated on 05/03/20 Acute hypoxic respiratory failure due to COVID-19 pneumonia --s/p intubation on 05/03/20. Status post Remdesivir, convalescent plasma. Continue Decadron, vitamin C/D/Zinc --Patient is on Eliquis for DVT prophylaxis --cont empiric IV abx. Further mgt as per compress machine operator. --scheduled PO anxiolytic, and weaning down on sedations as abbey. --Sputum culture no growth. Further mgt as per compress machine operator --cont supportive cares. CXR slightly improved. COVID-19 pneumonia --mgt as above MARZENA --resolved Updated daughter, Elida, at bedside
[2020-05-12] MEDS: Sodium Chloride 0.9% 1,000 ML IV SCH (01:47)
[2020-05-12] MEDS: Meropenem 1 GM in Sodium Chloride 0.9% 100 ML IVPB SCH ×3 (01:48→18:03)
[2020-05-12] MEDS: Propofol 1,000 MG/100 ML VIAL IV PRN ×7 (01:51→23:06)
[2020-05-12 04:54] LABS: BUN (Urea Nitrogen) 36 mg/dL (8.4-25.7); Calc. Creatinine Clearance 163 mL/min (70-130); Calcium 8.5 mg/dL (7.8-10.44); Glucose 105 mg/dL (70-105)
[2020-05-12 04:55] LABS: Band 18 % (5-11); Eosinophils 1 % (0-10); Hemoglobin 9.7 g/dL (14.0-18.0); Lymphocytes 3 % (21-51); MDiff Complete? YES; Mean Corpuscular HGB CONC 32.4 g/dL (32.0-36.0); Mean Corpuscular Hemoglobin 31.3 pg (27.0-31.0); Mean Corpuscular Volume 96.6 fL (78.0-98.0); Mean Platelet Volume 6.2 fL (7.4-10.4); Monocytes 5 % (0-10); Myelocyte 1 % (0-0); Neutrophil 72 % (42-75); Platelet Count 213 thou/uL (130-400); Platelet Morphology Comment Appears Adequate; RBC Distribution Width 13.1 % (11.5-14.5); White Blood Cell (WBC) Count 16.3 thou/uL (4.8-10.8)
[2020-05-12 05:04] LABS: Anion Gap 15 mmol/L (10-20); Carbon Dioxide 33 mmol/L (22-29); Chloride 100 mmol/L (98-107); Potassium 4.7 mmol/L (3.5-5.1); Sodium 143 mmol/L (136-145)
[2020-05-12] MEDS: Mometasone 200 MCG/Formoterol 5 MCG 120 PUFF INHALER INH SCH ×2 (07:29→19:09)
--- NOTE | 2020-05-12 08:13 | RAD ---
Portable frontal chest radiograph: 05/12/2020 COMPARISON: 05/11/2020 HISTORY: Ventilated patient FINDINGS: Stable endotracheal tube and nasogastric tube. Stable heart and mediastinal contours. Diffu se severe interstitial and alveolar opacity noted bilaterally with a perihilar and bibasilar predominance, left greater than right. IMPRESSION: No significant interval change.
[2020-05-12] MEDS: fentaNYL Citrate/PF 2,000 MCG in Sodium Chloride 0.9% 60 ML IV SCH ×2 (08:15→18:04)
[2020-05-12] MEDS: methylPREDNISolone Sod Succ 40 MG VIAL IVP SCH ×2 (08:52→20:29)
[2020-05-12] MEDS: Colchicine 0.6 MG TAB PO SCH (08:52)
[2020-05-12] MEDS: Famotidine 20 MG TAB PO SCH ×2 (08:52→20:29)
[2020-05-12] MEDS: Zinc Sulfate 220 MG CAP PO SCH (08:52)
[2020-05-12] MEDS: Ascorbic Acid 500 mg Chewable Tablet PO SCH (08:52)
[2020-05-12] MEDS: Lorazepam 1 MG TAB PER TUBE SCH ×2 (08:52→20:29)
[2020-05-12] MEDS: Apixaban 5 MG TAB PO SCH ×2 (08:52→20:28)
--- NOTE | 2020-05-12 09:18 | PRG ---
DATE OF SERVICE: 05/12/2020 SUBJECTIVE: Esteban Laurent remains in the ICU, intubated in the vent, day 32 in the hospital, but about a week intubated. OBJECTIVE: VITAL SIGNS: Temperature 98, pulse 103, respiratory rate 28, sats are 95 on 50%, PEEP of 10. I increased PEEP to 11 and decreased the FiO2 at 50%, sats are 91%. His I's and O's have been positive. CHEST: No wheezing, no crackles. CARDIAC: Normal S1, S2. ABDOMEN: No masses. ASSESSMENT: Renal failure, resolved; acute respiratory distress syndrome secondary to virus; respiratory failure. At this stage, patient is not weanable. Unfortunately, no reagent for the blood gas. No blood gases to be done for several days. Minimal sedation, supportive care, PT. Probably consider trach as per the family's wishes sometime next week. One-half hour of critical time. Job ID: [id number]
[2020-05-12] MEDS: Cholecalciferol 1,000 UNITS (25 MCG) TAB PO SCH (10:34)
--- NOTE | 2020-05-12 15:11 | PDOC.PALCO ---
Palliative Care Consult - Consult Details Requesting Physician: Dr Mondragon Reason for Consult: goals of care, family support Family Members Present: Sona - Pertinent HPI 59 year old male who has a benign medical history. He presented to [facility] ER for shortness of breath and hypoxia 04/09/2020, diagnosed COvid positive 04/05/2020. Completed course of Z-pac and prednisone, however shortness of breath progressed with decreasing O2 saturation. At [facility] he was placed on high flow, given IV decadron and transferred to [facility] and admitted for medical management. Initially patient improved, however 05/03 he was intubated secondary to change in mental status and respiratory compromise. Family hopeful for meaningful and full recovery. Has received Remdesivir, convalescent plasma, / Decadron continues. Patient lives in independent home setting, with two daughters. - Pertinent PMH No significant past medical history - Social History Smoking Status: Never smoker Smoking: no tobacco exposure Alcohol Use: none Drug Use History: none Living Situation: - Medications MAR Reviewed: Yes - Allergies Allergies/Adverse Reactions: Allergies Allergy/AdvReac Type Severity Reaction Status Date / Time No Known Allergies Allergy Verified 07/23/19 12:22 - Subjective Intubated, mechanical ventilation, sedated. Daughter Yasemin at bedside. Patient with difficulty in decreasing sedation, radiology of chest slightly improved. - ROS Non Response: due to endotracheal tube, due to mental status - Objective Vital Signs: Vital Signs - Most Recent Temp Pulse Resp BP Pulse Ox 99.0 F 103 H 25 H 103/59 L 91 L 05/12/20 12:00 05/12/20 14:41 05/12/20 14:40 05/12/20 14:41 05/12/20 14:40 Palliative Performance Scale: 20 - Physical Exam Constitutional: encephalitic, ill appearing HEENT: EOMI, moist MMs Respiratory: no wheezing Deviation from normal: mechanical ventilation Cardiovascular: no significant murmur, RRR Gastrointestinal: soft, non-tender Genitourinary: field catheter Musculoskeletal: no cyanosis, no clubbing Deviation from normal: sedated, facila symmetry Skin: cap refill <2 seconds, no lesions, no rash Deviation from normal: sedated, encephalopathic - Problem List (1) Palliative care encounter Code(s): Z51.5 - ENCOUNTER FOR PALLIATIVE CARE Current Visit: Yes Status: Acute (2) Acute and chronic respiratory failure with hypoxia Code(s): J96.21 - ACUTE AND CHRONIC RESPIRATORY FAILURE WITH HYPOXIA Current Visit: Yes Status: Acute (3) Acute metabolic encephalopathy Code(s): G93.41 - METABOLIC ENCEPHALOPATHY Current Visit: Yes Status: Acute (4) COVID-19 Code(s): U07.1 - COVID-19 Current Visit: Yes Status: Acute (5) Pneumonia due to COVID-19 virus Code(s): U07.1 - COVID-19; J12.89 - OTHER VIRAL PNEUMONIA Current Visit: Yes Status: Acute (6) Obesity (BMI 30.0-34.9) Code(s): E66.9 - OBESITY, UNSPECIFIED Current Visit: Yes Status: Chronic - Plan/Recommendations Plan: Palliative care has followed along with patient and family. Supportive visit today with patient daughter Sona. Will also support The patient and Elida other daughter. They remain hopeful for full and meaningful recovery. If needed and patient able plan to Trach to continue to provide adequate respiratory support. Continue with all aggressive measures and treatments. Emotional support and Therapeutic listening. Please refer to Palliative Care RN notes in note section [55] minutes spent on this encounter with >50% of the time in counseling and coordination of care. Thank you for this very appropriate consult.
--- NOTE | 2020-05-12 18:20 | PDOC.HOSPP ---
- Subjective Subjective: no abg is available d/t lack of reagent. vent adjusted by pul, decr Fio2. still required significant sedations, difficult to wean. Updated daughterElida - Objective Vital Signs & Weight: Vital Signs (12 hours) Temp Pulse Resp BP Pulse Ox 05/12/20 16:00 98.7 F 26 H 05/12/20 14:41 103 H 103/59 L 05/12/20 14:40 98 25 H 91 L 05/12/20 14:00 24 H 05/12/20 12:00 99.0 F 26 H 05/12/20 10:55 99 24 H 90 L 05/12/20 10:53 97 105/63 05/12/20 10:00 25 H 05/12/20 08:00 98.6 F 28 H 90 L 05/12/20 07:29 103 H 30 H 90 L 05/12/20 07:28 105 H 30 H 90 L 05/12/20 07:25 92 99/60 Weight Admit Weight 247 lb Weight 220 lb 10.923 oz Most Recent Monitor Data Heart Rate from ECG 100 NIBP 98/55 NIBP BP-Mean 69 Respiration from ECG 23 SpO2 92 I&O: 05/11/20 05/12/20 05/13/20 06:59 06:59 06:59 Intake Total 3194 2329.9 952 Output Total 1492 1335 710 Balance 1702 994.9 242 Result Diagrams: 05/12/20 03:45 05/12/20 03:45 Radiology Reviewed by me: Yes EKG Reviewed by me: Yes Hospitalist ROS - Medication Medications: Active Medications Generic Name Dose Route Start Last Admin Trade Name Freq PRN Reason Stop Dose Admin Acetaminophen 650 mg 04/09/20 23:48 05/02/20 07:25 Acetaminophen 325 Mg Tab PO 650 mg Q4H PRN Administration Headache/Fever/Mild Pain (1-3) Albuterol/Ipratropium 3 ml 05/03/20 18:30 05/12/20 14:40 Ipratropium/Albuterol Sulfate 3 Ml Neb NEB 3 ml [id number] JASON Administration Apixaban 5 mg 04/30/20 21:00 05/12/20 08:52 Apixaban 5 Mg Tab PO 5 mg BID JASON Administration Ascorbic Acid 1,000 mg 04/10/20 09:00 05/12/20 08:52 Ascorbic Acid 500 Mg Chewable Tablet PO 1,000 mg DAILY JASON Administration Benzonatate 100 mg 04/21/20 08:39 05/01/20 18:36 Benzonatate 100 Mg Cap PO 100 mg Q4H PRN Administration Cough Bisacodyl 10 mg 05/09/20 15:04 05/09/20 17:33 Bisacodyl 10 Mg Supp HI 10 mg Q8H PRN Administration Constipation Cholecalciferol 1,000 units 04/14/20 09:00 05/12/20 10:34 Cholecalciferol 1,000 Units (25 Mcg) Tab PO 1,000 units DAILY JASON Administration Clonidine 0.1 mg 04/09/20 23:48 05/10/20 10:40 Clonidine 0.1 Mg Tab PO 0.1 mg BIDPRN PRN Administration SBP > 160, use second Colchicine 0.6 mg 05/06/20 09:00 05/12/20 08:52 Colchicine 0.6 Mg Tab PO 0.6 mg DAILY JASON Administration Docusate Sodium 100 mg 05/09/20 15:04 05/09/20 17:33 Docusate 100 Mg Cap PO 100 mg BIDPRN PRN Administration Constipation Famotidine 20 mg 04/10/20 09:00 05/12/20 08:52 Famotidine 20 Mg Tab PO 20 mg BID JASON Administration Guaifenesin/Dextromethorphan 15 ml 04/09/20 23:48 05/06/20 22:24 Guaifenesin Dm 100-10/5 Ml Udcup PO 15 ml Q4H PRN Administration Cough Hydralazine HCl 10 mg 04/09/20 23:48 05/11/20 01:21 Hydralazine 20 Mg/Ml Vial SLOW IVP 10 mg Q6H PRN Administration SBP GREATER THAN 160 Fentanyl Citrate 2,000 mcg/ 100 mls @ 0 mls/hr 05/03/20 14:45 05/12/20 18:04 Sodium Chloride IV 06/02/20 14:45 100 mls INF JASON Administration Protocol Per Protocol Meropenem 1 gm/ Sodium 100 mls @ 200 mls/hr 05/09/20 09:00 05/12/20 18:03 Chloride IVPB 100 mls 0100,0900,1700 JASON Administration Insulin Human Lispro 0 units 04/10/20 01:51 04/15/20 17:58 Humalog 300 Units/3 Ml Vial SC 2 unit .MILD SLIDING SCALE PRN Administration Mild Correctional Scale Lorazepam 2 mg 05/03/20 14:45 05/11/20 15:12 Lorazepam 2 Mg/Ml Vial SLOW IVP 06/02/20 14:45 2 mg Q1H PRN Administration Breakthrough agitation Lorazepam 1 mg 05/11/20 09:00 05/12/20 08:52 Lorazepam 1 Mg Tab PER TUBE 1 mg BID JASON Administration Methylprednisolone Sodium Succinate 40 mg 05/03/20 21:00 05/12/20 08:52 Methylprednisolone Sod Succ 40 Mg Vial IVP 40 mg BID JASON Administration Mometasone Furoate/Formoterol Fumar 2 puff 04/10/20 18:30 05/12/20 07:29 Mometasone 200 Mcg/Formoterol 5 Mcg 120 Puff Inhaler INH 2 puff BID-RT JASON Administration Morphine Sulfate 2 mg 05/03/20 14:45 05/08/20 00:54 Morphine 2 Mg/Ml Vial SLOW IVP 06/02/20 14:45 2 mg Q1H PRN Administration Breakthrough Pain/Agitation Propofol 1,000 mg 05/03/20 14:45 05/12/20 15:53 Propofol 1,000 Mg/100 Ml Vial IV 06/02/20 14:45 1,000 mg INF PRN Administration TO ACHIEVE GOAL RASS Protocol Sodium Chloride 10 ml 04/18/20 09:00 05/12/20 08:55 Flush - Normal Saline 10 Ml Syringe IVF 10 ml Q12HR JASON Administration Sterile Water 10 ml 05/03/20 23:24 05/04/20 03:55 Sterile Water 10 Ml Vial FS 10 ml PRN PRN Administration VEC RECON Vecuronium [place] 10 mg 05/04/20 17:57 05/05/20 16:38 Vecuronium 10 Mg Vial IV 10 mg Q1H PRN Administration SEDATION/MOVEMENT Zinc Sulfate 220 mg 04/10/20 09:00 05/12/20 08:52 Zinc Sulfate 220 Mg Cap PO 220 mg DAILY JASON Administration - Exam General - other findings: remains sedated Eye: PERRL ENT: normocephalic atraumatic Neck: supple Heart: RRR Respiratory: no wheezes, rhonchi Gastrointestinal: soft, non-tender Neurological - other findings: sedated Hosp A/P - Plan This is a pleasant 59 years old gentleman who has no significant past medical history, presented from outside facility ER with short of breath and hypoxia. He was admitted for COVID-19 pneumonia on 04/09/2020. He was on BiPAP initially, subsequently intubated on 05/03/20 Acute hypoxic respiratory failure due to COVID-19 pneumonia --s/p intubation on 05/03/20. Status post Remdesivir, convalescent plasma. Continue Decadron, Vitamin C/D/Zinc --Patient is on Eliquis for DVT prophylaxis --cont empiric IV abx. Further mgt as per bobbin painter. --scheduled PO anxiolytic, and weaning down on sedations as abbey. --Sputum culture no growth. Further mgt as per bobbin painter --cont supportive cares. CXR slightly improved. COVID-19 pneumonia --mgt as above MARZENA --resolved Updated daughter, Elida, on the phone.
[2020-05-13] MEDS: Meropenem 1 GM in Sodium Chloride 0.9% 100 ML IVPB SCH ×3 (00:28→16:18)
[2020-05-13] MEDS: Propofol 1,000 MG/100 ML VIAL IV PRN ×7 (02:06→22:48)
[2020-05-13] MEDS: fentaNYL Citrate/PF 2,000 MCG in Sodium Chloride 0.9% 60 ML IV SCH ×2 (03:48→16:07)
[2020-05-13 05:06] LABS: Anion Gap 14 mmol/L (10-20); BUN (Urea Nitrogen) 38 mg/dL (8.4-25.7); Calc. Creatinine Clearance 152 mL/min (70-130); Calcium 8.8 mg/dL (7.8-10.44); Carbon Dioxide 36 mmol/L (22-29); Chloride 99 mmol/L (98-107); Glucose 109 mg/dL (70-105); Potassium 4.7 mmol/L (3.5-5.1); Sodium 144 mmol/L (136-145)
[2020-05-13 05:07] LABS: Band 6 % (5-11); Hemoglobin 9.9 g/dL (14.0-18.0); Lymphocytes 1 % (21-51); MDiff Complete? YES; Mean Corpuscular HGB CONC 31.8 g/dL (32.0-36.0); Mean Corpuscular Hemoglobin 30.9 pg (27.0-31.0); Mean Platelet Volume 6.5 fL (7.4-10.4); Metamyelocyte 4 % (0-0); Monocytes 5 % (0-10); Myelocyte 1 % (0-0); Neutrophil 83 % (42-75); Platelet Count 250 thou/uL (130-400); Platelet Morphology Comment Appears Decreased; RBC Distribution Width 13.1 % (11.5-14.5); RBC Morphology Normal; Red Blood Cell (RBC) Count 3.21 mill/uL (4.70-6.10); White Blood Cell (WBC) Count 18.8 thou/uL (4.8-10.8)
[2020-05-13] MEDS: Ascorbic Acid 500 mg Chewable Tablet PO SCH (07:57)
[2020-05-13] MEDS: Famotidine 20 MG TAB PO SCH ×2 (07:58→20:10)
[2020-05-13] MEDS: Lorazepam 1 MG TAB PER TUBE SCH ×2 (07:58→20:10)
[2020-05-13] MEDS: Zinc Sulfate 220 MG CAP PO SCH (07:59)
[2020-05-13] MEDS: Colchicine 0.6 MG TAB PO SCH (07:59)
[2020-05-13] MEDS: Apixaban 5 MG TAB PO SCH ×2 (07:59→20:10)
[2020-05-13] MEDS: Cholecalciferol 1,000 UNITS (25 MCG) TAB PO SCH (08:00)
[2020-05-13] MEDS: Mometasone 200 MCG/Formoterol 5 MCG 120 PUFF INHALER INH SCH ×2 (08:06→19:57)
[2020-05-13] MEDS: methylPREDNISolone Sod Succ 40 MG VIAL IVP SCH ×2 (08:12→20:10)
--- NOTE | 2020-05-13 08:34 | PDOC.HOSPP ---
- Subjective Encounter Date: 05/13/20 (f/u resp failure) Encounter Time: 08:32 Subjective: This is a pleasant 59 years old gentleman who has no significant past medical history, presented from outside facility ER with short of breath and hypoxia. He was admitted for COVID-19 pneumonia on 04/09/2020. He was on BiPAP initially, subsequently intubated on 05/03/20 Pt remains intubated and sedated. Per RN - no overnight events - Objective Vital Signs & Weight: Vital Signs (12 hours) Temp Pulse Resp Pulse Ox 05/13/20 08:07 102 H 05/13/20 08:00 99.4 F 26 H 05/13/20 06:00 25 H 05/13/20 04:00 98.6 F 28 H 05/13/20 02:31 94 23 H 92 L 05/13/20 02:28 94 05/13/20 02:00 22 H 05/13/20 00:00 98.8 F 24 H 05/12/20 23:00 99 25 H 92 L 05/12/20 22:58 99 05/12/20 22:00 27 H Weight Admit Weight 247 lb Weight 234 lb 12.677 oz Most Recent Monitor Data Heart Rate from ECG 102 NIBP 107/60 NIBP BP-Mean 75 Respiration from ECG 25 SpO2 92 I&O: 05/12/20 05/13/20 05/14/20 06:59 06:59 06:59 Intake Total 2329.9 2179.1 200 Output Total 1335 1430 70 Balance 994.9 749.1 130 Result Diagrams: 05/13/20 03:40 05/13/20 03:40 EKG Reviewed by me: Yes (tele - sinus 90's with artifact) Hospitalist ROS - Medication Medications: Active Medications Generic Name Dose Route Start Last Admin Trade Name Freq PRN Reason Stop Dose Admin Acetaminophen 650 mg 04/09/20 23:48 05/02/20 07:25 Acetaminophen 325 Mg Tab PO 650 mg Q4H PRN Administration Headache/Fever/Mild Pain (1-3) Albuterol/Ipratropium 3 ml 05/03/20 18:30 05/13/20 08:05 Ipratropium/Albuterol Sulfate 3 Ml Neb NEB 3 ml [id number] JASON Administration Apixaban 5 mg 04/30/20 21:00 05/13/20 07:59 Apixaban 5 Mg Tab PO 5 mg BID JASON Administration Ascorbic Acid 1,000 mg 04/10/20 09:00 05/13/20 07:57 Ascorbic Acid 500 Mg Chewable Tablet PO 1,000 mg DAILY JASON Administration Benzonatate 100 mg 04/21/20 08:39 05/01/20 18:36 Benzonatate 100 Mg Cap PO 100 mg Q4H PRN Administration Cough Bisacodyl 10 mg 05/09/20 15:04 05/09/20 17:33 Bisacodyl 10 Mg Supp MI 10 mg Q8H PRN Administration Constipation Cholecalciferol 1,000 units 04/14/20 09:00 05/13/20 08:00 Cholecalciferol 1,000 Units (25 Mcg) Tab PO 1,000 units DAILY JASON Administration Clonidine 0.1 mg 04/09/20 23:48 05/10/20 10:40 Clonidine 0.1 Mg Tab PO 0.1 mg BIDPRN PRN Administration SBP > 160, use second Colchicine 0.6 mg 05/06/20 09:00 05/13/20 07:59 Colchicine 0.6 Mg Tab PO 0.6 mg DAILY JASON Administration Docusate Sodium 100 mg 05/09/20 15:04 05/09/20 17:33 Docusate 100 Mg Cap PO 100 mg BIDPRN PRN Administration Constipation Famotidine 20 mg 04/10/20 09:00 05/13/20 07:58 Famotidine 20 Mg Tab PO 20 mg BID JASON Administration Guaifenesin/Dextromethorphan 15 ml 04/09/20 23:48 05/06/20 22:24 Guaifenesin Dm 100-10/5 Ml Udcup PO 15 ml Q4H PRN Administration Cough Hydralazine HCl 10 mg 04/09/20 23:48 05/11/20 01:21 Hydralazine 20 Mg/Ml Vial SLOW IVP 10 mg Q6H PRN Administration SBP GREATER THAN 160 Fentanyl Citrate 2,000 mcg/ 100 mls @ 0 mls/hr 05/03/20 14:45 05/13/20 03:48 Sodium Chloride IV 06/02/20 14:45 100 mls INF JASON Administration Protocol Per Protocol Meropenem 1 gm/ Sodium 100 mls @ 200 mls/hr 05/09/20 09:00 05/13/20 00:28 Chloride IVPB 100 mls 0100,0900,1700 AJSON Administration Insulin Human Lispro 0 units 04/10/20 01:51 04/15/20 17:58 Humalog 300 Units/3 Ml Vial SC 2 unit .MILD SLIDING SCALE PRN Administration Mild Correctional Scale Lorazepam 2 mg 05/03/20 14:45 05/11/20 15:12 Lorazepam 2 Mg/Ml Vial SLOW IVP 06/02/20 14:45 2 mg Q1H PRN Administration Breakthrough agitation Lorazepam 1 mg 05/11/20 09:00 05/13/20 07:58 Lorazepam 1 Mg Tab PER TUBE 1 mg BID JASON Administration Methylprednisolone Sodium Succinate 40 mg 05/03/20 21:00 05/13/20 08:12 Methylprednisolone Sod Succ 40 Mg Vial IVP 40 mg BID JASON Administration Mometasone Furoate/Formoterol Fumar 2 puff 04/10/20 18:30 05/13/20 08:06 Mometasone 200 Mcg/Formoterol 5 Mcg 120 Puff Inhaler INH 2 puff BID-RT JASON Administration Morphine Sulfate 2 mg 05/03/20 14:45 05/08/20 00:54 Morphine 2 Mg/Ml Vial SLOW IVP 06/02/20 14:45 2 mg Q1H PRN Administration Breakthrough Pain/Agitation Propofol 1,000 mg 05/03/20 14:45 05/13/20 05:55 Propofol 1,000 Mg/100 Ml Vial IV 06/02/20 14:45 1,000 mg INF PRN Administration TO ACHIEVE GOAL RASS Protocol Sodium Chloride 10 ml 04/18/20 09:00 05/13/20 07:59 Flush - Normal Saline 10 Ml Syringe IVF 10 ml Q12HR JASON Administration Sterile Water 10 ml 05/03/20 23:24 05/04/20 03:55 Sterile Water 10 Ml Vial FS 10 ml PRN PRN Administration VEC RECON Vecuronium [place] 10 mg 05/04/20 17:57 05/05/20 16:38 Vecuronium 10 Mg Vial IV 10 mg Q1H PRN Administration SEDATION/MOVEMENT Zinc Sulfate 220 mg 04/10/20 09:00 05/13/20 07:59 Zinc Sulfate 220 Mg Cap PO 220 mg DAILY JASON Administration - Exam General Appearance: NAD General - other findings: remaining exam deferred Hosp A/P (1) Acute and chronic respiratory failure with hypoxia Code(s): J96.21 - ACUTE AND CHRONIC RESPIRATORY FAILURE WITH HYPOXIA Status: Acute (2) COVID-19 Code(s): U07.1 - COVID-19 Status: Acute (3) MARZENA (acute kidney injury) Code(s): N17.9 - ACUTE KIDNEY FAILURE, UNSPECIFIED Status: Resolved (4) Obesity (BMI 30.0-34.9) Code(s): E66.9 - OBESITY, UNSPECIFIED Status: Chronic - Plan Pt not examined intetionally as he is being seen daily by Pulmonology Acute hypoxic respiratory failure due to COVID-19 pneumonia - s/p intubation on 05/03/20. - Status post Remdesivir, convalescent plasma. - On methylprednisolone, Vitamin C/D/Zinc - on empiric IV abx - Meropenem - on sedation meds - by report, desats when this is lowered MARZENA --resolved dvt prophy - eliquis gi prophy - famotidine code status full Pt remains at high risk in current condition.
--- NOTE | 2020-05-13 17:07 | PRG ---
DATE OF SERVICE: 05/13/2020 SUBJECTIVE: Mr. Laurent is afebrile. OBJECTIVE: VITAL SIGNS: Heart rates in 80s. FiO2 is at 50%, blood pressure 102/57, respiratory rates in the 20s. LUNGS: Unchanged. HEART: Unchanged. ABDOMEN: Unchanged. LABORATORY DATA: White count 18.8, hemoglobin 9.9, platelets 250. Sodium 144, potassium 4.7, chloride 99, bicarb 36, BUN 30, creatinine 0.76. Intake and outputs positive 749. IMPRESSION: COVID pneumonia with ongoing poor lung compliance. PLAN: Continue supportive care. Hopefully, can be weaned down to a point where we can safely have a tracheostomy. Job ID: [id number]
[2020-05-14] MEDS: Meropenem 1 GM in Sodium Chloride 0.9% 100 ML IVPB SCH ×3 (02:11→16:11)
[2020-05-14] MEDS: Propofol 1,000 MG/100 ML VIAL IV PRN ×7 (02:28→21:54)
[2020-05-14 04:33] LABS: #Eosinphils 0.1 thou/uL (0.0-0.7); #Lymphocytes 0.4 thou/uL (1.20-3.40); #Monocytes 0.8 thou/uL (0.11-0.59); #Neutrophils 13.4 thou/uL (1.40-6.50); %Basophils 0.2 % (0.0-1.0); %Eosinophils 0.6 % (0.0-10.0); %Lymphocytes 2.5 % (21.0-51.0); %Monocytes 5.2 % (0.0-10.0); %Neutrophils 91.5 % (42.0-75.0); Hemoglobin 9.4 g/dL (14.0-18.0); Mean Corpuscular HGB CONC 32.5 g/dL (32.0-36.0); Mean Corpuscular Hemoglobin 31.4 pg (27.0-31.0); Mean Corpuscular Volume 96.7 fL (78.0-98.0); Mean Platelet Volume 6.1 fL (7.4-10.4); Platelet Count 233 thou/uL (130-400); RBC Distribution Width 13.1 % (11.5-14.5); Red Blood Cell (RBC) Count 2.99 mill/uL (4.70-6.10); White Blood Cell (WBC) Count 14.7 thou/uL (4.8-10.8)
[2020-05-14 05:00] LABS: BUN (Urea Nitrogen) 38 mg/dL (8.4-25.7); Calc. Creatinine Clearance 164 mL/min (70-130); Calcium 8.5 mg/dL (7.8-10.44); Glucose 126 mg/dL (70-105)
[2020-05-14 05:09] LABS: Anion Gap 14 mmol/L (10-20); Carbon Dioxide 36 mmol/L (22-29); Chloride 100 mmol/L (98-107); Potassium 4.7 mmol/L (3.5-5.1); Sodium 145 mmol/L (136-145)
[2020-05-14] MEDS: fentaNYL Citrate/PF 2,000 MCG in Sodium Chloride 0.9% 60 ML IV SCH ×2 (07:01→22:23)
--- NOTE | 2020-05-14 07:18 | PDOC.HOSPP ---
- Subjective Encounter Date: 05/14/20 (f/u resp failure) Encounter Time: 07:16 Subjective: This is a 59 years old gentleman who has no significant past medical history, presented from outside facility ER with short of breath and hypoxia. He was admitted for COVID-19 pneumonia on 04/09/2020. He was on BiPAP initially, subsequently intubated on 05/03/20 No overnight events per nursing staff. Pt remains intubated and sedated. - Objective Vital Signs & Weight: Vital Signs (12 hours) Temp Pulse Resp Pulse Ox 05/14/20 06:00 24 H 05/14/20 04:00 97.8 F 29 H 05/14/20 02:33 86 27 H 96 05/14/20 02:31 90 05/14/20 02:00 22 H 05/14/20 00:00 98.5 F 25 H 05/13/20 23:31 93 27 H 95 05/13/20 23:29 92 05/13/20 22:00 26 H 05/13/20 20:00 97.9 F 24 H 89 L 05/13/20 19:56 93 27 H 92 L 05/13/20 19:54 85 Weight Admit Weight 247 lb Weight 233 lb 0.458 oz Most Recent Monitor Data Heart Rate from ECG 88 NIBP 148/80 NIBP BP-Mean 102 Respiration from ECG 23 SpO2 89 I&O: 05/13/20 05/14/20 05/15/20 06:59 06:59 06:59 Intake Total 2179.1 2261 Output Total 1430 1507 Balance 749.1 754 Result Diagrams: 05/14/20 03:45 05/14/20 03:45 EKG Reviewed by me: Yes (tele - sinus 90's-100's with occ pvc's) Hospitalist ROS - Medication Medications: Active Medications Generic Name Dose Route Start Last Admin Trade Name Freq PRN Reason Stop Dose Admin Acetaminophen 650 mg 04/09/20 23:48 05/02/20 07:25 Acetaminophen 325 Mg Tab PO 650 mg Q4H PRN Administration Headache/Fever/Mild Pain (1-3) Albuterol/Ipratropium 3 ml 05/03/20 18:30 05/14/20 02:33 Ipratropium/Albuterol Sulfate 3 Ml Neb NEB 3 ml [id number] JASON Administration Apixaban 5 mg 04/30/20 21:00 05/13/20 20:10 Apixaban 5 Mg Tab PO 5 mg BID JASON Administration Ascorbic Acid 1,000 mg 04/10/20 09:00 05/13/20 07:57 Ascorbic Acid 500 Mg Chewable Tablet PO 1,000 mg DAILY JASON Administration Benzonatate 100 mg 04/21/20 08:39 05/01/20 18:36 Benzonatate 100 Mg Cap PO 100 mg Q4H PRN Administration Cough Bisacodyl 10 mg 05/09/20 15:04 05/09/20 17:33 Bisacodyl 10 Mg Supp HI 10 mg Q8H PRN Administration Constipation Cholecalciferol 1,000 units 04/14/20 09:00 05/13/20 08:00 Cholecalciferol 1,000 Units (25 Mcg) Tab PO 1,000 units DAILY JASON Administration Clonidine 0.1 mg 04/09/20 23:48 05/10/20 10:40 Clonidine 0.1 Mg Tab PO 0.1 mg BIDPRN PRN Administration SBP > 160, use second Colchicine 0.6 mg 05/06/20 09:00 05/13/20 07:59 Colchicine 0.6 Mg Tab PO 0.6 mg DAILY JASON Administration Docusate Sodium 100 mg 05/09/20 15:04 05/09/20 17:33 Docusate 100 Mg Cap PO 100 mg BIDPRN PRN Administration Constipation Famotidine 20 mg 04/10/20 09:00 05/13/20 20:10 Famotidine 20 Mg Tab PO 20 mg BID JASON Administration Guaifenesin/Dextromethorphan 15 ml 04/09/20 23:48 05/06/20 22:24 Guaifenesin Dm 100-10/5 Ml Udcup PO 15 ml Q4H PRN Administration Cough Hydralazine HCl 10 mg 04/09/20 23:48 05/11/20 01:21 Hydralazine 20 Mg/Ml Vial SLOW IVP 10 mg Q6H PRN Administration SBP GREATER THAN 160 Fentanyl Citrate 2,000 mcg/ 100 mls @ 0 mls/hr 05/03/20 14:45 05/14/20 07:01 Sodium Chloride IV 06/02/20 14:45 100 mls INF JASON Administration Protocol Per Protocol Meropenem 1 gm/ Sodium 100 mls @ 200 mls/hr 05/09/20 09:00 05/14/20 02:11 Chloride IVPB 100 mls 0100,0900,1700 JASON Administration Insulin Human Lispro 0 units 04/10/20 01:51 04/15/20 17:58 Humalog 300 Units/3 Ml Vial SC 2 unit .MILD SLIDING SCALE PRN Administration Mild Correctional Scale Lorazepam 2 mg 05/03/20 14:45 05/11/20 15:12 Lorazepam 2 Mg/Ml Vial SLOW IVP 06/02/20 14:45 2 mg Q1H PRN Administration Breakthrough agitation Lorazepam 1 mg 05/11/20 09:00 05/13/20 20:10 Lorazepam 1 Mg Tab PER TUBE 1 mg BID JASON Administration Methylprednisolone Sodium Succinate 40 mg 05/03/20 21:00 05/13/20 20:10 Methylprednisolone Sod Succ 40 Mg Vial IVP 40 mg BID JASON Administration Mometasone Furoate/Formoterol Fumar 2 puff 04/10/20 18:30 05/13/20 19:57 Mometasone 200 Mcg/Formoterol 5 Mcg 120 Puff Inhaler INH 2 puff BID-RT JASON Administration Morphine Sulfate 2 mg 05/03/20 14:45 05/08/20 00:54 Morphine 2 Mg/Ml Vial SLOW IVP 06/02/20 14:45 2 mg Q1H PRN Administration Breakthrough Pain/Agitation Propofol 1,000 mg 05/03/20 14:45 05/14/20 05:43 Propofol 1,000 Mg/100 Ml Vial IV 06/02/20 14:45 1,000 mg INF PRN Administration TO ACHIEVE GOAL RASS Protocol Sodium Chloride 10 ml 04/18/20 09:00 05/13/20 20:11 Flush - Normal Saline 10 Ml Syringe IVF 10 ml Q12HR JASON Administration Sterile Water 10 ml 05/03/20 23:24 05/04/20 03:55 Sterile Water 10 Ml Vial FS 10 ml PRN PRN Administration VEC RECON Vecuronium [place] 10 mg 05/04/20 17:57 05/05/20 16:38 Vecuronium 10 Mg Vial IV 10 mg Q1H PRN Administration SEDATION/MOVEMENT Zinc Sulfate 220 mg 04/10/20 09:00 05/13/20 07:59 Zinc Sulfate 220 Mg Cap PO 220 mg DAILY JASON Administration - Exam General Appearance: NAD Heart: RRR, no murmur Respiratory: no wheezes, no rales, no ronchi Respiratory - other findings: fair air movement Gastrointestinal: soft, non-tender, non-distended, normal bowel sounds Extremities: no cyanosis, no clubbing, no edema Extremities - other findings: right foot is cool - 2+ Posterior tibialis pulse Neurological - other findings: unable to assess Musculoskeletal - other findings: unable to assess Psychiatric - other findings: unable to assess Hosp A/P (1) Acute and chronic respiratory failure with hypoxia Code(s): J96.21 - ACUTE AND CHRONIC RESPIRATORY FAILURE WITH HYPOXIA Status: Acute (2) COVID-19 Code(s): U07.1 - COVID-19 Status: Acute (3) MARZENA (acute kidney injury) Code(s): N17.9 - ACUTE KIDNEY FAILURE, UNSPECIFIED Status: Resolved (4) Obesity (BMI 30.0-34.9) Code(s): E66.9 - OBESITY, UNSPECIFIED Status: Chronic - Plan Acute hypoxic respiratory failure due to COVID-19 pneumonia - s/p intubation on 05/03/20. - Status post Remdesivir, convalescent plasma. - On methylprednisolone, Vitamin C/D/Zinc - on empiric IV abx - Meropenem - on sedation meds - by report, desats when this is lowered Cool right foot - has a normal posterior tibialis pulse and is on eliquis - RN to work on warming foot Nutrition - on tube feeds MARZENA --resolved dvt prophy - eliquis gi prophy - famotidine code status full Pt remains at high risk in current condition.
[2020-05-14] MEDS: Mometasone 200 MCG/Formoterol 5 MCG 120 PUFF INHALER INH SCH ×2 (08:21→19:59)
[2020-05-14] MEDS: Zinc Sulfate 220 MG CAP PO SCH (08:36)
[2020-05-14] MEDS: Ascorbic Acid 500 mg Chewable Tablet PO SCH (08:36)
[2020-05-14] MEDS: Famotidine 20 MG TAB PO SCH ×2 (08:36→21:16)
[2020-05-14] MEDS: Lorazepam 1 MG TAB PER TUBE SCH ×2 (08:36→21:16)
[2020-05-14] MEDS: Colchicine 0.6 MG TAB PO SCH (08:37)
[2020-05-14] MEDS: methylPREDNISolone Sod Succ 40 MG VIAL IVP SCH ×2 (08:37→21:16)
[2020-05-14] MEDS: Cholecalciferol 1,000 UNITS (25 MCG) TAB PO SCH (08:37)
[2020-05-14] MEDS: Apixaban 5 MG TAB PO SCH ×2 (08:37→21:15)
--- NOTE | 2020-05-14 08:46 | RAD ---
RADIOGRAPH CHEST 1 VIEW: DATE: 05/14/2020 TIME: 6:11 AM HISTORY: 59-year-old male with respiratory failure COMPARISON: 05/12/2020 FINDINGS: Extensive bilateral severe infiltrates. The right upper lobe appears more lucent on the current study compared to previous, but that could be technical. Air bronchogram involving left perihilar upper lobe again noted. Left pleural effusion. No cardiomegaly. Endotracheal tube and esophagogastric tube remain. No pneumothorax. Probably no major interval change. IMPRESSION: 1) severe bilateral infiltrates. 2) left pleural effusion. 3) no definite major interval change
--- NOTE | 2020-05-14 14:11 | PDOC.PALPN ---
Palliative Progress Note - Subjective Intubated with mechanical ventilation. Desats when sedation is lowered. - Objective Vital Signs: Vital Signs - Most Recent Temp Pulse Resp BP Pulse Ox 98.6 F 90 28 H 103/59 L 89 L 05/14/20 12:00 05/14/20 10:30 05/14/20 12:00 05/12/20 14:41 05/14/20 08:00 - Physical Exam Constitutional: encephalitic, ill appearing HEENT: moist MMs, sclera anicteric Deviation from normal: Intubated, mechanical ventilation Cardiovascular: RRR Gastrointestinal: soft, non-tender Genitourinary: field catheter Skin: cap refill <2 seconds Deviation from normal: Sedated, encephalopathic - Assessment (1) Palliative care encounter Code(s): Z51.5 - ENCOUNTER FOR PALLIATIVE CARE Current Visit: Yes Status: Acute (2) Acute and chronic respiratory failure with hypoxia Code(s): J96.21 - ACUTE AND CHRONIC RESPIRATORY FAILURE WITH HYPOXIA Current Visit: Yes Status: Acute (3) Acute metabolic encephalopathy Code(s): G93.41 - METABOLIC ENCEPHALOPATHY Current Visit: Yes Status: Acute (4) COVID-19 Code(s): U07.1 - COVID-19 Current Visit: Yes Status: Acute (5) Pneumonia due to COVID-19 virus Code(s): U07.1 - COVID-19; J12.89 - OTHER VIRAL PNEUMONIA Current Visit: Yes Status: Acute (6) Obesity (BMI 30.0-34.9) Code(s): E66.9 - OBESITY, UNSPECIFIED Current Visit: Yes Status: Chronic - Plan Plan: Continued supportive care to patient family, daughter Yasemin today. Answered questions. Revisited not tolerating reduction in sedation. Also discussed that to safely have a tracheotomy we would hope to wean down vent requirements. Palliative care will continue to provide emotional support and Therapeutic listening. [25] minutes spent on this encounter with >50% of the time in counseling and coordination of care. - ROS Non Response: due to endotracheal tube, due to mental status
--- NOTE | 2020-05-14 16:32 | PRG ---
DATE OF SERVICE: 05/14/2020 SUBJECTIVE: Jose Laurent is sedated, remains mechanically ventilated. OBJECTIVE: VITAL SIGNS: Heart rate is 111, FiO2 is 60%, blood pressure 140/79, and sats are in the high 80s. LUNGS: Clear. HEART: Regular rhythm. ABDOMEN: Soft. EXTREMITIES: Without asymmetry. LABORATORY DATA: White count 14.7, hemoglobin 9.4, and platelets 233. Sodium 145, potassium 4.7, chloride 100, bicarb 36, BUN 38, and creatinine 0.75. Chest radiograph is unchanged. IMPRESSION: COVID pneumonia with respiratory failure. Tracheostomy this week could be the best option if we can get his PEEP down a little bit, met with the daughter and answered all her questions. Job ID: [id number]
[2020-05-14] MEDS ORDERED: Dextrose 50% Abboject 50 ML SYRINGE ONE (20:27)
[2020-05-15] MEDS: Meropenem 1 GM in Sodium Chloride 0.9% 100 ML IVPB SCH ×3 (01:12→16:00)
[2020-05-15] MEDS: Propofol 1,000 MG/100 ML VIAL IV PRN ×7 (01:18→21:10)
[2020-05-15 05:09] LABS: BUN (Urea Nitrogen) 44 mg/dL (8.4-25.7); Calc. Creatinine Clearance 150 mL/min (70-130); Calcium 9.3 mg/dL (7.8-10.44); Glucose 169 mg/dL (70-105)
[2020-05-15 05:18] LABS: Anion Gap 16 mmol/L (10-20); Carbon Dioxide 35 mmol/L (22-29); Chloride 98 mmol/L (98-107); Potassium 5.5 mmol/L (3.5-5.1); Sodium 143 mmol/L (136-145)
[2020-05-15 05:20] LABS: Band 11 % (5-11); Hemoglobin 11.1 g/dL (14.0-18.0); Hypochromia SLIGHT = 6-15 cells (100X) (0-5/hpf); Lymphocytes 13 % (21-51); MDiff Complete? YES; Mean Corpuscular HGB CONC 32.6 g/dL (32.0-36.0); Mean Corpuscular Hemoglobin 32.1 pg (27.0-31.0); Mean Corpuscular Volume 98.5 fL (78.0-98.0); Mean Platelet Volume 6.3 fL (7.4-10.4); Monocytes 15 % (0-10); Neutrophil 60 % (42-75); Platelet Count 375 thou/uL (130-400); Platelet Morphology Comment Appears Adequate; RBC Distribution Width 13.4 % (11.5-14.5); Reactive Lymphocytes 1 % (0-10); Red Blood Cell (RBC) Count 3.47 mill/uL (4.70-6.10); White Blood Cell (WBC) Count 29.2 thou/uL (4.8-10.8)
[2020-05-15 06:56] LABS: Potassium 5.7 mmol/L (3.5-5.1)
--- NOTE | 2020-05-15 07:11 | PDOC.HOSPP ---
- Subjective Encounter Date: 05/15/20 (f/u resp failure) Encounter Time: 07:10 Subjective: This is a 59 years old gentleman who has no significant past medical history, presented from outside facility ER with short of breath and hypoxia. He was admitted for COVID-19 pneumonia on 04/09/2020. He was on BiPAP initially, subsequently intubated on 05/03/20 Overnight required an increase in vent settings. No other events noted - remains intubated and sedated. Not a candidate at this time for trach due to the current Vent requirements. - Objective Vital Signs & Weight: Vital Signs (12 hours) Temp Pulse Resp Pulse Ox 05/15/20 06:25 23 H 05/15/20 06:00 28 H 05/15/20 04:00 98.3 F 28 H 05/15/20 02:03 106 H 26 H 89 L 05/15/20 02:00 98.3 F 25 H 05/15/20 01:59 104 H 05/15/20 00:00 98.1 F 26 H 05/14/20 22:51 105 H 27 H 91 L 05/14/20 22:45 107 H 05/14/20 20:00 97.7 F 24 H 90 L 05/14/20 19:58 101 H 32 H 88 L 05/14/20 19:55 102 H Weight Admit Weight 247 lb Weight 235 lb 14.314 oz Most Recent Monitor Data Heart Rate from ECG 110 NIBP 117/69 NIBP BP-Mean 85 Respiration from ECG 29 SpO2 87 I&O: 05/14/20 05/15/20 05/16/20 06:59 06:59 06:59 Intake Total 2261 1704 Output Total 1507 1195 Balance 754 509 Result Diagrams: 05/15/20 04:00 05/15/20 15:12 EKG Reviewed by me: Yes (tele - sinus 100-110's) Hospitalist ROS - Medication Medications: Active Medications Generic Name Dose Route Start Last Admin Trade Name Freq PRN Reason Stop Dose Admin Acetaminophen 650 mg 04/09/20 23:48 05/02/20 07:25 Acetaminophen 325 Mg Tab PO 650 mg Q4H PRN Administration Headache/Fever/Mild Pain (1-3) Albuterol/Ipratropium 3 ml 05/03/20 18:30 05/15/20 02:03 Ipratropium/Albuterol Sulfate 3 Ml Neb NEB 3 ml [id number] JASON Administration Apixaban 5 mg 04/30/20 21:00 05/14/20 21:15 Apixaban 5 Mg Tab PO 5 mg BID JASON Administration Ascorbic Acid 1,000 mg 04/10/20 09:00 05/14/20 08:36 Ascorbic Acid 500 Mg Chewable Tablet PO 1,000 mg DAILY JASON Administration Benzonatate 100 mg 04/21/20 08:39 05/01/20 18:36 Benzonatate 100 Mg Cap PO 100 mg Q4H PRN Administration Cough Bisacodyl 10 mg 05/09/20 15:04 05/09/20 17:33 Bisacodyl 10 Mg Supp SC 10 mg Q8H PRN Administration Constipation Cholecalciferol 1,000 units 04/14/20 09:00 05/14/20 08:37 Cholecalciferol 1,000 Units (25 Mcg) Tab PO 1,000 units DAILY JASON Administration Clonidine 0.1 mg 04/09/20 23:48 05/10/20 10:40 Clonidine 0.1 Mg Tab PO 0.1 mg BIDPRN PRN Administration SBP > 160, use second Colchicine 0.6 mg 05/06/20 09:00 05/14/20 08:37 Colchicine 0.6 Mg Tab PO 0.6 mg DAILY JASON Administration Famotidine 20 mg 04/10/20 09:00 05/14/20 21:16 Famotidine 20 Mg Tab PO 20 mg BID JASON Administration Guaifenesin/Dextromethorphan 15 ml 04/09/20 23:48 05/06/20 22:24 Guaifenesin Dm 100-10/5 Ml Udcup PO 15 ml Q4H PRN Administration Cough Hydralazine HCl 10 mg 04/09/20 23:48 05/11/20 01:21 Hydralazine 20 Mg/Ml Vial SLOW IVP 10 mg Q6H PRN Administration SBP GREATER THAN 160 Fentanyl Citrate 2,000 mcg/ 100 mls @ 0 mls/hr 05/03/20 14:45 05/14/20 22:23 Sodium Chloride IV 06/02/20 14:45 100 mls INF JASON Administration Protocol Per Protocol Meropenem 1 gm/ Sodium 100 mls @ 200 mls/hr 05/09/20 09:00 05/15/20 01:12 Chloride IVPB 100 mls 0100,0900,1700 JASON Administration Insulin Human Lispro 0 units 04/10/20 01:51 04/15/20 17:58 Humalog 300 Units/3 Ml Vial SC 2 unit .MILD SLIDING SCALE PRN Administration Mild Correctional Scale Lorazepam 2 mg 05/03/20 14:45 05/11/20 15:12 Lorazepam 2 Mg/Ml Vial SLOW IVP 06/02/20 14:45 2 mg Q1H PRN Administration Breakthrough agitation Lorazepam 1 mg 05/11/20 09:00 05/14/20 21:16 Lorazepam 1 Mg Tab PER TUBE 1 mg BID JASON Administration Methylprednisolone Sodium Succinate 40 mg 05/03/20 21:00 05/14/20 21:16 Methylprednisolone Sod Succ 40 Mg Vial IVP 40 mg BID JASON Administration Mometasone Furoate/Formoterol Fumar 2 puff 04/10/20 18:30 05/14/20 19:59 Mometasone 200 Mcg/Formoterol 5 Mcg 120 Puff Inhaler INH 2 puff BID-RT JASON Administration Morphine Sulfate 2 mg 05/03/20 14:45 05/08/20 00:54 Morphine 2 Mg/Ml Vial SLOW IVP 06/02/20 14:45 2 mg Q1H PRN Administration Breakthrough Pain/Agitation Propofol 1,000 mg 05/03/20 14:45 05/15/20 04:50 Propofol 1,000 Mg/100 Ml Vial IV 06/02/20 14:45 1,000 mg INF PRN Administration TO ACHIEVE GOAL RASS Protocol Sodium Chloride 10 ml 04/18/20 09:00 05/14/20 21:16 Flush - Normal Saline 10 Ml Syringe IVF 10 ml Q12HR JASON Administration Sterile Water 10 ml 05/03/20 23:24 05/04/20 03:55 Sterile Water 10 Ml Vial FS 10 ml PRN PRN Administration VEC RECON Vecuronium [place] 10 mg 05/04/20 17:57 05/05/20 16:38 Vecuronium 10 Mg Vial IV 10 mg Q1H PRN Administration SEDATION/MOVEMENT Zinc Sulfate 220 mg 04/10/20 09:00 05/14/20 08:36 Zinc Sulfate 220 Mg Cap PO 220 mg DAILY JASON Administration - Exam General Appearance: NAD Heart: RRR, no murmur Respiratory: no wheezes, no rales, no ronchi Gastrointestinal: soft, non-distended, normal bowel sounds Extremities: no cyanosis, no clubbing, no edema Extremities - other findings: both feet warm with 2+ dp pulses Neurological - other findings: unable to assess Musculoskeletal - other findings: unable to assess Psychiatric - other findings: unable to assess Hosp A/P (1) Acute and chronic respiratory failure with hypoxia Code(s): J96.21 - ACUTE AND CHRONIC RESPIRATORY FAILURE WITH HYPOXIA Status: Acute (2) COVID-19 Code(s): U07.1 - COVID-19 Status: Acute (3) MARZENA (acute kidney injury) Code(s): N17.9 - ACUTE KIDNEY FAILURE, UNSPECIFIED Status: Resolved (4) Obesity (BMI 30.0-34.9) Code(s): E66.9 - OBESITY, UNSPECIFIED Status: Chronic (5) Hyperkalemia Code(s): E87.5 - HYPERKALEMIA Status: Acute (6) Constipation Code(s): K59.00 - CONSTIPATION, UNSPECIFIED Status: Acute - Plan Hyperkalemia - new and confirmed with repeat draw at another site - start NS and IV lasix, recheck q4h - not considering kaexylate due to no bm since May 11 - not a candidate for bicarb gtt as today's bicarb is 35 Constipation - start scheduled bowel meds Acute hypoxic respiratory failure due to COVID-19 pneumonia with worsening leukocytosis today - s/p intubation on 05/03/20. - Status post Remdesivir, convalescent plasma. - On methylprednisolone, Vitamin C/D/Zinc - on empiric IV abx - Meropenem - on sedation meds - by report, desats when this is lowered Cool right foot - identiifed on 05/14 - resolved Nutrition - on tube feeds - d/c due to hyperkalemia with re-evaluation needed by mail messenger MARZENA --resolved dvt prophy - eliquis gi prophy - famotidine code status full Pt remains at high risk in current condition. Addendum - repeat potassium after NS started, tube feeds d/c and 20 mg IV lasix = 6.2. Discussed with Dr. Mondragon and he will order IV insulin/d50 and I called Dr. Renteria for urgent evaluation.
[2020-05-15] MEDS ORDERED: Furosemide 20 MG/2 ML VIAL SLOW IVP SCH (07:15)
[2020-05-15] MEDS: Mometasone 200 MCG/Formoterol 5 MCG 120 PUFF INHALER INH SCH ×2 (07:33→18:52)
[2020-05-15] MEDS: Sodium Chloride 0.9% 1,000 ML IV SCH ×2 (07:53→22:00)
[2020-05-15] MEDS: Colchicine 0.6 MG TAB PO SCH (08:01)
[2020-05-15] MEDS: Lorazepam 1 MG TAB PER TUBE SCH ×2 (08:02→20:57)
[2020-05-15] MEDS: Famotidine 20 MG TAB PO SCH ×2 (08:02→20:57)
[2020-05-15] MEDS: Apixaban 5 MG TAB PO SCH ×2 (08:02→20:57)
[2020-05-15] MEDS: Ascorbic Acid 500 mg Chewable Tablet PO SCH (08:02)
[2020-05-15] MEDS: Zinc Sulfate 220 MG CAP PO SCH (08:03)
[2020-05-15] MEDS: Polyethylene Glycol 3350 17 GM Packet PER TUBE SCH (08:03)
[2020-05-15] MEDS: Docusate Sodium 100 MG/10 ML UDCUP PER TUBE SCH ×2 (08:03→20:56)
[2020-05-15] MEDS: methylPREDNISolone Sod Succ 40 MG VIAL IVP SCH ×2 (08:04→20:57)
[2020-05-15] MEDS: Cholecalciferol 1,000 UNITS (25 MCG) TAB PO SCH (08:10)
[2020-05-15] MEDS: Micafungin 100 MG in Sodium Chloride 0.9% 100 ML IVPB SCH (09:16)
--- NOTE | 2020-05-15 09:16 | PRG ---
DATE OF SERVICE: SUBJECTIVE: A 59-year-old gentleman, who is intubated in the vent. OBJECTIVE: VITAL SIGNS: Temperature 98, pulse 104, respiratory rate 34, blood pressure 112/66. I's and O's are even. CHEST: Rhonchi, crackles. CARDIAC: Sinus tach. ABDOMEN: Soft. LABORATORY DATA: White count 29,000. Lytes are normal. IMPRESSION: Respiratory failure, ortega positive pneumonia. It appears he may have a loculated pneumothorax on the right side, though I think he is too unstable to go down for a CT. He is on broad-spectrum antibiotics including meropenem and steroids. May add empiric micafungin. Once I think he is stable enough, we will consider trach and a PEG. Prognosis is grave. We will continue all supportive care. One-half hour of critical care time. Job ID: [id number]
[2020-05-15 11:26] LABS: Anion Gap 17 mmol/L (10-20); BUN (Urea Nitrogen) 49 mg/dL (8.4-25.7); Calc. Creatinine Clearance 145 mL/min (70-130); Calcium 8.9 mg/dL (7.8-10.44); Carbon Dioxide 33 mmol/L (22-29); Chloride 101 mmol/L (98-107); Glucose 139 mg/dL (70-105); Potassium 6.2 mmol/L (3.5-5.1); Sodium 145 mmol/L (136-145)
[2020-05-15] MEDS ORDERED: Insulin Regular 300 UNITS/3 ML VIAL SC SCH (12:00)
[2020-05-15 12:44] LABS: BUN (Urea Nitrogen) 49 mg/dL (8.4-25.7); Calc. Creatinine Clearance 149 mL/min (70-130); Calcium 8.8 mg/dL (7.8-10.44); Glucose 136 mg/dL (70-105)
[2020-05-15 12:54] LABS: Anion Gap 14 mmol/L (10-20); Carbon Dioxide 36 mmol/L (22-29); Chloride 100 mmol/L (98-107); Potassium 5.4 mmol/L (3.5-5.1); Sodium 145 mmol/L (136-145)
[2020-05-15] MEDS: fentaNYL Citrate/PF 2,000 MCG in Sodium Chloride 0.9% 60 ML IV SCH (14:12)
--- NOTE | 2020-05-15 14:54 | CON ---
DATE OF CONSULTATION: 05/15/2020 HISTORY OF PRESENT ILLNESS: Mr. Laurent is a 59-year-old white male, who was initially admitted for shortness of breath secondary to a diagnosis of COVID-19 pneumonia. His hospitalization has been marred by worsening respiratory function. He continues to be intubated. He is requiring significant amount of oxygen and could not be weaned off for a planned tracheostomy. Renal function has been stable until recently when the patient was noted to be mildly hyperkalemic, hence the Renal consultation. REVIEW OF SYSTEMS: Currently not obtainable since the patient is sedated and intubated. MEDICATIONS: Currently on: 1. Acetaminophen 650 mg q.4 p.r.n. 2. Eliquis 5 mg p.o. b.i.d. 3. Ascorbic acid 1000 mg daily. 4. Benzonatate 100 mg q.4 p.r.n. 5. Clonidine 0.1 mg b.i.d. p.r.n. 6. Colace 100 mg b.i.d. 7. Famotidine 20 mg tablet b.i.d. 8. Status post furosemide. 9. Humalog sliding scale. 10. Lorazepam 1 mg b.i.d. 11. Meropenem 1 g IV q.8. 12. Methylprednisolone 40 mg IV b.i.d. 13. Micafungin 100 mg daily. 14. Morphine sulfate 2 mg IV q.1 p.r.n. 15. Normal saline at 50 mL/hour. 16. Zinc sulfate 220 mg daily. PAST MEDICAL HISTORY: Recent DJD, recent diagnosis of COVID-19 pneumonia with multiorgan failure. PAST SURGICAL HISTORY: Status post cervical fusion, C3-C4, status post anterior cervical diskectomy and fusion at C5-C7, lumbar decompression of L3 and L4. SOCIAL HISTORY: He is currently employed, , several children. He takes alcohol on a regular basis. He is not a smoker. ALLERGIES: NONE. TRAUMA: None. IMMUNIZATION: Up-to-date. HOSPITALIZATIONS: Please see past medical history. FAMILY HISTORY: No family history of ESRD. PHYSICAL EXAMINATION: VITAL SIGNS: Blood pressure is noted at 101/61 with a heart rate of 100, respiratory rate 29, O2 sats ranging from 89% to 91%. GENERAL: The patient is sedated and intubated on ventilator support. SKIN: Adequate turgor. HEENT: Pinkish conjunctivae. Anicteric sclerae. No neck mass. No carotid bruits. No JVD. CHEST: No deformities. LUNGS: Harsh breath sounds. HEART: Normal sinus rhythm. No murmurs, no gallops, no rubs. ABDOMEN: Globular, soft, nontender. No masses. EXTREMITIES: No edema. No deformities. LABORATORY DATA: 1. On May 15, 2020 sodium 145, potassium 5.4, chloride 100 carbon dioxide 36, BUN 49, creatinine 0.83, glucose 136, calcium 8.8. 2. On May 15, 2020 11:04 a.m., potassium 6.2. 3. On May 15t 6:34 a.m., potassium 5.7. 4. On May 15, 2020, at 4:00 a.m., potassium is 5.5. ASSESSMENT AND PLAN: 1. Mild hyperkalemia. I think this is a hemolyzed sample off the blood. I did request the lab to take a heparinized potassium and the results came back at 5.4, which is actually an improvement from a peak of 6.2 about an hour ago. I am unable to get a more accurate potassium measurement with a blood gas since ingredients for the ABG is lacking. For the moment, we will simply observe this patient. I did review the medications and I do not think he is taking any medications that can aggravate his potassium. In addition, the patient's renal function is noted to be within normal. Our plan is simple observation. I have discontinued all the maneuvers ordered for the patient to lower potassium-we will discontinue Kayexalate, discontinue insulin, discontinue calcium and bicarbonate. 2. COVID-19 pneumonia. Continue supportive care. Prognosis remains guarded with this patient. He has been unable to be weaned off from the ventilator. His overall prognosis remains poor with each day. Thank you for the consult. We will continue to follow. Job ID: [id number]
[2020-05-15 15:47] LABS: BUN (Urea Nitrogen) 50 mg/dL (8.4-25.7); Calc. Creatinine Clearance 149 mL/min (70-130); Calcium 8.9 mg/dL (7.8-10.44); Glucose 126 mg/dL (70-105)
[2020-05-15 15:56] LABS: Anion Gap 14 mmol/L (10-20); Carbon Dioxide 36 mmol/L (22-29); Chloride 100 mmol/L (98-107); Potassium 5.2 mmol/L (3.5-5.1); Sodium 145 mmol/L (136-145)
--- NOTE | 2020-05-15 16:02 | PDOC.PALPN ---
Palliative Progress Note - Subjective Intubated, mechanical ventilation. increaers in vent settings. Not tolerating being weaned from sedation. Daughter, Elida at bedside - Objective Vital Signs: Vital Signs - Most Recent Temp Pulse Resp BP Pulse Ox 98.7 F 99 22 H 129/71 93 L 05/15/20 12:00 05/15/20 15:10 05/15/20 15:09 05/15/20 15:10 05/15/20 15:09 - Physical Exam Constitutional: encephalitic, ill appearing HEENT: moist MMs Respiratory: no wheezing Cardiovascular: RRR Gastrointestinal: soft, non-tender, positive bowel sounds Genitourinary: field catheter Musculoskeletal: no clubbing, diffuse muscle atrophy Neurology: no focal deficits Deviation from normal: Sedated Skin: cap refill <2 seconds, fragile Deviation from normal: Sedated - Assessment (1) Palliative care encounter Code(s): Z51.5 - ENCOUNTER FOR PALLIATIVE CARE Current Visit: Yes Status: Acute (2) Acute and chronic respiratory failure with hypoxia Code(s): J96.21 - ACUTE AND CHRONIC RESPIRATORY FAILURE WITH HYPOXIA Current Visit: Yes Status: Acute (3) Acute metabolic encephalopathy Code(s): G93.41 - METABOLIC ENCEPHALOPATHY Current Visit: Yes Status: Acute (4) COVID-19 Code(s): U07.1 - COVID-19 Current Visit: Yes Status: Acute (5) Pneumonia due to COVID-19 virus Code(s): U07.1 - COVID-19; J12.89 - OTHER VIRAL PNEUMONIA Current Visit: Yes Status: Acute (6) Obesity (BMI 30.0-34.9) Code(s): E66.9 - OBESITY, UNSPECIFIED Current Visit: Yes Status: Chronic - Plan Plan: Conversation with patient Daughter Elida at bedside. Discussed being "a daughter, and not thinking of herself as a nurse". Reviewed health status and poor prognosis. She stated that she knew her father would not desire "to be on machines if he was not going to be himself" Strenuous family dynamics as Elida was closest to her father and her sister Sona is closer to her mother. Emotional support and Therapeutic listening. [60] minutes spent on this encounter with >50% of the time in counseling and coordination of care. - ROS Non Response: due to endotracheal tube, due to mental status
[2020-05-16] MEDS: Lorazepam 2 MG/ML VIAL SLOW IVP PRN (00:04)
[2020-05-16] MEDS: Propofol 1,000 MG/100 ML VIAL IV PRN ×4 (00:33→10:42)
[2020-05-16] MEDS: Meropenem 1 GM in Sodium Chloride 0.9% 100 ML IVPB SCH (01:15)
[2020-05-16] MEDS ORDERED: Fentanyl CADD 100 ML ONE ×3 (02:58→16:28)
[2020-05-16 04:04] LABS: Anion Gap 16 mmol/L (10-20); BUN (Urea Nitrogen) 58 mg/dL (8.4-25.7); Calc. Creatinine Clearance 136 mL/min (70-130); Carbon Dioxide 32 mmol/L (22-29); Chloride 99 mmol/L (98-107); Glucose 166 mg/dL (70-105); Potassium 5.6 mmol/L (3.5-5.1); Sodium 141 mmol/L (136-145)
[2020-05-16 04:16] LABS: Band 5 % (5-11); Hemoglobin 10.6 g/dL (14.0-18.0); Hypochromia SLIGHT = 6-15 cells (100X) (0-5/hpf); Lymphocytes 4 % (21-51); MDiff Complete? YES; Mean Corpuscular HGB CONC 31.3 g/dL (32.0-36.0); Mean Corpuscular Hemoglobin 30.7 pg (27.0-31.0); Mean Corpuscular Volume 98.1 fL (78.0-98.0); Neutrophil 86 % (42-75); Platelet Count 341 thou/uL (130-400); Platelet Morphology Comment Appears Adequate; RBC Distribution Width 13.3 % (11.5-14.5); Reactive Lymphocytes 5 % (0-10); Red Blood Cell (RBC) Count 3.46 mill/uL (4.70-6.10); White Blood Cell (WBC) Count 31.6 thou/uL (4.8-10.8)
[2020-05-16] MEDS: Mometasone 200 MCG/Formoterol 5 MCG 120 PUFF INHALER INH SCH ×2 (07:34→18:47)
--- NOTE | 2020-05-16 07:52 | RAD ---
EXAM: Single view of the chest HISTORY: Ventilated patient with respiratory failure COMPARISON: 05/14/2020 FINDINGS: Single view of the chest shows a normal sized cardiomediastinal silhouette. Lines and tube s are unchanged in position. Multifocal scattered infiltrates is seen in the lungs, unchanged. There may be small bilateral pleural effusions. There is a small area of oval-shaped lucency projecti ng over the peripheral aspect the right thorax which could represent a loculated pneumothorax or enlarging bulla. No acute osseous abnormality. IMPRESSION: 1. Multifocal infiltrates 2. Lucency projecting over the peripheral aspect of the right lung may represent a loculated pneumoth orax or enlarging bulla
--- NOTE | 2020-05-16 09:11 | CT ---
CHEST CT WITHOUT CONTRAST: HISTORY: COVID pneumonia. COMPARISON: 05/03/2020. FINDINGS: Limited evaluation of the mediastinum due to lack of IV contrast. No mass, lymphadenopathy or hematom a. There is an endotracheal and nasogastric tube. Trace right and small left pleural effusion. Confluent groundglass opacities with areas of consolidation throughout the lung parenchyma. There is a loculated cavitary air-fluid level in the left lower lobe. Adjacent near complete consolidation in the left lower lobe with volume loss. There is consolidation of the right lower lobe and middle lo be. There is a large loculated pneumothorax in the right hemithorax. The cavitary lesion in the right lower lobe measures 2.8 x 2.5 cm. Cavitation in the left lower lobe measures at least 4.9 x 4.9 cm. Subdiaphragmatic structures are grossly unremarkable. No lytic or blastic lesions within the osseous structures. IMPRESSION: 1. Extensive fibrotic changes throughout the lung parenchyma. There are cavitary lesions in the left and right lower lobe. There is an air-fluid level in the left cavitary lung lesion. 2. Loculated right pneumothorax. Transcribed Date/Time: 05/16/2020 9:35 AM
--- NOTE | 2020-05-16 09:29 | PRG ---
DATE OF SERVICE: 05/16/2020 SUBJECTIVE: Esteban Laurent remains intubated in the vent. We had to go up on his FiO2 last night. He is on 75% with low PEEP of 11. His chest x-ray showed what appears to be loculated pneumothorax. I spoke to his in the process of getting a CAT scan. OBJECTIVE: VITAL SIGNS: His temperature 98, respiratory rate 20, sats 90%, blood pressure 119/70. I's and O's have been consistently positive. CHEST: No wheezing, no crackles. CARDIAC: Normal S1, S2. ABDOMEN: No masses. LABORATORY DATA: White count 31,000, H and H 10 and 34, platelet count 341. Lytes are normal, potassium 5.6. We had Nephrology consult the patient. There was concern the blood may be hemolyzed, though we have offered to give him Kayexalate by mouth. IMPRESSION: Progressive respiratory failure, possibly loculated pneumothorax, leukocytosis, elevated potassium. PLAN: He is on broad-spectrum antibiotics for presumed secondary nosocomial infection. Still having ongoing leukocytosis. CT of his chest being ordered to assess whether he got loculated pneumothorax. Prognosis is guarded. I am going to discuss with the when she arrives. One-half hour of critical time. Job ID: [id number]
--- NOTE | 2020-05-16 09:56 | PRG ---
DATE OF SERVICE: 05/16/2020 This is a family conference note with MsDayanna Mehran, Mr. Esteban Laurent' . She was at bedside. He had an emergency CAT scan done which showed a large loculated pneumothorax, right upper lobe. Additionally, multiple bilateral large cysts with some air-fluid level probably from barotrauma. He had a small left-sided pleural effusion which is unusual he is 100% right now, PEEP of 11. More than likely, he has large loculated pneumothorax on the right side, may communicate with the pleural space with hypotension and shock. It is unlikely the chest tube is going to do him any good. I discussed with his at length that the best option at this time is try and make him comfortable, make him a DNR. The prognosis is grave. Job ID: [id number]
--- NOTE | 2020-05-16 10:28 | PDOC.FMACP ---
Advance Care Planning - Problem (1) Palliative care encounter Status: Acute Code(s): Z51.5 - ENCOUNTER FOR PALLIATIVE CARE (2) Acute and chronic respiratory failure with hypoxia Status: Acute Code(s): J96.21 - ACUTE AND CHRONIC RESPIRATORY FAILURE WITH HYPOXIA (3) Acute metabolic encephalopathy Status: Acute Code(s): G93.41 - METABOLIC ENCEPHALOPATHY (4) COVID-19 Status: Acute Code(s): U07.1 - COVID-19 (5) Pneumonia due to COVID-19 virus Status: Acute Code(s): U07.1 - COVID-19; J12.89 - OTHER VIRAL PNEUMONIA (6) Obesity (BMI 30.0-34.9) Status: Chronic Code(s): E66.9 - OBESITY, UNSPECIFIED - Note Participants: family, palliative care Summary: Advanced Care Planning was discussed. The diagnosis, prognosis and goals of care were discussed. Appropriate forms and documentation to accomplish the goals of care were discussed. All questions were answered. Family in agreement to transition to comfort measures. Compassionate extubation. Requesting hospice. Communicated with CM, family elected [facility]. Communicated with pulmonology and hospitalist Discussed process, and what compassionate extubation is at length. Emotional support and therapeutic listening. Time Spent (mins): 40
[2020-05-16] MEDS: MEROPENEM 1 GM/50 ML 1 GM in Premix Bag 1 BAG IVPB SCH ×2 (10:37→16:56)
[2020-05-16] MEDS: Micafungin 100 MG in Sodium Chloride 0.9% 100 ML IVPB SCH (10:37)
[2020-05-16] MEDS: methylPREDNISolone Sod Succ 40 MG VIAL IVP SCH (10:38)
[2020-05-16] MEDS: Docusate Sodium 100 MG/10 ML UDCUP PER TUBE SCH (10:38)
[2020-05-16] MEDS: Zinc Sulfate 220 MG CAP PO SCH (10:38)
[2020-05-16] MEDS: Polyethylene Glycol 3350 17 GM Packet PER TUBE SCH (10:38)
[2020-05-16] MEDS: Famotidine 20 MG TAB PO SCH (10:39)
[2020-05-16] MEDS: Cholecalciferol 1,000 UNITS (25 MCG) TAB PO SCH (10:39)
[2020-05-16] MEDS: Apixaban 5 MG TAB PO SCH (10:39)
[2020-05-16] MEDS: Lorazepam 1 MG TAB PER TUBE SCH (10:39)
[2020-05-16] MEDS: Ascorbic Acid 500 mg Chewable Tablet PO SCH (10:39)
--- NOTE | 2020-05-16 11:26 | PDOC.HOSPP ---
- Subjective Encounter Date: 05/16/20 Encounter Time: 11:25 Subjective: intubated, sedated - Objective Vital Signs & Weight: Vital Signs (12 hours) Temp Pulse Resp BP Pulse Ox 05/16/20 10:00 15 05/16/20 08:00 98.7 F 17 05/16/20 07:32 100 117/70 05/16/20 07:31 100 23 H 90 L 05/16/20 06:00 28 H 05/16/20 04:00 96.8 F L 31 H 05/16/20 02:11 99 14 92 L 05/16/20 02:09 99 05/16/20 02:00 25 H 05/16/20 00:00 97.4 F L 23 H Weight Admit Weight 247 lb Weight 240 lb 11.916 oz Most Recent Monitor Data Heart Rate from ECG 99 NIBP 130/85 NIBP BP-Mean 100 Respiration from ECG 22 SpO2 94 I&O: 05/15/20 05/16/20 05/17/20 06:59 06:59 06:59 Intake Total 2340.4 3370.4 30 Output Total 1240 1480 90 Balance 1100.4 1890.4 -60 Result Diagrams: 05/16/20 03:34 05/16/20 03:34 Radiology Reviewed by me: Yes (CXR- diffuse infiltraes, ET tube, etc, probable R upper chest Pneumothoax) Hospitalist ROS - Medication Medications: Active Medications Generic Name Dose Route Start Last Admin Trade Name Freq PRN Reason Stop Dose Admin Acetaminophen 650 mg 04/09/20 23:48 05/02/20 07:25 Acetaminophen 325 Mg Tab PO 650 mg Q4H PRN Administration Headache/Fever/Mild Pain (1-3) Albuterol/Ipratropium 3 ml 05/03/20 18:30 05/16/20 07:31 Ipratropium/Albuterol Sulfate 3 Ml Neb NEB 3 ml [id number] JASON Administration Apixaban 5 mg 04/30/20 21:00 05/16/20 10:39 Apixaban 5 Mg Tab PO 5 mg BID JASON Administration Ascorbic Acid 1,000 mg 04/10/20 09:00 05/16/20 10:39 Ascorbic Acid 500 Mg Chewable Tablet PO 1,000 mg DAILY JASON Administration Benzonatate 100 mg 04/21/20 08:39 05/01/20 18:36 Benzonatate 100 Mg Cap PO 100 mg Q4H PRN Administration Cough Bisacodyl 10 mg 05/09/20 15:04 05/09/20 17:33 Bisacodyl 10 Mg Supp IL 10 mg Q8H PRN Administration Constipation Cholecalciferol 1,000 units 04/14/20 09:00 05/16/20 10:39 Cholecalciferol 1,000 Units (25 Mcg) Tab PO 1,000 units DAILY JASON Administration Clonidine 0.1 mg 04/09/20 23:48 05/10/20 10:40 Clonidine 0.1 Mg Tab PO 0.1 mg BIDPRN PRN Administration SBP > 160, use second Docusate Sodium 100 mg 05/15/20 09:00 05/16/20 10:38 Docusate Sodium 100 Mg/10 Ml Udcup PER TUBE 100 mg BID JASON Administration Famotidine 20 mg 04/10/20 09:00 05/16/20 10:39 Famotidine 20 Mg Tab PO 20 mg BID JASON Administration Guaifenesin/Dextromethorphan 15 ml 04/09/20 23:48 05/06/20 22:24 Guaifenesin Dm 100-10/5 Ml Udcup PO 15 ml Q4H PRN Administration Cough Hydralazine HCl 10 mg 04/09/20 23:48 05/11/20 01:21 Hydralazine 20 Mg/Ml Vial SLOW IVP 10 mg Q6H PRN Administration SBP GREATER THAN 160 Fentanyl Citrate 2,000 mcg/ 100 mls @ 0 mls/hr 05/03/20 14:45 05/15/20 14:12 Sodium Chloride IV 06/02/20 14:45 100 mls INF JASON Administration Protocol Per Protocol Sodium Chloride 1,000 mls @ 50 mls/hr 05/15/20 07:15 05/15/20 22:00 Normal Saline 0.9% IV 1,000 mls .Q20H JASON Administration Micafungin Sodium 100 mg/ 100 mls @ 100 mls/hr 05/15/20 09:00 05/16/20 10:37 Sodium Chloride IVPB 100 mls 0900 JASON Administration Meropenem 1 gm/ Device 50 mls @ 100 mls/hr 05/16/20 09:00 05/16/20 10:37 IVPB 50 mls 0100,0900,1700 JASON Administration Insulin Human Lispro 0 units 04/10/20 01:51 04/15/20 17:58 Humalog 300 Units/3 Ml Vial SC 2 unit .MILD SLIDING SCALE PRN Administration Mild Correctional Scale Lorazepam 2 mg 05/03/20 14:45 05/16/20 00:04 Lorazepam 2 Mg/Ml Vial SLOW IVP 06/02/20 14:45 2 mg Q1H PRN Administration Breakthrough agitation Lorazepam 1 mg 05/11/20 09:00 05/16/20 10:39 Lorazepam 1 Mg Tab PER TUBE 1 mg BID JASON Administration Methylprednisolone Sodium Succinate 40 mg 05/03/20 21:00 05/16/20 10:38 Methylprednisolone Sod Succ 40 Mg Vial IVP 40 mg BID JASON Administration Mometasone Furoate/Formoterol Fumar 2 puff 04/10/20 18:30 05/16/20 07:34 Mometasone 200 Mcg/Formoterol 5 Mcg 120 Puff Inhaler INH 2 puff BID-RT JASON Administration Morphine Sulfate 2 mg 05/03/20 14:45 05/08/20 00:54 Morphine 2 Mg/Ml Vial SLOW IVP 06/02/20 14:45 2 mg Q1H PRN Administration Breakthrough Pain/Agitation Polyethylene Glycol 17 gm 05/15/20 09:00 05/16/20 10:38 Polyethylene Glycol 3350 17 Gm Packet PER TUBE 17 gm DAILY JASON Administration Propofol 1,000 mg 05/03/20 14:45 05/16/20 10:42 Propofol 1,000 Mg/100 Ml Vial IV 06/02/20 14:45 1,000 mg INF PRN Administration TO ACHIEVE GOAL RASS Protocol Sodium Chloride 10 ml 04/18/20 09:00 05/16/20 10:39 Flush - Normal Saline 10 Ml Syringe IVF 10 ml Q12HR JASON Administration Sterile Water 10 ml 05/03/20 23:24 05/04/20 03:55 Sterile Water 10 Ml Vial FS 10 ml PRN PRN Administration VEC RECON Vecuronium [place] 10 mg 05/04/20 17:57 05/05/20 16:38 Vecuronium 10 Mg Vial IV 10 mg Q1H PRN Administration SEDATION/MOVEMENT Zinc Sulfate 220 mg 04/10/20 09:00 05/16/20 10:38 Zinc Sulfate 220 Mg Cap PO 220 mg DAILY JASON Administration - Exam Neck: no JVD Heart: RRR, no murmur Respiratory - other findings: coarse BS, with diffuse rhonchi Gastrointestinal: soft, non-tender, normal bowel sounds Extremities: 1+ LE edema Hosp A/P (1) Pneumonia due to COVID-19 virus Code(s): U07.1 - COVID-19; J12.89 - OTHER VIRAL PNEUMONIA Status: Acute (2) Acute and chronic respiratory failure with hypoxia Code(s): J96.21 - ACUTE AND CHRONIC RESPIRATORY FAILURE WITH HYPOXIA Status: Acute (3) Acute metabolic encephalopathy Code(s): G93.41 - METABOLIC ENCEPHALOPATHY Status: Acute (4) Hyperglycemia Code(s): R73.9 - HYPERGLYCEMIA, UNSPECIFIED Status: Acute (5) Lactic acidosis Code(s): E87.2 - ACIDOSIS Status: Acute (6) MARZENA (acute kidney injury) Code(s): N17.9 - ACUTE KIDNEY FAILURE, UNSPECIFIED Status: Resolved - Plan prognosis poor, palliative care involved vent dependent on iv steroids sedated , desats on 100 Fio2 without discussed with spouse
[2020-05-16 16:01] VITALS: BP 122/79
[2020-05-16] MEDS ORDERED: Morphine 4 MG/ML VIAL SLOW IVP PRN (17:43)
[2020-05-16] MEDS ORDERED: Lorazepam 2 MG/ML VIAL SLOW IVP PRN (17:45)
[2020-05-16] MEDS: Sodium Chloride 0.9% 1,000 ML IV SCH (18:30)
[2020-05-17 00:24] VITALS: TEMP 96.1
--- NOTE | 2020-05-17 12:16 | DIS ---
DATE OF ADMISSION: 04/09/2020 DATE OF DISCHARGE: 05/16/2020 Transfer of Care. PRIMARY CARE PHYSICIAN: None. DATE OF TRANSFER: Transferred to inpatient hospice, [facility], on 05/16/2020. FINAL DIAGNOSES: COVID-19 pneumonia; acute metabolic encephalopathy; hyperglycemia; hyperkalemia; acute renal failure, resolved; acute tubular necrosis. DISCHARGE MEDICATIONS: Per hospice. CODE STATUS: DNAR. DIET: No restrictions. ACTIVITY: No restrictions. PENDING AT THE TIME OF DISCHARGE: Nothing. CONSULTATIONS: 1. Deacon Bates MD, Infectious Disease. 2. Tyrell Mondragon MD, Pulmonology. PROCEDURES: None. HOSPITAL COURSE: The patient was admitted to the Hospitalist service through [facility] Emergency Room. The patient admitted with shortness of breath, transferred from a local freestanding emergency room. He was noted to be hypoxic. He had been diagnosed with COVID- 19 on 04/05/2020. He has completed his Zithromax and prednisone as outpatient, continued to be symptomatic. At home, his oxygen saturation dropped into the 60s. On non-rebreather, he improved to the 80s. He was put on high-flow O2, given IV Decadron and sent here. His laboratory was remarkable for a minimal elevation of lactic acid 2.4, blood sugar 187. Steroids were continued. Dr. Bates was consulted, 04/10/2020. He was started on remdesivir, given Decadron, recommended a Pulmonary Medicine consult, transferred to [facility]. He was seen the same day by Dr. Tyrell Mondragon. He agreed with high-dose steroids, remdesivir, convalescent plasma. On 04/10/2020, his chest x-ray demonstrated bilateral diffuse infiltrates consistent with COVID-19 pneumonia. His laboratories; white count 3.9, hemoglobin 14.3, platelet count 166,000. His D-dimer was 0.6. It is pertinent to note that it went to greater than 20. His blood gas initially showed mild hypoxemia and a mild elevation of pH. His chemistries demonstrated balanced electrolytes, elevated blood sugars in the 100 to 200 range. Cultures were negative. On 04/13, his x-ray was adverse. He remained in ICU on BiPAP, remdesivir, convalescent plasma, steroids continued. On 04/15, chest x-ray was unchanged. Dr. Bates commented it severe COVID pneumonia requiring noninvasive ventilation. On 04/17, he remained on BiPAP requiring high-dose FiO2. Therapy was continued. On 04/23, situation was stable, as far as chest x-ray went, pulmonology note, COVID pneumonia, acute hypoxic respiratory failure requiring mechanical ventilation with BiPAP and 90% FiO2. At this point, he was on high-flow O2 at 60 L/minute, borderline sats, comfortable at night. Steroids were continued. The patient's chest x-ray showed diffuse dense infiltrates. Laboratory at that time demonstrated a white cell count of 16,000, hemoglobin 13.7, platelet count of 116,000. His chemistries demonstrated sodium of 135, potassium 4.3, CO2 of 30, BUN of 12, creatinine 0.56. Progress note by Dr. Jose De Jesus Hillman states he was short of breath with minimal motion. He was still on high-flow O2 with BiPAP, continued to be on prednisone. He is on Eliquis at this time. He required Accu-Chek, sliding scales. He was given iv antibiotics, required sedation. On 05/03, he had a CT of the chest. No pulmonary emboli. Severe bilateral parenchymal lung disease. Chest x-ray was essentially unchanged. ET tube and NG tube had been placed otherwise, as he had failed noninvasive ventilation. Progress note on 05/[address] Tyrell Mondragon, he had an episode of acute renal failure. Medicines were adjusted for same. His maximum creatinine was on 05/06/2020, which was 2.05. It dropped down to within normal limits by 05/08. Progress note on 05/13/[address] Aly Joseph, Pulmonology. Comment was made that hopefully he could be weaned enough to put in a tracheostomy. The patient failed to improve. His CT became adverse. On 05/16/2020, Dr. Mondragon saw the patient. He had an emergent CT scan, which had shown loculated pneumothorax, large cyst, probably results of barotrauma mechanical ventilation. Palliative Care was consulted. I saw the patient this morning after Palliative Care was consulted. The decision was made by the family, the and one daughter, Elida, to switch him to hospice for palliative extubation later in the day. I have put in the order to transfer the patient to inpatient hospice under [facility]. Medications, etc., per that. Followup will be per hospice. Code status is DNAR. PROGNOSIS: Dismal. 40 minutes spent preparing this discharge. Job ID: [id number] MTDD
--- NOTE | 2020-05-18 08:02 | DIS ---
DATE OF ADMISSION: 04/09/2020 DATE OF DISCHARGE: 05/16/2020 ADDENDUM: on 05/16/2020. The patient failed to get insurance okay for transfer to hospice. The patient remained on the [facility] Hospitalist Service. The patient was extubated per family's desires. The patient ceased heart beat and respirations at 2040 hours and was pronounced . FINAL DIAGNOSES: Final diagnoses were the same. COVID pneumonia, acute respiratory failure, acute renal failure, hyperkalemia. Job ID: [id number]
--- NOTE | 2020-05-18 12:02 | PQF ---
Q56 2019 [facility] Updated: CLINICAL DOCUMENTATION CLARIFICATION FORM: Please check appropriate box(es): [ ] Sepsis due to: (please specify): [ ] COVID-19 Pneumonia [ ] Septic Shock [ ] Localized infection without sepsis [ ] SIRS due to non-infectious process (please specify etiology) [ ] with organ dysfunction [ ] without organ dysfunction [ ] Other diagnosis [ ] Unable to determine In addition, please specify: Present on Admission (POA): [ ] Yes [ ] No [ ] Unable to determine To be completed by CDI/Coding staff for physician review: Present Clinical Indicators - Signs / Symptoms / Labs Results and Location in Medical Record [ ] Altered mental status, increased confusion, obtunded [ ] Fever or hypothermia (<96.8 F/36 C or > 100.4 F/38C) [ x] Respiratory rate >20/min, hypoxemia, and or hypercapnia Hypoxemia- H&P(Aterno)x [x ] Heart Rate/Tachycardia (>90 bpm), SBP<100mmHg Tachycardia/Tachypneic ER report & 04/11 PNx [ ] Acute organ dysfunction/failure [ x ] Metabolic acidosis Lactic Acid >2mmol/L OR 36mg/dL, Elevated lacic acid 04/09 lab 2.4 [ ] Oliguria , increase BUN/Cr, decreased GFR, elevated liver enzymes [ ] Coag abnormalities, thrombocytopenia plts <100k x ] Shock-hypotension resistant to IV fluid boluses Hypotension/shock 05/16 PN, ongoing leukocystosisx [ x ] WBC count (>12,000/mm^4 or <4000/mm^3 or 70% neuts, 10% bands) Elevated WBC -04/13 lab-11.8, 04/29-11.7, 05/02-19.9, 05/05-13.5, 05/10-13.2 [ x ] Hyperglycemia in absence of diabetes mellitus Hyperglycemia H&P [ ] Positive blood cultures Present Risk Factors Results and Location in Medical Record [ x ] Infection/Bacteremia COVID-19-H&P, PN, DS [ x ] Pneumonia, UTI, infected wound, gangrenous gall bladder Diabetes or Cancer Pneumonia H&P, DS [ ] Surgery / surgical instrumentation / trauma Ruptured/perforated bowel, ruptured appendix [ ] Immunosuppression [ ] Advancing Age Present Treatments Results and Location in Medical Record [ ] Initiation Sepsis Protocol ICU [ x ] Daily CBC, blood/sputum/wound cx Lab [ ] ID Consult [ x] IV Antibiotics broad spectrum IV Levaquin-H&P, IV Decadron [ x ] IV ?uids PN [ ] Vasopressors, meds [ x ] Consultants; ID, GI, Pulmonary, Hematology COVID-19 pneumonia -04/10(Jana) CDS/Steward/Stewardess Wine Signature: Hilary Corbett Phone #: [phone] Date/Time: 05/18/2020 This is a permanent part of the Medical Record [facility]
== END 2020-05-16 20:40 | disposition expired | DRG 207 ==
LOC: ERS 19:07 → T4-B 21:17 → CCU 04-10 21:52
PROVIDERS: ADMIT Internal Medicine; ATTEND Internal Medicine
PROC: 8E0ZXY6 Isolation (ICD-10-PCS; 2020-04-09)
PROC: XW033E5 Introduction of Remdesivir Anti-infective into Peripheral Vein, Percutaneous Approach, New Technology Group 5 (ICD-10-PCS; 2020-04-10)
PROC: XW13325 Transfusion of Convalescent Plasma (Nonautologous) into Peripheral Vein, Percutaneous Approach, New Technology Group 5 (ICD-10-PCS; 2020-04-14)
PROC: 5A1955Z Respiratory Ventilation, Greater than 96 Consecutive Hours (ICD-10-PCS; principal; 2020-05-03)
PROC: 5A09557 Assistance with Respiratory Ventilation, Greater than 96 Consecutive Hours, Continuous Positive Airway Pressure (ICD-10-PCS; 2020-05-03)
PROC: 0BH18EZ Insertion of Endotracheal Airway into Trachea, Via Natural or Artificial Opening Endoscopic (ICD-10-PCS; 2020-05-03)
PROC: 0B9F8ZZ Drainage of Right Lower Lung Lobe, Via Natural or Artificial Opening Endoscopic (ICD-10-PCS; 2020-05-03)
PROC: 0B9C8ZZ Drainage of Right Upper Lung Lobe, Via Natural or Artificial Opening Endoscopic (ICD-10-PCS; 2020-05-03)
PROC: 0B9D8ZZ Drainage of Right Middle Lung Lobe, Via Natural or Artificial Opening Endoscopic (ICD-10-PCS; 2020-05-03)
PROC: 0B9J8ZZ Drainage of Left Lower Lung Lobe, Via Natural or Artificial Opening Endoscopic (ICD-10-PCS; 2020-05-03)
PROC: 0B9G8ZZ Drainage of Left Upper Lung Lobe, Via Natural or Artificial Opening Endoscopic (ICD-10-PCS; 2020-05-03)
DX: U07.1 COVID-19 (principal); J12.82 Pneumonia due to coronavirus disease 2019; J80 Acute respiratory distress syndrome; G93.41 Metabolic encephalopathy; N17.0 Acute kidney failure with tubular necrosis; E87.2 Acidosis; E87.1 Hypo-osmolality and hyponatremia; J90 Pleural effusion, not elsewhere classified; J93.9 Pneumothorax, unspecified; Z99.11 Dependence on respirator [ventilator] status; Z66 Do not resuscitate; Z51.5 Encounter for palliative care; E87.6 Hypokalemia; R73.9 Hyperglycemia, unspecified; Z96.641 Presence of right artificial hip joint; E66.01 Morbid (severe) obesity due to excess calories; F41.9 Anxiety disorder, unspecified; K59.00 Constipation, unspecified; D72.829 Elevated white blood cell count, unspecified; Z99.81 Dependence on supplemental oxygen; Z68.32 Body mass index [BMI] 32.0-32.9, adult; Z98.1 Arthrodesis status; Z78.1 Physical restraint status
CPT/HCPCS: 36415; 36416; 36430; 36600; 70470; 71045; 71250; 71275; 80048; 80053; 82550; 82728; 82805; 83036; 83605; 83735; 83880; 84100; 84484; 85025; 85379; 86140; 86850; 86900; 86901; 87040; 87070; 87205; 93005; 93010; 94002; 94003; 94660; 96365; J0360; J0692; J0696; J1100; J1650; J1940; J1956; J2060; J2185; J2248; J2270; J2704; J2920; J3010; J3490; J7050; J7512; J7620; P9017; P9047; Q9967